=== PATIENT | male | born 1940 | race Caucasian/White ===

== ENCOUNTER 2019-05-16 08:52 | Outpatient (CLI) | payer MEDICARE, SELFPAY ==
[2019-05-16 09:15] VITALS: BP 135/85; PULSE 58; RESP 18; TEMP 36.4; O2SAT 95
[2019-05-16 10:45] VITALS: BP 118/73; PULSE 61; RESP 16; TEMP 36.4; O2SAT 94
== END 2019-05-16 08:53 | disposition home or self-care (01) ==
LOC: RHEOACUTE 08:53
PROVIDERS: Family Provider Family Medicine; PCP Family Medicine; Visit Provider Internal Medicine Rheumatology
DX: M05.9 Rheumatoid arthritis with rheumatoid factor, unspecified (principal); Z79.899 Other long term (current) drug therapy
CPT/HCPCS: 36415; 82565; 84460; 85651; 86140; 96365; J1602

== ENCOUNTER 2019-05-16 16:21 | Outpatient (REF) | payer MEDICARE, SELFPAY ==
[2019-05-16 22:13] LABS: Alanine Aminotransferase 10 U/L (0-41); Albumin Level 4.2 g/dL (3.5-5.2); Alkaline Phosphatase 68 IU/L (40-130); Anion Gap 20.3 (5-19); Aspartate Amino Transferase 16 U/L (0-40); Blood Urea Nitrogen 20 mg/dL (8-23); Calcium 9.3 mg/dL (8.5-10.5); Carbon Dioxide 24 mmol/L (22-29); Chloride 96 mmol/L (98-107); Chol HDL Ratio 5.32 mg/dL (1.0-5.00); Cholesterol 218 mg/dL (0-200); Globulin 2.3 g/dL (1.3-4.6); Glucose 163 mg/dL (65-115); HDL Cholesterol 41 mg/dL (60-100); LDL Cholesterol Calculated 158 mg/dL (50-129); LDL HDL Ratio 3.85 RATIO (0.00-3.22); Potassium 4.3 mmol/L (3.5-5.1); Sodium 136 mmol/L (136-145); Total Bilirubin 0.7 mg/dL (0.15-1.2); Total Protein 6.5 g/dL (6.6-8.7); Triglycerides 95 mg/dL (0-150)
[2019-05-16 22:18] LABS: Estmated Average Glucose 114; Hemoglobin A1C 5.6 % (4.0-6.0)
== END 2019-05-16 16:22 | disposition home or self-care (01) ==
LOC: LAB 16:21
PROVIDERS: Family Provider Family Medicine; PCP Family Medicine; Visit Provider Family Medicine
DX: E78.5 Hyperlipidemia, unspecified (principal); I25.10 Atherosclerotic heart disease of native coronary artery without angina pectoris; E11.9 Type 2 diabetes mellitus without complications
CPT/HCPCS: 80053; 80061; 83036; 85025

== ENCOUNTER 2019-07-11 13:02 | Outpatient (CLI) | payer MEDICARE, SELFPAY ==
[2019-07-11 13:05] VITALS: BP 143/86; PULSE 60; RESP 16; TEMP 36.8; O2SAT 95
[2019-07-11 14:45] VITALS: BMI 26.4
[2019-07-11 14:49] VITALS: BP 123/75; PULSE 60; RESP 18; TEMP 36.6
== END 2019-07-11 13:03 | disposition home or self-care (01) ==
LOC: RHEOACUTE 13:04
PROVIDERS: Family Provider Family Medicine; PCP Family Medicine; Visit Provider Internal Medicine Rheumatology
DX: M05.79 Rheumatoid arthritis with rheumatoid factor of multiple sites without organ or systems involvement (principal)
CPT/HCPCS: 36415; 96365; J1602

== ENCOUNTER → 2019-07-11 13:07 | Outpatient (BNVA) | payer MEDICARE, SELFPAY | PROVIDERS: Family Provider Family Medicine; PCP Family Medicine; Visit Provider Internal Medicine Rheumatology | DX: Z79.899 Other long term (current) drug therapy (principal); M05.79 Rheumatoid arthritis with rheumatoid factor of multiple sites without organ or systems involvement | CPT/HCPCS: 36415; 80076; 82565; 85025; 85651; 86140; 96365; J1602 ==

== ENCOUNTER 2019-08-23 10:29 | Inpatient (IN) | payer MEDICARE, SELFPAY ==
[2019-08-23] VITALS (7 sets, daily range): BP systolic 98–152; BP diastolic 64–92; PULSE 89–114; RESP 20–32; TEMP 36.6–37.1; O2SAT 90–99; BMI 25.0
--- NOTE | 2019-08-23 10:58 | XR_ITS ---
WS: [id number] PORTABLE CHEST HISTORY: SOB COMPARISON: 08/18/2018 Lungs are clear and well expanded. No pleural effusion or pneumothorax. Cardiac size: Normal. Mediastinum/Aorta: Mild atherosclerosis aorta. Osteopenia. Prior LEFT humeral head prosthesis placement. XR/XR chest 1V portable [id number] IMPRESSION: Partially calcified aorta. Otherwise negative.
--- NOTE | 2019-08-23 10:58 | ECG_ITS ---
Measurements Intervals [place] Rate: 106 P: 53 [place]: 191 QRS: -53 QRSD: 117 T: 68 QT: 329 QTc: 438 SINUS TACHYCARDIA WITH OCCASIONAL VENTRICULAR PREMATURE COMPLEXES LEFT ANTERIOR FASCICULAR BLOCK [QRS AXIS <= -45, QR IN I, RS IN II] Compared to ECG 08/18/2018 16:05:34 Ventricular premature complex(es) now present Sinus rhythm no longer present Electronically Signed On 08-23-2019 19:54:28 CDT by Maria G Stoddard M.D. [email or web address]
--- NOTE | 2019-08-23 11:16 | ED_ITS ---
HPI - SOB/Dyspnea General: Chief Complaint: Shortness of Breath/Dyspnea Stated Complaint: sob Time Seen by Provider: 08/23/19 10:54 History of Present Illness: HPI Narrative: Patient presents with complaints of shortness of breath, trouble urinating and being unable to walk due to weakness. He reports that he started having trouble with urinating about 2 weeks ago - he says he can't make it to the bathroom without urine dribbling out, but when he gets to the bathroom he can't go. In the past few days he has gotten to where he can't walk due to weakness in his legs. He has had chronic back pain for several years. His shortness of breath is also worse and he has been coughing a lot - a teacupful of white sputum every day. He used to have oxygen at home but then they took it away and told him he didn't need it anymore. MD elicited complaint: shortness of breath and cough Pertinent past history: COPD and other (RA) Timing: constant Severity: moderate Exacerbating factors: nothing Associated symptoms: Deny abdominal pain, chest pain, fever(s), nausea or vomiting Review of Systems General: Reports: 10 or more systems reviewed and unremarkable except in HPI and below Const: Reports: fatigue; Denies: fever(s), chills or malaise Eyes: Denies: change in vision ENMT: Denies: odynophagia Card: Denies: chest pain or swelling of feet/ankles Resp: Reports: dyspnea and productive cough; Denies: non-productive cough GI: Denies: abdominal pain, nausea or vomiting : Reports: urinary urgency, urinary dribbling and difficulty starting urination; Denies: flank pain Musc: Reports: back pain; Denies: neck pain Skin/Breast: Denies: rash Neuro: Reports: weakness in extremities, difficulty walking and frequent falls; Denies: headache(s) or numbness in extremities [place]/Lymph: Denies: easy bruising or easy bleeding [facility] ED PFSH: Medical History Amputation finger High risk medication use Lipoma of skin and subcutaneous tissue (excluding face) PAD (peripheral artery disease) Rheumatoid arthritis Surgical History H/O cataract extraction H/O shoulder surgery History of appendectomy S/P angioplasty with stent Family History Other Diabetes Hypertension Social History Smoking and tobacco status: current every day smoker Alcohol intake: never Physical Exam Const: COMMON NORMALS: no acute distress, patient oriented x3, no limitations and alert GENERAL APPEARANCE: cooperative and comfortable HENMT: HEAD & SCALP: normal to inspection FACE & SINUS: normal facial exam Eye: GENERAL EYE: appearance normal, both eyes and all related structures Neck/C-Spine: COMMON NORMALS: supple, no meningeal signs and no JVD Chest: COMMONS NORMALS: normal inspection of the chest Resp: COMMON NORMALS: normal respiratory effort and No use of accessory muscles AUSCULTATION: wheezes Cardio: COMMON NORMALS: no JVD, regular rate, regular rhythm and No murmurs present (Cardio) RATE: regular rate RHYTHM: regular rhythm GI: COMMON NORMALS: Normal to inspection, nondistended, normoactive bowel sounds present, Soft to palpation and non-tender INSPECTION: Yes normal to inspection AUSCULTATION: Yes normoactive bowel sounds PALPATION: Yes Soft to palpation Back/Pelvis: COMMON NORMALS: thoracic and lumbar spine normal to inspection Extremity: COMMON NORMALS: normal to inspection Neuro: COMMON NORMALS: patient oriented x3, moves all extremities, no focal motor deficits and no sensory deficits noted SENSORIUM/ORIENTATION: Yes alert MENINGEAL SIGNS: Yes no meningeal signs Psych: COMMON NORMALS: mental status grossly normal, cooperative and normal affect Skin: COMMON NORMALS: no rashes or lesions noted and turgor normal GENERAL SKIN EXAM: no rashes or lesions noted and turgor normal Course ED course: Patient appears to be weak secondary to a urinary tract infection and some dehydration. He does not appear to be in overt sepsis but he does have a low blood pressure and a slightly elevated lactate. This will need to be monitored to make sure it is improving with treatment. In the ED he was given IV fluids, IV Rocephin and pain medicine. He has chronic back pain and requested treatment for that. His sats are good and his chest x-ray was unremarkable. He will be admitted to the hospitalist service for further management. Vital Signs: Vital signs: Vital Signs Temperature 98.5 F 08/23/19 10:46 Pulse Rate 96 08/23/19 13:06 Respiratory Rate 26 H 08/23/19 13:06 Blood Pressure 98/73 08/23/19 13:06 Pulse Oximetry 94 08/23/19 13:06 MDM - SOB/Dyspnea Lab Data: Labs: Lab Results 08/23/19 08/23/19 08/23/19 Range/Units 11:20 11:27 11:27 WBC 16.2 H (4.0-10.0) 10^3/ uL RBC 4.17 (4.1-5.3) 10^6/u L Hgb 12.3 (11.7-16.6) g/dL Hct 37.6 L (42.0-52.0) % MCV 90.2 (80-94) fL MCH 29.5 (28.0-34.0) pg MCHC 32.7 (30.0-36.0) g/dL RDW 16.0 H (12.1-15.1) % Plt Count 155 (130-400) 10^3/c mm MPV 11.9 H (7.4-10.4) fL Neut % (Auto) 85.4 % Lymph % (Auto) 2.0 % [place] % (Auto) 6.3 % Eos % (Auto) 0.1 % Baso % (Auto) 0.4 % Neut # (Auto) 13.9 H (1.8-7.7) 10^3/u L Lymph # (Auto) 0.3 L (0.8-4.8) 10^3/u L [place] # (Auto) 1.0 H (0.2-0.9) 10^3/u L Eos # (Auto) 0.0 (0.0-0.8) 10^3/u L Baso # (Auto) 0.1 (0.0-0.1) 10^3/u L Nucleated RBC % (a uto) 0 % Nucleated RBCs # 0.0 /100WBC Sodium 132 L (136-145) mmol/L Potassium 3.7 (3.5-5.1) mmol/L Chloride 93 L (98-107) mmol/L Carbon Dioxide 22 (22-29) mmol/L Anion Gap 20.7 H (5-19) BUN 33 H (8-23) mg/dL Creatinine 1.4 H (0.7-1.2) mg/dL Glucose 143 H (65-115) mg/dL Calculated Osmolal ity 274 L (285-295) mOsm/k g Lactate (0.5-2.2) mmol/L Calcium 8.3 L (8.5-10.5) mg/dL Total Bilirubin 1.2 (0.15-1.2) mg/dL AST 35 (0-40) U/L ALT 22 (0-41) U/L Alkaline Phosphata se 83 (40-130) IU/L Troponin T Baselin e (0-15) ng/mL NT-Pro-B Natriuret Pep 2264 H (0-450) pg/mL Total Protein 5.9 L (6.6-8.7) g/dL Albumin 3.2 L (3.5-5.2) g/dL Globulin 2.7 (1.3-4.6) g/dL Urine Color Yellow (Yellow) Urine Appearance Hazy A (CLEAR) Urine pH 5 (5-7) Ur Specific Gravit y 1.015 (1.005-1.030) Urine Protein 1+ H (Negative) Urine Glucose (UA) Norm (Normal) Urine Ketones 1+ H (Negative) Urine Blood 2+ H (Negative) Urine Nitrate Negative (Negative) Urine Bilirubin Neg (NEGATIVE) Urine Urobilinogen 1 H (Negative) mg/dL Ur Leukocyte Dee ase 1+ H (Negative) Urine RBC 0-4 H (0-2) /hpf Urine WBC 40-55 H (0-5) /hpf Ur Squamous Epith Cells 0-4 H (0-5) Urine Bacteria 4+ H (NONE) 08/23/19 08/23/19 Range/Units 11:27 11:27 WBC (4.0-10.0) 10^3/ uL RBC (4.1-5.3) 10^6/u L Hgb (11.7-16.6) g/dL Hct (42.0-52.0) % MCV (80-94) fL MCH (28.0-34.0) pg MCHC (30.0-36.0) g/dL RDW (12.1-15.1) % Plt Count (130-400) 10^3/c mm MPV (7.4-10.4) fL Neut % (Auto) % Lymph % (Auto) % [place] % (Auto) % Eos % (Auto) % Baso % (Auto) % Neut # (Auto) (1.8-7.7) 10^3/u L Lymph # (Auto) (0.8-4.8) 10^3/u L [place] # (Auto) (0.2-0.9) 10^3/u L Eos # (Auto) (0.0-0.8) 10^3/u L Baso # (Auto) (0.0-0.1) 10^3/u L Nucleated RBC % (a uto) % Nucleated RBCs # /100WBC Sodium (136-145) mmol/L Potassium (3.5-5.1) mmol/L Chloride (98-107) mmol/L Carbon Dioxide (22-29) mmol/L Anion Gap (5-19) BUN (8-23) mg/dL Creatinine (0.7-1.2) mg/dL Glucose (65-115) mg/dL Calculated Osmolal ity (285-295) mOsm/k g Lactate 2.9 H (0.5-2.2) mmol/L Calcium (8.5-10.5) mg/dL Total Bilirubin (0.15-1.2) mg/dL AST (0-40) U/L ALT (0-41) U/L Alkaline Phosphata se (40-130) IU/L Troponin T Baselin e 27 H (0-15) ng/mL NT-Pro-B Natriuret Pep (0-450) pg/mL Total Protein (6.6-8.7) g/dL Albumin (3.5-5.2) g/dL Globulin (1.3-4.6) g/dL Urine Color (Yellow) Urine Appearance (CLEAR) Urine pH (5-7) Ur Specific Gravit y (1.005-1.030) Urine Protein (Negative) Urine Glucose (UA) (Normal) Urine Ketones (Negative) Urine Blood (Negative) Urine Nitrate (Negative) Urine Bilirubin (NEGATIVE) Urine Urobilinogen (Negative) mg/dL Ur Leukocyte Dee ase (Negative) Urine RBC (0-2) /hpf Urine WBC (0-5) /hpf Ur Squamous Epith Cells (0-5) Urine Bacteria (NONE) Discharge Plan Discharge Prescriptions: No Action hydrocodone-acetaminophen 7.5-325 mg tablet 1 tab PO TID PRN (Reason: Pain) RF: 0 amlodipine 2.5 mg tablet 2.5 mg PO DAILY RF: 0 aspirin 81 mg tablet,delayed release (DR/EC) 81 mg PO DAILY RF: 0 pantoprazole 40 mg tablet,delayed release (DR/EC) 40 mg PO DAILY RF: 0 ergocalciferol (vitamin D2) 50,000 unit capsule 50,000 unit PO Q30D RF: 0 albuterol sulfate 2.5 mg /3 mL (0.083 %) solution for nebulization 2.5 mg INHALATION Q4H PRN (Reason: Shortness Of Breath) RF: 0 alprazolam 0.25 mg tablet 0.25 mg PO DAILY RF: 0 tamsulosin 0.4 mg capsule 0.4 mg PO DAILY RF: 0 sulfasalazine 500 mg tablet 1 gm PO BID Qty: 120 RF: 3 nitroglycerin [Nitrostat] 0.4 mg tablet, sublingual 0.4 mg SUBLINGUAL Q5M PRN (Reason: chest pain) Qty: 25 RF: 0 prednisone 5 mg tablet 10 mg PO DAILY Qty: 60 RF: 0 Kevzara 200 mg/1.14 mL pen injector 200 mg SUBCUT Q14D RF: 0 Referrals: Vasu Ramsay MD [Primary Care Provider] - Coding Level of Care Code ED Educator Senior Clinical for Chg Fwd Exam Comprehensive
[2019-08-23 11:35] LABS: Basophils # 0.1 10^3/uL (0.0-0.1); Basophils % 0.4 %; Eosinophils % 0.1 %; Hematocrit 37.6 % (42.0-52.0); Hemoglobin 12.3 g/dL (11.7-16.6); Lymphocytes # 0.3 10^3/uL (0.8-4.8); Mean Corpuscular HGB Conc 32.7 g/dL (30.0-36.0); Mean Corpuscular Hemoglobin 29.5 pg (28.0-34.0); Mean Corpuscular Volume 90.2 fL (80-94); Mean Platelet Volume 11.9 fL (7.4-10.4); Monocytes % 6.3 %; Neutrophils # 13.9 10^3/uL (1.8-7.7); Neutrophils % 85.4 %; Nucleated Red Blood Cells % 0 %; Platelet Count 155 10^3/cmm (130-400); Red Blood Count 4.17 10^6/uL (4.1-5.3); White Blood Count 16.2 10^3/uL (4.0-10.0)
[2019-08-23 11:45] LABS: Protein Urine 1+ (Negative); Specific Gravity, Urine 1.015 (1.005-1.030); Urine Appearance Hazy (CLEAR); Urine Color Yellow (Yellow); pH Urine 5 (5-7)
[2019-08-23 11:46] LABS: Add Urine Microscopic? YES; Bilirubin Urine Neg (NEGATIVE); Blood Urine 2+ (Negative); Glucose Urine UA Norm (Normal); Ketones Urine 1+ (Negative); Leukocyte Esterase Urine 1+ (Negative); Nitrate Urine Negative (Negative); Urobilinogen Urine 1 mg/dL (Negative)
[2019-08-23 11:49] LABS: Lactate (Lactic Acid level) 2.9 mmol/L (0.5-2.2)
[2019-08-23 11:52] LABS: Troponin(5th) Baseline 27 ng/mL (0-15)
[2019-08-23 11:55] LABS: Slide Review Slide Review Perform
[2019-08-23 11:56] LABS: Add Urine Culture? Yes; Bacteria Urine 4+; RBC Urine 0-4 /hpf (0-2); Squamous Epithelial Cell Urine 0-4 (0-5); WBC Urine 40-55 /hpf (0-5)
[2019-08-23 12:00] LABS: Alanine Aminotransferase 22 U/L (0-41); Albumin Level 3.2 g/dL (3.5-5.2); Alkaline Phosphatase 83 IU/L (40-130); Anion Gap 20.7 (5-19); Aspartate Amino Transferase 35 U/L (0-40); Blood Urea Nitrogen 33 mg/dL (8-23); Calcium 8.3 mg/dL (8.5-10.5); Carbon Dioxide 22 mmol/L (22-29); Chloride 93 mmol/L (98-107); Globulin 2.7 g/dL (1.3-4.6); Glucose 143 mg/dL (65-115); NT Pro B Type Natriuretic Pept 2264 pg/mL (0-450); Osmolality Calculated 274 mOsm/kg (285-295); Potassium 3.7 mmol/L (3.5-5.1); Sodium 132 mmol/L (136-145); Total Bilirubin 1.2 mg/dL (0.15-1.2); Total Protein 5.9 g/dL (6.6-8.7)
[2019-08-23] MEDS: sodium chloride 0.9% 1,000 ML 999 ML IV (13:01)
[2019-08-23] MEDS: cefTRIAXone 1,000 MG in sodium chloride 0.9% (plus) 50 ML 100 MG IV (13:01)
[2019-08-23] MEDS: ondansetron 2 mg/ML SDV 2 mL 4 MG IVP (13:02)
[2019-08-23] MEDS: morphine 4 mg/mL SDV 1 mL IVP (13:02)
--- NOTE | 2019-08-23 13:20 | P.HP_ITS ---
Providers/Chief Complaint Admitting Physician: Diana Dick MD Primary Care Provider: Vasu Ramsay MD Chief Complaint: Generalized weakness History of Present Illness Chinmay Guerrier is a 78 year old male with PMHx of CAD s/p stenting, HTN, Seropositive RA, Chronic smoker, COPD; presents from home for evaluation of progressive generalized weakness, multiple falls, urinary hesitancy, urgency over the past 4 to 5 days. He has had decreasing oral intake due to diminished appetite and generally has been feeling quite unwell. He had scheduled an appointment with his primary care provider Dr. Ramsay today but due to feeling even worse this morning decided to come to the ER for evaluation. He lives at home with his , daughter assists as needed and is typically quite independe nt. Typically ambulates with a cane/walker but has found that over the past few days whenever he tries to ambulate he feels his legs give out on him and ends up falling. He denies preceding chest pain, shortness of breath, dizziness/lightheadedness prior to fall. He has noticed difficulty initiating urine stream, hesitancy, incomplete emptying, urgency as well as nausea. He denies any fever/chills, abdominal pain, vomiting, hematuria, dysuria, change in parents or smell of urine. He reports being chronically short of breath with productive cough, white sputum which has been unchanged. He is not oxygen dependent at baseline. He is a good historian when assessed in the ER, collateral information obtained from review of medical record. He is on chronic prednisone, recently started on sulfasalazine and on Simponi Aria infusions, follows up with Dr. Guzman. He follows up with Dr. Godinez as his primary academic records specialist, recent had a Holter monitor showing baseline sinus rhythm with PV Cs. On evaluation in the ER he was noted to be mildly tachycardic, tachypneic, with noted leukocytosis with a white count of 16.2, mild hyponatremia with a sodium of 132, BUN of 33, creatinine of 1.4, blood glucose of 143, lactate of 2.9, BNP of 2264, troponins with negative delta. Chest x-ray is unremarkable, UA is indicative of infection. He has received a dose of ceftriaxone as well as a 1 L normal saline bolus, 4 mg dose of IV morphine and a dose of Zofran. He is not ill-appearing and does not appear to be in any acute distress. Most recent vital signs show a blood pressure of 98/73, heart rate of 96, temperature of 98.5, he is currently on room air and saturating at 94%. He requires admission for further treatment of UTI with associated sepsis as evidenced by tachycardia, leukocytosis, lactic acidosis, MITA, tachypnea. Discussed CODE STATUS and he is agreeable to CPR and chest compressions but does not desire intubation. Review of Systems Const: Reports: change in appetite (decreased appetite), fatigue and malaise; Denies: fever(s) or chills Eyes: Denies: change in vision ENMT: Reports: dry mouth; Denies: odynophagia Card: Denies: chest pain, swelling of feet/ankles or lightheadedness Resp: Reports: dyspnea (chronic, no change) and productive cough (white sputum) GI: Denies: abdominal pain, nausea, vomiting, hematemesis or hematochezia : Reports: urinary urgency, urinary hesitancy and difficulty starting urination; Denies: dysuria, urinary frequency or hematuria Musc: Denies: back pain Skin/Breast: Denies: rash Neuro: Reports: weakness in extremities (bilateral LEs) and frequent falls; Denies: numbness in extremities Psych: Denies: anxiety Medications/Allergies Home Medications Medication Instructions Recorded Confirmed Last Taken Type albuterol sulfate 2.5 mg INHALATION Q4H PRN 04/19/19 08/23/19 Unknown History alprazolam 0.25 mg tablet 0.25 mg PO DAILY 04/19/19 08/23/19 08/22/19 History amlodipine 2.5 mg tablet 2.5 mg PO DAILY 04/19/19 08/23/19 08/23/19 History aspirin 81 mg tablet,delayed 81 mg PO DAILY 04/19/19 08/23/19 08/22/19 History release ergocalciferol (vitamin D2) 1,250 50,000 unit PO Q30D cap 04/19/19 08/23/19 Unknown History mcg (50,000 unit) capsule hydrocodone 7.5 mg-acetaminophen 1 tab PO TID PRN 04/19/19 08/23/19 Unknown History 325 mg tablet pantoprazole 40 mg tablet,delayed 40 mg PO DAILY 04/19/19 08/23/19 08/23/19 History release tamsulosin 0.4 mg capsule 0.4 mg PO DAILY 04/19/19 08/23/19 08/22/19 History nitroglycerin 0.4 mg sublingual 0.4 mg SUBLINGUAL Q5M PRN #25 tab 04/20/19 08/23/19 Unknown Rx tablet sulfasalazine 500 mg tablet 1 gm PO BID #120 tab 06/20/19 08/23/19 Unknown Rx prednisone 5 mg tablet 10 mg PO DAILY #60 tab 07/10/19 08/23/19 08/23/19 Rx sarilumab [Kevzara] 200 mg SUBCUT Q14D 08/23/19 08/23/19 Unknown History Allergies Allergy/AdvReac Type Severity Reaction Status Date / Time atorvastatin [From Lipitor] Allergy unknown Verified 04/19/19 16:02 ezetimibe [From Vytorin] Allergy unknown Verified 04/19/19 16:01 niacin Allergy unknown Verified 04/19/19 16:01 [From Niaspan Extended-Release] ranitidine Allergy unknown Verified 04/19/19 16:03 rosuvastatin [From Crestor] Allergy unknown Verified 04/19/19 16:02 simvastatin [From Vytorin] Allergy unknown Verified 04/19/19 16:01 PFSH Acute PFSH: Medical History (Updated 08/23/19 @ 13:38 by Diana Dick MD) Abdominal aortic atherosclerosis Amputation finger Atrial myxoma CAD (coronary artery disease) High risk medication use HTN (hypertension) Hyperlipemia Lipoma of skin and subcutaneous tissue (excluding face) PAD (peripheral artery disease) Rheumatoid arthritis seropositive Surgical History (Updated 08/23/19 @ 13:28 by Diana Dick MD) H/O cataract extraction H/O shoulder surgery left H/O: vasectomy History of appendectomy S/P angioplasty with stent x 3 stents Family History (Updated 08/23/19 @ 13:28 by Diana Dick MD) Father Lung disease COPD Other Diabetes Hypertension Social History (Updated 08/23/19 @ 13:29 by Diana Dick MD) Smoking and tobacco status: current every day smoker cigarettes Number of cigarettes per day: 1-5 Alcohol intake: never Substance/Drug Use: never Household members: spouse Marital status: Current occupational status: retired Vitals/I&O/Wt Last Vital Signs Temp 98.5 F 08/23/19 10:46 Pulse 96 08/23/19 13:06 Resp 26 H 08/23/19 13:06 BP 98/73 08/23/19 13:06 Pulse Ox 94 08/23/19 13:06 Weight last 48 hrs Weight 72.575 kg Physical Exam Const: COMMON NORMALS: no acute distress, patient oriented x3 and alert GENERAL APPEARANCE: cooperative and comfortable; not ill appearing NUTRITIONAL APPEARANCE: overweight ORIENTATION/CONSCIOUSNESS: Yes awake OTHER: -looks appropriate for age HENMT: COMMON NORMALS: normocephalic, atraumatic and moist oral mucous membranes HEAD & SCALP: normocephalic and atraumatic GENERAL EAR: hearing grossly impaired Laterality: bilateral Eye: COMMON NORMALS: Equal, round and reactive pupils present, EOMs intact bilaterally and conjunctivae normal CONJUNCTIVA: Yes conjunctivae normal PUPIL: Yes Equal, round and reactive pupils present Neck/C-Spine: COMMON NORMALS: full ROM GENERAL: Yes normal visual inspection and Yes trachea midline Chest: CHEST: Yes Symmetrical chest wall rise Resp: COMMON NORMALS: normal respiratory effort, No retractions, No use of accessory muscles and clear to auscultation bilaterally EFFORT & INSPECTION: Yes able to speak in complete sentences, Yes symmetric chest movement and No tachypneic AUSCULTATION: clear to auscultation bilaterally OTHER: -on RA Cardio: COMMON NORMALS: regular rate, regular rhythm, S1 normal heart sound present and S2 normal heart sound present RATE: regular rate RHYTHM: regular rhythm HEART SOUNDS: S1 normal heart sound present, S2 normal heart sound present and Murmur heart sound present systolic GI: COMMON NORMALS: Normal to inspection, nondistended, normoactive bowel sounds present, Soft to palpation and non-tender INSPECTION: Yes central obesity PALPATION: Yes Soft to palpation : BLADDER/KIDNEY EXAM: No catheter in place Extremity: COMMON NORMALS: normal to inspection, full ROM, no clubbing, cyanosis or edema and no pedal edema Neuro: COMMON NORMALS: patient oriented x3, moves all extremities, no focal motor deficits and no sensory deficits noted Psych: COMMON NORMALS: mental status grossly normal, Normal thought process present, cooperative, normal affect and speech normal SPEECH: Yes normal speech THOUGHT PROCESS: Normal thought process present Skin: COMMON NORMALS: no rashes or lesions noted, no jaundice, no petechiae and no mottling GENERAL SKIN EXAM: no rashes or lesions noted Sepsis: Is patient septic: Yes Focused sepsis exam performed: Yes Date exam was performed: 08/23/19 Time exam was performed: 13: Data : 08/23/19 11:27 08/23/19 11:27 A&P Assessment and plan (1) UTI (urinary tract infection): -UA indicative of infection -associated sepsis given lactic acidosis, leukocytosis, tachycardia, tachypnea, MITA -noted leukocytosis with neutrophilic predominance, trend WBC -monitor vital signs -received dose of Ceftriaxone in ED, continue this -f/u urine cx; order blood cx -IVF hydration Status: Acute Qualifiers: Urinary tract infection type: acute cystitis Hematuria presence: without hematuria Qualified Code(s): N30.00 - Acute cystitis without hematuria (2) Generalized weakness: -likely secondary to acute infection given recent onset -treatment of infection as noted above -typically ambulates with cane/walker -fall precautions -up with assist, PT/OT evaluations Status: Acute (3) HTN (hypertension): -low normal BP currently, continue to monitor -hold Amlodipine for now to avoid hypotension Status: Chronic Qualifiers: Hypertension type: essential hypertension Qualified Code(s): I10 - Essential (primary) hypertension (4) CAD (coronary artery disease): -CAD s/p stenting x 3 -follows up with Dr. Godinez -had recent Holter monitor which showed baseline normal sinus rhythm with PVCs -resume aspirin, has allergy to multiple statins Status: Chronic Qualifiers: Coronary Disease-Associated Artery/Lesion type: [place] artery [place] vs. transplanted heart: [place] heart Associated angina: without angina Qualified Code(s): I25.10 - Atherosclerotic heart disease of [place] coronary artery without angina pectoris (5) COPD (chronic obstructive pulmonary disease): -no acute exacerbation currently -Not oxygen dependant at baseline -supplemental oxygen as needed, monitor respiratory status -no recent travel, contact with known COVID-19 patient; low suspicion for this though considered as patient is on chronic immunosuppression therapy for RA Status: Chronic Qualifiers: COPD type: emphysema Emphysema type: unspecified Qualified Code(s): J43.9 - Emphysema, unspecified (6) Seropositive rheumatoid arthritis of multiple joints: -has known seropositive RA involving multiple joints -Follows up with rheum Dr. Guzman -on chronic prednisone, sulfasalazine, Simponi Aria infusions -pain control as needed Status: Chronic Additional A&P Information -Advanced age -Chronic smoker; 2-3 cig/day -BPH; resume tamsulosin -Anxiety; resume alprazolam -remote hx of PE -hyponatremia; likely due to dehydration; on IVF -hyperglycemia, likely reactive due to acute infection and he is on chronic steroids; check A1c -regular diet as tolerated; encourage oral hydration -GI ppx with PPI, chronically on this due to chronic steroid use -DVT ppx with lovenox, SCDs -Dispo: home, potentially with HH -Code status: DNI; ok with CPR Attestations Medical Necessity Statement*: Chinmay Guerrier's hospital stay will require greater than 2 midnights for management of UTI with associated sepsis and gene ralized weakness requiring IV fluid hydration and IV antibiotic treatment. Time Spent in Patient Care: Greater than 35 minutes (>than 50% of time spent in counselling and/or direct pt care on unit) . Coding Level of Care Code Acute Box Inspector for Chg Fwd Diagnoses UTI (urinary tract infection) N30.00 Urinary tract infection type: acute cystitis Hematuria presence: without hematuria Generalized weakness R53.1 HTN (hypertension) I10 Hypertension type: essential hypertension CAD (coronary artery disease) I25.10 Coronary Disease-Associated Artery/Lesion type: [place] artery [place] vs. transplanted heart: [place] heart Associated angina: without angina COPD (chronic obstructive pulmonary disease) J43.9 COPD type: emphysema Emphysema type: unspecified Seropositive rheumatoid arthritis of multiple joints M05.79 Sepsis Event Note Evaluation Current stage of sepsis: sepsis Possible source: genitourinary Focused Exam Vital Signs Temp Pulse Pulse Resp BP BP Pulse Ox 08/23/19 13:06 96 26 H 98/73 94 08/23/19 10:58 94 08/23/19 10:46 98.5 F 114 H 20 H 131/92 94 Cardiovascular exam: Present S1, S2, murmur (systolic) and tachycardia Peripheral pulse strength: 3+ Normal Peripheral pulse location: Posterior Tibial Skin exam: normal turgor Date exam was performed: 08/23/19 Time exam was performed: 13:51
[2019-08-23 14:08] LABS: Troponin 5 2HR 26.76 ng/mL (0-15)
--- NOTE | 2019-08-23 14:14 | PC.NURSE ---
andrés herrera nurse refused to take report from ER
[2019-08-23 14:36] LABS: Troponin 5 2HR Delta -0.24 ABS# (0-10)
--- NOTE | 2019-08-23 15:30 | USCV_ITS ---
Chinmay Guerrier Age: 78 Gender: M : 1940 Exam Date: 08/23/2019 17:11 Ordering Phys: Diana Dick MD Technologist: Cori Bates [place] [facility] [place]: [place] BP: / HR: 109 Rhythm: Sinus Technical Quality: Technically difficult study MEASUREMENTS (Male / Female) Normal Values 2D ECHO LV Diastolic Diameter PLAX 4.6 cm 4.2 - 5.9 / 3.9 - 5.3 cm LV Systolic Diameter PLAX 3.7 cm LV Chamber Size 4.3 cm IVS Diastolic Thickness 1.1 cm 0.6 - 1.0 / 0.6 - 0.9 cm IVS Systolic Thickness 1.3 cm LVPW Diastolic Thickness 2.5 cm 0.6 - 1.0 / 0.6 - 0.9 cm LVPW Systolic Thickness 2.3 cm RV Chamber Size 3.5 cm LVOT Diameter 2.1 cm LV Ejection Fraction 2D Teich 42.4 % LV Ejection Fraction MOD 2C 45.4 % LV Ejection Fraction 2C AL 45.4 % LA Diameter 5.1 cm LA Width 4.1 cm LA Height 4.7 cm RA Width 2.5 cm RA Height 4.4 cm Aorta at Sinotubular Diameter 2.7 cm M-MODE LV Diastolic Diameter MM 6.7 cm 4.2 - 5.9 / 3.9 - 5.3 cm LV Systolic Diameter MM 5.0 cm LV Ejection Fraction MM Teich 49.2 % IVS Diastolic Thickness MM 0.9 cm 0.6 - 1.0 / 0.6 - 0.9 cm IVS Systolic Thickness MM 1.4 cm LVPW Diastolic Thickness MM 1.2 cm 0.6 - 1.0 / 0.6 - 0.9 cm LVPW Systolic Thickness MM 1.9 cm Aortic Annulus Diameter 4.1 cm LA Ao Ratio MM 1.3 MV E Point Septal Separation 1.1 cm DOPPLER AV Peak Velocity 176.0 cm/s LVOT Peak Velocity 124.0 cm/s AV Area Cont Eq vti 3.0 cm squared AV Area Cont Eq pk 2.3 cm squared MV Area PHT 5.4 cm squared Mitral E to A Ratio 2.0 MV E' Velocity 27.0 cm/s Mitral E to MV E' Ratio 4.6 Mitral E to LV E' Lateral Ratio 3.8 Mitral E to LV E' Septal Ratio 5.9 TR Peak Velocity 162.0 cm/s TR Peak Gradient 10.5 mmHg TV Peak E Velocity 82.0 cm/s Right Atrial Pressure 3.0 mmHg Pulmonary Artery Systolic Pressu 13.5 mmHg PV Peak Velocity 74.0 cm/s RV Acceleration Time 0.1 s RV Ejection Time 0.3 s RV AcT/ET 0.4 FINDINGS Left Ventricle This is a very poor quality study with poor imaging. The ventricle is likely normal in size and function. Ejection fraction is probably within normal range. No obvious wall motion disturbances. There are frequent PVCs making the evaluation of left ventricular function more difficult. Diastolic function cannot be determined. Right Ventricle Normal right ventricular size and systolic function. Normal right ventricular systolic pressure. Right Atrium Mildly increased right atrial size. Left Atrium Mildly increased left atrial size. Mitral Valve Poorly seen Aortic Valve Poorly seen. No obvious aortic stenosis or regurgitation. Tricuspid Valve Tricuspid valve not well visualized. Pulmonic Valve Pulmonic valve not well visualized. Pericardium Normal pericardium without effusion. Aorta Normal ascending aorta dimension. CONCLUSIONS This is a very poor quality study with poor imaging. The ventricle is likely normal in size and function. Ejection fraction is probably within normal range. No obvious wall motion disturbances. There are frequent PVCs making the evaluation of left ventricular function more difficult. Diastolic function cannot be determined. Mildly increased right atrial size. Mildly increased left atrial size. Technically limited study. No significant valve abnormalities. The previous study was done 08/19/2018. The ventricular size and function are essentially the same. A mobile mass suspicious for vegetation or rudimentary subvalvular lesion was noted. I do not see that on this study. Otherwise, there has been no change. Dr. Karson Mcgee MD (Electronically Signed) Final Date: 23 Aug 2019 18:10 S
[2019-08-23] MEDS: enoxaparin 40 mg/0.4 mL Syringe SUBCUT (16:44)
[2019-08-23] MEDS: HYDROcodone-acetaminophen 7.5-325 mg Tablet 1 TAB PO (16:44)
[2019-08-23] MEDS: sodium chloride 0.9% 1,000 ML 75 ML IV (16:45)
[2019-08-23 18:40] LABS: Troponin 5 6HR 25.44 ng/mL (0-15)
[2019-08-23 18:47] LABS: Troponin 5 6HR Delta -1.56 ng/L (0-12)
[2019-08-24] VITALS (7 sets, daily range): BP systolic 98–121; BP diastolic 56–65; PULSE 42–97; RESP 16–24; TEMP 36.3–37.1; O2SAT 93–98
[2019-08-24] MEDS: benzonatate 100 mg Capsule 200 MG PO ×3 (01:23→20:08)
[2019-08-24] MEDS: HYDROcodone-acetaminophen 7.5-325 mg Tablet 1 TAB PO ×4 (01:23→20:09)
[2019-08-24 05:00] LABS: Basophils # 0.1 10^3/uL (0.0-0.1); Basophils % 0.4 %; Eosinophils % 0.3 %; Hematocrit 33.4 % (42.0-52.0); Lymphocytes # 0.7 10^3/uL (0.8-4.8); Lymphocytes % 4.9 %; Mean Corpuscular HGB Conc 32.9 g/dL (30.0-36.0); Mean Corpuscular Hemoglobin 30.3 pg (28.0-34.0); Mean Platelet Volume 12.1 fL (7.4-10.4); Monocytes # 1.3 10^3/uL (0.2-0.9); Monocytes % 9.3 %; Neutrophils # 10.9 10^3/uL (1.8-7.7); Neutrophils % 76.4 %; Nucleated Red Blood Cells % 0 %; Platelet Count 121 10^3/cmm (130-400); Red Blood Count 3.63 10^6/uL (4.1-5.3); White Blood Count 14.2 10^3/uL (4.0-10.0)
[2019-08-24 05:16] LABS: Blood Urea Nitrogen 26 mg/dL (8-23); Calcium 7.9 mg/dL (8.5-10.5); Carbon Dioxide 24 mmol/L (22-29); Chloride 99 mmol/L (98-107); Glucose 67 mg/dL (65-115); Osmolality Calculated 275 mOsm/kg (285-295); Sodium 135 mmol/L (136-145)
[2019-08-24 05:25] LABS: Estmated Average Glucose 143; Hemoglobin A1C 6.6 % (4.0-6.0)
[2019-08-24 05:33] LABS: Slide Review Slide Review Perform
[2019-08-24] MEDS: sodium chloride 0.9% 1,000 ML 75 ML IV ×2 (06:04→16:55)
[2019-08-24] MEDS: acetaminophen 325 mg Tablet 650 MG PO (07:41)
[2019-08-24] MEDS: tamsulosin 0.4 mg Capsule PO (08:35)
[2019-08-24] MEDS: pantoprazole DR 40 mg Tablet PO (08:35)
[2019-08-24] MEDS: predniSONE 5 mg Tablet 10 MG PO (08:35)
[2019-08-24] MEDS: ALPRAZolam 0.25 mg Tablet PO (08:35)
[2019-08-24] MEDS: aspirin 81 mg EC Tablet PO (08:35)
[2019-08-24] MEDS: cefTRIAXone 1,000 MG in sodium chloride 0.9% (plus) 50 ML 100 MG IV (08:36)
--- NOTE | 2019-08-24 13:15 | P.PN_ITS ---
Subjective Subjective: Interval history: Hemodynamically stable, afebrile, had 825 mL urine output overnight. Improved renal function and decreased leukocytosis noted on a.m. labs. Working with OT, just finished PT session and seems fatigued from this but reports overall feeling better today. Prelim urine cx growing GNRs also noted in 3/4 bottles of initial blood cx; repeat set ordered. Medications: Reviewed: Yes Medication Review Details: Active Medications Generic Name Dose Route Start Last Admin Trade Name Freq PRN Reason Stop Dose Admin Acetaminophen 650 mg 08/23/19 15:30 08/24/19 07:41 Tylenol PO 650 mg Q6H PRN Administration Mild/Mod Pain Or Temp >/= 101 Hydrocodone Bitart /Acetaminophen 1 tab 08/23/19 15:30 08/24/19 09:46 [place] 7.5-325 Mg PO 1 tab TID PRN Administration SEVERE PAIN Albuterol Sulfate 2.5 mg 08/23/19 15:45 Albuterol INHALATION Q4H PRN Shortness Of Yessi th Alprazolam 0.25 mg 08/24/19 09:00 08/24/19 08:35 Xanax PO 0.25 mg DAILY CATA Administration Aspirin 81 mg 08/24/19 09:00 08/24/19 08:35 Aspirin Ec PO 81 mg DAILY CATA Administration Benzonatate 200 mg 08/24/19 01:14 08/24/19 09:45 Tessalon Pearls PO 200 mg TID PRN Administration COUGH Enoxaparin Sodium 40 mg 08/23/19 16:00 08/23/19 16:44 Lovenox SUBCUT 40 mg Q24H CATA Administration Sodium Chloride 1,000 mls @ 75 ml s/hr 08/23/19 15:30 08/24/19 06:04 Sodium Chloride 0.9% IV 75 mls/hr .[id number] CATA Administration Ceftriaxone Sodium 1,000 mg/ 50 mls @ 100 mls/ hr 08/24/19 09:00 08/24/19 08:36 Sodium Chloride IV 100 mls/hr DAILY CATA Administration Protocol Nitroglycerin 0.4 mg 08/23/19 15:30 Nitrostat SUBLINGUAL Q5M PRN chest pain Ondansetron HCl 4 mg 08/23/19 15:30 Zofran IVP Q6H PRN vomiting, or N/V if npo Pantoprazole Sodiu m 40 mg 08/24/19 09:00 08/24/19 08:35 Protonix PO 40 mg DAILY CATA Administration Prednisone 10 mg 08/24/19 09:00 08/24/19 08:35 Prednisone PO 10 mg DAILY CATA Administration Tamsulosin HCl 0.4 mg 08/24/19 09:00 08/24/19 08:35 Flomax PO 0.4 mg DAILY CATA Administration atorvastatin [From Lipitor] Allergy (Verified 04/19/19 16:02) unknown ezetimibe [From Vytorin] Allergy (Verified 04/19/19 16:01) unknown niacin [From Niaspan Extended-Release] Allergy (Verified 04/19/19 16:01) unknown ranitidine Allergy (Verified 04/19/19 16:03) unknown rosuvastatin [From Crestor] Allergy (Verified 04/19/19 16:02) unknown simvastatin [From Vytorin] Allergy (Verified 04/19/19 16:01) unknown Vitals/I&O/Wt Last Vital Signs Temp 98.1 F 08/24/19 11:17 Pulse 75 08/24/19 11:17 Resp 20 H 08/24/19 11:17 BP 105/62 08/24/19 11:17 Pulse Ox 96 08/24/19 11:17 08/23/19 08/24/19 08/24/19 22:59 06:59 14:59 Intake Total 520 / 1570 1600 / 3170 360 / 360 Output Total 250 / 250 575 / 825 200 / 200 Balance 270 / 1320 1025 / 2345 160 / 160 Weight last 48 hrs Weight 82.282 kg Weight 72.575 kg Physical Exam Const: COMMON NORMALS: no acute distress, patient oriented x3 and alert GENERAL APPEARANCE: cooperative and comfortable; not ill appearing NUTRITIONAL APPEARANCE: overweight ORIENTATION/CONSCIOUSNESS: Yes awake OTHER: -looks appropriate for age HENMT: COMMON NORMALS: normocephalic, atraumatic and moist oral mucous membranes HEAD & SCALP: normocephalic and atraumatic GENERAL EAR: hearing grossly impaired Laterality: bilateral Eye: COMMON NORMALS: Equal, round and reactive pupils present, EOMs intact bilaterally and conjunctivae normal CONJUNCTIVA: Yes conjunctivae normal PUPIL: Yes Equal, round and reactive pupils present Neck/C-Spine: COMMON NORMALS: full ROM GENERAL: Yes normal visual inspection and Yes trachea midline Chest: CHEST: Yes Symmetrical chest wall rise Resp: COMMON NORMALS: normal respiratory effort, No retractions, No use of accessory muscles and clear to auscultation bilaterally EFFORT & INSPECTION: Yes able to speak in complete sentences, Yes symmetric chest movement and No tachypneic AUSCULTATION: clear to auscultation bilaterally OTHER: -on RA Cardio: COMMON NORMALS: regular rate, regular rhythm, S1 normal heart sound present and S2 normal heart sound present RATE: regular rate RHYTHM: regular rhythm HEART SOUNDS: S1 normal heart sound present, S2 normal heart sound present and Murmur heart sound present systolic GI: COMMON NORMALS: Normal to inspection, nondistended, normoactive bowel sounds present, Soft to palpation and non-tender INSPECTION: Yes central obesity PALPATION: Yes Soft to palpation : BLADDER/KIDNEY EXAM: No catheter in place Extremity: COMMON NORMALS: normal to inspection, full ROM, no clubbing, cyanosis or edema and no pedal edema Neuro: COMMON NORMALS: patient oriented x3, moves all extremities, no focal motor deficits and no sensory deficits noted SENSORIUM/ORIENTATION: Yes alert GAIT: Yes Assistive device used walker Psych: COMMON NORMALS: mental status grossly normal, Normal thought process present, cooperative, normal affect and speech normal SPEECH: Yes normal speech THOUGHT PROCESS: Normal thought process present Skin: COMMON NORMALS: no rashes or lesions noted, no jaundice, no petechiae and no mottling GENERAL SKIN EXAM: no rashes or lesions noted Data : 08/24/19 04:43 08/24/19 04:43 Micro: Microbiology 08/23/19 11:20 Urine Culture - Preliminary Urine,Clean Catch Gram Negative Rods 08/23/19 11:20 Blood Culture - Preliminary Blood Gram Negative Rods 08/23/19 11:27 Blood Culture - Preliminary Blood Gram Negative Rods A&P Assessment and plan (1) UTI (urinary tract infection): -UA indicative of infection -associated sepsis given lactic acidosis, leukocytosis, tachycardia, tachypnea, MITA -noted leukocytosis with neutrophilic predominance, trend WBC -monitor vital signs -received dose of Ceftriaxone in ED, continue this -urine cx; GNRs, pending ID & sensitivity -blood cx: 3/4 bottles positive for GNRs, pending ID & sensitivity; repeat set ordered -IVF hydration Status: Acute Qualifiers: Hematuria presence: without hematuria Urinary tract infection type: acute cystitis Qualified Code(s): N30.00 - Acute cystitis without hematuria (2) Bacteremia due to Gram-negative bacteria: -blood cx: 3/4 bottles positive for GNRs, pending ID & sensitivity; repeat set ordered -on Ceftriaxone -likely source is given complicated UTI Status: Acute (3) Generalized weakness: -likely secondary to acute infection given recent onset -treatment of infection as noted above -typically ambulates with cane/walker -fall precautions -up with assist, PT/OT evaluations Status: Acute (4) HTN (hypertension): -low normal BP currently, continue to monitor -hold Amlodipine for now to avoid hypotension Status: Chronic Qualifiers: Hypertension type: essential hypertension Qualified Code(s): I10 - Essential (primary) hypertension (5) CAD (coronary artery disease): -CAD s/p stenting x 3 -follows up with Dr. Godinez -had recent Holter monitor which showed baseline normal sinus rhythm with PVCs -on aspirin, has allergy to multiple statins Status: Chronic Qualifiers: Associated angina: without angina Coronary Disease-Associated Artery/Lesion type: [place] artery [place] vs. transplanted heart: [place] heart Qualified Code(s): I25.10 - Atherosclerotic heart disease of [place] coronary artery without angina pectoris (6) COPD (chronic obstructive pulmonary disease): -no acute exacerbation currently -Not oxygen dependant at baseline -supplemental oxygen as needed, monitor respiratory status -no recent travel, contact with known COVID-19 patient; low suspicion for this though considered as patient is on chronic immunosuppression therapy for RA Status: Chronic Qualifiers: COPD type: emphysema Emphysema type: unspecified Qualified Code(s): J43.9 - Emphysema, unspecified (7) Seropositive rheumatoid arthritis of multiple joints: -has known seropositive RA involving multiple joints -Follows up with rheum Dr. Guzman -on chronic prednisone, sulfasalazine, Simponi Aria infusions -pain control as needed Status: Chronic Additional A&P Information -Advanced age -Chronic smoker; 2-3 cig/day -BPH; on tamsulosin -Anxiety; on alprazolam -remote hx of PE -hyponatremia; likely due to dehydration; on IVF -hyperglycemia, likely reactive due to acute infection and he is on chronic steroids; A1c-6.6 -regular diet as tolerated; encourage oral hydration -GI ppx with PPI, chronically on this due to chronic steroid use -DVT ppx with lovenox, SCDs -Dispo: home, potentially with HH -Code status: DNI; ok with CPR Attestations Medical Necessity Statement*: Patient requires hospitalization for continued IV fluid hydration, IV antibiotics secondary to complicated UTI with associated bacteremia; pending culture results. Time Spent in Patient Care: 16 - 35 minutes (>than 50% of time spent in counselling and/or direct pt care on unit) . Coding Level of Care Code Acute Spinner Cap Frame for Chg Fwd Exam Comprehensive Diagnoses UTI (urinary tract infection) N30.00 Hematuria presence: without hematuria Urinary tract infection type: acute cystitis Bacteremia due to Gram-negative bacteria R78.81 Generalized weakness R53.1 HTN (hypertension) I10 Hypertension type: essential hypertension CAD (coronary artery disease) I25.10 Associated angina: without angina Coronary Disease-Associated Artery/Lesion type: [place] artery [place] vs. transplanted heart: [place] heart COPD (chronic obstructive pulmonary disease) J43.9 COPD type: emphysema Emphysema type: unspecified Seropositive rheumatoid arthritis of multiple joints M05.79
[2019-08-24] MEDS: enoxaparin 40 mg/0.4 mL Syringe SUBCUT (16:53)
[2019-08-25] VITALS (9 sets, daily range): BP systolic 109–134; BP diastolic 67–82; PULSE 49–105; RESP 16–28; TEMP 36.4–37; O2SAT 91–100
[2019-08-25] MEDS: HYDROcodone-acetaminophen 7.5-325 mg Tablet 1 TAB PO ×3 (01:26→20:22)
[2019-08-25 05:01] LABS: Basophils # 0.1 10^3/uL (0.0-0.1); Basophils % 0.5 %; Eosinophils # 0.1 10^3/uL (0.0-0.8); Eosinophils % 0.3 %; Hematocrit 34.9 % (42.0-52.0); Lymphocytes % 6.7 %; Mean Corpuscular HGB Conc 31.5 g/dL (30.0-36.0); Mean Corpuscular Hemoglobin 29.4 pg (28.0-34.0); Mean Corpuscular Volume 93.3 fL (80-94); Mean Platelet Volume 12.5 fL (7.4-10.4); Monocytes # 1.2 10^3/uL (0.2-0.9); Monocytes % 8.1 %; Neutrophils # 11.6 10^3/uL (1.8-7.7); Neutrophils % 76.5 %; Nucleated Red Blood Cells % 0 %; Platelet Count 137 10^3/cmm (130-400); Red Blood Count 3.74 10^6/uL (4.1-5.3); Red Cell Distribution Width 16.4 % (12.1-15.1); White Blood Count 15.1 10^3/uL (4.0-10.0)
[2019-08-25 05:27] LABS: Anion Gap 12.6 (5-19); Blood Urea Nitrogen 28 mg/dL (8-23); Calcium 8.7 mg/dL (8.5-10.5); Carbon Dioxide 25 mmol/L (22-29); Chloride 100 mmol/L (98-107); Glucose 137 mg/dL (65-115); Osmolality Calculated 277 mOsm/kg (285-295); Potassium 3.6 mmol/L (3.5-5.1); Sodium 134 mmol/L (136-145)
[2019-08-25 05:42] LABS: Slide Review Slide Review Perform
[2019-08-25] MEDS: ALPRAZolam 0.25 mg Tablet PO ×2 (08:55→22:43)
[2019-08-25] MEDS: tamsulosin 0.4 mg Capsule PO (08:55)
[2019-08-25] MEDS: pantoprazole DR 40 mg Tablet PO (08:55)
[2019-08-25] MEDS: sodium chloride 0.9% 1,000 ML 75 ML IV (08:55)
[2019-08-25] MEDS: predniSONE 5 mg Tablet 10 MG PO (08:56)
[2019-08-25] MEDS: aspirin 81 mg EC Tablet PO (08:56)
[2019-08-25] MEDS: cefTRIAXone 1,000 MG in sodium chloride 0.9% (plus) 50 ML 100 MG IV (08:56)
--- NOTE | 2019-08-25 11:51 | PM.PN ---
Subjective Subjective: Interval history: Hemodynamically stable, afebrile, blood cx pending. Had 550 mL urine output overnight. Slight increase in leukocytosis. Patient continues to seem fatigued, reports poor sleep last night due to not being able to get comfortable enough to rest. Urine culture has grown ricks-sensitive E. coli. Medications: Reviewed: Yes Medication Review Details: Active Medications Generic Name Dose Route Start Last Admin Trade Name Freq PRN Reason Stop Dose Admin Acetaminophen 650 mg 08/23/19 15:30 08/24/19 07:41 Tylenol PO 650 mg Q6H PRN Administration Mild/Mod Pain Or Temp >/= 101 Hydrocodone Bitart /Acetaminophen 1 tab 08/24/19 19:42 08/25/19 08:55 [place] 7.5-325 Mg PO 1 tab Q6H PRN Administration SEVERE PAIN Albuterol Sulfate 2.5 mg 08/24/19 22:15 Albuterol INHALATION Q4H.RESPIRATORY P RN Shortness Of Yessi th Alprazolam 0.25 mg 08/24/19 09:00 08/25/19 08:55 Xanax PO 0.25 mg DAILY CATA Administration Aspirin 81 mg 08/24/19 09:00 08/25/19 08:56 Aspirin Ec PO 81 mg DAILY CATA Administration Benzonatate 200 mg 08/24/19 01:14 08/24/19 20:08 Tessalon Pearls PO 200 mg TID PRN Administration COUGH Enoxaparin Sodium 40 mg 08/23/19 16:00 08/24/19 16:53 Lovenox SUBCUT 40 mg Q24H CATA Administration Ceftriaxone Sodium 1,000 mg/ 50 mls @ 100 mls/ hr 08/24/19 09:00 08/25/19 08:56 Sodium Chloride IV 100 mls/hr DAILY CATA Administration Protocol Nitroglycerin 0.4 mg 08/23/19 15:30 Nitrostat SUBLINGUAL Q5M PRN chest pain Ondansetron HCl 4 mg 08/23/19 15:30 Zofran IVP Q6H PRN vomiting, or N/V if npo Pantoprazole Sodiu m 40 mg 08/24/19 09:00 08/25/19 08:55 Protonix PO 40 mg DAILY CATA Administration Prednisone 10 mg 08/24/19 09:00 08/25/19 08:56 Prednisone PO 10 mg DAILY CATA Administration Tamsulosin HCl 0.4 mg 08/24/19 09:00 08/25/19 08:55 Flomax PO 0.4 mg DAILY CATA Administration atorvastatin [From Lipitor] Allergy (Verified 04/19/19 16:02) unknown ezetimibe [From Vytorin] Allergy (Verified 04/19/19 16:01) unknown niacin [From Niaspan Extended-Release] Allergy (Verified 04/19/19 16:01) unknown ranitidine Allergy (Verified 04/19/19 16:03) unknown rosuvastatin [From Crestor] Allergy (Verified 04/19/19 16:02) unknown simvastatin [From Vytorin] Allergy (Verified 04/19/19 16:01) unknown Vitals/I&O/Wt Last Vital Signs Temp 98.6 F 08/25/19 11:37 Pulse 76 08/25/19 11:37 Resp 20 H 08/25/19 11:37 BP 125/67 08/25/19 11:37 Pulse Ox 94 08/25/19 11:37 08/24/19 08/25/19 08/25/19 22:59 06:59 14:59 Intake Total 1293.75 / 1703.75 1000 / 2703.75 Output Total 450 / 950 300 / 1250 200 / 200 Balance 843.75 / 753.75 700 / 1453.75 -200 / -200 Weight last 48 hrs Weight 84.028 kg Weight 82.282 kg Physical Exam Const: COMMON NORMALS: no acute distress, patient oriented x3 and alert GENERAL APPEARANCE: cooperative and comfortable; not ill appearing NUTRITIONAL APPEARANCE: overweight ORIENTATION/CONSCIOUSNESS: Yes awake OTHER: -looks appropriate for age, fatigued HENMT: COMMON NORMALS: normocephalic, atraumatic and moist oral mucous membranes HEAD & SCALP: normocephalic and atraumatic GENERAL EAR: hearing grossly impaired Laterality: bilateral Eye: COMMON NORMALS: Equal, round and reactive pupils present, EOMs intact bilaterally and conjunctivae normal CONJUNCTIVA: Yes conjunctivae normal PUPIL: Yes Equal, round and reactive pupils present Neck/C-Spine: COMMON NORMALS: full ROM GENERAL: Yes normal visual inspection and Yes trachea midline Chest: CHEST: Yes Symmetrical chest wall rise Resp: COMMON NORMALS: normal respiratory effort, No retractions, No use of accessory muscles and clear to auscultation bilaterally EFFORT & INSPECTION: Yes able to speak in complete sentences, Yes symmetric chest movement and No tachypneic AUSCULTATION: clear to auscultation bilaterally OTHER: -on [place] Cardio: COMMON NORMALS: regular rate, regular rhythm, S1 normal heart sound present and S2 normal heart sound present RATE: regular rate RHYTHM: regular rhythm HEART SOUNDS: S1 normal heart sound present, S2 normal heart sound present and Murmur heart sound present systolic GI: COMMON NORMALS: Normal to inspection, nondistended, normoactive bowel sounds present, Soft to palpation and non-tender INSPECTION: Yes central obesity PALPATION: Yes Soft to palpation : BLADDER/KIDNEY EXAM: No catheter in place Extremity: COMMON NORMALS: normal to inspection, full ROM, no clubbing, cyanosis or edema and no pedal edema Neuro: COMMON NORMALS: patient oriented x3, moves all extremities, no focal motor deficits and no sensory deficits noted SENSORIUM/ORIENTATION: Yes alert GAIT: Yes Assistive device used walker Psych: COMMON NORMALS: mental status grossly normal, Normal thought process present, cooperative, normal affect and speech normal SPEECH: Yes normal speech THOUGHT PROCESS: Normal thought process present Skin: COMMON NORMALS: no rashes or lesions noted, no jaundice, no petechiae and no mottling GENERAL SKIN EXAM: no rashes or lesions noted Data : 08/25/19 04:28 08/25/19 04:28 Micro: Microbiology 08/24/19 13:50 Blood Culture - Preliminary Blood SPECIMEN COLLECTED 08/24/19 13:40 Blood Culture - Preliminary Blood SPECIMEN COLLECTED 08/23/19 11:20 Urine Culture - Preliminary Urine,Clean Catch Gram Negative Rods 08/23/19 11:20 Blood Culture - Preliminary Blood Gram Negative Rods 08/23/19 11:27 Blood Culture - Preliminary Blood Gram Negative Rods A&P Assessment and plan (1) UTI (urinary tract infection): -UA indicative of infection -associated sepsis given lactic acidosis, leukocytosis, tachycardia, tachypnea, MITA now resolved -noted leukocytosis with neutrophilic predominance, trend WBC -monitor vital signs -on Ceftriaxone; based on sensitivity, will switch to ciprofloxacin -urine cx; E.coli, sensitivity noted -blood cx: 3/4 bottles positive for GNRs, pending ID & sensitivity; repeat set prelim negative -d/c IVF; encourage oral hydration Status: Acute Qualifiers: Hematuria presence: without hematuria Urinary tract infection type: acute cystitis Qualified Code(s): N30.00 - Acute cystitis without hematuria (2) Bacteremia due to Gram-negative bacteria: -blood cx: 3/4 bottles positive for GNRs, pending ID & sensitivity; repeat set prelim negative -on Ceftriaxone; will switch to ciprofloxacin -likely source is given complicated UTI Status: Acute (3) Generalized weakness: -likely secondary to acute infection given recent onset -treatment of infection as noted above -typically ambulates with cane/walker -fall precautions -up with assist, PT/OT evaluations appreciated Status: Acute (4) HTN (hypertension): -normotensive, continue to monitor -resume Amlodipine Status: Chronic Qualifiers: Hypertension type: essential hypertension Qualified Code(s): I10 - Essential (primary) hypertension (5) CAD (coronary artery disease): -CAD s/p stenting x 3 -follows up with Dr. Godinez -had recent Holter monitor which showed baseline normal sinus rhythm with PVCs -on aspirin, has allergy to multiple statins -Echo poor study, likely EF wnl, no gross wall motion abnormalities Status: Chronic Qualifiers: Associated angina: without angina Coronary Disease-Associated Artery/Lesion type: [place] artery [place] vs. transplanted heart: [place] heart Qualified Code(s): I25.10 - Atherosclerotic heart disease of [place] coronary artery without angina pectoris (6) COPD (chronic obstructive pulmonary disease): -no acute exacerbation currently -Not oxygen dependant at baseline -supplemental oxygen as needed, monitor respiratory status -no recent travel, contact with known COVID-19 patient; low suspicion for this though considered as patient is on chronic immunosuppression therapy for RA Status: Chronic Qualifiers: COPD type: emphysema Emphysema type: unspecified Qualified Code(s): J43.9 - Emphysema, unspecified (7) Seropositive rheumatoid arthritis of multiple joints: -has known seropositive RA involving multiple joints -Follows up with rheum Dr. Guzman -on chronic prednisone, sulfasalazine, Simponi Aria infusions -pain control as needed Status: Chronic Additional A&P Information -Advanced age -Chronic smoker; 2-3 cig/day -BPH; on tamsulosin -Anxiety; on alprazolam -remote hx of PE -hyponatremia; likely due to dehydration; improved with IVF -hyperglycemia, likely reactive due to acute infection and he is on chronic steroids; A1c-6.6 -regular diet as tolerated; encourage oral hydration -GI ppx with PPI, chronically on this due to chronic steroid use -DVT ppx with lovenox, SCDs -Dispo: home, potentially with HH -Code status: DNI; ok with CPR Attestations Medical Necessity Statement*: Patient requires hospitalization for continued antibiotic treatment secondary to complicated UTI and bacteremia, pending blood culture results. Time Spent in Patient Care: 16 - 35 minutes (>than 50% of time spent in counselling and/or direct pt care on unit). Coding Level of Care Code Acute Refuse Collector Supervisor for Chg Fwd Exam Comprehensive Diagnoses UTI (urinary tract infection) N30.00 Hematuria presence: without hematuria Urinary tract infection type: acute cystitis Bacteremia due to Gram-negative bacteria R78.81 Generalized weakness R53.1 HTN (hypertension) I10 Hypertension type: essential hypertension CAD (coronary artery disease) I25.10 Associated angina: without angina Coronary Disease-Associated Artery/Lesion type: [place] artery [place] vs. transplanted heart: [place] heart COPD (chronic obstructive pulmonary disease) J43.9 COPD type: emphysema Emphysema type: unspecified Seropositive rheumatoid arthritis of multiple joints M05.79
[2019-08-25] MEDS: enoxaparin 40 mg/0.4 mL Syringe SUBCUT (15:33)
[2019-08-25] MEDS: ciprofloxacin 500 mg Tablet PO (17:33)
[2019-08-25] MEDS: benzonatate 100 mg Capsule 200 MG PO (17:33)
[2019-08-26] VITALS (7 sets, daily range): BP systolic 123–145; BP diastolic 66–88; PULSE 43–100; RESP 18–25; TEMP 36.3–36.8; O2SAT 93–96
[2019-08-26] MEDS: benzonatate 100 mg Capsule 200 MG PO ×3 (01:53→21:26)
[2019-08-26] MEDS: HYDROcodone-acetaminophen 7.5-325 mg Tablet 1 TAB PO ×3 (01:53→14:17)
[2019-08-26 05:51] LABS: Basophils # 0.1 10^3/uL (0.0-0.1); Basophils % 0.4 %; Eosinophils # 0.1 10^3/uL (0.0-0.8); Eosinophils % 0.7 %; Hematocrit 37.2 % (42.0-52.0); Hemoglobin 11.7 g/dL (11.7-16.6); Lymphocytes # 1.3 10^3/uL (0.8-4.8); Lymphocytes % 9.2 %; Mean Corpuscular HGB Conc 31.5 g/dL (30.0-36.0); Mean Corpuscular Hemoglobin 29.1 pg (28.0-34.0); Mean Corpuscular Volume 92.5 fL (80-94); Mean Platelet Volume 12.5 fL (7.4-10.4); Monocytes # 1.3 10^3/uL (0.2-0.9); Monocytes % 9.4 %; Neutrophils # 9.9 10^3/uL (1.8-7.7); Neutrophils % 72.9 %; Nucleated Red Blood Cells % 0 %; Platelet Count 176 10^3/cmm (130-400); Positive C 1; Positive M 1; Red Blood Count 4.02 10^6/uL (4.1-5.3); Red Cell Distribution Width 16.6 % (12.1-15.1); White Blood Count 13.6 10^3/uL (4.0-10.0)
[2019-08-26 06:21] LABS: Troponin T (5th) Once 27 ng/mL (0-15)
[2019-08-26 06:29] LABS: Thyroid Stimulating Hormone 1.68 uIU/mL (0.27-4.20)
[2019-08-26 06:58] LABS: Slide Review Slide Review Perform
[2019-08-26] MEDS: pantoprazole DR 40 mg Tablet PO (08:04)
[2019-08-26] MEDS: aspirin 81 mg EC Tablet PO (08:04)
[2019-08-26] MEDS: predniSONE 5 mg Tablet 10 MG PO (08:04)
[2019-08-26] MEDS: tamsulosin 0.4 mg Capsule PO (08:04)
[2019-08-26] MEDS: ciprofloxacin 500 mg Tablet PO ×2 (08:04→17:20)
[2019-08-26] MEDS: acetaminophen 325 mg Tablet 650 MG PO (12:49)
--- NOTE | 2019-08-26 13:40 | PM.PN ---
Subjective Subjective: Interval history: Patient resting in bed, reports having increased lower back pain earlier this morning, particularly aggravated when he coughs. Afebrile, hemodynamically stable, intermittently bradycardic to the 40s though asymptomatic, leukocytosis continues to improve. Had 575 mL urine output overnight. Is currently on supplemental oxygen, on 2 L NC. States that he does not feel up to going home today, would like to stay another day and see how he feels tomorrow. Medications: Reviewed: Yes Medication Review Details: Active Medications Generic Name Dose Route Start Last Admin Trade Name Freq PRN Reason Stop Dose Admin Acetaminophen 650 mg 08/23/19 15:30 08/26/19 12:49 Tylenol PO 650 mg Q6H PRN Administration Mild/Mod Pain Or Temp >/= 101 Hydrocodone Bitart /Acetaminophen 1 tab 08/24/19 19:42 08/26/19 08:04 [place] 7.5-325 Mg PO 1 tab Q6H PRN Administration SEVERE PAIN Albuterol Sulfate 2.5 mg 08/25/19 21:31 08/25/19 20:43 Albuterol INHALATION 2.5 mg Q4H.RESPIRATORY P RN Administration SHORTNESS OF FANG TH Alprazolam 0.25 mg 08/25/19 21:00 08/25/19 22:43 Xanax PO 0.25 mg BEDTIME CATA Administration Amlodipine Besylat e 2.5 mg 08/26/19 18:00 Norvasc PO DAILY CATA Aspirin 81 mg 08/24/19 09:00 08/26/19 08:04 Aspirin Ec PO 81 mg DAILY CATA Administration Benzonatate 200 mg 08/24/19 01:14 08/26/19 11:23 Tessalon Pearls PO 200 mg TID PRN Administration COUGH Ciprofloxacin HCl 500 mg 08/25/19 18:00 08/26/19 08:04 Cipro PO 500 mg BID CATA Administration Protocol Diclofenac Sodium 1 applic 08/26/19 17:00 Voltaren TOPICAL QID CATA Enoxaparin Sodium 40 mg 08/23/19 16:00 08/25/19 15:33 Lovenox SUBCUT 40 mg Q24H CATA Administration Guaifenesin 600 mg 08/26/19 13:45 Mucinex PO BID CATA Lidocaine 1 patch 08/26/19 13:45 Lidoderm 5% Patc h TOPICAL O12O12 CATA Nitroglycerin 0.4 mg 08/23/19 15:30 Nitrostat SUBLINGUAL Q5M PRN chest pain Ondansetron HCl 4 mg 08/23/19 15:30 Zofran IVP Q6H PRN vomiting, or N/V if npo Pantoprazole Sodiu m 40 mg 08/24/19 09:00 08/26/19 08:04 Protonix PO 40 mg DAILY CATA Administration Prednisone 10 mg 08/24/19 09:00 08/26/19 08:04 Prednisone PO 10 mg DAILY CATA Administration Tamsulosin HCl 0.4 mg 08/24/19 09:00 08/26/19 08:04 Flomax PO 0.4 mg DAILY CATA Administration atorvastatin [From Lipitor] Allergy (Verified 04/19/19 16:02) unknown ezetimibe [From Vytorin] Allergy (Verified 04/19/19 16:01) unknown niacin [From Niaspan Extended-Release] Allergy (Verified 04/19/19 16:01) unknown ranitidine Allergy (Verified 04/19/19 16:03) unknown rosuvastatin [From Crestor] Allergy (Verified 04/19/19 16:02) unknown simvastatin [From Vytorin] Allergy (Verified 04/19/19 16:01) unknown Vitals/I&O/Wt Last Vital Signs Temp 98 F 08/26/19 11:40 Pulse 52 L 08/26/19 11:40 Resp 18 08/26/19 11:40 BP 128/70 08/26/19 11:40 Pulse Ox 94 08/26/19 11:40 08/25/19 08/26/19 08/26/19 22:59 06:59 14:59 Intake Total 240 / 240 220 / 460 Output Total 425 / 625 375 / 1000 100 / 100 Balance -185 / -385 -155 / -540 -100 / -100 Weight last 48 hrs Weight 84.935 kg Weight 84.028 kg Physical Exam Const: COMMON NORMALS: no acute distress, patient oriented x3 and alert GENERAL APPEARANCE: cooperative and comfortable; not ill appearing NUTRITIONAL APPEARANCE: overweight ORIENTATION/CONSCIOUSNESS: Yes awake OTHER: -looks appropriate for age, fatigued HENMT: COMMON NORMALS: normocephalic, atraumatic and moist oral mucous membranes HEAD & SCALP: normocephalic and atraumatic GENERAL EAR: hearing grossly impaired Laterality: bilateral Eye: COMMON NORMALS: Equal, round and reactive pupils present, EOMs intact bilaterally and conjunctivae normal CONJUNCTIVA: Yes conjunctivae normal PUPIL: Yes Equal, round and reactive pupils present Neck/C-Spine: COMMON NORMALS: full ROM GENERAL: Yes normal visual inspection and Yes trachea midline Chest: CHEST: Yes Symmetrical chest wall rise Resp: COMMON NORMALS: normal respiratory effort, No retractions, No use of accessory muscles and clear to auscultation bilaterally EFFORT & INSPECTION: Yes able to speak in complete sentences, Yes symmetric chest movement and No tachypneic AUSCULTATION: clear to auscultation bilaterally OTHER: -on 2 L NC Cardio: COMMON NORMALS: regular rate, regular rhythm, S1 normal heart sound present and S2 normal heart sound present RATE: regular rate RHYTHM: regular rhythm HEART SOUNDS: S1 normal heart sound present, S2 normal heart sound present and Murmur heart sound present systolic GI: COMMON NORMALS: Normal to inspection, nondistended, normoactive bowel sounds present, Soft to palpation and non-tender INSPECTION: Yes central obesity PALPATION: Yes Soft to palpation : BLADDER/KIDNEY EXAM: No catheter in place Extremity: COMMON NORMALS: normal to inspection, full ROM, no clubbing, cyanosis or edema and no pedal edema Neuro: COMMON NORMALS: patient oriented x3, moves all extremities, no focal motor deficits and no sensory deficits noted SENSORIUM/ORIENTATION: Yes alert GAIT: Yes Assistive device used walker Psych: COMMON NORMALS: mental status grossly normal, Normal thought process present, cooperative, normal affect and speech normal SPEECH: Yes normal speech THOUGHT PROCESS: Normal thought process present Skin: COMMON NORMALS: no rashes or lesions noted, no jaundice, no petechiae and no mottling GENERAL SKIN EXAM: no rashes or lesions noted Data : 08/26/19 05:18 08/25/19 04:28 Micro: Microbiology 08/23/19 11:20 Blood Culture - Final Blood Escherichia coli 08/23/19 11:27 Blood Culture - Preliminary Blood Escherichia coli 08/24/19 13:40 Blood Culture - Preliminary Blood NEGATIVE TO DATE 08/24/19 13:50 Blood Culture - Preliminary Blood NEGATIVE TO DATE 08/23/19 11:20 Urine Culture - Final Urine,Clean Catch Escherichia coli A&P Assessment and plan (1) UTI (urinary tract infection): -UA indicative of infection -associated sepsis given lactic acidosis, leukocytosis, tachycardia, tachypnea, MITA now resolved -noted leukocytosis with neutrophilic predominance, trend WBC -monitor vital signs -off Ceftriaxone; based on sensitivity, switched to ciprofloxacin (day 2/7) -urine cx; E.coli, sensitivity noted -blood cx: 3/4 bottles positive for E.coli, sensitivity noted; repeat set prelim negative -d/c IVF; encourage oral hydration Status: Acute Qualifiers: Urinary tract infection type: acute cystitis Hematuria presence: without hematuria Qualified Code(s): N30.00 - Acute cystitis without hematuria (2) Bacteremia due to Gram-negative bacteria: -blood cx: 3/4 bottles positive for E.coli; repeat set prelim negative -off Ceftriaxone; switched to ciprofloxacin -likely source is given complicated UTI Status: Acute (3) Generalized weakness: -likely secondary to acute infection given recent onset -treatment of infection as noted above -typically ambulates with cane/walker -fall precautions -up with assist, PT/OT evaluations appreciated Status: Acute (4) HTN (hypertension): -normotensive, continue to monitor -on Amlodipine Status: Chronic Qualifiers: Hypertension type: essential hypertension Qualified Code(s): I10 - Essential (primary) hypertension (5) CAD (coronary artery disease): -CAD s/p stenting x 3 -follows up with Dr. Godinez -had recent Holter monitor which showed baseline normal sinus rhythm with PVCs -on aspirin, has allergy to multiple statins -Echo poor study, likely EF wnl, no gross wall motion abnormalities Status: Chronic Qualifiers: Coronary Disease-Associated Artery/Lesion type: [place] artery [place] vs. transplanted heart: [place] heart Associated angina: without angina Qualified Code(s): I25.10 - Atherosclerotic heart disease of [place] coronary artery without angina pectoris (6) COPD (chronic obstructive pulmonary disease): -no acute exacerbation currently -Not oxygen dependant at baseline; may need home oxygen evaluation prior to d/c -supplemental oxygen as needed, monitor respiratory status -no recent travel, contact with known COVID-19 patient; low suspicion for this though considered as patient is on chronic immunosuppression therapy for RA Status: Chronic Qualifiers: COPD type: emphysema Emphysema type: unspecified Qualified Code(s): J43.9 - Emphysema, unspecified (7) Seropositive rheumatoid arthritis of multiple joints: -has known seropositive RA involving multiple joints -Follows up with rheum Dr. Guzman -on chronic prednisone, sulfasalazine, Simponi Aria infusions -pain control as needed; add lidocaine patch, voltaren topical Status: Chronic Additional A&P Information -Advanced age -Chronic smoker; 2-3 cig/day -BPH; on tamsulosin -Anxiety; on alprazolam -remote hx of PE -hyponatremia; likely due to dehydration; improved with IVF -hyperglycemia, likely reactive due to acute infection and he is on chronic steroids; A1c-6.6 -regular diet as tolerated; encourage oral hydration -GI ppx with PPI, chronically on this due to chronic steroid use -DVT ppx with lovenox, SCDs -Dispo: home, potentially with HH -Code status: DNI; ok with CPR Attestations Medical Necessity Statement*: Patient requires hospitalization for continued antibiotic treatment for UTI, management of generalized weakness. Time Spent in Patient Care: 16 - 35 minutes (>than 50% of time spent in counselling and/or direct pt care on unit). Coding Level of Care Code Acute Precision Inspector for Chg Fwd Diagnoses UTI (urinary tract infection) N30.00 Urinary tract infection type: acute cystitis Hematuria presence: without hematuria Bacteremia due to Gram-negative bacteria R78.81 Generalized weakness R53.1 HTN (hypertension) I10 Hypertension type: essential hypertension CAD (coronary artery disease) I25.10 Coronary Disease-Associated Artery/Lesion type: [place] artery [place] vs. transplanted heart: [place] heart Associated angina: without angina COPD (chronic obstructive pulmonary disease) J43.9 COPD type: emphysema Emphysema type: unspecified Seropositive rheumatoid arthritis of multiple joints M05.79
[2019-08-26] MEDS: guaiFENesin 600 mg Tablet PO ×2 (14:17→17:20)
[2019-08-26] MEDS: lidocaine 5% Patch 1 PATCH TOPICAL (14:17)
[2019-08-26] MEDS: enoxaparin 40 mg/0.4 mL Syringe SUBCUT (16:10)
--- NOTE | 2019-08-26 16:31 | PC.SOCIAL ---
*IMM* Patient received the important message from [employer]. Copy placed in the patients chart.
[2019-08-26] MEDS: amlodipine 5 mg Tablet 2.5 MG PO (17:20)
[2019-08-26] MEDS: diclofenac 1% Topical Gel 100 gm 1 APPLIC TOPICAL ×2 (18:12→21:27)
[2019-08-26] MEDS: ALPRAZolam 0.25 mg Tablet PO (21:27)
[2019-08-27] VITALS (12 sets, daily range): BP systolic 124–168; BP diastolic 63–79; PULSE 42–104; RESP 16–28; TEMP 36.3–36.7; O2SAT 93–97
[2019-08-27] MEDS: HYDROcodone-acetaminophen 7.5-325 mg Tablet 1 TAB PO ×4 (02:42→18:24)
--- NOTE | 2019-08-27 03:46 | ECG_ITS ---
Measurements Intervals [place] Rate: 83 P: 36 GA: 174 QRS: -42 QRSD: 122 T: 60 QT: 342 QTc: 404 SINUS RHYTHM WITH FREQUENT ECTOPIC PREMATURE COMPLEXES MARKED LEFT AXIS DEVIATION [QRS AXIS < -30] MODERATE INTRAVENTRICULAR CONDUCTION DELAY [110+ ms QRS DURATION] INTERPRETATION BASED ON A DEFAULT AGE OF 40 YEARS Compared to ECG 08/23/2019 11:49:49 Left-axis deviation now present Intraventricular conduction delay now present Sinus tachycardia no longer present Ventricular premature complex(es) no longer present Left anterior fascicular block no longer present Electronically Signed On 08-27-2019 7:48:38 CDT by Karson Mcgee M.D. [id number]
--- NOTE | 2019-08-27 04:25 | ECG_ITS ---
Measurements Intervals [place] Rate: 104 P: 35 [place]: 197 QRS: -44 QRSD: 126 T: 52 QT: 354 QTc: 466 SINUS TACHYCARDIA WITH FREQUENT VENTRICULAR PREMATURE COMPLEXES MARKED LEFT AXIS DEVIATION [QRS AXIS < -30] MODERATE INTRAVENTRICULAR CONDUCTION DELAY [110+ ms QRS DURATION] INTERPRETATION BASED ON A DEFAULT AGE OF 40 YEARS Compared to ECG 08/23/2019 11:49:49 Left-axis deviation now present Intraventricular conduction delay now present Left anterior fascicular block no longer present Electronically Signed On 08-27-2019 7:48:49 CDT by Karson Mcgee M.D. [id number] [email or web address]
[2019-08-27] MEDS: guaiFENesin-codeine UDC 10 mL PO (04:58)
--- NOTE | 2019-08-27 06:27 | PC.NURSE ---
Shift Summary pt awake coughing throughout the night, pt reported two episodes of chest pain that was relieved within a couple minutes on own. pt described pain as tight and radiated through his back, rating pain between a 7-9 on a 0-10 pain scale. pt stated pain started after a hard coughing fit. pt has productive cough with thick white mucous. pt reading bigeminy most of night, then some trigeminy toward shift change.
[2019-08-27] MEDS: benzonatate 100 mg Capsule 200 MG PO ×3 (09:38→21:59)
[2019-08-27] MEDS: predniSONE 5 mg Tablet 10 MG PO (09:38)
[2019-08-27] MEDS: ciprofloxacin 500 mg Tablet PO ×2 (09:39→18:24)
[2019-08-27] MEDS: tamsulosin 0.4 mg Capsule PO (09:39)
[2019-08-27] MEDS: guaiFENesin 600 mg Tablet PO ×2 (09:39→18:24)
[2019-08-27] MEDS: pantoprazole DR 40 mg Tablet PO (09:39)
[2019-08-27] MEDS: amlodipine 5 mg Tablet 2.5 MG PO (09:39)
[2019-08-27] MEDS: aspirin 81 mg EC Tablet PO (09:39)
[2019-08-27] MEDS: lidocaine 5% Patch 1 PATCH TOPICAL (09:40)
[2019-08-27] MEDS: diclofenac 1% Topical Gel 100 gm 1 APPLIC TOPICAL ×4 (09:42→21:59)
[2019-08-27] MEDS: enoxaparin 40 mg/0.4 mL Syringe SUBCUT (15:05)
--- NOTE | 2019-08-27 16:26 | P.PN_ITS ---
Subjective Subjective: Interval history: Patient sitting up in chair by bedside, reports increased R sided lower back pain, continues to have persistent cough, given codeine overnight, does not feel quite ready to go home. Hemodynamically stable, afebrile, remains on supplemental oxygen. Had 800 mL urine output overnight. Medications: Reviewed: Yes Medication Review Details: Active Medications Generic Name Dose Route Start Last Admin Trade Name Freq PRN Reason Stop Dose Admin Acetaminophen 650 mg 08/23/19 15:30 08/26/19 12:49 Tylenol PO 650 mg Q6H PRN Administration Mild/Mod Pain Or Temp >/= 101 Hydrocodone Bitart /Acetaminophen 1 tab 08/24/19 19:42 08/27/19 13:30 [place] 7.5-325 Mg PO 1 tab Q6H PRN Administration SEVERE PAIN Albuterol Sulfate 2.5 mg 08/25/19 21:31 08/27/19 07:35 Albuterol INHALATION 2.5 mg Q4H.RESPIRATORY P RN Administration SHORTNESS OF FANG TH Alprazolam 0.25 mg 08/25/19 21:00 08/26/19 21:27 Xanax PO 0.25 mg BEDTIME CATA Administration Amlodipine Besylat e 2.5 mg 08/26/19 18:00 08/27/19 09:39 Norvasc PO 2.5 mg DAILY CATA Administration Aspirin 81 mg 08/24/19 09:00 08/27/19 09:39 Aspirin Ec PO 81 mg DAILY CATA Administration Benzonatate 200 mg 08/26/19 21:00 08/27/19 15:05 Tessalon Pearls PO 200 mg TID CATA Administration Ciprofloxacin HCl 500 mg 08/25/19 18:00 08/27/19 09:39 Cipro PO 500 mg BID CATA Administration Protocol Diclofenac Sodium 1 applic 08/26/19 17:00 08/27/19 13:25 Voltaren TOPICAL 1 applic QID CATA Administration Enoxaparin Sodium 40 mg 08/23/19 16:00 08/27/19 15:05 Lovenox SUBCUT 40 mg Q24H CATA Administration Guaifenesin 600 mg 08/26/19 13:45 08/27/19 09:39 Mucinex PO 600 mg BID CATA Administration Lidocaine 1 patch 08/26/19 13:45 08/27/19 09:40 Lidoderm 5% Patc h TOPICAL 1 patch O12O12 CATA Administration Nitroglycerin 0.4 mg 08/23/19 15:30 Nitrostat SUBLINGUAL Q5M PRN chest pain Ondansetron HCl 4 mg 08/23/19 15:30 Zofran IVP Q6H PRN vomiting, or N/V if npo Pantoprazole Sodiu m 40 mg 08/24/19 09:00 08/27/19 09:39 Protonix PO 40 mg DAILY CATA Administration Prednisone 10 mg 08/24/19 09:00 08/27/19 09:38 Prednisone PO 10 mg DAILY CATA Administration Tamsulosin HCl 0.4 mg 08/24/19 09:00 08/27/19 09:39 Flomax PO 0.4 mg DAILY CATA Administration atorvastatin [From Lipitor] Allergy (Verified 04/19/19 16:02) unknown ezetimibe [From Vytorin] Allergy (Verified 04/19/19 16:01) unknown niacin [From Niaspan Extended-Release] Allergy (Verified 04/19/19 16:01) unknown ranitidine Allergy (Verified 04/19/19 16:03) unknown rosuvastatin [From Crestor] Allergy (Verified 04/19/19 16:02) unknown simvastatin [From Vytorin] Allergy (Verified 04/19/19 16:01) unknown Vitals/I&O/Wt Last Vital Signs Temp 97.6 F 08/27/19 15:16 Pulse 81 08/27/19 15:16 Resp 22 H 08/27/19 15:16 BP 132/78 08/27/19 15:16 Pulse Ox 97 08/27/19 15:16 08/27/19 08/27/19 08/27/19 06:59 14:59 22:59 Intake Total 480 / 480 Output Total 600 / 1100 450 / 450 Balance -600 / -860 30 / 30 Weight last 48 hrs Weight 83.552 kg Weight 84.935 kg Physical Exam Const: COMMON NORMALS: no acute distress, patient oriented x3 and alert GENERAL APPEARANCE: cooperative and comfortable; not ill appearing NUTRITIONAL APPEARANCE: overweight ORIENTATION/CONSCIOUSNESS: Yes awake OTHER: -looks appropriate for age, fatigued HENMT: COMMON NORMALS: normocephalic, atraumatic and moist oral mucous membranes HEAD & SCALP: normocephalic and atraumatic GENERAL EAR: hearing grossly impaired Laterality: bilateral Eye: COMMON NORMALS: Equal, round and reactive pupils present, EOMs intact bilaterally and conjunctivae normal CONJUNCTIVA: Yes conjunctivae normal PUPIL: Yes Equal, round and reactive pupils present Neck/C-Spine: COMMON NORMALS: full ROM GENERAL: Yes normal visual inspection and Yes trachea midline Chest: CHEST: Yes Symmetrical chest wall rise Resp: COMMON NORMALS: normal respiratory effort, No retractions, No use of accessory muscles and clear to auscultation bilaterally EFFORT & INSPECTION: Yes able to speak in complete sentences, Yes symmetric chest movement and No tachypneic AUSCULTATION: clear to auscultation bilaterally OTHER: -on 2.5 L NC Cardio: COMMON NORMALS: regular rate, regular rhythm, S1 normal heart sound p resent and S2 normal heart sound present RATE: regular rate RHYTHM: regular rhythm HEART SOUNDS: S1 normal heart sound present, S2 normal heart sound present and Murmur heart sound present systolic GI: COMMON NORMALS: Normal to inspection, nondistended, normoactive bowel sounds present, Soft to palpation and non-tender INSPECTION: Yes central obesity PALPATION: Yes Soft to palpation : BLADDER/KIDNEY EXAM: No catheter in place Back/Pelvis: LUMBAR SPINE/LOWER BACK: Yes paraspinal muscle tenderness Lumbar paraspinal muscle tenderness: right Right lumbar paraspinal muscle tenderness: L3 and L4 Extremity: COMMON NORMALS: normal to inspection, full ROM, no clubbing, cyanosis or edema and no pedal edema Neuro: COMMON NORMALS: patient oriented x3, moves all extremities, no focal motor deficits and no sensory deficits noted SENSORIUM/ORIENTATION: Yes alert GAIT: Yes Assistive device used walker Psych: COMMON NORMALS: mental status grossly normal, Normal thought process present, cooperative, normal affect and speech normal SPEECH: Yes normal speech THOUGHT PROCESS: Normal thought process present Skin: COMMON NORMALS: no rashes or lesions noted, no jaundice, no petechiae and no mottling GENERAL SKIN EXAM: no rashes or lesions noted Data : 08/26/19 05:18 08/25/19 04:28 A&P Assessment and plan (1) UTI (urinary tract infection): -UA indicative of infection -associated sepsis given lactic acidosis, leukocytosis, tachycardia, tachypnea, MITA now resolved -noted leukocytosis with neutrophilic predominance, trend WBC -monitor vital signs -off Ceftriaxone; based on sensitivity, switched to ciprofloxacin (day 3/7) -urine cx; E.coli, sensitivity noted -blood cx: 3/4 bottles positive for E.coli, sensitivity noted; repeat set prelim negative -d/c IVF; encourage oral hydration Status: Acute Qualifiers: Urinary tract infection type: acute cystitis Hematuria presence: without hematuria Qualified Code(s): N30.00 - Acute cystitis without hematuria (2) Bacteremia due to Gram-negative bacteria: -blood cx: 3/4 bottles positive for E.coli; repeat set prelim negative -off Ceftriaxone; switched to ciprofloxacin -likely source is given complicated UTI Status: Acute (3) Generalized weakness: -likely secondary to acute infection given recent onset -treatment of infection as noted above -typically ambulates with cane/walker -fall precautions -up with assist, PT/OT evaluations appreciated Status: Acute (4) HTN (hypertension): -normotensive, continue to monitor -on Amlodipine Status: Chronic Qualifiers: Hypertension type: essential hypertension Qualified Code(s): I10 - Essential (primary) hypertension (5) CAD (coronary artery disease): -CAD s/p stenting x 3 -follows up with Dr. Godinez -had recent Holter monitor which showed baseline normal sinus rhythm with PVCs -on aspirin, has allergy to multiple statins -Echo poor study, likely EF wnl, no gross wall motion abnormalities Status: Chronic Qualifiers: Coronary Disease-Associated Artery/Lesion type: [place] artery [place] vs. transplanted heart: [place] heart Associated angina: without angina Qualified Code(s): I25.10 - Atherosclerotic heart disease of [place] coronary artery without angina pectoris (6) COPD (chronic obstructive pulmonary disease): -no acute exacerbation currently -Not oxygen dependant at baseline; may need home oxygen evaluation prior to d/c -supplemental oxygen as needed, monitor respiratory status -no recent travel, contact with known COVID-19 patient; low suspicion for this though considered as patient is on chronic immunosuppression therapy for RA -clinically has bronchitis which per patient and family report, has lingered for quite some time. With hx of chronic smoking, immunosuppression therapy, COPD, may need further imaging with CT chest as well as pulmonology follow up. Status: Chronic Qualifiers: COPD type: emphysema Emphysema type: unspecified Qualified Code(s): J43.9 - Emphysema, unspecified (7) Seropositive rheumatoid arthritis of multiple joints: -has known seropositive RA involving multiple joints -Follows up with rheum Dr. Guzman -on chronic prednisone, sulfasalazine, Simponi Aria infusions -pain control as needed; add lidocaine patch, voltaren topical Status: Chronic Additional A&P Information -Advanced age -Chronic smoker; 2-3 cig/day -BPH; on tamsulosin -Anxiety; on alprazolam -remote hx of PE -hyponatremia; likely due to dehydration; improved with IVF -hyperglycemia, likely reactive due to acute infection and he is on chronic steroids; A1c-6.6 -regular diet as tolerated; encourage oral hydration -GI ppx with PPI, chronically on this due to chronic steroid use -DVT ppx with lovenox, SCDs -Dispo: home, potentially with HH. Called and updated daughter Alison Guerrier ([phone]). -Code status: DNI; ok with CPR Attestations Medical Necessity Statement*: Patient requires hospitalization for continued treatment of UTI with bacteremia, bronchitis with persistent cough and need for continued monitoring of respiratory status. Time Spent in Patient Care: 16 - 35 minutes (>than 50% of time spent in counselling and/or direct pt care on unit) . Coding Level of Care Code Acute Staff Development Coordinator for Chg Fwd Diagnoses UTI (urinary tract infection) N30.00 Urinary tract infection type: acute cystitis Hematuria presence: without hematuria Bacteremia due to Gram-negative bacteria R78.81 Generalized weakness R53.1 HTN (hypertension) I10 Hypertension type: essential hypertension CAD (coronary artery disease) I25.10 Coronary Disease-Associated Artery/Lesion type: [place] artery [place] vs. transplanted heart: [place] heart Associated angina: without angina COPD (chronic obstructive pulmonary disease) J43.9 COPD type: emphysema Emphysema type: unspecified Seropositive rheumatoid arthritis of multiple joints M05.79
--- NOTE | 2019-08-27 17:29 | CTR_ITS ---
PROCEDURE INFORMATION: Exam: CT Chest Without Contrast Exam date and time: 08/27/2019 5:31 PM Age: 78 years old Clinical indication: Prior surgery; Surgery date: 6+ months; Surgery type: Stent, shoulder; Patient HX: Persistent cough w HX of copd, cad, HTN; Additional info: Persistent cough, HX of ra on chronic steroids TECHNIQUE: Imaging protocol: Computed tomography of the chest without contrast. Radiation optimization: All CT scans at this facility use at least one of these dose optimization techniques: automated exposure control; mA and/or kV adjustment per patient size (includes targeted exams where dose is matched to clinical indication); or iterative reconstruction. COMPARISON: [facility] [id number] 10/27/2018 8:34 AM RADIATION DOSE METRICS: Total DLP: 783.67 mGy-cm FINDINGS: Lungs: COPD/chronic bronchitis/bullous emphysema stable since 10/27/2018. Minimal bibasilar dependent atelectasis. Evidence of antecedent granulomatous disease. No visible active interstitial or alveolar airspace disease Pleural space: Interval development of bilateral small pleural effusions. Heart: Cardiac structures and configuration with coronary artery disease and coronary artery stents. Aorta: The thoracic aorta is nonaneurysmal. Moderate arterial sclerotic disease. Lymph nodes: No visible active mediastinal or hilar lymphadenopathy. Bones/joints: Osteopenia/osteoporosis. No visible acute osseous pathology. Mild scoliosis. Left shoulder prosthesis with extensive metal artifact through the region. Soft tissues: Unremarkable. Other findings: Motion artifact. CT/CT chest [facility] [id number] IMPRESSION: 1. Interval development of bilateral small pleural effusions. 2. COPD/chronic bronchitis/bullous emphysema stable since last examination. 3. Antecedent granulomatous disease. 4. Coronary artery disease. 5. Arterial sclerosis. 6. Osteopenia/osteoporosis. Radiation Dose CTDIVOL = (mGy): DLP = 783.67 (mGy-cm)
[2019-08-27] MEDS: ALPRAZolam 0.25 mg Tablet PO (21:59)
[2019-08-27] MEDS: acetaminophen 325 mg Tablet 650 MG PO (22:01)
[2019-08-28 03:41] VITALS: BP 148/82; PULSE 58; RESP 24; TEMP 36.6; O2SAT 95
--- NOTE | 2019-08-28 06:07 | PC.NURSE ---
Shift Summary pt swallowed meds whole with no problems. pt c/o back pain in the beginning of the shift but was relieved with oral medication. pt had adequate urine output. no complaints of chest pain and less coughing tonight than previous night. pt slept well.
[2019-08-28] MEDS: HYDROcodone-acetaminophen 7.5-325 mg Tablet 1 TAB PO ×3 (06:13→18:19)
[2019-08-28 07:19] VITALS: BP 113/88; PULSE 82; RESP 20; TEMP 37.1; O2SAT 94
[2019-08-28] MEDS: amlodipine 5 mg Tablet 2.5 MG PO (07:58)
[2019-08-28] MEDS: tamsulosin 0.4 mg Capsule PO (07:59)
[2019-08-28] MEDS: pantoprazole DR 40 mg Tablet PO (08:00)
[2019-08-28] MEDS: aspirin 81 mg EC Tablet PO (08:00)
[2019-08-28] MEDS: ciprofloxacin 500 mg Tablet PO ×2 (08:00→16:34)
[2019-08-28] MEDS: benzonatate 100 mg Capsule 200 MG PO ×3 (08:00→20:11)
[2019-08-28] MEDS: guaiFENesin 600 mg Tablet PO ×2 (08:00→16:34)
[2019-08-28] MEDS: predniSONE 5 mg Tablet 10 MG PO (08:01)
[2019-08-28] MEDS: lidocaine 5% Patch 1 PATCH TOPICAL ×2 (08:01→20:11)
[2019-08-28 09:45] VITALS: PULSE 82; RESP 20; O2SAT 94
--- NOTE | 2019-08-28 10:01 | PC.SOCIAL ---
IMM Updated Updated pt on Pg 2 IMM. Pt verbally understands. No questions voiced. Provided pt a copy & left on pt's bedside table. Signed, dated, & timed copy in chart.
[2019-08-28] MEDS: acetaminophen 325 mg Tablet 650 MG PO (10:11)
[2019-08-28] MEDS: diclofenac 1% Topical Gel 100 gm 1 APPLIC TOPICAL ×4 (10:59→20:12)
[2019-08-28 11:10] VITALS: BP 112/66; PULSE 80; RESP 20; TEMP 36.5; O2SAT 95
--- NOTE | 2019-08-28 12:40 | PC.RESP ---
SMOKING CESSATION AND PULMONARY REHAB INFORMATION SENT TO PATIENT.
--- NOTE | 2019-08-28 14:36 | XR_ITS ---
WS: [id number] XR hip RT 1V wo/w pel [id number] REASON FOR EXAM: right hip pain FINDINGS: Degenerate changes are seen in the acetabular femoral articulation. The ilium, ischium, and pubis on the right were normal. There is no fractures of the head, neck, or intertrochanteric area of the right hip. XR/XR hip RT 1V wo/[place] pel [id number] IMPRESSION: Osteoarthritic changes of the right hip.
--- NOTE | 2019-08-28 14:36 | CT_ITS ---
WS: [id number] CT abdomen pelvis wo con [id number] REASON FOR EXAM: complicated UTI, evalute for obstruction, cystitis,prostate IV CONTRAST ADMINISTERED: none TOTAL EXAM DLP: 772.[address] scans at [facility] use at least one of these dose optimization techniques: automat ed exposure control; mA and/or kV adjustment per patient size (includes targeted exams where dose is matched to clinical indication); or iterative reconstruction. FINDINGS: Small amounts of bilateral pleural effusion. There is coronary bypass changes seen. The aorta was normal there is arteriosclerotic changes seen. The liver gallbladder pancreas were all normal. A mass is seen off the inferior pole of the left kidney is 2.73 cm and appear to be thickened surface . The right kidney shows hyperintense lesions. Scattered but no aggressive appearance. A cyst is seen i n the superior pole measured 1.57 cm A large cyst is 3.74 cm long the inferior pole of the left kidney. Umbrella filter is seen in the inferior vena cava. aneurysmal changes of the abdominal aorta measures 5.41 cm. No evidence of dissection at this time. The iliac arteries show mild dilatation also the right measures 2.65 cm the left 2.33 cm. The right colon shows fecal stasis and there is small amount of fluid seen in the abdomen. In the rig ht pelvis is a mass measures 3.5 cm this is seen adjacent to the iliac artery on the right side. Unsu re if this is a lymphocele or enlarged lymph node. The prostate measures 5.37 x 4.65 cm. There is a left renal hernia with fat in the hernia no bowel. Smaller hernia seen on the right side. A compression fractures seen at the L3 vertebra with degenerated changes of the L3, L4, L5 vertebra. There is degenerate changes of the left hip. CT/CT abdomen pelvis wo con [id number] IMPRESSION: Smooth appearing mass adjacent to the right iliac artery suspicious of either a n enlarged lymph node or Lymohatocele. Enlargement of the prostate A thick rim lesion is seen off the inferior pole of the left kidney The right and left kidneys show benign cysts. 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 Bilateral pleural effusion.
[2019-08-28 15:28] VITALS: BP 149/87; PULSE 86; RESP 18; TEMP 36.6; O2SAT 95
--- NOTE | 2019-08-28 16:11 | PM.PN ---
Subjective Subjective: Interval history: continues to complain of right sided flank pain and right hip pain Medications: Reviewed: Yes Medication Review Details: Active Medications Generic Name Dose Route Start Last Admin Trade Name Freq PRN Reason Stop Dose Admin Acetaminophen 650 mg 08/23/19 15:30 08/26/19 12:49 Tylenol PO 650 mg Q6H PRN Administration Mild/Mod Pain Or Temp >/= 101 Hydrocodone Bitart /Acetaminophen 1 tab 08/24/19 19:42 08/27/19 13:30 [place] 7.5-325 Mg PO 1 tab Q6H PRN Administration SEVERE PAIN Albuterol Sulfate 2.5 mg 08/25/19 21:31 08/27/19 07:35 Albuterol INHALATION 2.5 mg Q4H.RESPIRATORY P RN Administration SHORTNESS OF FANG TH Alprazolam 0.25 mg 08/25/19 21:00 08/26/19 21:27 Xanax PO 0.25 mg BEDTIME CATA Administration Amlodipine Besylat e 2.5 mg 08/26/19 18:00 08/27/19 09:39 Norvasc PO 2.5 mg DAILY CATA Administration Aspirin 81 mg 08/24/19 09:00 08/27/19 09:39 Aspirin Ec PO 81 mg DAILY CATA Administration Benzonatate 200 mg 08/26/19 21:00 08/27/19 15:05 Tessalon Pearls PO 200 mg TID CATA Administration Ciprofloxacin HCl 500 mg 08/25/19 18:00 08/27/19 09:39 Cipro PO 500 mg BID CATA Administration Protocol Diclofenac Sodium 1 applic 08/26/19 17:00 08/27/19 13:25 Voltaren TOPICAL 1 applic QID CATA Administration Enoxaparin Sodium 40 mg 08/23/19 16:00 08/27/19 15:05 Lovenox SUBCUT 40 mg Q24H CATA Administration Guaifenesin 600 mg 08/26/19 13:45 08/27/19 09:39 Mucinex PO 600 mg BID CATA Administration Lidocaine 1 patch 08/26/19 13:45 08/27/19 09:40 Lidoderm 5% Patc h TOPICAL 1 patch [id number] CATA Administration Nitroglycerin 0.4 mg 08/23/19 15:30 Nitrostat SUBLINGUAL Q5M PRN chest pain Ondansetron HCl 4 mg 08/23/19 15:30 Zofran IVP Q6H PRN vomiting, or N/V if npo Pantoprazole Sodiu m 40 mg 08/24/19 09:00 08/27/19 09:39 Protonix PO 40 mg DAILY CATA Administration Prednisone 10 mg 08/24/19 09:00 08/27/19 09:38 Prednisone PO 10 mg DAILY CATA Administration Tamsulosin HCl 0.4 mg 08/24/19 09:00 08/27/19 09:39 Flomax PO 0.4 mg DAILY CATA Administration atorvastatin [From Lipitor] Allergy (Verified 04/19/19 16:02) unknown ezetimibe [From Vytorin] Allergy (Verified 04/19/19 16:01) unknown niacin [From Niaspan Extended-Release] Allergy (Verified 04/19/19 16:01) unknown ranitidine Allergy (Verified 04/19/19 16:03) unknown rosuvastatin [From Crestor] Allergy (Verified 04/19/19 16:02) unknown simvastatin [From Vytorin] Allergy (Verified 04/19/19 16:01) unknown Vitals/I&O/Wt Last Vital Signs Temp 97.8 F 08/28/19 15:28 Pulse 86 08/28/19 15:28 Resp 18 08/28/19 15:28 BP 149/87 08/28/19 15:28 Pulse Ox 95 08/28/19 15:28 08/28/19 08/28/19 08/28/19 06:59 14:59 22:59 Intake Total 480 / 480 Output Total 575 / 2125 250 / 250 Balance -575 / -1645 230 / 230 Weight last 48 hrs Weight 83.28 kg Weight 83.552 kg Physical Exam Narrative: EXAM NARRATIVE: GEN: Awake, alert and oriented, no acute distress CVS: S1S2 N RS: CTA B/L Abd: Soft, nt/nd , bs+ LEGAL ADMINISTRATIVE ASSISTANT: no focal neuro deficits Data : 08/26/19 05:18 08/25/19 04:28 Micro: Microbiology 08/23/19 11:27 Blood Culture - Final Blood Escherichia coli 08/23/19 11:20 Blood Culture - Final Blood Escherichia coli A&P Assessment and plan (1) UTI (urinary tract infection): -UA indicative of infection -associated sepsis given lactic acidosis, leukocytosis, tachycardia, tachypnea, MITA now resolved -noted leukocytosis with neutrophilic predominance, trend WBC -monitor vital signs -off Ceftriaxone; based on sensitivity, switched to ciprofloxacin (day 3/7) -urine cx; E.coli, sensitivity noted -blood cx: 3/4 bottles positive for E.coli, sensitivity noted; repeat set prelim negative -d/c IVF; encourage oral hydration - CT Abdomen/pelvis to r/o obstrcutive process causing flank pain Status: Acute Qualifiers: Urinary tract infection type: acute cystitis Hematuria presence: without hematuria Qualified Code(s): N30.00 - Acute cystitis without hematuria (2) Bacteremia due to Gram-negative bacteria: -blood cx: 3/4 bottles positive for E.coli; repeat set prelim negative -off Ceftriaxone; switched to ciprofloxacin -likely source is given complicated UTI Status: Acute (3) Generalized weakness: -likely secondary to acute infection given recent onset -treatment of infection as noted above -typically ambulates with cane/walker -fall precautions -up with assist, PT/OT evaluations appreciated Status: Acute (4) HTN (hypertension): -normotensive, continue to monitor -on Amlodipine Status: Chronic Qualifiers: Hypertension type: essential hypertension Qualified Code(s): I10 - Essential (primary) hypertension (5) CAD (coronary artery disease): -CAD s/p stenting x 3 -follows up with Dr. Godinez -had recent Holter monitor which showed baseline normal sinus rhythm with PVCs -on aspirin, has allergy to multiple statins -Echo poor study, likely EF wnl, no gross wall motion abnormalities Status: Chronic Qualifiers: Coronary Disease-Associated Artery/Lesion type: [place] artery [place] vs. transplanted heart: [place] heart Associated angina: without angina Qualified Code(s): I25.10 - Atherosclerotic heart disease of [place] coronary artery without angina pectoris (6) COPD (chronic obstructive pulmonary disease): -no acute exacerbation currently -Not oxygen dependant at baseline; may need home oxygen evaluation prior to d/c -supplemental oxygen as needed, monitor respiratory status -no recent travel, contact with known COVID-19 patient; low suspicion for this though considered as patient is on chronic immunosuppression therapy for RA -clinically has bronchitis which per patient and family report, has lingered for quite some time. With hx of chronic smoking, immunosuppression therapy, COPD, may need further imaging with CT chest as well as pulmonology follow up. Status: Chronic Qualifiers: COPD type: emphysema Emphysema type: unspecified Qualified Code(s): J43.9 - Emphysema, unspecified (7) Seropositive rheumatoid arthritis of multiple joints: -has known seropositive RA involving multiple joints -Follows up with rheum Dr. Guzman -on chronic prednisone, sulfasalazine, Simponi Aria infusions -pain control as needed; add lidocaine patch, voltaren topical - X ray Right hip to r/o acute changes Status: Chronic Additional A&P Information -Advanced age -Chronic smoker; 2-3 cig/day -BPH; on tamsulosin -Anxiety; on alprazolam -remote hx of PE -hyponatremia; likely due to dehydration; improved with IVF -hyperglycemia, likely reactive due to acute infection and he is on chronic steroids; A1c-6.6 -regular diet as tolerated; encourage oral hydration -GI ppx with PPI, chronically on this due to chronic steroid use -DVT ppx with lovenox, SCDs -Dispo: home, potentially with HH. -Code status: DNI; ok with CPR Attestations Medical Necessity Statement*: pending CT evaluation for flank pain and complicated UTI Coding Level of Care Code Acute Filter Press Supervisor for Chg Fwd Diagnoses UTI (urinary tract infection) N30.00 Urinary tract infection type: acute cystitis Hematuria presence: without hematuria Bacteremia due to Gram-negative bacteria R78.81 Generalized weakness R53.1 HTN (hypertension) I10 Hypertension type: essential hypertension CAD (coronary artery disease) I25.10 Coronary Disease-Associated Artery/Lesion type: [place] artery [place] vs. transplanted heart: [place] heart Associated angina: without angina COPD (chronic obstructive pulmonary disease) J43.9 COPD type: emphysema Emphysema type: unspecified Seropositive rheumatoid arthritis of multiple joints M05.79
[2019-08-28] MEDS: enoxaparin 40 mg/0.4 mL Syringe SUBCUT (16:33)
--- NOTE | 2019-08-28 19:53 | PC.NURSE ---
Patient family. This nurse spoke with patients daughter who has requested to speak with the doctor to discuss results of CT and X-ray.
[2019-08-28 20:00] VITALS: BP 137/87; PULSE 76; RESP 20; TEMP 36.6; O2SAT 97
[2019-08-28] MEDS: ALPRAZolam 0.25 mg Tablet PO (20:11)
[2019-08-29] VITALS (8 sets, daily range): BP systolic 139–157; BP diastolic 57–97; PULSE 42–90; RESP 18–32; TEMP 36.4–36.7; O2SAT 87–98
[2019-08-29] MEDS: HYDROcodone-acetaminophen 7.5-325 mg Tablet 1 TAB PO ×4 (02:56→22:37)
[2019-08-29 04:47] LABS: Basophils % 0.2 %; Eosinophils # 0.1 10^3/uL (0.0-0.8); Eosinophils % 0.4 %; Hematocrit 37.9 % (42.0-52.0); Lymphocytes # 1.7 10^3/uL (0.8-4.8); Lymphocytes % 11.1 %; Mean Corpuscular HGB Conc 31.7 g/dL (30.0-36.0); Mean Corpuscular Hemoglobin 29.8 pg (28.0-34.0); Mean Platelet Volume 11.7 fL (7.4-10.4); Monocytes # 1.3 10^3/uL (0.2-0.9); Monocytes % 8.5 %; Neutrophils # 11.8 10^3/uL (1.8-7.7); Neutrophils % 76.8 %; Nucleated Red Blood Cells % 0 %; Platelet Count 297 10^3/cmm (130-400); Red Blood Count 4.03 10^6/uL (4.1-5.3); White Blood Count 15.3 10^3/uL (4.0-10.0)
[2019-08-29 05:09] LABS: Alanine Aminotransferase 19 U/L (0-41); Alkaline Phosphatase 76 IU/L (40-130); Anion Gap 13.5 (5-19); Aspartate Amino Transferase 19 U/L (0-40); Blood Urea Nitrogen 13 mg/dL (8-23); Calcium 9.2 mg/dL (8.5-10.5); Carbon Dioxide 30 mmol/L (22-29); Chloride 100 mmol/L (98-107); Globulin 2.6 g/dL (1.3-4.6); Glucose 80 mg/dL (65-115); Osmolality Calculated 285 mOsm/kg (285-295); Potassium 3.5 mmol/L (3.5-5.1); Sodium 140 mmol/L (136-145); Total Bilirubin 0.6 mg/dL (0.15-1.2); Total Protein 5.6 g/dL (6.6-8.7)
--- NOTE | 2019-08-29 06:08 | PC.NURSE ---
Shift Note No change in patient status. Patient rested okay throughout the night. Patient complained of back pain a couple of times and pain medication was given.
[2019-08-29] MEDS: benzonatate 100 mg Capsule 200 MG PO ×3 (08:12→20:10)
[2019-08-29] MEDS: amlodipine 5 mg Tablet 2.5 MG PO (08:13)
[2019-08-29] MEDS: pantoprazole DR 40 mg Tablet PO (08:13)
[2019-08-29] MEDS: guaiFENesin 600 mg Tablet PO ×2 (08:13→18:46)
[2019-08-29] MEDS: lidocaine 5% Patch 1 PATCH TOPICAL ×2 (08:13→20:10)
[2019-08-29] MEDS: tamsulosin 0.4 mg Capsule PO (08:13)
[2019-08-29] MEDS: predniSONE 5 mg Tablet 10 MG PO (08:13)
[2019-08-29] MEDS: aspirin 81 mg EC Tablet PO (08:13)
[2019-08-29] MEDS: ciprofloxacin 500 mg Tablet PO ×2 (08:13→18:46)
[2019-08-29] MEDS: acetaminophen 325 mg Tablet 650 MG PO (08:14)
[2019-08-29] MEDS: diclofenac 1% Topical Gel 100 gm 1 APPLIC TOPICAL ×4 (08:19→20:10)
--- NOTE | 2019-08-29 10:21 | PC.RESP ---
SMOKING CESSATION AND PULMONARY REHAB INFORMATION SENT TO PATIENT.
--- NOTE | 2019-08-29 10:59 | MR_ITS ---
WS: [id number] MRI abdomen, noncontrast. HISTORY: Possible lesion LEFT kidney. Possible abscess. Multiplanar, multisequence noncontrast imaging is performed of the abdomen. COMPARISON: 12/07/2014, 12/19/2014, 08/28/2019. Mild perinephric stranding around each kidney. There are numerous masses within each kidney. These ma sses are low signal on the T1 and increased on T2 sequences. The previously described thick-walled ma ss within the LEFT kidney measures 3.1 x 3.0 cm. On this unenhanced study there are no soft tissue no dules associated with this mass. This mass has been present since 2014 with very slight increase in s ize. There is no renal obstruction. There is a small amount of ascites noted in the RIGHT abdomen and along the paracolic gutter. There is mild thickening and increased edema in the RIGHT colon greatest towards the cecum. There is no discrete mass identified on this unenhanced study. Abdominal aorta is ectatic and mildly dilated. Visualized gallbladder is normal. IVC filter. Marked LEFT convex scoliosis and curvature of the lumbar spine with asymmetric disc space narrowing. MR/MR abdomen wo con [id number] IMPRESSION: 1. Numerous bilateral renal cysts. Recently described thick wall cyst in the LE FT kidney appears cystic with very slight increase in size since 2014. No solid masses are identified on this unenhanced study. Without IV contrast cannot com pletely exclude a renal neoplasm. Favor these are all benign cystic masses. 2. Mucosal edema and thickening involving the ascending colon, greatest at the cecum. Consider colitis as a possible etiology as there is also small amount of adjacent free fluid.
--- NOTE | 2019-08-29 10:59 | MR_ITS ---
WS: [id number] MRI RIGHT hip, noncontrast. HISTORY: RIGHT inguinal mass of unclear etiology. COMPARISON: 08/28/2019 and 10/27/2018 There is a small amount of ascites and free fluid within the abdomen. Most specific in the RIGHT lowe r quadrant extending into the pelvis. There is a variable signal intensity mass on the T1 and T2 sequences in the RIGHT pelvis adjacent to the superior sacrum. Mass measures 3.6 x 3.5 cm. This mass is inseparable from the distal common abigail c artery at the bifurcation. This mass has been previously described and partially enhanced on the st udy from 10/27/2018. 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 The mixed signal within its due to thrombosis. Change in the lumen cannot be confirmed without IV contrast. The aneurysm has slightly increased in size since 10/27/2018. Otherwise there is ectasia and dilatation of the common iliac arteries bilaterally. No destructive bone lesions. Mild bilateral hip joint arthritis and SI joint arthritis. MR/MR hip RT wo con* [id number] IMPRESSION: 1. 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 Slight increase in size since 10/27/2018. Aneurysm is probably abutting a sac ral nerve root on the RIGHT. 2. Small amount of ascites of uncertain etiology. 3. Ectatic mildly dilated bilateral common iliac arteries.
--- NOTE | 2019-08-29 13:06 | P.PN_ITS ---
Subjective Subjective: Interval history: continues to complain of right sided flank pain and right hip pain. Ct abdomen and pelvis yesterday showed that patient has a left sided rimmed collection over left kidney and Right inguinal mass. Discussed with radiology- recommended MRI for further characterization, cannot rule out abscess. WBC still holding at ~15. Medications: Reviewed: Yes Medication Review Details: Active Medications Generic Name Dose Route Start Last Admin Trade Name Freq PRN Reason Stop Dose Admin Acetaminophen 650 mg 08/23/19 15:30 08/26/19 12:49 Tylenol PO 650 mg Q6H PRN Administration Mild/Mod Pain Or Temp >/= 101 Hydrocodone Bitart /Acetaminophen 1 tab 08/24/19 19:42 08/27/19 13:30 [place] 7.5-325 Mg PO 1 tab Q6H PRN Administration SEVERE PAIN Albuterol Sulfate 2.5 mg 08/25/19 21:31 08/27/19 07:35 Albuterol INHALATION 2.5 mg Q4H.RESPIRATORY P RN Administration SHORTNESS OF FANG TH Alprazolam 0.25 mg 08/25/19 21:00 08/26/19 21:27 Xanax PO 0.25 mg BEDTIME CATA Administration Amlodipine Besylat e 2.5 mg 08/26/19 18:00 08/27/19 09:39 Norvasc PO 2.5 mg DAILY CATA Administration Aspirin 81 mg 08/24/19 09:00 08/27/19 09:39 Aspirin Ec PO 81 mg DAILY CATA Administration Benzonatate 200 mg 08/26/19 21:00 08/27/19 15:05 Tessalon Pearls PO 200 mg TID CATA Administration Ciprofloxacin HCl 500 mg 08/25/19 18:00 08/27/19 09:39 Cipro PO 500 mg BID CATA Administration Protocol Diclofenac Sodium 1 applic 08/26/19 17:00 08/27/19 13:25 Voltaren TOPICAL 1 applic QID CATA Administration Enoxaparin Sodium 40 mg 08/23/19 16:00 08/27/19 15:05 Lovenox SUBCUT 40 mg Q24H CATA Administration Guaifenesin 600 mg 08/26/19 13:45 08/27/19 09:39 Mucinex PO 600 mg BID CATA Administration Lidocaine 1 patch 08/26/19 13:45 08/27/19 09:40 Lidoderm 5% Patc h TOPICAL 1 patch [id number] CATA Administration Nitroglycerin 0.4 mg 08/23/19 15:30 Nitrostat SUBLINGUAL Q5M PRN chest pain Ondansetron HCl 4 mg 08/23/19 15:30 Zofran IVP Q6H PRN vomiting, or N/V if npo Pantoprazole Sodiu m 40 mg 08/24/19 09:00 08/27/19 09:39 Protonix PO 40 mg DAILY CATA Administration Prednisone 10 mg 08/24/19 09:00 08/27/19 09:38 Prednisone PO 10 mg DAILY CATA Administration Tamsulosin HCl 0.4 mg 08/24/19 09:00 08/27/19 09:39 Flomax PO 0.4 mg DAILY CATA Administration atorvastatin [From Lipitor] Allergy (Verified 04/19/19 16:02) unknown ezetimibe [From Vytorin] Allergy (Verified 04/19/19 16:01) unknown niacin [From Niaspan Extended-Release] Allergy (Verified 04/19/19 16:01) unknown ranitidine Allergy (Verified 04/19/19 16:03) unknown rosuvastatin [From Crestor] Allergy (Verified 04/19/19 16:02) unknown simvastatin [From Vytorin] Allergy (Verified 04/19/19 16:01) unknown Vitals/I&O/Wt Last Vital Signs Temp 98.0 F 08/29/19 11:00 Pulse 52 L 08/29/19 11:00 Resp 18 08/29/19 11:00 BP 143/67 08/29/19 11:00 Pulse Ox 87 L 08/29/19 11:24 08/28/19 08/29/19 08/29/19 22:59 06:59 14:59 Intake Total 240 / 720 100 / 820 120 / 120 Output Total 700 / 950 800 / 1750 Balance -460 / -230 -700 / -930 120 / 120 Weight last 48 hrs Weight 81.737 kg Weight 83.28 kg Physical Exam Narrative: EXAM NARRATIVE: GEN: Awake, alert and oriented, c/o pain in his right flank CVS: S1S2 N RS: CTA B/L Abd: Soft, nt/nd , bs+ MILL ORDER SCHEDULER: no focal neuro deficits Data : 08/29/19 04:14 08/29/19 04:14 Micro: Microbiology 08/23/19 11:27 Blood Culture - Final Blood Escherichia coli 08/23/19 11:20 Blood Culture - Final Blood Escherichia coli A&P Assessment and plan (1) UTI (urinary tract infection): -UA indicative of infection -associated sepsis given lactic acidosis, leukocytosis, tachycardia, tachypnea, MITA now resolved -off Ceftriaxone; based on sensitivity, switched to ciprofloxacin -urine cx; E.coli, sensitivity noted -blood cx: 3/4 bottles positive for E.coli, sensitivity noted; repeat set negative -d/c IVF; encourage oral hydration - CT Abdomen/pelvis with possible collection left kidney and right pelvis- MRI for further characterization today Status: Acute Qualifiers: Urinary tract infection type: acute cystitis Hematuria presence: without hematuria Qualified Code(s): N30.00 - Acute cystitis without hematuria (2) Bacteremia due to Gram-negative bacteria: -blood cx: 3/4 bottles positive for E.coli; repeat set prelim negative -off Ceftriaxone; switched to ciprofloxacin -likely source is given complicated UTI Status: Acute (3) Generalized weakness: -likely secondary to acute infection given recent onset -treatment of infection as noted above -typically ambulates with cane/walker -fall precautions -up with assist, PT/OT evaluations appreciated Status: Acute (4) HTN (hypertension): -normotensive, continue to monitor -on Amlodipine Status: Chronic Qualifiers: Hypertension type: essential hypertension Qualified Code(s): I10 - Essential (primary) hypertension (5) CAD (coronary artery disease): -CAD s/p stenting x 3 -follows up with Dr. Godinez -had recent Holter monitor which showed baseline normal sinus rhythm with PVCs -on aspirin, has allergy to multiple statins -Echo poor study, likely EF wnl, no gross wall motion abnormalities Status: Chronic Qualifiers: Coronary Disease-Associated Artery/Lesion type: [place] artery [place] vs. transplanted heart: [place] heart Associated angina: without angina Q ualified Code(s): I25.10 - Atherosclerotic heart disease of [place] coronary artery without angina pectoris (6) COPD (chronic obstructive pulmonary disease): -no acute exacerbation currently -Not oxygen dependant at baseline; home 02 evaluation prior to discharge -supplemental oxygen as needed, monitor respiratory status -clinically has bronchitis which per patient and family report, has lingered for quite some time. With hx of chronic smoking, immunosuppression therapy, COPD - CT chest with COPD/chronic bronchitis/bullous emphysema stable since last examination Status: Chronic Qualifiers: COPD type: emphysema Emphysema type: unspecified Qualified Code(s): J43.9 - Emphysema, unspecified (7) Seropositive rheumatoid arthritis of multiple joints: -has known seropositive RA involving multiple joints -Follows up with rheum Dr. Guzman -on chronic prednisone, sulfasalazine, Simponi Aria infusions -pain control as needed; add lidocaine patch, voltaren topical - X ray Right hip to r/o acute changes Status: Chronic Additional A&P Information -Advanced age -Chronic smoker; 2-3 cig/day -BPH; on tamsulosin -Anxiety; on alprazolam -remote hx of PE -hyponatremia; likely due to dehydration; improved with IVF -hyperglycemia, likely reactive due to acute infection and he is on chronic steroids; A1c-6.6 - pain control: renew hydrocodone -regular diet as tolerated; encourage oral hydration -GI ppx with PPI, chronically on this due to chronic steroid use -DVT ppx with lovenox, SCDs -Dispo: home, potentially with HH. -Code status: DNI; ok with CPR Attestations Medical Necessity Statement*: ongoing evlaution for intraabdominal colelction Coding Level of Care Code Acute Customer Retention Representative for Chg Fwd Diagnoses UTI (urinary tract infection) N30.00 Urinary tract infection type: acute cystitis Hematuria presence: without hematuria Bacteremia due to Gram-negative bacteria R78.81 Generalized weakness R53.1 HTN (hypertension) I10 Hypertension type: essential hypertension CAD (coronary artery disease) I25.10 Coronary Disease-Associated Artery/Lesion type: [place] artery [place] vs. transplanted heart: [place] heart Associated angina: without angina COPD (chronic obstructive pulmonary disease) J43.9 COPD type: emphysema Emphysema type: unspecified Seropositive rheumatoid arthritis of multiple joints M05.79
[2019-08-29] MEDS: enoxaparin 40 mg/0.4 mL Syringe SUBCUT (15:52)
--- NOTE | 2019-08-29 16:48 | PC.OT ---
OT note: Attempted x2 but pt was busy with another discipline first attempt and was going to procedure/imaging second attempt. Will try again tomorrow as able.
[2019-08-29] MEDS: ALPRAZolam 0.25 mg Tablet PO (20:10)
[2019-08-30] VITALS (8 sets, daily range): BP systolic 107–143; BP diastolic 63–97; PULSE 65–92; RESP 16–24; TEMP 36.6–36.8; O2SAT 92–98
--- NOTE | 2019-08-30 06:01 | PC.NURSE ---
Shift Summary Patient rested well throughout the night. Patient required little pain medication. Good urine output. No change in patient status.
[2019-08-30] MEDS: benzonatate 100 mg Capsule 200 MG PO ×3 (08:20→20:06)
[2019-08-30] MEDS: amlodipine 5 mg Tablet 2.5 MG PO (08:20)
[2019-08-30] MEDS: ciprofloxacin 500 mg Tablet PO ×2 (08:21→17:03)
[2019-08-30] MEDS: aspirin 81 mg EC Tablet PO (08:21)
[2019-08-30] MEDS: pantoprazole DR 40 mg Tablet PO (08:21)
[2019-08-30] MEDS: predniSONE 5 mg Tablet 10 MG PO (08:24)
[2019-08-30] MEDS: HYDROcodone-acetaminophen 7.5-325 mg Tablet 1 TAB PO ×2 (08:24→17:03)
[2019-08-30] MEDS: guaiFENesin 600 mg Tablet PO ×2 (08:24→17:03)
[2019-08-30] MEDS: diclofenac 1% Topical Gel 100 gm 1 APPLIC TOPICAL ×4 (08:28→20:06)
[2019-08-30] MEDS: tamsulosin 0.4 mg Capsule PO (10:38)
[2019-08-30] MEDS: lidocaine 5% Patch 1 PATCH TOPICAL (10:39)
--- NOTE | 2019-08-30 12:41 | DCPLANNER ---
Pg 2 of IM updated and reviewed with pt. No questions, copy provided.
[2019-08-30] MEDS: acetaminophen 325 mg Tablet 650 MG PO ×2 (12:48→20:06)
--- NOTE | 2019-08-30 13:46 | USCV_ITS ---
Chinmay Guerrier Age: 78 Gender: M : 1940 Exam Date: 08/30/2019 15:27 Ordering Phys: Alla Lee MD Technologist: Ivy Catalan Exam Location: [facility] [place] Ind[place]: right leg pain/? DVT HISTORY: Right leg pain, history DVT PROCEDURES: Venous duplex imaging was performed in only the right lower extremity. FINDINGS: No DVT or superficial thrombus seen in RLE The veins were found to be easily compressible with spontaneous blood flow. Non pulsatile flow pattern. CONCLUSIONS No evidence of DVT in the above-mentioned identifiable veins. Dr Jori Godinez MD [facility] (Electronically Signed) Final Date: 30 August 2019 19:19 S
[2019-08-30] MEDS: TRAMadol 50 mg Tablet PO (14:12)
[2019-08-30] MEDS: bisacodyl 10 mg Supp PR (14:13)
--- NOTE | 2019-08-30 14:41 | DCPLANNER ---
Pg 2 of IM updated and reviewed with pt. No questions, copy provided.
[2019-08-30] MEDS: enoxaparin 40 mg/0.4 mL Syringe SUBCUT (17:02)
[2019-08-30] MEDS: cyclobenzaprine 10 mg Tablet PO (17:03)
--- NOTE | 2019-08-30 19:00 | P.PN_ITS ---
Subjective Subjective: Interval history: Continues to be in significant RLQ pain to the point of not partcipating in PT, refusing to get out of bed. MRI abdomen did not show any acute intraabdominal process. Left kidney collection reported as cyst. 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 Medications: Reviewed: Yes Medication Review Details: Active Medications Generic Name Dose Route Start Last Admin Trade Name Freq PRN Reason Stop Dose Admin Acetaminophen 650 mg 08/23/19 15:30 08/26/19 12:49 Tylenol PO 650 mg Q6H PRN Administration Mild/Mod Pain Or Temp >/= 101 Hydrocodone Bitart /Acetaminophen 1 tab 08/24/19 19:42 08/27/19 13:30 Melvin 7.5-325 Mg PO 1 tab Q6H PRN Administration SEVERE PAIN Albuterol Sulfate 2.5 mg 08/25/19 21:31 08/27/19 07:35 Albuterol INHALATION 2.5 mg Q4H.RESPIRATORY P RN Administration SHORTNESS OF FANG TH Alprazolam 0.25 mg 08/25/19 21:00 08/26/19 21:27 Xanax PO 0.25 mg BEDTIME CATA Administration Amlodipine Besylat e 2.5 mg 08/26/19 18:00 08/27/19 09:39 Norvasc PO 2.5 mg DAILY CATA Administration Aspirin 81 mg 08/24/19 09:00 08/27/19 09:39 Aspirin Ec PO 81 mg DAILY CATA Administration Benzonatate 200 mg 08/26/19 21:00 08/27/19 15:05 Tessalon Pearls PO 200 mg TID CATA Administration Ciprofloxacin HCl 500 mg 08/25/19 18:00 08/27/19 09:39 Cipro PO 500 mg BID CATA Administration Protocol Diclofenac Sodium 1 applic 08/26/19 17:00 08/27/19 13:25 Voltaren TOPICAL 1 applic QID CATA Administration Enoxaparin Sodium 40 mg 08/23/19 16:00 08/27/19 15:05 Lovenox SUBCUT 40 mg Q24H CATA Administration Guaifenesin 600 mg 08/26/19 13:45 08/27/19 09:39 Mucinex PO 600 mg BID CATA Administration Lidocaine 1 patch 08/26/19 13:45 08/27/19 09:40 Lidoderm 5% Patc h TOPICAL 1 patch [id number] CATA Administration Nitroglycerin 0.4 mg 08/23/19 15:30 Nitrostat SUBLINGUAL Q5M PRN chest pain Ondansetron HCl 4 mg 08/23/19 15:30 Zofran IVP Q6H PRN vomiting, or N/V if npo Pantoprazole Sodiu m 40 mg 08/24/19 09:00 08/27/19 09:39 Protonix PO 40 mg DAILY CATA Administration Prednisone 10 mg 08/24/19 09:00 08/27/19 09:38 Prednisone PO 10 mg DAILY CATA Administration Tamsulosin HCl 0.4 mg 08/24/19 09:00 08/27/19 09:39 Flomax PO 0.4 mg DAILY CATA Administration atorvastatin [From Lipitor] Allergy (Verified 04/19/19 16:02) unknown ezetimibe [From Vytorin] Allergy (Verified 04/19/19 16:01) unknown niacin [From Niaspan Extended-Release] Allergy (Verified 04/19/19 16:01) unknown ranitidine Allergy (Verified 04/19/19 16:03) unknown rosuvastatin [From Crestor] Allergy (Verified 04/19/19 16:02) unknown simvastatin [From Vytorin] Allergy (Verified 04/19/19 16:01) unknown Vitals/I&O/Wt Last Vital Signs Temp 97.8 F 08/30/19 16:00 Pulse 71 08/30/19 16:00 Resp 18 08/30/19 16:00 BP 116/75 08/30/19 16:00 Pulse Ox 98 08/30/19 16:00 08/30/19 08/30/19 08/30/19 06:59 14:59 22:59 Output Total 400 / 550 700 / 700 Balance -400 / -190 -700 / -700 Weight last 48 hrs Weight 81.465 kg Weight 81.737 kg Physical Exam Narrative: EXAM NARRATIVE: GEN: Awake, alert and oriented, no acute distress CVS: S1S2 N RS: CTA B/L, few scattered rhonchi Abd: Soft, nt/nd , bs+ 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 Status: Acute Qualifiers: Urinary tract infection type: acute cystitis Hematuria presence: wit hout hematuria Qualified Code(s): N30.00 - Acute cystitis without hematuria (2) Bacteremia due to Gram-negative bacteria: -blood cx: 3/4 bottles positive for E.coli; repeat set prelim negative -off Ceftriaxone; switched to ciprofloxacin -likely source is given complicated UTI Status: Acute (3) Generalized weakness: -likely secondary to acute infection given recent onset -treatment of infection as noted above -typically ambulates with cane/walker -fall precautions -up with assist, PT/OT evaluations appreciated Status: Acute (4) HTN (hypertension): -normotensive, continue to monitor -on Amlodipine Status: Chronic Qualifiers: Hypertension type: essential hypertension Qualified Code(s): I10 - Ess ential (primary) hypertension (5) CAD (coronary artery disease): -CAD s/p stenting x 3 -follows up with Dr. Godinez -had recent Holter monitor which showed baseline normal sinus rhythm with PVCs -on aspirin, has allergy to multiple statins -Echo poor study, likely EF wnl, no gross wall motion abnormalities Status: Chronic Qualifiers: Coronary Disease-Associated Artery/Lesion type: [place] artery [place] vs. transplanted heart: [place] heart Associated angina: without angina Qualified Code(s): I25.10 - Atherosclerotic heart disease of [place] coronary artery without angina pectoris (6) COPD (chronic obstructive pulmonary disease): -no acute exacerbation currently -Not oxygen dependant at baseline; home 02 evaluation prior to discharge -supplemental oxygen as needed, monitor respiratory status -clinically has bronchitis which per patient and family report, has lingered for quite some time. With hx of chronic smoking, immunosuppression therapy, COPD - CT chest with COPD/chronic bronchitis/bullous emphysema stable since last examination Status: Chronic Qualifiers: COPD type: emphysema Emphysema type: unspecified Qualified Code(s): J43.9 - Emphysema, unspecified (7) Seropositive rheumatoid arthritis of multiple joints: -has known seropositive RA involving multiple joints -Follows up with rheum Dr. Guzman -on chronic prednisone, sulfasalazine, Simponi Aria infusions -pain control as needed; add lidocaine patch, voltaren topical - X ray Right hip to r/o acute changes Status: Chronic (8) Sacral nerve root compression: from internal iliac artery aneursym with sacral nerve compression Pain not adequately controlled at this time Patient able to urinate, constipation+ will add tramadol and flexeril to regimen for better pain control continue local aapplication of voltaren and lidocaine patch encourage PT/OT Status: Acute Additional A&P Information -Advanced age -Chronic smoker; 2-3 cig/day -BPH; on tamsulosin -Anxiety; on alprazolam -remote hx of PE -hyponatremia; likely due to dehydration; improved with IVF -hyperglycemia, likely reactive due to acute infection and he is on chronic humberto roids; A1c-6.6 - pain control: renew hydrocodone -regular diet as tolerated; encourage oral hydration -GI ppx with PPI, chronically on this due to chronic steroid use -DVT ppx with lovenox, SCDs -Dispo: home, potentially with HH. -Code status: DNI; ok with CPR Attestations Medical Necessity Statement*: significant pain, not appropriately controlled at this time, causing mobility impairment Coding Level of Care Code Acute Stem Shaper for Chg Fwd Diagnoses UTI (urinary tract infection) N30.00 Urinary tract infection type: acute cystitis Hematuria presence: without hematuria Bacteremia due to Gram-negative bacteria R78.81 Generalized weakness R53.1 HTN (hypertension) I10 Hypertension type: essential hypertension CAD (coronary artery disease) I25.10 Coronary Disease-Associated Artery/Lesion type: [place] artery [place] vs. transplanted heart: [place] heart Associated angina: without angina COPD (chronic obstructive pulmonary disease) J43.9 COPD type: emphysema Emphysema type: unspecified Seropositive rheumatoid arthritis of multiple joints M05.79 Sacral nerve root compression G54.8
[2019-08-30] MEDS: ALPRAZolam 0.25 mg Tablet PO (20:06)
[2019-08-31 04:00] VITALS: BP 120/57; PULSE 122; RESP 19; TEMP 36.6; O2SAT 90
[2019-08-31] MEDS: HYDROcodone-acetaminophen 7.5-325 mg Tablet 1 TAB PO ×3 (04:01→19:24)
[2019-08-31] MEDS: cyclobenzaprine 10 mg Tablet PO ×2 (05:00→14:44)
[2019-08-31] MEDS: acetaminophen 325 mg Tablet 650 MG PO (05:00)
[2019-08-31 07:40] VITALS: BP 133/63; PULSE 88; RESP 16; TEMP 36.8; O2SAT 96
[2019-08-31] MEDS: pantoprazole DR 40 mg Tablet PO (08:27)
[2019-08-31] MEDS: lidocaine 5% Patch 1 PATCH TOPICAL (08:27)
[2019-08-31] MEDS: tamsulosin 0.4 mg Capsule PO (08:27)
[2019-08-31] MEDS: ciprofloxacin 500 mg Tablet PO ×2 (08:27→17:31)
[2019-08-31] MEDS: aspirin 81 mg EC Tablet PO (08:27)
[2019-08-31] MEDS: benzonatate 100 mg Capsule 200 MG PO ×3 (08:27→21:10)
[2019-08-31] MEDS: guaiFENesin 600 mg Tablet PO ×2 (08:27→17:31)
[2019-08-31] MEDS: predniSONE 5 mg Tablet 10 MG PO (08:27)
[2019-08-31] MEDS: amlodipine 5 mg Tablet 2.5 MG PO (08:27)
[2019-08-31] MEDS: diclofenac 1% Topical Gel 100 gm 1 APPLIC TOPICAL ×4 (08:28→21:11)
--- NOTE | 2019-08-31 10:12 | PC.CHAP ---
Pastoral Care Encounter/Spiritual Assessment Type of Contact [] Declined inspector elevators visit [] Patient/Family/Request visit [] Outpatient visit [] Follow-up visit [] Physician referral [] Code/Alert [x] Routine visit [] Staff referral [] Actively dying [] Patient sleeping [] Family support [] [] Out of room [] Palliative care [] [] Receiving care in room [] Pre-surgical visit [] Trauma [] Long length of stay [] ICU visit [] Other: Relational/Emotional Strength [x] Patient feels connected with others/family/visitors/staff [] Distress [] Loneliness/isolation [] Abandonment Spirituality of Patient [x] Person of Juju [x] Attends Evangelical of their Juju [x] Believes in Prayer [x] Reads Bible or Presybeterian materials [] There are Spiritual issues to be addressed Cycle Consultant Interventions [x] Prayer [x] Active listening [x] Non-anxious presence [x] Spiritual/emotional support [] Crisis/trauma care [] Spiritual counseling [] Bereavement support [] Provided bereavement packet [] Provided Bible/devotional materials [] Provided toy/stuffed animal, coloring book to patient or family member [] Provided Communion [] Anointing/[place] [] Salvation [x] Completed spiritual assessment [] Other: Impact on Illness or Injury [] Angry [] Fearful [] Anxious [] Often cries [] Exhaustion [] Unable to work [] Unable to attend catholic [] Unable to walk/stand [] Unable to read [] Unable to drive [] Unable to eat/drink [] Unable to sleep [] Unable to be with family [] Patient intubated [x] Other: Summary Patient is a submitted believer in Michael Liu and attends [facility] locally. Patient was also experiencing physical pain. Time spent with patient 10 minutes
[2019-08-31 10:36] VITALS: PULSE 55; RESP 18; O2SAT 93
[2019-08-31 10:57] LABS: Basophils # 0.1 10^3/uL (0.0-0.1); Basophils % 0.4 %; Eosinophils # 0.1 10^3/uL (0.0-0.8); Eosinophils % 0.3 %; Hematocrit 38.8 % (42.0-52.0); Hemoglobin 12.4 g/dL (11.7-16.6); Lymphocytes # 1.4 10^3/uL (0.8-4.8); Lymphocytes % 8.5 %; Mean Corpuscular Hemoglobin 29.9 pg (28.0-34.0); Mean Corpuscular Volume 93.5 fL (80-94); Mean Platelet Volume 10.8 fL (7.4-10.4); Monocytes # 1.5 10^3/uL (0.2-0.9); Monocytes % 9.1 %; Neutrophils # 12.3 10^3/uL (1.8-7.7); Neutrophils % 77.1 %; Nucleated Red Blood Cells % 0 %; Platelet Count 333 10^3/cmm (130-400); Red Blood Count 4.15 10^6/uL (4.1-5.3); Red Cell Distribution Width 15.7 % (12.1-15.1)
[2019-08-31] MEDS: TRAMadol 50 mg Tablet PO ×2 (11:06→17:31)
[2019-08-31 11:13] LABS: Alanine Aminotransferase 14 U/L (0-41); Albumin Level 2.8 g/dL (3.5-5.2); Alkaline Phosphatase 69 IU/L (40-130); Anion Gap 13.2 (5-19); Aspartate Amino Transferase 16 U/L (0-40); Blood Urea Nitrogen 16 mg/dL (8-23); Carbon Dioxide 31 mmol/L (22-29); Chloride 97 mmol/L (98-107); Globulin 2.6 g/dL (1.3-4.6); Glucose 111 mg/dL (65-115); Osmolality Calculated 283 mOsm/kg (285-295); Potassium 3.2 mmol/L (3.5-5.1); Sodium 138 mmol/L (136-145); Total Bilirubin 0.7 mg/dL (0.15-1.2); Total Protein 5.4 g/dL (6.6-8.7)
[2019-08-31 11:20] VITALS: BP 100/56; PULSE 96; RESP 17; TEMP 36.6; O2SAT 92
[2019-08-31 16:00] VITALS: BP 106/72; PULSE 86; RESP 16; TEMP 36.6; O2SAT 99
[2019-08-31] MEDS: enoxaparin 40 mg/0.4 mL Syringe SUBCUT (17:30)
--- NOTE | 2019-08-31 17:36 | CTR_ITS ---
PROCEDURE INFORMATION: Exam: CT Chest Without Contrast Exam date and time: 08/31/2019 6:25 PM Age: 78 years old Clinical indication: Shortness of breath; Left-sided chest pain; Prior surgery; Surgery type: Stents; Additional info: Persisting leukocytosis, check for pneumonia, f/u effusion TECHNIQUE: Imaging protocol: Computed tomography of the chest without contrast. Radiation optimization: All CT scans at this facility use at least one of these dose optimization techniques: automated exposure control; mA and/or kV adjustment per patient size (includes targeted exams where dose is matched to clinical indication); or iterative reconstruction. COMPARISON: CT chest wo con [id number] 08/27/2019 5:43 PM RADIATION DOSE METRICS: Total DLP: 740.2 mGy-cm FINDINGS: Lungs: Mild emphysema. New area of focal atelectasis or consolidation inferior lateral aspect of right middle lobe with air bronchograms. Minor atelectasis posterior dependent portions of both lungs. Pleural space: Small posterior pleural effusions, relatively unchanged. Heart: Coronary artery stents in place. Aorta: Tortuous/ectatic aorta with mild atherosclerotic calcification. Lymph nodes: Unremarkable. No enlarged lymph nodes. Bones/joints: Unremarkable. No acute fracture. Soft tissues: Unremarkable. CT/CT chest con [id number] IMPRESSION: 1.) Small posterior pleural effusions, relatively unchanged. 2.)Mild emphysema. New area of focal atelectasis or consolidation inferior-lateral aspect of right middle lobe with air bronchograms. Minor atelectasis posterior dependent portions of both lungs. Radiation Dose CTDIVOL = (mGy): DLP = 740.2 (mGy-cm)
--- NOTE | 2019-08-31 17:36 | P.PN_ITS ---
Subjective Subjective: Interval history: Continues to be in significant pain, though improved over yesterday with tramadol + flexeril. Was able to move out of bed to chair and stand with assist today, however mostly prefers to stay in bed, laying on to his side Medications: Reviewed: Yes Vitals/I&O/Wt Last Vital Signs Temp 97.9 F 08/31/19 16:00 Pulse 86 08/31/19 16:00 Resp 16 08/31/19 16:00 BP 106/72 08/31/19 16:00 Pulse Ox 99 08/31/19 16:00 08/31/19 08/31/19 08/31/19 06:59 14:59 22:59 Intake Total 480 / 480 Output Total 350 / 1250 100 / 100 Balance -350 / -1250 380 / 380 Weight last 48 hrs Weight 80.031 kg Weight 81.465 kg Physical Exam Narrative: EXAM NARRATIVE: GEN: Awake, alert and oriented, no acute distress CVS: S1S2 N RS: CTA B/L Abd: Soft, 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 , 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 Status: Acute Qualifiers: Urinary tract infection type: acute cystitis Hematuria presence: without hematuria Qualified Code(s): N30.00 - Acute cystitis without hematuria (2) Bacteremia due to Gram-negative bacteria: -blood cx: 3/4 bottles positive for E.coli; repeat set prelim negative -off Ceftriaxone; switched to ciprofloxacin, overall day 7 since clearance of blood culture, will plan for total 14 day course -likely source is given complicated UTI Status: Acute (3) Generalized weakness: -likely secondary to acute infection given recent onset -treatment of infection as noted above -typically ambulates with cane/walker -fall precautions -up with assist, PT/OT evaluations appreciated Status: Acute (4) HTN (hypertension): -normotensive, continue to monitor -on Amlodipine Status: Chronic Qualifiers: Hypertension type: essential hypertension Qualified Code(s): I10 - Essential (primary) hypertension (5) CAD (coronary artery disease): -CAD s/p stenting x 3 -follows up with Dr. Godinez -had recent Holter monitor which showed baseline normal sinus rhythm with PVCs -on aspirin, has allergy to multiple statins -Echo poor study, likely EF wnl, no gross wall motion abnormalities Status: Chronic Qualifiers: Coronary Disease-Associated Artery/Lesion type: [place] artery [place] vs. transplanted heart: [place] heart Associated angina: without angina Qualified Code(s): I25.10 - Atherosclerotic heart disease of [place] coronary artery without angina pectoris (6) COPD (chronic obstructive pulmonary disease): -no acute exacerbation currently -Not oxygen dependant at baseline; home 02 evaluation qualified for 2lpm -supplemental oxygen as needed, monitor respiratory status -clinically has bronchitis which per patient and family report, has lingered for quite some time. With hx of chronic smoking, immunosuppression therapy, COPD - CT chest with COPD/chronic bronchitis/bullous emphysema stable since last examination - will repeat CT chest today given peristent leukocytosis to r/o any new intrathoarcic processes Status: Chronic Qualifiers: COPD type: emphysema Emphysema type: unspecified Qualified Code(s): J43.9 - Emphysema, unspecified (7) Seropositive rheumatoid arthritis of multiple joints: -has known seropositive RA involving multiple joints -Follows up with rheum Dr. Guzman -on chronic prednisone, sulfasalazine, Simponi Aria infusions -pain control as needed; add lidocaine patch, voltaren topical - Significant bony changes in spine per review of CT and MR images Status: Chronic (8) Sacral nerve root compression: from internal iliac artery aneursym with sacral nerve compression Pain not adequately controlled at this time Patient able to urinate, constipation+ will add tramadol and flexeril to regimen for better pain control - patient reports tramadol works better, however continues to be in significant pain No acute intraabdominal process though note made of possible colitis on CT- though clinically patient does not appear to have symptoms of this- will add flagyl to see if pain and leukocytosis start to improve continue local aapplication of voltaren and lidocaine patch encourage PT/OT Briefly dicussed with outpatient pain management- appears to have significant degenerative changes in entire spine, will refer to pain management on discharge to see if he may benefit from epidural injections. Referral to Dr. Ortiz Regarding aneurysm, will discuss with his outpatient secret code expert to see if he may benefit from intervention directed towards the aneursym Status: Acute Additional A&P Information -Advanced age -Chronic smoker; 2-3 cig/day -BPH; on tamsulosin -Anxiety; on alprazolam -remote hx of PE -hyponatremia; likely due to dehydration; improved with IVF -hyperglycemia, likely reactive due to acute infection and he is on chronic steroids; A1c-6.6 - pain control: renew hydrocodone -regular diet as tolerated; encourage oral hydration -GI ppx with PPI, chronically on this due to chronic steroid use -DVT ppx with lovenox, SCDs -Dispo: home, potentially with HH. -Code status: DNI; ok with CPR Attestations Medical Necessity Statement*: inadequately controlled pain, sacral nerve root compression Coding Level of Care Code Acute Social Media Developer for Chg Fwd Diagnoses UTI (urinary tract infection) N30.00 Urinary tract infection type: acute cystitis Hematuria presence: without hematuria Bacteremia due to Gram-negative bacteria R78.81 Generalized weakness R53.1 HTN (hypertension) I10 Hypertension type: essential hypertension CAD (coronary artery disease) I25.10 Coronary Disease-Associated Artery/Lesion type: [place] artery [place] vs. transplanted heart: [place] heart Associated angina: without angina COPD (chronic obstructive pulmonary disease) J43.9 COPD type: emphysema Emphysema type: unspecified Seropositive rheumatoid arthritis of multiple joints M05.79 Sacral nerve root compression G54.8
[2019-08-31 19:18] VITALS: BP 119/60; PULSE 92; RESP 18; TEMP 36.5; O2SAT 97
[2019-08-31] MEDS: metroNIDAZOLE 500 MG Tablet PO (21:10)
[2019-08-31] MEDS: ALPRAZolam 0.25 mg Tablet PO (21:10)
[2019-09-01] VITALS: BP 109/66; PULSE 85; RESP 18; TEMP 37.1; O2SAT 92
[2019-09-01] MEDS: TRAMadol 50 mg Tablet PO ×2 (00:39→09:10)
[2019-09-01 04:00] VITALS: BP 114/68; PULSE 86; RESP 17; TEMP 37.1; O2SAT 94
[2019-09-01 05:40] LABS: Basophils # 0.1 10^3/uL (0.0-0.1); Basophils % 0.3 %; Eosinophils % 0.3 %; Hematocrit 38.3 % (42.0-52.0); Hemoglobin 11.9 g/dL (11.7-16.6); Lymphocytes # 2.1 10^3/uL (0.8-4.8); Lymphocytes % 13.8 %; Mean Corpuscular HGB Conc 31.1 g/dL (30.0-36.0); Mean Corpuscular Hemoglobin 28.8 pg (28.0-34.0); Mean Corpuscular Volume 92.7 fL (80-94); Mean Platelet Volume 10.8 fL (7.4-10.4); Monocytes # 1.4 10^3/uL (0.2-0.9); Monocytes % 8.9 %; Neutrophils # 11.2 10^3/uL (1.8-7.7); Neutrophils % 73.5 %; Nucleated Red Blood Cells % 0 %; Platelet Count 352 10^3/cmm (130-400); Red Blood Count 4.13 10^6/uL (4.1-5.3); Red Cell Distribution Width 15.7 % (12.1-15.1); White Blood Count 15.2 10^3/uL (4.0-10.0)
[2019-09-01 05:56] LABS: Alanine Aminotransferase 13 U/L (0-41); Albumin Level 3.1 g/dL (3.5-5.2); Alkaline Phosphatase 65 IU/L (40-130); Anion Gap 13.7 (5-19); Aspartate Amino Transferase 16 U/L (0-40); Blood Urea Nitrogen 18 mg/dL (8-23); Calcium 8.8 mg/dL (8.5-10.5); Carbon Dioxide 30 mmol/L (22-29); Chloride 100 mmol/L (98-107); Globulin 2.3 g/dL (1.3-4.6); Glucose 84 mg/dL (65-115); Osmolality Calculated 286 mOsm/kg (285-295); Potassium 3.7 mmol/L (3.5-5.1); Sodium 140 mmol/L (136-145); Total Bilirubin 0.6 mg/dL (0.15-1.2); Total Protein 5.4 g/dL (6.6-8.7)
[2019-09-01 06:24] LABS: NT Pro B Type Natriuretic Pept 1291 pg/mL (0-450)
[2019-09-01 07:10] VITALS: BP 118/58; PULSE 93; RESP 17; TEMP 36.5; O2SAT 93
[2019-09-01] MEDS: pantoprazole DR 40 mg Tablet PO (09:08)
[2019-09-01] MEDS: amlodipine 5 mg Tablet 2.5 MG PO (09:08)
[2019-09-01] MEDS: guaiFENesin 600 mg Tablet PO (09:08)
[2019-09-01] MEDS: tamsulosin 0.4 mg Capsule PO (09:08)
[2019-09-01] MEDS: benzonatate 100 mg Capsule 200 MG PO ×2 (09:08→14:58)
[2019-09-01] MEDS: aspirin 81 mg EC Tablet PO (09:08)
[2019-09-01] MEDS: lidocaine 5% Patch 1 PATCH TOPICAL (09:09)
[2019-09-01] MEDS: predniSONE 5 mg Tablet 10 MG PO (09:09)
[2019-09-01] MEDS: diclofenac 1% Topical Gel 100 gm 1 APPLIC TOPICAL (09:09)
[2019-09-01] MEDS: metroNIDAZOLE 500 MG Tablet PO ×2 (09:09→14:58)
[2019-09-01] MEDS: ciprofloxacin 500 mg Tablet PO (09:09)
--- NOTE | 2019-09-01 11:20 | PC.SOCIAL ---
IMM Page 2 of IMM updated and given to patient. Initialed, dated, and timed and placed in chart.
[2019-09-01 11:31] VITALS: BP 108/56; PULSE 72; RESP 17; TEMP 36.4; O2SAT 92
--- NOTE | 2019-09-01 13:14 | P.TS_ITS ---
Transfer Summary Providers Date of Admission: 08/23/19 12:43 Date of Discharge: 09/01/19 Attending Provider at Admission: Diana Dick MD Attending Provider at Transfer: Alla Lee MD Primary Care Provider: Vasu Ramsay MD Anticipated Date of Transfer: Anticipated date of transfer: 09/01/19 Receiving Facility & Provider: Receiving Provider: [] Receiving facility: [] Diagnoses at Discharge Discharge Diagnosis (1) UTI (urinary tract infection): Status: Acute Qualifiers: Urinary tract infection type: acute cystitis Hematuria presence: without hematuria Qualified Code(s): N30.00 - Acute cystitis without hematuria (2) Bacteremia due to Gram-negative bacteria: Status: Acute (3) Generalized weakness: Status: Acute (4) HTN (hypertension): Status: Chronic Qualifiers: Hypertension type: essential hypertension Qualified Code(s): I10 - Essential (primary) hypertension (5) CAD (coronary artery disease): Status: Chronic Qualifiers: Coronary Disease-Associated Artery/Lesion type: [place] artery [place] vs. 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 Patient initially admitted 08/22 for gram negtaive septicemia from urinary source, improved in this regard, however developed persistent right groin pain, initially raising concern for possible peripnephric abscess vs pyelonephritis or obstruction. CT abd and MR abdomen negative for these, but showed increasing size of patially thrombosed right aneurysm. Patient being transferred to [facility] in [place] at this time due to ongoing right lower quadrant pain, likely as result of enlarging RIGHT internal iliac artery now measuring 3.6 x 3.5 cm abutting on the sacral nerve. Discharge Summary: 1. UTI -UA indicative of infection, urine cx with E.coli -associated sepsis given lactic acidosis, leukocytosis, tachycardia, tachypnea, MITA now resolved -Admitted 08/22, initially treated with ceftriaxone, switched to po ciprofloxacin -urine cx; E.coli, sensitivity noted -blood cx: 3/4 bottles positive for E.coli on 08/22, clear since 08/23 -overall day 8 since clearance of blood culture, will plan for total 14 day course -currently afebrile,hemodynamically stable, leukocytosis persisting at ~15, not unusual when compared to previous hospitalization trends for patient, likely contributed by steroids. -d/c IVF; encourage oral hydration - underwent non con CT and then MR abdomen (to avoid contrast given MITA) and hip due to initial suspicion for abscess on CT abdomen given RLQ pain and leukocytosis. This is negative for abscess or perinephric stranding or other acute intraabdominal process but shows right internal iliac artery aneurysm 3.5 x 3.6 cm abutting on the sacral nerve. 2. Right internal iliac artery aneurysm as above : partially thrombosed aneurysm arising from the RIGHT internal iliac artery now measuring 3.6 x 3.5 cm. Slight increase in size since 10/27/2018. Aneurysm is probably abutting a sacral nerve root on the RIGHT. This could potentially be the source of intractable pain at this point. Discussed with outpatient spring former Dr. Godinez, aneursym increasing in size and now symptomatic- He will recah out to colleagues in [facility] to assess feasibility of intervention at this time. 3. Ongoing RLQ and groin pain, worsening , poorly controlled in spite of norco/tramadol,flexeril, topical lidocaine and voltaren. Ct abdomen/pelvis non con 08/27: Smooth appearing mass adjacent to the right iliac artery suspicious of either an enlarged lymph node or Lymohatocele. Enlargement of the prostate A thick rim lesion is seen off the inferior pole of the left kidney The right and left kidneys show benign cysts. 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 f/up MR 08/28: Numerous bilateral renal cysts. Recently described thick wall cyst in the LEFT kidney appears cystic with very slight increase in size since 2014. No solid masses are identified on this unenhanced study. Without IV contrast cannot completely exclude a renal neoplasm. Favor these are all benign cystic masses. Mucosal edema and thickening involving the ascending colon, greatest at the cecum. Consider colitis as a possible etiology as there is also small amount of adjacent free fluid. Clinically patient does not have any diarrhea, nausea,vomiting or GI symptoms, tolerating po intake. Doubtful this is contributing, however flagyl added to cipro given above and ongoing pain. 4. COPD (chronic obstructive pulmonary disease): -no acute exacerbation currently -Not oxygen dependant at baseline; home 02 evaluation qualified for 2lpm -supplemental oxygen as needed, monitor respiratory status -clinically has bronchitis which per patient and family report, has lingered for quite some time. With hx of chronic smoking, immunosuppression therapy, COPD - 08/26 CT chest with COPD/chronic bronchitis/bullous emphysema stable since last examination - repeat CT chest 08/30 given peristent leukocytosis - no pneumonia, small band atelactasis, small posterioe pleural effusions 5. CAD (coronary artery disease): -CAD s/p stenting x 3 -follows up with Dr. Godinez -had recent Holter monitor which showed baseline normal sinus rhythm with PVCs and trigeminy -on aspirin, has allergy to multiple statins -Echo poor study, likely EF wnl, no gross wall motion abnormalities 6. Seropositive rheumatoid arthritis of multiple joints: -has known seropositive RA involving multiple joints -Follows up with rheum Dr. Guzman -on chronic prednisone 10mg, sulfasalazine, Simponi Aria infusions -pain control as needed; add lidocaine patch, voltaren topical - Significant bony changes in spine per review of CT and MR images with old fractures 7. Sacral nerve root compression: from internal iliac artery aneursym with sacral nerve compression Pain not adequately controlled at this time. Pain worsening during course of admission, was initially able to ambulate, now lays in bed, rolled over to right side, refuses to participate in PT due to pain Patient able to urinate, constipation+, relived with dulcolax suppository No acute intraabdominal process though note made of possible colitis on CT- though clinically patient does not appear to have symptoms of this- will add flagyl to see if pain start to improve continue local application of voltaren and lidocaine patch in addition to tramadol/flexeril encourage PT/OT Briefly dicussed with outpatient pain management- appears to have significant degenerative changes in entire spine, will refer to pain management on discharge to see if he may benefit from epidural injections. Referral to Dr. Ortiz. Unfortunatelt inpatient pain management service N/A Physical Exam Narrative: EXAM NARRATIVE: GEN: Awake, alert and oriented, no acute distress CVS: S1S2 N RS: CTA B/L Abd: Soft, nt/nd , bs+ FLORIST: no focal neuro deficits Ext: no edema TS Data Data Completed and Pending: Completed Studies During Hospitalization Category Date Time Status CT abdomen pelvis wo con [id number] Rout ine Cat Scan 08/28/19 14:[address] chest wo con 7 1250 Routine Cat Scan 08/27/19 17:[address] chest wo con 7 1250 Routine Cat Scan 08/31/19 17:36 Completed XR chest 1V marc ble [id number] Stat Exams 08/23/19 10:58 Completed XR hip RT 1V wo/w pel [id number] Routine Exams 08/28/19 14:36 Completed MR abdomen wo con [id number] Routine MRI 08/29/19 10:59 Completed MR hip RT wo con* [id number] Urgent MRI 08/29/19 10:59 Completed CV echo complete* [id number] Routine Ultrasound 08/23/19 15:30 Completed US venous duplex lower extremity RT [CV venous duplex Ultrasound 08/30/19 13:[place] [id number]] Rout ine Pending at discharge Category Date Time Status Blood Culture AM LABS Lab 09/01/19 05:29 Results Labs from last 24 hours 09/01/19 09/01/19 09/01/19 05:25 05:25 05:25 WBC 15.2 H RBC 4.13 Hgb 11.9 Hct 38.3 L MCV 92.7 MCH 28.8 MCHC 31.1 RDW 15.7 H Plt Count 352 MPV 10.8 H Neut % (Auto) 73.5 Lymph % (Auto) 13.8 [place] % (Auto) 8.9 Eos % (Auto) 0.3 Baso % (Auto) 0.3 Neut # (Auto) 11.2 H Lymph # (Auto) 2.1 [place] # (Auto) 1.4 H Eos # (Auto) 0.0 Baso # (Auto) 0.1 Nucleated RBC % (a uto) 0 Nucleated RBCs # 0.0 Sodium 140 Potassium 3.7 Chloride 100 Carbon Dioxide 30 H Anion Gap 13.7 BUN 18 Creatinine 0.9 Glucose 84 Calculated Osmolal ity 286 Calcium 8.8 Total Bilirubin 0.6 AST 16 ALT 13 Alkaline Phosphata se 65 NT-Pro-B Natriuret Pep 1291 H Total Protein 5.4 L Albumin 3.1 L Globulin 2.3 Vitals: Last Vital Signs Temp 97.5 F L 09/01/19 11:31 Pulse 72 09/01/19 11:31 Resp 17 09/01/19 11:31 BP 108/56 09/01/19 11:31 Pulse Ox 92 09/01/19 11:31 TS Medications Medications Home Medications albuterol sulfate 2.5 mg INHALATION Q4H PRN 04/19/19 [History Confirmed 08/23/19] alprazolam 0.25 mg tablet 0.25 mg PO DAILY 04/19/19 [History Confirmed 08/23/19] amlodipine 2.5 mg tablet 2.5 mg PO DAILY 04/19/19 [History Confirmed 08/23/19] aspirin 81 mg tablet,delayed release 81 mg PO DAILY 04/19/19 [History Confirmed 08/23/19] ergocalciferol (vitamin D2) 1,250 mcg (50,000 unit) capsule 50,000 unit PO Q30D cap 04/19/19 [History Confirmed 08/23/19] hydrocodone 7.5 mg-acetaminophen 325 mg tablet 1 tab PO TID PRN 04/19/19 [History Confirmed 08/23/19] pantoprazole 40 mg tablet,delayed release 40 mg PO DAILY 04/19/19 [History Confirmed 08/23/19] tamsulosin 0.4 mg capsule 0.4 mg PO DAILY 04/19/19 [History Confirmed 08/23/19] nitroglycerin 0.4 mg sublingual tablet 0.4 mg SUBLINGUAL Q5M PRN #25 tab 04/20/19 [Rx Confirmed 08/23/19] sulfasalazine 500 mg tablet 1 gm PO BID #120 tab 06/20/19 [Rx Confirmed 08/23/19] prednisone 5 mg tablet 10 mg PO DAILY #60 tab 07/10/19 [Rx Confirmed 08/23/19] sarilumab [Kevzara] 200 mg SUBCUT Q14D 08/23/19 [History Confirmed 08/23/19] Active Medications Acetaminophen (Tylenol) 650 mg PO Q6H PRN PRN Reason: Mild/Mod Pain Or Temp >/= 101 Last Admin: 08/31/19 05:00 Dose: 650 mg Documented by: Hydrocodone Bitart/Acetaminophen (Decker 7.5-325 Mg) 1 tab PO Q6H PRN PRN Reason: SEVERE PAIN Last Admin: 08/31/19 19:24 Dose: 1 tab Documented by: Albuterol Sulfate (Albuterol) 2.5 mg INHALATION Q4H.RESPIRATORY PRN PRN Reason: SHORTNESS OF BREATH Last Admin: 08/31/19 10:34 Dose: 2.5 mg Documented by: Alprazolam (Xanax) 0.25 mg PO BEDTIME [facility] Last Admin: 08/31/19 21:10 Dose: 0.25 mg Documented by: Amlodipine Besylate (Norvasc) 2.5 mg PO DAILY [facility] Last Admin: 09/01/19 09:08 Dose: 2.5 mg Documented by: Aspirin (Aspirin Ec) 81 mg PO DAILY [facility] Last Admin: 09/01/19 09:08 Dose: 81 mg Documented by: Benzonatate (Tessalon Pearls) 200 mg PO TID [facility] Last Admin: 09/01/19 09:08 Dose: 200 mg Documented by: Bisacodyl (Bisac-Evac) 10 mg NC DAILY PRN PRN Reason: CONSTIPATION Ciprofloxacin HCl (Cipro) 500 mg PO BID [facility]; Protocol Last Admin: 09/01/19 09:09 Dose: 500 mg Documented by: Cyclobenzaprine HCl (Flexeril) 10 mg PO TID PRN PRN Reason: MUSCLE SPASMS Last Admin: 08/31/19 14:44 Dose: 10 mg Documented by: Diclofenac Sodium (Voltaren) 1 applic TOPICAL QID [facility] Last Admin: 09/01/19 09:09 Dose: 1 applic Documented by: Enoxaparin Sodium (Lovenox) 40 mg SUBCUT Q24H [facility] Last Admin: 08/31/19 17:30 Dose: 40 mg Documented by: Guaifenesin (Mucinex) 600 mg PO BID [facility] Last Admin: 09/01/19 09:08 Dose: 600 mg Documented by: Lidocaine (Lidoderm 5% Patch) 1 patch TOPICAL [id number] [facility] Last Admin: 09/01/19 09:09 Dose: 1 patch Documented by: Metronidazole (Flagyl Tab) 500 mg PO TID [facility] Last Admin: 09/01/19 09:09 Dose: 500 mg Documented by: Nitroglycerin (Nitrostat) 0.4 mg SUBLINGUAL Q5M PRN PRN Reason: chest pain Ondansetron HCl (Zofran) 4 mg IVP Q6H PRN PRN Reason: vomiting, or N/V if npo Pantoprazole Sodium (Protonix) 40 mg PO DAILY [facility] Last Admin: 09/01/19 09:08 Dose: 40 mg Documented by: Prednisone (Prednisone) 10 mg PO DAILY [facility] Last Admin: 09/01/19 09:09 Dose: 10 mg Documented by: Tamsulosin HCl (Flomax) 0.4 mg PO DAILY [facility] Last Admin: 09/01/19 09:08 Dose: 0.4 mg Documented by: Tramadol HCl (Ultram) 50 mg PO Q6H PRN PRN Reason: MODERATE PAIN Last Admin: 09/01/19 09:10 Dose: 50 mg Documented by: Discharge Plan Discharge Patient Disposition: Xfer Other Condition: Stable Prescriptions: No Action hydrocodone-acetaminophen 7.5-325 mg tablet 1 tab PO TID PRN (Reason: Pain) RF: 0 amlodipine 2.5 mg tablet 2.5 mg PO DAILY RF: 0 aspirin 81 mg tablet,delayed release (DR/EC) 81 mg PO DAILY RF: 0 pantoprazole 40 mg tablet,delayed release (DR/EC) 40 mg PO DAILY RF: 0 ergocalciferol (vitamin D2) 50,000 unit capsule 50,000 unit PO Q30D RF: 0 albuterol sulfate 2.5 mg /3 mL (0.083 %) solution for nebulization 2.5 mg INHALATION Q4H PRN (Reason: Shortness Of Breath) RF: 0 alprazolam 0.25 mg tablet 0.25 mg PO DAILY RF: 0 tamsulosin 0.4 mg capsule 0.4 mg PO DAILY RF: 0 sulfasalazine 500 mg tablet 1 gm PO BID Qty: 120 RF: 3 nitroglycerin [Nitrostat] 0.4 mg tablet, sublingual 0.4 mg SUBLINGUAL Q5M PRN (Reason: chest pain) Qty: 25 RF: 0 prednisone 5 mg tablet 10 mg PO DAILY Qty: 60 RF: 0 Kevzara 200 mg/1.14 mL pen injector 200 mg SUBCUT Q14D RF: 0 Referrals: [facility] [Outside] ([facility] has been informed of your Discharge. They will call on you soon.) Vasu Ramsay MD [Primary Care Provider] - 09/04/19 1:45 pm (You have a follow up appointment with Dr. Ramsay at 1:45pm.) Transfer Attestations Time Spent in Transfer Care*: greater than 30 min Specific Discharge Activities: Specific discharge activities: educating patient, educating and/or supporting family/caregiver and discussing with pcp/ot her providers Quality Metrics Clinical Quality Measures: During this hospital stay, did patient experience: None Coding Level of Care Code Acute Safety Leader for Chg Fwd Diagnoses UTI (urinary tract infection) N30.00 Urinary tract infection type: acute cystitis Hematuria presence: without hematuria Bacteremia due to Gram-negative bacteria R78.81 Generalized weakness R53.1 HTN (hypertension) I10 Hypertension type: essential hypertension CAD (coronary artery disease) I25.10 Coronary Disease-Associated Artery/Lesion type: [place] artery [place] vs. transplanted heart: lower [place] heart Associated angina: without angina COPD (chronic obstructive pulmonary disease) J43.9 COPD type: emphysema Emphysema type: unspecified Seropositive rheumatoid arthritis of multiple joints M05.79 Sacral nerve root compression G54.8 Aneurysm of internal iliac artery I72.3 Intractable pain R52
[2019-09-01] MEDS: cyclobenzaprine 10 mg Tablet PO (14:58)
[2019-09-01] MEDS: HYDROcodone-acetaminophen 7.5-325 mg Tablet 1 TAB PO (14:58)
[2019-09-01 15:36] VITALS: BP 108/56; PULSE 72; RESP 17; TEMP 36.4; O2SAT 92
== END 2019-09-01 15:20 | disposition short-term general hospital (02) | DRG 872 ==
LOC: ER 13:22 → MEDSURG 18:05
PROVIDERS: Internal Medicine; Admitting Provider Family Medicine; Emergency Provider Emergency Medicine; Family Provider Family Medicine; PCP Family Medicine; Visit Provider Student in an Organized Health Care Education/Training Program
DX: A41.9 Sepsis, unspecified organism (principal); E87.1 Hypo-osmolality and hyponatremia; E87.2 Acidosis; N17.9 Acute kidney failure, unspecified; N30.00 Acute cystitis without hematuria; I10 Essential (primary) hypertension; M05.79 Rheumatoid arthritis with rheumatoid factor of multiple sites without organ or systems involvement; G54.8 Other nerve root and plexus disorders; I72.3 Aneurysm of iliac artery; I25.10 Atherosclerotic heart disease of native coronary artery without angina pectoris; Z95.5 Presence of coronary angioplasty implant and graft; Z79.52 Long term (current) use of systemic steroids; Z79.82 Long term (current) use of aspirin; B96.20 Unspecified Escherichia coli [E. coli] as the cause of diseases classified elsewhere; J43.9 Emphysema, unspecified; N40.0 Benign prostatic hyperplasia without lower urinary tract symptoms; F17.210 Nicotine dependence, cigarettes, uncomplicated; Z86.711 Personal history of pulmonary embolism; F41.9 Anxiety disorder, unspecified; R73.9 Hyperglycemia, unspecified; Z91.81 History of falling; E78.5 Hyperlipidemia, unspecified; I73.9 Peripheral vascular disease, unspecified; M25.551 Pain in right hip
CPT/HCPCS: 12345; 36415; 71045; 71250; 73501; 73721; 74176; 74181; 80048; 80053; 81001; 83036; 83605; 83880; 84443; 84484; 85025; 87040; 87077; 87086; 87186; 87205; 93005; 93306; 93971; 94640; 96372; 96375; 97110; 97116; 97161; 97167; 97530; 97535; 99283; J0696; J1650; J2270; J2405; J7030; J7512; J7611

== ENCOUNTER 2019-09-20 05:58 | Outpatient (CLI) | payer MEDICARE, SELFPAY ==
[2019-09-20 07:00] LABS: Vancomycin Trough 26.3 ug/mL (10-15)
== END 2019-09-20 05:59 | disposition home or self-care (01) ==
PROVIDERS: Family Provider Family Medicine; PCP Family Medicine; Visit Provider Family Medicine
DX: I72.3 Aneurysm of iliac artery (principal)
CPT/HCPCS: 80202

== ENCOUNTER 2019-09-22 15:51 | Outpatient (CLI) | payer MEDICARE, SELFPAY ==
[2019-09-22 16:03] LABS: Basophils # 0.1 10^3/uL (0.0-0.1); Basophils % 0.5 %; Eosinophils # 0.1 10^3/uL (0.0-0.8); Eosinophils % 0.6 %; Hematocrit 27.9 % (42.0-52.0); Hemoglobin 8.5 g/dL (11.7-16.6); Lymphocytes # 1.7 10^3/uL (0.8-4.8); Lymphocytes % 15.5 %; Mean Corpuscular HGB Conc 30.5 g/dL (30.0-36.0); Mean Corpuscular Hemoglobin 28.6 pg (28.0-34.0); Mean Corpuscular Volume 93.9 fL (80-94); Mean Platelet Volume 10.1 fL (7.4-10.4); Monocytes # 0.5 10^3/uL (0.2-0.9); Monocytes % 4.9 %; Neutrophils # 8.6 10^3/uL (1.8-7.7); Neutrophils % 77.4 %; Nucleated Red Blood Cells % 0 %; Platelet Count 482 10^3/cmm (130-400); Red Blood Count 2.97 10^6/uL (4.1-5.3); Red Cell Distribution Width 16.6 % (12.1-15.1)
== END 2019-09-22 15:52 | disposition home or self-care (01) ==
LOC: LAB 15:52
PROVIDERS: PCP Family Medicine; Visit Provider Family Medicine
DX: R68.89 Other general symptoms and signs (principal)
CPT/HCPCS: 85025

== ENCOUNTER 2019-09-23 08:52 | Outpatient (CLI) | payer MEDICARE, SELFPAY | END 2019-09-23 08:53 | disposition home or self-care (01) | LOC: LAB 08:53 | PROVIDERS: PCP Family Medicine; Visit Provider Family Medicine | DX: Z51.81 Encounter for therapeutic drug level monitoring (principal) | CPT/HCPCS: 80202 ==

== ENCOUNTER 2019-09-24 20:15 | Outpatient (CLI) | payer MEDICARE, SELFPAY ==
[2019-09-24 21:01] LABS: Vancomycin Trough 16.9 ug/mL (10-15)
== END 2019-09-24 20:16 | disposition home or self-care (01) ==
LOC: LAB 20:18
PROVIDERS: PCP Family Medicine; Visit Provider Family Medicine
DX: Z51.81 Encounter for therapeutic drug level monitoring (principal)
CPT/HCPCS: 80202

== ENCOUNTER 2019-09-26 05:41 | Outpatient (CLI) | payer MEDICARE, SELFPAY ==
[2019-09-26 06:28] LABS: Vancomycin Trough 19.7 ug/mL (10-15)
== END 2019-09-26 05:42 | disposition home or self-care (01) ==
PROVIDERS: PCP Family Medicine; Visit Provider Family Medicine
DX: M86.9 Osteomyelitis, unspecified (principal)
CPT/HCPCS: 80202

== ENCOUNTER 2019-09-27 17:46 | Outpatient (CLI) | payer MEDICARE, SELFPAY ==
[2019-09-27 20:21] LABS: Vancomycin Trough 14.1 ug/mL (10-15)
== END 2019-09-27 17:47 | disposition home or self-care (01) ==
LOC: LAB 17:47
PROVIDERS: PCP Family Medicine; Visit Provider Family Medicine
DX: M86.9 Osteomyelitis, unspecified (principal)
CPT/HCPCS: 80202

== ENCOUNTER 2019-09-29 06:56 | Outpatient (CLI) | payer MEDICARE, SELFPAY ==
[2019-09-29 07:34] LABS: Basophils # 0.1 10^3/uL (0.0-0.1); Basophils % 0.9 %; Eosinophils # 0.2 10^3/uL (0.0-0.8); Eosinophils % 2.3 %; Hematocrit 26.4 % (42.0-52.0); Lymphocytes # 3.1 10^3/uL (0.8-4.8); Lymphocytes % 39.7 %; Mean Corpuscular HGB Conc 30.3 g/dL (30.0-36.0); Mean Corpuscular Hemoglobin 28.3 pg (28.0-34.0); Mean Corpuscular Volume 93.3 fL (80-94); Monocytes # 0.9 10^3/uL (0.2-0.9); Monocytes % 11.8 %; Neutrophils # 3.5 10^3/uL (1.8-7.7); Neutrophils % 44.9 %; Nucleated Red Blood Cells % 0 %; Platelet Count 310 10^3/cmm (130-400); Red Blood Count 2.83 10^6/uL (4.1-5.3); Red Cell Distribution Width 16.7 % (12.1-15.1); White Blood Count 7.7 10^3/uL (4.0-10.0)
[2019-09-29 08:00] LABS: Alanine Aminotransferase 8 U/L (0-41); Albumin Level 3.1 g/dL (3.5-5.2); Alkaline Phosphatase 75 IU/L (40-130); Anion Gap 15.9 (5-19); Aspartate Amino Transferase 13 U/L (0-40); Blood Urea Nitrogen 9 mg/dL (8-23); Calcium 8.4 mg/dL (8.5-10.5); Carbon Dioxide 23 mmol/L (22-29); Chloride 106 mmol/L (98-107); Globulin 1.9 g/dL (1.3-4.6); Glucose 89 mg/dL (65-115); Osmolality Calculated 287 mOsm/kg (285-295); Potassium 3.9 mmol/L (3.5-5.1); Sodium 141 mmol/L (136-145); Total Bilirubin 0.3 mg/dL (0.15-1.2); Vancomycin Trough 17.2 ug/mL (10-15)
== END 2019-09-29 06:57 | disposition home or self-care (01) ==
PROVIDERS: PCP Family Medicine; Visit Provider Family Medicine
DX: M86.9 Osteomyelitis, unspecified (principal)
CPT/HCPCS: 80053; 80202; 85025

== ENCOUNTER 2019-10-01 10:19 | Emergency (ER) | payer MEDICARE, SELFPAY ==
[2019-10-01 10:20] VITALS: BP 117/65; PULSE 97; RESP 18; TEMP 36.7; O2SAT 94; BMI 24.4
[2019-10-01 10:27] VITALS: PULSE 95; RESP 18; O2SAT 94
--- NOTE | 2019-10-01 10:52 | ED_ITS ---
HPI - General Adult General: Chief complaint: General Medical Stated complaint: PICC LINE PROBLEM Time Seen by Provider: 10/01/19 10:47 History of Present Illness: HPI narrative: Patient is an 78-year-old male who comes to the ED with possible PICC line problem. snf sent patient over here because he had some erythema near the PICC line. Patient has a PICC line. Dressing was recently changed on September 27. PICC line is used for vancomycin treatment of osteomyelitis. Patient has no pain or tenderness around PICC line. No drainage around PICC line. He denies any fevers, chills, abdominal pain, nausea/vomiting, chest pain, shortness of breath, bladder or bowel symptoms. Associated symptoms: Deny chest pain, dyspnea, headache(s), nausea, rash, palpitations or vomiting Review of Systems Const: Denies: fever(s), chills or fatigue Eyes: Denies: change in vision or eye discomfort ENMT: Denies: throat pain, odynophagia, nasal discharge or nasal congestion Card: Denies: chest pain, palpitations, edema, swelling of feet/ankles, dyspnea on exertion or orthopnea Resp: Denies: dyspnea, productive cough or non-productive cough GI: Denies: abdominal pain, nausea, vomiting, diarrhea, constipation or hematochezia : Denies: flank pain, difficulty urinating, dysuria or hematuria Musc: Denies: neck pain, back pain or extremity swelling Skin/Breast: Reports: erythema (Redness on skin near PICC line.); Denies: rash or new lesions Neuro: Denies: headache(s), numbness in extremities or weakness in extremities PFS ED PFSH: Medical History Abdominal aortic atherosclerosis Amputation finger Atrial myxoma CAD (coronary artery disease) High risk medication use HTN (hypertension) Hyperlipemia Lipoma of skin and subcutaneous tissue (excluding face) PAD (peripheral artery disease) Rheumatoid arthritis seropositive Surgical History H/O cataract extraction H/O shoulder surgery left H/O: vasectomy History of appendectomy S/P angioplasty with stent x 3 stents Family History Father Lung disease COPD Other Diabetes Hypertension Social History Smoking and tobacco status: current every day smoker cigarettes Alcohol intake: never Household members: spouse Marital status: Current occupational status: retired Physical Exam Const: COMMON NORMALS: no acute distress, patient oriented x3, healthy appearing and alert GENERAL APPEARANCE: cooperative and comfortable HENMT: COMMON NORMALS: normocephalic HEAD & SCALP: normocephalic MOUTH: Normal oral and palatal mucosa present THROAT: posterior oropharynx normal and uvula midline Eye: COMMON NORMALS: Equal, round and reactive pupils present PUPIL: Yes Equal, round and reactive pupils present Neck/C-Spine: COMMON NORMALS: supple GENERAL: Yes normal visual inspection Resp: COMMON NORMALS: normal respiratory effort, No retractions, No use of accessory muscles and clear to auscultation bilaterally AUSCULTATION: clear to auscultation bilaterally Cardio: COMMON NORMALS: regular rate, regular rhythm, S1 normal heart sound present, S2 normal heart sound present, No gallops present (Cardio), No clicks present (Cardio), No murmurs present (Cardio) and Peripheral pulses 2+ throughout RATE: regular rate RHYTHM: regular rhythm HEART SOUNDS: S1 normal heart sound present and S2 normal heart sound present PERIPHERAL PULSES: Peripheral pulses 2+ throughout GI: COMMON NORMALS: Normal to inspection, nondistended, normoactive bowel sounds present, Soft to palpation, non-tender and no masses PALPATION: Yes Soft to palpation : COMMON NORMALS: Yes no CVA tenderness BLADDER/KIDNEY EXAM: Yes no CVA tenderness Back/Pelvis: COMMON NORMALS: no CVA tenderness Extremity: NARRATIVE EXTREMITY EXAM: PICC line is on right upper extremity. No erythema, warmth or drainage around area where PICC line enters skin. Patient has no tenderness upon palpation around PICC line. There is some erythema and warmth on the skin distal from PICC line and it appears to be slightly irritated. Dressing has pulled back a little from this area of the skin which is likely the cause of its erythema and irritation. It is not tender.--likely cellulitis. Neuro: COMMON NORMALS: patient oriented x3 and moves all extremities SENSORIUM/ORIENTATION: Yes alert Skin: NARRATIVE SKIN EXAM: Redness on skin near PICC line discussed on the e xtremity section of physical exam. GENERAL SKIN EXAM: dry skin Course Vital Signs: Vital signs: Vital Signs Temperature 98.0 F 10/01/19 10:20 Pulse Rate 94 10/01/19 12:45 Respiratory Rate 18 10/01/19 12:45 Blood Pressure 128/71 10/01/19 12:45 Pulse Oximetry 96 10/01/19 12:45 MDM - General Adult MDM Narrative: Medical decision making narrative: Patient is a 78-year-old male comes to the ED with some redness around PICC line in right arm. Physical exam showed some small erythema and warmth posterior to PICC line. Area surrounding PICC line had no drainage, erythema or warmth. There is no tenderness in the ER. Patient was diagnosed with cellulitis and given a prescription for cephalexin and mupirocin. Patient told to follow-up with PCP in 7 to 10 days for reevaluation. Patient understood and agreed with plan. Discharge Plan Discharge Patient Disposition: Home, Self-Care Clinical Impression: Cellulitis Qualifiers: Site of cellulitis: extremity Site of cellulitis of extremity: upper extremity Laterality: right Qualified Code(s): L03.113 - Cellulitis of right upper limb Condition: Stable Prescriptions: New Keflex 500 mg capsule 500 mg PO BID 7 Days Qty: 14 RF: 0 mupirocin 2 % ointment 1 applic TOPICAL DAILY Qty: 15 RF: 0 No Action hydrocodone-acetaminophen 7.5-325 mg tablet 1 tab PO TID PRN (Reason: Pain) RF: 0 amlodipine 2.5 mg tablet 2.5 mg PO DAILY RF: 0 aspirin 81 mg tablet,delayed release (DR/EC) 81 mg PO DAILY RF: 0 pantoprazole 40 mg tablet,delayed release (DR/EC) 40 mg PO DAILY RF: 0 ergocalciferol (vitamin D2) 50,000 unit capsule 50,000 unit PO Q30D RF: 0 albuterol sulfate 2.5 mg /3 mL (0.083 %) solution for nebulization 2.5 mg INHALATION Q4H PRN (Reason: Shortness Of Breath) RF: 0 alprazolam 0.25 mg tablet 0.25 mg PO DAILY RF: 0 tamsulosin 0.4 mg capsule 0.4 mg PO DAILY RF: 0 sulfasalazine 500 mg tablet 1 gm PO BID Qty: 120 RF: 3 nitroglycerin [Nitrostat] 0.4 mg tablet, sublingual 0.4 mg SUBLINGUAL Q5M PRN (Reason: chest pain) Qty: 25 RF: 0 prednisone 5 mg tablet 10 mg PO DAILY Qty: 60 RF: 0 Kevzara 200 mg/1.14 mL pen injector 200 mg SUBCUT Q14D RF: 0 Discharge Orders: Discharge Order (Routine); Ordered 10/01/19 Ordered By: Chinmay Bojorquez Referrals: Vasu Ramsay MD [Primary Care Provider] - Discharge Diet: Regular Discharge Activity: Resume usual activity Patient Instructions: Cellulitis (ED) Activity Restrictions/Additional Instructions: Follow-up with medical provider as directed. Take Keflex (antibiotic) as prescribed. You can apply mupirocin ointment on area of erythema on right upper arm daily. Return to the ER or your medical provider if condition worsens. Please read and understand discharge instructions. If any questions, please ask. Discharge Date/Time: 10/01/19 12:47 Coding Level of Care Code ED Exceptional Children Teacher for Maral Fwalexandro Exam Comprehensive
[2019-10-01] MEDS: cephALEXin 500 mg Capsule PO (12:05)
[2019-10-01 12:45] VITALS: BP 128/71; PULSE 94; RESP 18; O2SAT 96
== END 2019-10-01 12:47 | disposition home or self-care (01) ==
PROVIDERS: Emergency Provider Physician Assistant; PCP Family Medicine
DX: L03.113 Cellulitis of right upper limb (principal); Z79.82 Long term (current) use of aspirin; I25.10 Atherosclerotic heart disease of native coronary artery without angina pectoris; I10 Essential (primary) hypertension; E78.5 Hyperlipidemia, unspecified; F17.210 Nicotine dependence, cigarettes, uncomplicated; M86.9 Osteomyelitis, unspecified
CPT/HCPCS: 12345; 80202; 99282

== ENCOUNTER 2019-10-02 14:29 | Outpatient (CLI) | payer MEDICARE, SELFPAY ==
[2019-10-02 16:03] LABS: Vancomycin Trough 14.7 ug/mL (10-15)
== END 2019-10-02 14:30 | disposition home or self-care (01) ==
LOC: LAB 14:32
PROVIDERS: PCP Family Medicine; Visit Provider Family Medicine
DX: Z79.899 Other long term (current) drug therapy (principal)
CPT/HCPCS: 80202

== ENCOUNTER 2019-10-05 17:48 | Outpatient (RCR) | payer MEDICARE, SELFPAY ==
[2019-10-01 05:23] LABS: Vancomycin Trough < 4.0 ug/mL (10-15)
[2019-10-04 05:29] LABS: Vancomycin Trough 14.2 ug/mL (10-15)
[2019-10-05 20:43] LABS: Vancomycin Trough 13.1 ug/mL (10-15)
== END 2019-10-27 23:59 | disposition home or self-care (01) ==
LOC: LAB 17:48
PROVIDERS: PCP Family Medicine; Visit Provider Family Medicine
DX: M86.9 Osteomyelitis, unspecified (principal)
CPT/HCPCS: 80202

== ENCOUNTER 2019-10-09 09:44 | Outpatient (CLI) | payer MEDICARE, SELFPAY ==
[2019-10-09 10:04] LABS: Basophils # 0.1 10^3/uL (0.0-0.1); Eosinophils # 0.4 10^3/uL (0.0-0.8); Eosinophils % 4.8 %; Hematocrit 32.3 % (42.0-52.0); Hemoglobin 9.6 g/dL (11.7-16.6); Lymphocytes # 3.2 10^3/uL (0.8-4.8); Lymphocytes % 42.2 %; Mean Corpuscular HGB Conc 29.7 g/dL (30.0-36.0); Mean Corpuscular Hemoglobin 28.3 pg (28.0-34.0); Mean Corpuscular Volume 95.3 fL (80-94); Mean Platelet Volume 10.4 fL (7.4-10.4); Monocytes # 0.9 10^3/uL (0.2-0.9); Neutrophils # 3.03 10^3/uL (1.8-7.7); Neutrophils % 39.6 %; Nucleated Red Blood Cells % 0 %; Platelet Count 260 10^3/cmm (130-400); Red Blood Count 3.39 10^6/uL (4.1-5.3); Red Cell Distribution Width 17.3 % (12.1-15.1); White Blood Count 7.7 10^3/uL (4.0-10.0)
[2019-10-09 10:16] LABS: Alanine Aminotransferase 11 U/L (0-41); Albumin Level 3.7 g/dL (3.5-5.2); Alkaline Phosphatase 73 IU/L (40-130); Anion Gap 13.2 (5-19); Aspartate Amino Transferase 15 U/L (0-40); Blood Urea Nitrogen 11 mg/dL (8-23); C Reactive Protein 7.6 mg/L (0.0-4.9); Calcium 8.7 mg/dL (8.5-10.5); Carbon Dioxide 27 mmol/L (22-29); Chloride 102 mmol/L (98-107); Globulin 2.1 g/dL (1.3-4.6); Glucose 83 mg/dL (65-115); Osmolality Calculated 283 mOsm/kg (285-295); Potassium 3.2 mmol/L (3.5-5.1); Sodium 139 mmol/L (136-145); Total Bilirubin 0.4 mg/dL (0.15-1.2); Total Protein 5.8 g/dL (6.6-8.7); Vancomycin Trough 17.8 ug/mL (10-15)
[2019-10-09 11:36] LABS: Erythrocyte Sedimentation Rate 12 mm/hr (0-10)
== END 2019-10-09 09:45 | disposition home or self-care (01) ==
LOC: LAB 09:47
PROVIDERS: PCP Family Medicine; Visit Provider Internal Medicine Infectious Disease
DX: M46.46 Discitis, unspecified, lumbar region (principal)
CPT/HCPCS: 80053; 80202; 85025; 85651; 86140

== ENCOUNTER 2019-10-16 10:35 | Outpatient (CLI) | payer MEDICARE, SELFPAY ==
[2019-10-16 10:56] LABS: Basophils # 0.1 10^3/uL (0.0-0.1); Basophils % 1.2 %; Eosinophils # 0.4 10^3/uL (0.0-0.8); Eosinophils % 3.8 %; Hematocrit 34.9 % (42.0-52.0); Hemoglobin 10.3 g/dL (11.7-16.6); Lymphocytes # 3.1 10^3/uL (0.8-4.8); Lymphocytes % 32.5 %; Mean Corpuscular HGB Conc 29.5 g/dL (30.0-36.0); Mean Corpuscular Hemoglobin 28.2 pg (28.0-34.0); Mean Corpuscular Volume 95.6 fL (80-94); Mean Platelet Volume 10.6 fL (7.4-10.4); Monocytes # 1.2 10^3/uL (0.2-0.9); Monocytes % 12.7 %; Neutrophils # 4.73 10^3/uL (1.8-7.7); Neutrophils % 49.5 %; Nucleated Red Blood Cells % 0 %; Platelet Count 265 10^3/cmm (130-400); Red Blood Count 3.65 10^6/uL (4.1-5.3); Red Cell Distribution Width 17.1 % (12.1-15.1); White Blood Count 9.5 10^3/uL (4.0-10.0)
[2019-10-16 11:19] LABS: Alanine Aminotransferase 14 U/L (0-41); Albumin Level 3.7 g/dL (3.5-5.2); Alkaline Phosphatase 86 IU/L (40-130); Anion Gap 14.4 (5-19); Aspartate Amino Transferase 19 U/L (0-40); Blood Urea Nitrogen 12 mg/dL (8-23); C Reactive Protein 8.3 mg/L (0.0-4.9); Calcium 8.6 mg/dL (8.5-10.5); Carbon Dioxide 27 mmol/L (22-29); Chloride 103 mmol/L (98-107); Globulin 2.2 g/dL (1.3-4.6); Glucose 77 mg/dL (65-115); Osmolality Calculated 287 mOsm/kg (285-295); Potassium 3.4 mmol/L (3.5-5.1); Sodium 141 mmol/L (136-145); Total Bilirubin 0.4 mg/dL (0.15-1.2); Total Protein 5.9 g/dL (6.6-8.7); Vancomycin Trough 17.1 ug/mL (10-15)
[2019-10-16 11:44] LABS: Erythrocyte Sedimentation Rate 11 mm/hr (0-10)
== END 2019-10-16 10:36 | disposition home or self-care (01) ==
LOC: LAB 10:38
PROVIDERS: PCP Family Medicine; Visit Provider Internal Medicine Infectious Disease
DX: M46.46 Discitis, unspecified, lumbar region (principal)
CPT/HCPCS: 80053; 80202; 85025; 85651; 86140

== ENCOUNTER 2019-10-23 09:53 | Outpatient (CLI) | payer MEDICARE, SELFPAY ==
[2019-10-23 10:17] LABS: Basophils # 0.1 10^3/uL (0.0-0.1); Basophils % 1.2 %; Eosinophils # 0.4 10^3/uL (0.0-0.8); Hematocrit 36.1 % (42.0-52.0); Lymphocytes # 2.3 10^3/uL (0.8-4.8); Lymphocytes % 24.7 %; Mean Corpuscular HGB Conc 30.5 g/dL (30.0-36.0); Mean Corpuscular Hemoglobin 29.1 pg (28.0-34.0); Mean Corpuscular Volume 95.5 fL (80-94); Mean Platelet Volume 10.7 fL (7.4-10.4); Monocytes # 1.1 10^3/uL (0.2-0.9); Monocytes % 12.2 %; Neutrophils # 5.34 10^3/uL (1.8-7.7); Neutrophils % 57.4 %; Nucleated Red Blood Cells % 0 %; Platelet Count 280 10^3/cmm (130-400); Red Blood Count 3.78 10^6/uL (4.1-5.3); Red Cell Distribution Width 15.9 % (12.1-15.1); White Blood Count 9.3 10^3/uL (4.0-10.0)
[2019-10-23 10:35] LABS: Alanine Aminotransferase 9 U/L (0-41); Albumin Level 3.8 g/dL (3.5-5.2); Alkaline Phosphatase 80 IU/L (40-130); Anion Gap 14.6 (5-19); Aspartate Amino Transferase 14 U/L (0-40); Blood Urea Nitrogen 11 mg/dL (8-23); C Reactive Protein 19.1 mg/L (0.0-4.9); Calcium 8.4 mg/dL (8.5-10.5); Carbon Dioxide 27 mmol/L (22-29); Chloride 103 mmol/L (98-107); Globulin 2.4 g/dL (1.3-4.6); Glucose 85 mg/dL (65-115); Osmolality Calculated 287 mOsm/kg (285-295); Potassium 3.6 mmol/L (3.5-5.1); Sodium 141 mmol/L (136-145); Total Bilirubin 0.4 mg/dL (0.15-1.2); Total Protein 6.2 g/dL (6.6-8.7)
[2019-10-23 10:38] LABS: Vancomycin Trough 15.1 ug/mL (10-15)
[2019-10-23 11:07] LABS: Erythrocyte Sedimentation Rate 13 mm/hr (0-10)
== END 2019-10-23 09:54 | disposition home or self-care (01) ==
LOC: LAB 09:56
PROVIDERS: PCP Family Medicine; Visit Provider Internal Medicine Infectious Disease
DX: M46.46 Discitis, unspecified, lumbar region (principal)
CPT/HCPCS: 80053; 80202; 85025; 85651; 86140

== ENCOUNTER → 2020-01-24 09:57 | Outpatient (BNVA) | payer MEDICARE, SELFPAY | PROVIDERS: PCP Family Medicine; Visit Provider Internal Medicine Rheumatology | DX: M05.79 Rheumatoid arthritis with rheumatoid factor of multiple sites without organ or systems involvement (principal); Z79.52 Long term (current) use of systemic steroids; J43.9 Emphysema, unspecified; Z79.899 Other long term (current) drug therapy; N30.00 Acute cystitis without hematuria; F17.210 Nicotine dependence, cigarettes, uncomplicated; M81.0 Age-related osteoporosis without current pathological fracture | CPT/HCPCS: 99214 ==

== ENCOUNTER 2020-02-18 21:52 | Inpatient (IN) | payer MEDICARE, SELFPAY ==
[2020-02-18 21:55] VITALS: BP 115/85; PULSE 95; RESP 18; TEMP 36.7; O2SAT 95; BMI 28.1
[2020-02-18 22:01] VITALS: BP 121/80; PULSE 88; RESP 19; O2SAT 96
--- NOTE | 2020-02-18 22:02 | XR_ITS ---
WS: [id number] XR chest 1V portable [id number] REASON FOR EXAM: cp FINDINGS: The chest is unchanged compared to 02/12/2020. Chronic interstitial changes in the lung bases. No active pulmonary parenchymal or pleural disease. Left shoulder arthroplasty. Mild changes of degenerative spondylosis in the mid and lower thoracic sp ine. XR/XR chest 1V portable [id number] IMPRESSION: No acute chest abnormality.
--- NOTE | 2020-02-18 22:02 | ECG_ITS ---
[facility] Test Date: 2020-02-18 Pat Name: Chinmay Guerrier Department: Room: Gender: Male Poiser Balance: : 1940 Requested By: Deejay Moy Order Number: [id number] Judie MD: Adán English M.D. Measurements Intervals [place] Rate: 92 P: 61 KS: 203 QRS: -63 QRSD: 122 T: 84 QT: 356 QTc: 442 Interpretive Statements SINUS RHYTHM WITH OCCASIONAL VENTRICULAR PREMATURE COMPLEXES POSSIBLE RIGHT VENTRICULAR CONDUCTION DELAY [RSR (QR) IN V1/V2] LEFT ANTERIOR FASCICULAR BLOCK [QRS AXIS <= -45, QR IN I, RS IN II] SEPTAL MYOCARDIAL INFARCTION , PROBABLY RECENT [40+ ms Q WAVE IN V1/V2] Compared to ECG 08/27/2019 04:18:42 Left anterior fascicular block now present Myocardial infarct finding now present Sinus tachycardia no longer present Left-axis deviation no longer present Intraventricular conduction delay no longer present Electronically Signed On 02-19-2020 16:40:10 [employer] ARCHITECT by Adán English M.D. [id number]
[2020-02-18 22:15] LABS: Basophils # 0.1 10^3/uL (0.0-0.1); Basophils % 0.8 %; Eosinophils # 0.2 10^3/uL (0.0-0.8); Eosinophils % 1.2 %; Hematocrit 43.5 % (42.0-52.0); Hemoglobin 13.7 g/dL (11.7-16.6); Lymphocytes # 3.6 10^3/uL (0.8-4.8); Mean Corpuscular HGB Conc 31.5 g/dL (30.0-36.0); Mean Corpuscular Hemoglobin 29.1 pg (28.0-34.0); Mean Corpuscular Volume 92.6 fL (80-94); Mean Platelet Volume 11.2 fL (7.4-10.4); Monocytes # 1.3 10^3/uL (0.2-0.9); Monocytes % 10.5 %; Neutrophils # 7.16 10^3/uL (1.8-7.7); Neutrophils % 57.6 %; Nucleated Red Blood Cells % 0 %; Platelet Count 259 10^3/cmm (130-400); Red Cell Distribution Width 17.3 % (12.1-15.1); White Blood Count 12.4 10^3/uL (4.0-10.0)
[2020-02-18 22:31] VITALS: BP 119/87; PULSE 77; RESP 15; O2SAT 96
[2020-02-18 22:45] LABS: Troponin(5th) Baseline 184 ng/L (0-15)
[2020-02-18 22:48] LABS: Alanine Aminotransferase 12 U/L (0-41); Albumin Level 4.5 g/dL (3.5-5.2); Alkaline Phosphatase 77 IU/L (40-130); Anion Gap 16.4 (5-19); Aspartate Amino Transferase 27 U/L (0-40); Blood Urea Nitrogen 20 mg/dL (8-23); Calcium 9.2 mg/dL (8.5-10.5); Carbon Dioxide 25 mmol/L (22-29); Chloride 102 mmol/L (98-107); Creatine Phosphokinase 231 U/L (39-308); Globulin 1.7 g/dL (1.3-4.6); Glucose 125 mg/dL (65-115); NT Pro B Type Natriuretic Pept 7341 pg/mL (0-450); Osmolality Calculated 292 mOsm/kg (285-295); Potassium 4.4 mmol/L (3.5-5.1); Sodium 139 mmol/L (136-145); Total Bilirubin 0.6 mg/dL (0.15-1.2); Total Protein 6.2 g/dL (6.6-8.7)
[2020-02-18 23:01] VITALS: BP 120/81; PULSE 80; RESP 21; O2SAT 97
[2020-02-18 23:03] VITALS: RESP 22; O2SAT 97
[2020-02-18] MEDS: morphine 4 mg/mL SDV 1 mL IVP (23:03)
[2020-02-18] MEDS: ondansetron 2 mg/ML SDV 2 mL 4 MG IVP (23:03)
--- NOTE | 2020-02-18 23:26 | PM.HP ---
Providers/Chief Complaint Primary Care Provider: Vasu Ramsay MD Chief Complaint: CP History of Present Illness Chinmay Guerrier is a 79 year old male who has history of coronary disease status post stents x3, follows up with Dr. 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 coli, coming in today with chief complaint of chest pain. Patient is stating that around 6 PM he was watching television when he started experiencing right-sided chest discomfort, he is describing this as heaviness, he waited for about 15 minutes before he took nitroglycerin, nitroglycerin seemed to help his chest pain, is also endorsing this chest pain is reproducible gets worse on movement of arm, recently he was treated for pneumonia currently he is on doxycycline and Augmentin, today he did not experience any nausea, vomiting or shortness of breath. Patient is denying dysuria, fever, diarrhea. Patient is stating that at [facility] he was treated for epidural abscess and he was sent home with PICC line and IV antibiotics. He is not sure about the details. At the time my evaluation patient is endorsing right-sided chest discomfort which is reproducible, 07/06, I will start him on Nitropaste 1 inch, load him with Plavix, as per the patient he got loading dose of aspirin by EMS, he already received therapeutic dose of Lovenox, second EKG is showing 0.5 mm J-point elevation but it is not seen in consecutive leads he also has incomplete bundle branch block, significant delta troponin, requested dimer Review of Systems Const: Denies: fever(s), body aches or fatigue Eyes: Denies: change in vision ENMT: Denies: throat pain Card: Reports: chest pain and dyspnea on exertion Resp: Denies: dyspnea GI: Denies: abdominal pain : Denies: flank pain Musc: Denies: neck pain Skin/Breast: Reports: lesions Neuro: Denies: headache(s) Psych: Denies: anxiety Endo: Denies: polyuria [place]/Lymph: Denies: easy bruising All/Imm: Denies: urticaria Medications/Allergies Home Medications Medication Instructions Recorded Confirmed Last Taken Type albuterol sulfate 2.5 mg INHALATION Q4H PRN 04/19/19 01/24/20 Unknown History amlodipine 2.5 mg tablet 2.5 mg PO DAILY 04/19/19 01/24/20 08/23/19 History aspirin 81 mg tablet,delayed 81 mg PO DAILY 04/19/19 01/24/20 08/22/19 History release hydrocodone 7.5 mg-acetaminophen 1 tab PO TID PRN 04/19/19 01/24/20 Unknown History 325 mg tablet tamsulosin 0.4 mg capsule 0.4 mg PO DAILY 04/19/19 01/24/20 08/22/19 History prednisone 5 mg tablet 10 mg PO DAILY #60 tab 07/10/19 01/24/20 08/23/19 Rx nitroglycerin 0.4 mg sublingual 0.4 mg SUBLINGUAL Q5M PRN #25 each 10/28/19 01/24/20 Unknown Rx tablet Allergies Allergy/AdvReac Type Severity Reaction Status Date / Time atorvastatin [From Lipitor] Allergy unknown Verified 02/18/20 22:02 ezetimibe [From Vytorin] Allergy unknown Verified 02/18/20 22:02 niacin Allergy unknown Verified 02/18/20 22:02 [From Niaspan Extended-Release] ranitidine Allergy unknown Verified 02/18/20 22:02 rosuvastatin [From Crestor] Allergy unknown Verified 02/18/20 22:02 simvastatin [From Vytorin] Allergy unknown Verified 02/18/20 22:02 PFSH Acute PFSH: Medical History (Updated 02/19/20 @ 01:26 by Norbert Dean MD) Abdominal aortic atherosclerosis Amputation finger Atrial myxoma CAD (coronary artery disease) COPD (chronic obstructive pulmonary disease) Coronary artery disease High risk medication use HTN (hypertension) Hyperlipemia Lipoma of skin and subcutaneous tissue (excluding face) PAD (peripheral artery disease) Rheumatoid arthritis seropositive Surgical History H/O cataract extraction H/O shoulder surgery left H/O: vasectomy History of appendectomy S/P angioplasty with stent x 3 stents Family History Father Lung disease COPD Other Diabetes Hypertension Social History Smoking and tobacco status: current every day smoker cigarettes Alcohol intake: never Household members: spouse Marital status: Current occupational status: retired History of recent travel: No Vitals/I&O/Wt Last Vital Signs Temp 98.0 F 02/18/20 21:55 Pulse 80 02/18/20 23:01 Resp 22 H 02/18/20 23:03 BP 120/81 02/18/20 23:01 Pulse Ox 97 02/18/20 23:03 Weight last 48 hrs Weight 81.647 kg Physical Exam Narrative: EXAM NARRATIVE: elderly male Was laying comfortably in his bed without active distress Was saturating well on room air, normal hemodynamics His chest pain is reproducible right-sided, grade 4/10 which gets worse on movement of arms No acute respiratory distress bilateral breath sounds No active wheezing or crackles EOMI, PERRLA No neurological deficit S1, S2, sinus rhythm with PVCs Abdomen soft nontender bowel sounds present Lower extremity no edema gangrene or ulcer Back surgical scar noticed no active drainage, well-healed Appropriate mood and affect Data : 02/18/20 21:34 02/18/20 21:34 A&P Assessment and plan (1) NSTEMI (non-ST elevated myocardial infarction): Status: Acute (2) COPD (chronic obstructive pulmonary disease): Status: Chronic Qualifiers: COPD type: emphysema Emphysema type: unspecified Qualified Code(s): J43.9 - Emphysema, unspecified (3) CAD (coronary artery disease): Status: Chronic Qualifiers: Coronary Disease-Associated Artery/Lesion type: [place] artery [place] vs. transplanted heart: [place] heart Associated angina: without angina Qualified Code(s): I25.10 - Atherosclerotic heart disease of [place] coronary artery without angina pectoris (4) Current chronic use of systemic steroids: Status: Acute (5) Immunodeficiency secondary to chemotherapy: Status: Acute Additional A&P Information NSTEMI Right-sided reproducible chest pain grade 4/10 at the moment I have started patient on Nitro-Bid for now, if his chest pain persist will activate cardiology overnight, his EKG is showing 0.5 mm J-point elevation however he also has incomplete right bundle branch block and left fascicular block, I do not see J-point elevation in 2 consecutive leads to call MD(discussed EKG changes with ER physician as well) however he has established coronary disease status post stents x3, significant delta troponin, start him on ACS protocol, loaded with aspirin and Plavix, therapeutic dose of Lovenox, high-dose statins and metoprolol succinate along lisinopril Serial troponins and EKG, closely monitor on telemetry floor for now, obtain D-dimer to rule out PE Most likely he will need an angiogram COPD: He is currently smoking 1 to 2 cigarettes a day, no acute exacerbation, DuoNeb as needed History of rheumatoid arthritis, he is not on immunomodulators for now however he is taking prednisone 10 mg a day which I would continue History of spinal/epidural abscess status post drainage and PICC line IV antibiotics, no signs of sepsis, will obtain records from [facility], patient is not aware of all the detail Full code N.p.o. DVT prophylaxis not needed currently on Lovenox Attestations Medical Necessity Statement*: Anticipating stay in the hospital course more than 2 midnights currently has significant delta troponin, NSTEMI Time Spent in Patient Care: (>than 50% of time spent in counselling and/or direct pt care on unit). 50mins Coding Level of Care Code Acute Mud Temperer for [facility] Fwd Diagnoses NSTEMI (non-ST elevated myocardial infarction) I21.4 COPD (chronic obstructive pulmonary disease) J43.9 COPD type: emphysema Emphysema type: unspecified CAD (coronary artery disease) I25.10 Coronary Disease-Associated Artery/Lesion type: [place] artery [place] vs. transplanted heart: [place] heart Associated angina: without angina Current chronic use of systemic steroids Z79.52 Immunodeficiency secondary to chemotherapy Z79.899
[2020-02-18 23:30] VITALS: BP 125/79; PULSE 78; RESP 18; O2SAT 95
[2020-02-18] MEDS: enoxaparin 80 mg/0.8 mL Syringe SUBCUT (23:39)
[2020-02-19] VITALS (42 sets, daily range): BP systolic 62–133; BP diastolic 45–91; PULSE 78–102; RESP 13–25; TEMP 36.6–36.7; O2SAT 91–99
--- NOTE | 2020-02-19 00:02 | ECG_ITS ---
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 Measurements Intervals [place] Rate: 79 P: 135 NC: 219 QRS: -29 QRSD: 126 T: 151 QT: 412 QTc: 474 Interpretive Statements ECTOPIC ATRIAL RHYTHM WITH FIRST DEGREE AV BLOCK POSSIBLE LEFT ATRIAL ENLARGEMENT [-0.1mV P WAVE IN V1/V2] POSSIBLE RIGHT VENTRICULAR CONDUCTION DELAY [RSR (QR) IN V1/V2] SEPTAL MYOCARDIAL INFARCTION , PROBABLY RECENT [40+ ms Q WAVE IN V1/V2] PROBABLE LATERAL MYOCARDIAL INFARCTION , OF INDETERMINATE AGE [35 ms Q WAVE IN I/aVL/V5/V6] ACUTE MO Compared to ECG 02/18/2020 21:58:18 Ectopic atrial rhythm now present First degree AV block now present Sinus rhythm no longer present Myocardial infarct finding still present Electronically Signed On 02-19-2020 16:44:58 SOIL AND PLANT SCIENTIST by Adán English M.D. [id number]
[2020-02-19] MEDS: morphine 4 mg/mL SDV 1 mL IVP (00:35)
--- NOTE | 2020-02-19 00:45 | USCV_ITS ---
Chinmay Guerrier Age: 79 Gender: M : 1940 Exam Date: 02/19/2020 06:01 Ordering Phys: Norbert Dean MD Technologist: Cori Bates Exam Location: [facility] [place] Indication: ANGINA BP: 100 / 73 HR: 79 Rhythm: Sinus Technical Quality: Adequate MEASUREMENTS (Male / Female) Normal Values 2D ECHO LV Diastolic Diameter PLAX 4.8 cm 4.2 - 5.9 / 3.9 - 5.3 cm LV Systolic Diameter PLAX 4.3 cm LV Chamber Size 4.6 cm IVS Diastolic Thickness 1.0 cm 0.6 - 1.0 / 0.6 - 0.9 cm IVS Systolic Thickness 1.0 cm LVPW Diastolic Thickness 2.1 cm 0.6 - 1.0 / 0.6 - 0.9 cm LVPW Systolic Thickness 2.1 cm RV Chamber Size 2.7 cm LVOT Diameter 2.0 cm LV Ejection Fraction 2D Teich 22.0 % LV Ejection Fraction MOD 2C 27.6 % LV Ejection Fraction 2C AL 28.3 % LA Diameter 3.6 cm LA Width 4.2 cm LA Height 4.6 cm RA Width 3.9 cm RA Height 4.8 cm Aorta at Sinotubular Diameter 3.1 cm M-MODE LV Diastolic Diameter MM 7.4 cm 4.2 - 5.9 / 3.9 - 5.3 cm LV Systolic Diameter MM 6.5 cm LV Ejection Fraction MM Teich 23.9 % IVS Diastolic Thickness MM 1.0 cm 0.6 - 1.0 / 0.6 - 0.9 cm IVS Systolic Thickness MM 1.1 cm LVPW Diastolic Thickness MM 0.7 cm 0.6 - 1.0 / 0.6 - 0.9 cm LVPW Systolic Thickness MM 1.2 cm Aortic Annulus Diameter 3.8 cm LA Ao Ratio MM 1.1 MV E Point Septal Separation 1.1 cm DOPPLER AV Peak Velocity 127.0 cm/s LVOT Peak Velocity 83.0 cm/s AV Area Cont Eq vti 2.0 cm squared AV Area Cont Eq pk 2.1 cm squared MV Area PHT 6.9 cm squared Mitral E to A Ratio 0.7 MV E' Velocity 42.5 cm/s Mitral E to MV E' Ratio 8.4 Mitral E to LV E' Lateral Ratio 6.0 Mitral E to LV E' Septal Ratio 14.3 TR Peak Velocity 214.0 cm/s TR Peak Gradient 18.3 mmHg TV Peak E Velocity 78.0 cm/s Right Atrial Pressure 3.0 mmHg Pulmonary Artery Systolic Pressu 21.3 mmHg PV Peak Velocity 74.0 cm/s RV Acceleration Time 0.1 s RV Ejection Time 0.4 s RV AcT/ET 0.3 FINDINGS Left Ventricle Moderately increased left ventricular cavity size. Severely decreased left ventricular systolic function. Global left ventricular hypokinesis with regional septal and anterior wall akinesis. Left ventricular ejection fraction is estimated at 23 %. Grade I/IV diastolic dysfunction (abnormal relaxation filling pattern), normal to mildly elevated filling pressures. Right Ventricle The right ventricle is normal in size and function. Right Atrium The right atrium is normal in size. Left Atrium The left atrium is normal in size. Mitral Valve Structurally normal mitral valve without significant stenosis or prolapse. There is no mitral regurgitation. Aortic Valve Moderate aortic valve calcification. No aortic valve stenosis. Trace aortic valve regurgitation. Tricuspid Valve Thickened tricuspid valve. No tricuspid valve stenosis. 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 Pulmonic Valve Structurally normal pulmonic valve without significant stenosis. There is no pulmonic regurgitation. Pericardium Normal pericardium without effusion. Aorta Normal ascending aorta dimension. CONCLUSIONS 1-Moderately increased left ventricular cavity size. Severely decreased left ventricular systolic function. Global left ventricular hypokinesis with regional septal and anterior wall akinesis. Left ventricular ejection fraction is estimated at 23 %. Grade I/IV diastolic dysfunction (abnormal relaxation filling pattern), normal to mildly elevated filling pressures. 2-Thickened tricuspid valve. No tricuspid valve stenosis. 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 3-Moderate aortic valve calcification. No aortic valve stenosis. Trace aortic valve regurgitation. 4-There is no pericardial effusion. 5-When compared to the prior echocardiogram dated August 23, 2019 left ventricular ejection fraction has worsened from mild to moderately reduced 45% to severely reduced 23% now. There is global severe hypokinesis with regional and septal wall akinesis. Norbert Orantes MD (Electronically Signed) Final Date: 19 February 2020 19:51 S
[2020-02-19 00:57] LABS: Troponin 5 2HR 218.9 ng/L (0-15); Troponin 5 2HR Delta 34.9 ABS# (0-10)
--- NOTE | 2020-02-19 01:05 | W.ED.CHESTPA ---
HPI - Chest Pain General: Chief Complaint: Chest Pain Stated Complaint: CP Time Seen by Provider: 02/18/20 22:01 History of Present Illness: HPI narrative: 79-year-old male resenting with chest discomfort. States that he has had discomfort in the left chest and substernally for 3 days or so on and off. He says his pain worsened tonight with pain on the right side of his chest radiating down the right arm. He called an ambulance. He was given nitroglycerin, Nitropaste, aspirin, with some reduction in his pain. He still complaining of some pain he did not get diaphoretic or nauseated. He does have a history of coronary disease with stenting. MD complaint: chest pain Pertinent past history: coronary artery disease Onset (ago): day(s) Timing of current episode: episodic Prior episodes: Yes Onset: during rest Pain location: left chest and right chest Quality: tightness Relieving factors: nitroglycerin Exacerbating factors: nothing Associated symptoms: Reports dyspnea; Deny abdominal pain, fever(s), nausea, palpitations or vomiting Treatment prior to arrival: aspirin, nitroglycerin and oxygen Review of Systems Const: Denies: fever(s) Eyes: Denies: change in vision or blurry vision ENMT: Denies: odynophagia or sinus pain Card: Reports: chest pain; Denies: palpitations, irregular heart rhythm or edema Resp: Reports: dyspnea GI: Denies: abdominal pain, nausea or vomiting : Denies: difficulty urinating or hematuria Musc: Denies: neck pain or joint warmth Skin/Breast: Denies: rash or erythema Neuro: Denies: headache(s), dizziness or vertigo Psych: Denies: anxiety PFSH ED PFSH: Medical History (Updated 02/19/20 @ 01:17 by Deejay Zaidi DO) Abdominal aortic atherosclerosis Amputation finger Atrial myxoma CAD (coronary artery disease) High risk medication use HTN (hypertension) Hyperlipemia Lipoma of skin and subcutaneous tissue (excluding face) PAD (peripheral artery disease) Rheumatoid arthritis seropositive Surgical History H/O cataract extraction H/O shoulder surgery left H/O: vasectomy History of appendectomy S/P angioplasty with stent x 3 stents Family History Father Lung disease COPD Other Diabetes Hypertension Social History Smoking and tobacco status: current every day smoker cigarettes Alcohol intake: never Household members: spouse Marital status: Current occupational status: retired History of recent travel: No Physical Exam Const: GENERAL APPEARANCE: well developed ORIENTATION/CONSCIOUSNESS: Yes oriented to person, Yes oriented to place and Yes oriented to time HENMT: COMMON NORMALS: normocephalic, external ears normal and Normal external nose present HEAD & SCALP: normocephalic; no scalp tenderness FACE & SINUS: normal facial exam NOSE: Normal external nose present and No nasal discharge present EXTERNAL EAR: Yes external ears normal Eye: COMMON NORMALS: Equal, round and reactive pupils present, EOMs intact bilaterally and conjunctivae normal EYELID: eyelids normal CONJUNCTIVA: Yes conjunctivae normal PUPIL: Yes Equal, round and reactive pupils present Neck/C-Spine: GENERAL: No tracheal deviation Chest: COMMONS NORMALS: normal inspection of the chest CHEST: Yes tenderness Resp: COMMON NORMALS: clear to auscultation bilaterally EFFORT & INSPECTION: No tachypneic, No respiratory distress, No retractions, No uses accessory muscles and No tracheal deviation AUSCULTATION: clear to auscultation bilaterally, no rhonchi, no wheezes and lung sounds not diminished Cardio: COMMON NORMALS: regular rate and regular rhythm RATE: regular rate RHYTHM: regular rhythm HEART SOUNDS: no murmurs PERIPHERAL PULSES: radial pulses present GI: INSPECTION: No abdominal distension AUSCULTATION: No Hyperactive bowel sounds present and No Hypoactive bowel sounds present PALPATION: No Guarding due to palpation present (GI) and No Rigid due to palpation PERCUSSION: no dullness to percussion and no tympanic to percussion Neuro: SENSORIUM/ORIENTATION: Yes oriented to person, Yes oriented to place and Yes oriented to time Psych: COMMON NORMALS: mental status grossly normal Course Vital Signs: Vital signs: Vital Signs Temperature 98.0 F 02/19/20 00:43 Pulse Rate 81 02/19/20 00:43 Respiratory Rate 21 H 02/19/20 00:43 Blood Pressure 132/90 02/19/20 00:43 Pulse Oximetry 94 02/19/20 00:43 MDM - Chest Pain MDM Narrative: Medical decision making narrative: Somewhat reproducible tenderness to the chest. This is an 79-year-old male with a history of coronary disease presenting with chest pain. His hemoglobin is 13. His first EKG shows a sinus rhythm with an RSR prime pattern, and minimally widened QRS. There is essentially less than half millimeter elevation in V2 without any reciprocal changes or changes otherwise. His troponin however is significantly elevated. The patient will be observed for chest discomfort. He will go to [facility]. Prior to leaving the ER, his 2-hour EKG was performed, and showed a slight increase in elevation in V2, almost 1 mm, with half millimeter elevation in V1. Again no reciprocal changes. Awaiting a second troponin. His pain is been controlled. Lab Data: Labs: Lab Results 02/18/20 02/18/20 02/18/20 Range/Units 21:34 21:34 21:34 WBC 12.4 H (4.0-10.0) 10^3/ uL RBC 4.70 (4.1-5.3) 10^6/u L Hgb 13.7 (11.7-16.6) g/dL Hct 43.5 (42.0-52.0) % MCV 92.6 (80-94) fL MCH 29.1 (28.0-34.0) pg MCHC 31.5 (30.0-36.0) g/dL RDW 17.3 H (12.1-15.1) % Plt Count 259 (130-400) 10^3/c mm MPV 11.2 H (7.4-10.4) fL Neut % (Auto) 57.6 % Lymph % (Auto) 29.0 % Gilchrist % (Auto) 10.5 % Eos % (Auto) 1.2 % Baso % (Auto) 0.8 % Neut # (Auto) 7.16 (1.8-7.7) 10^3/u L Lymph # (Auto) 3.6 (0.8-4.8) 10^3/u L Gilchrist # (Auto) 1.3 H (0.2-0.9) 10^3/u L Eos # (Auto) 0.2 (0.0-0.8) 10^3/u L Baso # (Auto) 0.1 (0.0-0.1) 10^3/u L Nucleated RBC % (a uto) 0 % Nucleated RBCs # 0.0 /100WBC Sodium 139 (136-145) mmol/L Potassium 4.4 (3.5-5.1) mmol/L Chloride 102 (98-107) mmol/L Carbon Dioxide 25 (22-29) mmol/L Anion Gap 16.4 (5-19) BUN 20 (8-23) mg/dL Creatinine 1.0 (0.7-1.2) mg/dL GFR Calculation Not Reportable Glucose 125 H (65-115) mg/dL Calculated Osmolal ity 292 (285-295) mOsm/k g Calcium 9.2 (8.5-10.5) mg/dL Total Bilirubin 0.6 (0.15-1.2) mg/dL AST 27 (0-40) U/L ALT 12 (0-41) U/L Alkaline Phosphata se 77 (40-130) IU/L Creatine Kinase 231 (39-308) U/L Troponin T Baselin e 184 H* (0-15) ng/L NT-Pro-B Natriuret Pep 7341 H (0-450) pg/mL Total Protein 6.2 L (6.6-8.7) g/dL Albumin 4.5 (3.5-5.2) g/dL Globulin 1.7 (1.3-4.6) g/dL Discharge Plan Discharge Patient Disposition: Placed in Observation Admit Provider: Norbert Dean Clinical Impression: Chest pain Qualifiers: Chest pain type: unspecified Qualified Code(s): R07.9 - Chest pain, unspecified Coding Level of Care Code ED Promos Executive Producer for g Fwd Exam Comprehensive
--- NOTE | 2020-02-19 01:12 | PC.NURSE ---
Patient arrived to his room from the ED after report was received via phone. Patient is alert and oriented and can ambulate with with assistance. Patient complains of chest pain 07/06. Dr. Dean notified. VSS. Patient has been oriented to his room and has call light within reach.
[2020-02-19] MEDS: clopidogrel 75 mg Tablet PO (01:23)
[2020-02-19] MEDS: nitroglycerin 1 gm/inch oint Pkt 1 INCH TOPICAL (01:23)
[2020-02-19] MEDS: morphine 4 mg/mL SDV 1 mL 2 MG IVP ×2 (01:28→05:04)
--- NOTE | 2020-02-19 01:44 | PC.NURSE ---
Patient states that Morphine and nitro help for a short period of time and then his pain comes right back. Dr. Dean notified. Pain radiates down right arm. Patient rates his pain at 4/10. Patient states he is currently taking antibiotics for pneumonia at home. Patient states I have been tested for COVID 5 times recently and they've all been negative. Patient has frequent cough. Verified Plavix order with Dr. Dean. Ordered to give 75 mg, not 300 mg.
--- NOTE | 2020-02-19 01:56 | PC.NURSE ---
Dr. Dean notified of patient asking for something for a cough and also notified of patient still having 4/10 chest pain radiating down right arm.
--- NOTE | 2020-02-19 02:37 | PC.NURSE ---
Dr. Dean notified of patient having Atorvastatin as an allergy. Patient states he cannot remember his reaction to the medication. Ordered to discontinue to medication.
[2020-02-19] MEDS: benzonatate 100 mg Capsule 200 MG PO (03:46)
--- NOTE | 2020-02-19 04:02 | ECG_ITS ---
[facility] Test Date: 2020-02-19 Pat Name: Chinmay Guerrier Department: Room: 101 Gender: Male Cheesemaker: NOY BOBB: 1940 Requested By: Deejay Moy Order Number: [id number] Judie MD: Adán English M.D. Measurements Intervals [place] Rate: 85 P: 85 CT: 208 QRS: -57 QRSD: 139 T: 88 QT: 416 QTc: 495 Interpretive Statements SINUS RHYTHM WITH OCCASIONAL VENTRICULAR PREMATURE COMPLEXES INTRAVENTRICULAR CONDUCTION DELAY [130+ ms QRS DURATION] SEPTAL MYOCARDIAL INFARCTION [40+ ms Q WAVE IN V1/V2], OF INDETERMINATE AGE POSSIBLE LATERAL MYOCARDIAL INFARCTION [30 ms Q WAVE IN I/aVL/V5/V6], OF INDETERMINATE AGE Compared to ECG 02/19/2020 00:36:28 Ventricular premature complex(es) now present Intraventricular conduction delay now present Ectopic atrial rhythm no longer present First degree AV block no longer present Myocardial infarct finding still present Electronically Signed On 02-19-2020 16:44:12 KNITTER HELPER by Adán English M.D. [id number]
--- NOTE | 2020-02-19 04:22 | PC.NURSE ---
Addendum entered by Xochitl Juan RN 02/19/20 05:13: Patient states that his chest pain becomes worse upon ambulation. Original Note: Dr. Dean notified of patient still having chest pain. Will monitor.
[2020-02-19 05:00] LABS: Basophils # 0.1 10^3/uL (0.0-0.1); Basophils % 1.1 %; Eosinophils # 0.2 10^3/uL (0.0-0.8); Eosinophils % 1.9 %; Hematocrit 38.7 % (42.0-52.0); Hemoglobin 11.8 g/dL (11.7-16.6); Lymphocytes # 2.9 10^3/uL (0.8-4.8); Lymphocytes % 30.6 %; Mean Corpuscular HGB Conc 30.5 g/dL (30.0-36.0); Mean Corpuscular Hemoglobin 28.5 pg (28.0-34.0); Mean Corpuscular Volume 93.5 fL (80-94); Mean Platelet Volume 11.2 fL (7.4-10.4); Neutrophils # 5.17 10^3/uL (1.8-7.7); Neutrophils % 54.6 %; Nucleated Red Blood Cells % 0 %; Platelet Count 206 10^3/cmm (130-400); Red Blood Count 4.14 10^6/uL (4.1-5.3); Red Cell Distribution Width 17.2 % (12.1-15.1); White Blood Count 9.5 10^3/uL (4.0-10.0)
--- NOTE | 2020-02-19 05:10 | PC.NURSE ---
Patient placed on 2 L NC. Will monitor.
[2020-02-19 05:21] LABS: D Dimer 1.81 ug/mIFEU (0-0.59)
[2020-02-19 05:25] LABS: Blood Urea Nitrogen 18 mg/dL (8-23); Calcium 8.3 mg/dL (8.5-10.5); Carbon Dioxide 28 mmol/L (22-29); Chloride 105 mmol/L (98-107); Glucose 96 mg/dL (65-115); Osmolality Calculated 292 mOsm/kg (285-295); Sodium 140 mmol/L (136-145)
--- NOTE | 2020-02-19 05:54 | PC.NURSE ---
Addendum entered by Xochitl Juan RN 02/19/20 06:02: Patient is being taken to CT at this time. Original Note: Unable to get ahold of CT staff at this time.
--- NOTE | 2020-02-19 06:10 | PC.NURSE ---
Dr. Dean notified of elevated d-dimer results. CTA chest ordered. Dr. Dean also notified of patient stating that his chest pain is now 7/.
--- NOTE | 2020-02-19 06:33 | ECG_ITS ---
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 Measurements Intervals [place] Rate: 80 P: 44 UT: 196 QRS: -48 QRSD: 124 T: 112 QT: 389 QTc: 450 Interpretive Statements SINUS RHYTHM LEFT ANTERIOR FASCICULAR BLOCK [QRS AXIS <= -45, QR IN I, RS IN II] SEPTAL MYOCARDIAL INFARCTION [40+ ms Q WAVE IN V1/V2], OF INDETERMINATE AGE MODERATE T-WAVE ABNORMALITY, CONSIDER ANTERIOR ISCHEMIA [-0.1+ mV T WAVE IN V3/V4] Compared to ECG 02/19/2020 05:23:35 Left anterior fascicular block now present T-wave abnormality now present Possible ischemia now present Ventricular premature complex(es) no longer present Intraventricular conduction delay no longer present Myocardial infarct finding still present Electronically Signed On 02-19-2020 16:38:57 RUG CLIPPER by Adán English M.D. [id number]
[2020-02-19] MEDS: sodium chloride 0.9% 1,000 ML 50 ML IV (06:55)
[2020-02-19] MEDS: diphenhydrAMINE 25 mg Capsule PO (06:55)
--- NOTE | 2020-02-19 06:57 | XACV_ITS ---
Exam Room: [facility] Ht: 170 cm Wt: 82 kg BSA: 1.98 m2 Gender: Male : 1940 Any Known Allergies: Other Exam Priority: Routine Procedure(s): Procedure Description: Diagnostic procedure Procedure Description: PCI procedure Procedure Description: Left Heart Catheterization Procedure Description: Drug Eluting Coronary Stent Procedure Description: PTCA Procedure Description: Coronary Angiography Diagnostic Cath Status: Urgent Diagnostic Findings * LM has 0% stenosis. * Mid Left Anterior Descending Coronary Artery: Severe 99% stenosis, XENIA: 2 flow. * Distal Left Anterior Descending Coronary Artery: Severe 100% stenosis, XENIA: 0 flow. * 1st Diag: Severe 99% stenosis, XENIA: 3 flow. * Mid Circumflex Coronary Artery: Severe 90% stenosis, XENIA: 3 flow. * Distal Circumflex Coronary Artery: Severe 75% stenosis, XENIA: 3 flow. * dRCA: Mild 40% stenosis, XENIA: 3 flow. * Coronary angiography shows right dominance. PCI Status: Urgent PCI Indication: NSTE - ACS Interventional Findings * Mid Left Anterior Descending Coronary Artery: 99% stenosis treated with AB TREK 2.50X15 RX BALLOON and MDT R ADARSH 3.0X22 MARY. 0% residual stenosis, XENIA: 3 flow. * Distal Left Anterior Descending Coronary Artery: 100% stenosis treated with AB TREK 2.50X15 RX BALLOON and AB MINI TREK 2.00X25 RX BALLOON. 0% residual stenosis, XENIA: 3 flow. * Mid Circumflex Coronary Artery: 90% stenosis treated with MDT R ADARSH 2.5X8 MARY and MDT R ADARSH 3.0X12 MARY. 0% residual stenosis, XENIA: 3 flow. * Distal Circumflex Coronary Artery: 75% stenosis treated with MDT R ADARSH 2.5X8 MARY. 0% residual stenosis, XENIA: 3 flow. * Patient was noted to have thrombotically occluded mid and distal LAD with XENIA I-II flow, there appeared to be severe in-stent restenosis and thrombus in the mid LAD prior stent. After crossing with a wire and multiple balloon angioplasty no reflow phenomenon was observed, intracoronary Cardene was given and balloon angioplasty of the distal LAD was performed. Mid LAD was treated with stent placement. Good angiographic result with XENIA-3 flow was restored in the mid to distal segment however still got off of the distal LAD noted due to thrombus which was further treated with balloon angioplasty finally we were able to restore the flow in LAD. Excellent angiographic result with XENIA-3 flow was achieved. Diagonal is a moderate size and caliber vessel which has diffuse disease not amenable to intervention. It was thought to treat with medicine.. * Mid and distal circumflex was noted to have 90 in 75% stenosis both lesions were treated with drug-eluting stent as defined above. Excellent angiographic result with XENIA-3 flow was achieved.. Conclusions 1. There is severe coronary artery disease with three vessel disease. 2. Mid Left Anterior Descending Coronary Artery was treated with Balloon and Drug Eluting Stent. 3. Distal Left Anterior Descending Coronary Artery was treated with two Balloon. 4. Mid Circumflex Coronary Artery was treated with two Drug Eluting Stent. 5. Distal Circumflex Coronary Artery was treated with Drug Eluting Stent. 6. Indication for left heart cath: Unstable non-ST elevation PR 7. despite of optimization of medicine. Recommendations * 1-Return to inpatient for close monitoring and routine cath care 2-Risk factor modification for secondary prevention 3-Statin and aspirin 81 mg life--long, if tolerated 4-Patient was pre-loaded with 600 mg of Plavix, continue Plavix 75mg p.o. daily for at least one year. We will assess at the end of one year again to continue if further or not 5-Continue optimal medical management 6-Follow up with Dr. Orantes in four weeks and your primary care in 10 days. Diagnostic RX Recommendation: PCI w/o planned CABG Pressures Phase:Rest AO : 73 / 61 ( 65 ) @ 2:06:00 AM 129 / 121 ( 94 ) @ 2:07:00 AM 81 / 70 ( 77 ) @ 2:10:00 AM 72 / 53 ( 66 ) @ 2:19:00 AM 112 / 62 ( 81 ) @ 2:42:00 AM 92 / 68 ( 80 ) @ 2:50:00 AM Clinical Evaluation EBL: 5mL-10mL Procedural Details Procedure Consent Obtained. Current Diagnosis : NSTEMI. Pre-Procedure Time Out. Identified patient by full name and date of as verbalized by the patient/guarantor. Does the consent match the physician's order: Yes. Accurate & Complete Informed Consent: Yes. Inpatient/Outpatient History & Physical on Chart: N/A Emergent; Informed Consent not obtained due to time critical life threat. If H&P is completed, is and addenduem needed: N/A Emergent; Informed Consent not obtained due to time critical life threat; If yes, is the addendum complete: N/A Emergent; Informed Consent not obtained due to time critical life threat. Visualize and Verify Site with Patient/Guarantor: N/A. Relevant Radiology Images available: N/A Emergent; Informed Consent not obtained due to time critical life threat. Pre-op teaching completed and patient verbalized understanding. The risks, benefits, and alternatives of sedation and/or procedure were discussed by physician. The patient agrees to continue. PERRLA. 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 Lungs clear x 5 lobes. IV Fluids: 0.9% NaCl at KVO. 0 mL infused prior to lab aide. Oxygen started at 3liters/min via nasal canula. right groin was prepped with chloroprep then draped in the usual sterile fashion. Procedure started. Correct patient, site and procedure confirmed by cath team. right radial was prepped with chloroprep then draped in the usual sterile fashion. Physician notified. Physician arrived. Current diagnosis: NSTEMI. IV Site on Arrival: 18 gauge in the left forearm. Nitro paste on left chest. Baseline sample Acquired. HR: 88 BPM. Equipment: 6F - Radial. Cardiac Cath Pack. ACIST Manifold Kit Model BT 2000. Heparinized Saline (2 units/mL), 1000 mL bag. Physician scrubbed in. Immediate Pre-Procedure Time Out. Correct Patient: Yes; Correct Procedure: Yes; Correct Site: Yes; Correct Patient Position: Yes; Correct Supplies: Yes; Dried Flammable Prep: Yes; Blood Products Available: No;. Lidocaine 1% infiltrated to the right radial. Arterial access obtained. wire inserted. wire out hand injection performed. glidewire inserted. glidewire out. Catheter out. A TR Band was successful obtaining hemostatsis at the Right Radial artery insertion site. TR band placed. Hemostasis obtained. Lidocaine 1% infiltrated to the right groin. Arterial access obtained with micropuncture set. A 5 fijian JL4 catheter in over wire. Multiple views taken of left coronary artery. Catheter out. A 5 fijian JR4 catheter in over wire. AP pads applied to pt. Catheter out. Patient's family updated. 6 fijian XB 3 guide catheter was inserted over the wire. Prosperity guidewire was advanced through the guide catheter to lesion in the mid LAD. Guidewire advanced across lesion. Balloon inserted to lesion in the mid LAD. Inflation number : 1 A AB TREK 2.50X15 RX BALLOON was prepped and advanced across the Mid LAD , then inflated to 14 AMARI for 0:12 seconds. Inflation number: 2 The AB TREK 2.50X15 RX BALLOON was reinflated across the Mid LAD, to 16 AMARI for 0:07 seconds. Inflation number: 3 The AB TREK 2.50X15 RX BALLOON was reinflated across the Mid LAD, to 18 AMARI for 0:13 seconds. Results checked. Inflation number: 1 The AB TREK 2.50X15 RX BALLOON was reinflated across the Dist LAD, to 4 AMARI for 0:13 seconds. Inflation number: 2 The AB TREK 2.50X15 RX BALLOON was reinflated across the Dist LAD, to 4 AMARI for 0:09 seconds. Inflation number: 3 The AB TREK 2.50X15 RX BALLOON was reinflated across the Dist LAD, to 4 AMARI for 0:05 seconds. Results checked. Balloon out. Inflation Number : 4 A ADALGISA Zimmer ADARSH 3.0X22 MARY -Lot Number# [id number] exp 01-23-2021 was prepped and advanced across the Mid LAD. The stent was deployed at 20 AMARI for 0:32 seconds. Stent balloon out over wire. Stent inserted to lesion in the mid LAD. Prosperity repositioned to mid Circ. Wire out. guide reseated. Prosperity guidewire was advanced through the guide catheter to lesion in the distal Circ. Guidewire advanced across lesion. Inflation Number : 1 A MDT R ADARSH 2.5X8 MARY -Lot Number# [id number] exp 09-28-2021_ was prepped and advanced across the Dist CX. The stent was deployed at 12 AMARI for 0:15 seconds. Inflation number: 1 The stent balloon was then re-inflated across the Mid CX to 14 AMARI for 0:14 seconds. Stent balloon out over wire. Inflation Number : 2 A MDT R ADARSH 3.0X12 MARY -Lot Number# [id number] exp 11-20-2021 was prepped and advanced across the Mid CX. The stent was deployed at 16 AMARI for 0:20 seconds. Results checked. Stent balloon out over wire. Inventory is Nutritionix Prosperity XT .014 190cm Str. Guidewire. Prosperity guidewire was advanced through the guide catheter to lesion in the distal LAD. Inflation number : 4 A AB MINI TREK 2.00X25 RX BALLOON was prepped and advanced across the Dist LAD , then inflated to 5 AMARI for 0:22 seconds. Inflation number: 5 The AB MINI TREK 2.00X25 RX BALLOON was reinflated across the Dist LAD, to 8 AMARI for 0:21 seconds. Inflation number: 6 The AB MINI TREK 2.00X25 RX BALLOON was reinflated across the Dist LAD, to 8 AMARI for 0:24 seconds. Inflation number: 7 The AB MINI TREK 2.00X25 RX BALLOON was reinflated across the Dist LAD, to 8 AMARI for 0:11 seconds. Inflation number: 8 The AB MINI TREK 2.00X25 RX BALLOON was reinflated across the Dist LAD, to 8 AMARI for 0:09 seconds. Results checked. Stent balloon out over wire. Results checked. Inflation number: 9 The AB MINI TREK 2.00X25 RX BALLOON was reinflated across the Dist LAD, to 6 AMARI for 0:16 seconds. Inflation number: 10 The AB MINI TREK 2.00X25 RX BALLOON was reinflated across the Dist LAD, to 6 AMARI for 0:10 seconds. Balloon out. Results checked. Wire out. Wire out. Guide catheter out. A Suture was successful obtaining hemostatsis at the Right Femoral artery insertion site. Sheath(s) sutured into position with 2-0 silk and sterile 4x4's and Op-site applied over the site. No oozing or signs and symptoms of hematoma noted. PERRLA. 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 No VTE prophylaxis required. Medication's Wasted: Nitro = 49.8 mg. Medication's Wasted: Heparin = 4000 units. Medication's Wasted: Other = cardene 24.5 mg. Medication's Wasted: Other = fentanyl 50 mcg. Medication's Wasted: Other = versed 1 mg. Total IV fluids: 100 mL. Fluoro: 20:06. Contrast type used: Visipaque 320 mgI/mL, 500 mL bottle. [id number]. Complications: none. Estimated blood loss: 5mL-10mL. Post-op diagnosis: multi vessel CAD post PCI to mid/distal CX mid distal LAD. PCI Indication: NSTE. Procedure completed. [facility] Clinical Fraility Score: 4: Vulnerable. Minister Assistant Indications: ACS <= 24 hours. Chest Pain Symptom Assessment: Atypical Angina. Cardiovascular Instability: Yes, if yes, Persistant Ischemic Symptoms. Patient transferred by bed to ICU. Vital chart was stopped. Access Site Site: Right Radial artery Sheath Size: 6 Fr Hemostasis Method: TR Band Hemostasis Success: Successful Site: Right Femoral artery Sheath Size: 6 Fr Hemostasis Method: Suture Hemostasis Success: Successful Procedure Medications Start: 7:44 AM Stop: 7:44 AM Medication: Versed Amount: 1 mg Start: 7:44 AM Stop: 7:44 AM Medication: Fentanyl Amount: 50 mcg Route: I.V. Start: 7:49 AM Stop: 7:49 AM Medication: Nitrogylcerin Amount: 200 mcg Route: I.A. Start: 8:08 AM Stop: 8:08 AM Medication: Lovenox (Enoxaparin) Amount: 30 mg Route: I.V. bolus Start: 8:31 AM Stop: 8:31 AM Medication: Levophed (norepinephrine) Amount: 2 mcg/min Route: I.V. drip Start: 8:42 AM Stop: 8:42 AM Medication: Cardene Amount: 500 mcg Route: I.C. Start: 8:46 AM Stop: 8:46 AM Medication: Aggrastat 12.5 mg/250 mL Amount: 41 ml Route: I.V. bolus Start: 8:46 AM Stop: 8:46 AM Medication: Aggrastat 12.5 mg/250 mL Amount: 14.8 ml/hr Route: I.V. diogo Busby, the attending physician, have reviewed and verified all procedure medications. Yes, all medications given per verbal order Report Signatures Finalized by Norbert Orantes MD on 03/03/2020 03:11 PM
--- NOTE | 2020-02-19 07:10 | PC.NURSE ---
Dr. Dean called Dr. Orantes and ordered another EKG due to increasing chest pain. 0648 Dr. Dean called STEMI alert when looking at EKG results.
--- NOTE | 2020-02-19 07:24 | P.CONIM_ITS ---
Providers/Reason For Consult Consulting Physican/Specialty*: Cardiology Reason for Consult*: Unstable non-ST relation NC Attending Physician: Norbert Dean MD Primary Care Provider: Vasu Ramsay MD History of Present Illness History of Present Illness I was alerted by ST elevation NC pager to attend Chinmay Guerrier is a 79 year old male with chest pain and abnormal EKG admitted last night to [facility] for non-ST elevation NC. Twelve-lead EKG passed on to me after STEMI pager alert showed subtle anteroseptal ST elevation may not qualify for ST elevation NC, since patient has return of chest pain I immediately saw the patient in his room. He was in mild distress not short of breath laying in the bed flat. Patient's past medical history is significant for hypertension hyperlipidemia prior multiple LAD stents, history of tobacco abuse, COPD, history of IVC filter prior DVTs. Patient is not a good historian according to him he had right side and occasionally midsternal chest pain and pressure that is why he was brought in by EMS to the hospital. Troponin T was more than 200. Since his chest pain returned back in the morning and he has persistent abnormality in the EKG which is changed from the prior exam we will proceed with urgent left heart cath/PCI if indicated. I have explained all the risk benefit and alternative for the procedure to the patient including bleeding arrhythmia infection emergent bypass. Patient agrees to it and would like to proceed with it. Review of Systems Const: Denies: fever(s), body aches or fatigue Eyes: Denies: change in vision or blurry vision ENMT: Denies: throat pain, odynophagia or sinus pain Card: Reports: chest pain and dyspnea on exertion; Denies: palpitations, irregular heart rhythm or edema Resp: Denies: dyspnea GI: Denies: abdominal pain, nausea or vomiting : Denies: flank pain, difficulty urinating or hematuria Musc: Denies: neck pain or joint warmth Skin/Breast: Reports: lesions; Denies: rash or erythema Neuro: Denies: headache(s), dizziness or vertigo Psych: Denies: anxiety Endo: Denies: polyuria Mayco/Lymph: Denies: easy bruising All/Imm: Denies: urticaria Meds/Allergies Home Medications and Allergies Home Medications Medication Instructions Recorded Confirmed Last Taken Type albuterol sulfate 2.5 mg INHALATION Q4H PRN 04/19/19 02/19/20 1 Day Ago History ~02/18/20 aspirin 81 mg tablet,delayed 81 mg PO DAILY 04/19/19 02/19/20 1 Day Ago History release ~02/18/20 hydrocodone 7.5 mg-acetaminophen 1 tab PO TID PRN 04/19/19 02/19/20 1 Day Ago History 325 mg tablet ~02/18/20 tamsulosin 0.4 mg capsule 0.4 mg PO BEDTIME 04/19/19 02/19/20 08/22/19 History prednisone 5 mg tablet 10 mg PO DAILY #60 tab 07/10/19 02/19/20 1 Day Ago Rx ~02/18/20 nitroglycerin 0.4 mg sublingual 0.4 mg SUBLINGUAL Q5M PRN #25 each 10/28/19 02/19/20 1 Day Ago Rx tablet ~02/18/20 amoxicillin-pot clavulanate 2 tab PO BID 02/19/20 02/19/20 1 Day Ago History [Augmentin XR] ~02/18/20 doxycycline hyclate 100 mg PO BID 02/19/20 02/19/20 1 Day Ago History ~02/18/20 fish,bora,flax oils-om3,6,9no1 1 cap PO DAILY 02/19/20 02/19/20 1 Day Ago History [Wilmot 3-6-9 Complex] ~02/18/20 gabapentin 600 mg PO TID 02/19/20 02/19/20 1 Day Ago History ~02/18/20 oxymetazoline [Afrin 2 spray INTRANASAL Q12H PRN 02/19/20 02/19/20 1 Day Ago History (oxymetazoline)] ~02/18/20 pantoprazole [Protonix] 40 mg PO DAILY 02/19/20 02/19/20 1 Day Ago History ~02/18/20 Allergies Allergy/AdvReac Type Severity Reaction Status Date / Time atorvastatin [From Lipitor] Allergy unknown Verified 02/19/20 01:31 ezetimibe [From Vytorin] Allergy unknown Verified 02/19/20 01:31 niacin Allergy unknown Verified 02/19/20 01:31 [From Niaspan Extended-Release] ranitidine Allergy unknown Verified 02/19/20 01:31 rosuvastatin [From Crestor] Allergy unknown Verified 02/19/20 01:31 simvastatin [From Vytorin] Allergy unknown Verified 02/19/20 01:31 Current Medications Current Medications Generic Name Dose Route Start Last Admin Trade Name Freq PRN Reason Stop Dose Admin Benzonatate 200 mg 02/19/20 02:08 02/19/20 03:46 Benzonatate 100 Mg Capsule PO 200 mg TID PRN Administration COUGH Sodium Chloride 1,000 mls @ 50 mls/hr 02/19/20 07:00 02/19/20 06:55 Sodium Chloride 0.9% IV 50 mls/hr .Q20H CATA Administration Morphine Sulfate 2 mg 02/19/20 00:45 02/19/20 05:04 Morphine 4 Mg/Ml Sdv 1 Ml IVP 2 mg Q4H PRN Administration chest poain Nitroglycerin 1 inch 02/19/20 01:15 02/19/20 01:23 Nitroglycerin 1 Gm/Inch Oint Pkt TOPICAL 1 inch Q6H CATA Administration PFSH Acute PFSH: Medical History (Updated 02/19/20 @ 21:38 by Norbert Orantes MD) Abdominal aortic atherosclerosis Amputation finger Atrial myxoma CAD (coronary artery disease) COPD (chronic obstructive pulmonary disease) Coronary artery disease High risk medication use HTN (hypertension) Hyperlipemia Lipoma of skin and subcutaneous tissue (excluding face) PAD (peripheral artery disease) Presence of IVC filter Rheumatoid arthritis seropositive Surgical History H/O cataract extraction H/O shoulder surgery left H/O: vasectomy History of appendectomy S/P angioplasty with stent x 3 stents Family History Father Lung disease COPD Other Diabetes Hypertension Social History Smoking and tobacco status: current every day smoker cigarettes Alcohol intake: never Household members: spouse Marital status: Current occupational status: retired History of recent travel: No Vitals/I&O/Wt Last Vital Signs Temp 98 F 02/19/20 04:11 Pulse 82 02/19/20 04:11 Resp 15 02/19/20 05:04 BP 100/73 02/19/20 04:11 Pulse Ox 95 02/19/20 04:11 02/18/20 02/19/20 02/19/20 22:59 06:59 14:59 Intake Total 300 / 300 Balance 300 / 300 Weight last 48 hrs Weight 180 lb Physical Exam Narrative: EXAM NARRATIVE: GENERAL: Patient is alert, awake and oriented x3. NECK: No jugular vein distension. HEENT: No cyanosis. No icterus. No pallor. HEART: Regular S1 and S2. No murmur, rub or gallop. LUNGS: Clear to auscultate bilaterally. ABDOMEN: Soft, nontender and nondistended. Positive bowel sounds. No guarding, rebound or tenderness. CENTRAL NERVOUS SYSTEM: Grossly nonfocal. EXTREMITIES: Lower extremities without edema bilaterally. A&P Assessment and plan (1) NSTEMI (non-ST elevated myocardial infarction): Patient has been treated as per ACS protocol due to recurrence of chest pain and persistent EKG changes and that was anteroseptal region we will proceed with early invasive and urgent left heart cath for unstable non-ST elevation NC. We will load patient with Plavix, extra low molecular weight heparin if indicated will be given. Further plan will be advised as per progress of patient. Echocardiogram will be obtained to assess LV function. Status: Acute (2) HTN (hypertension): Well-controlled continue to monitor Status: Chronic Qualifiers: Hypertension type: essential hypertension Qualified Code(s): I10 - Essential (primary) hypertension Coding Level of Care Code New Pt Acute Dining Service Inspector for g Fwd Patient Type New History Detailed Exam Detailed Medical Decision Making Moderate Complexity Diagnoses NSTEMI (non-ST elevated myocardial infarction) I21.4 HTN (hypertension) I10 Hypertension type: essential hypertension
--- NOTE | 2020-02-19 07:30 | PC.NURSE ---
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
--- NOTE | 2020-02-19 07:38 | W.PM.OPSUD ---
Surgery/Procedure H&P Update DATE OF PROCEDURE: February 19, 2020 DATE H&P PERFORMED: 02/19/20 H&P UPDATE INFORMATION: I have examined patient prior to procedure PREOP DIAGNOSIS: Acute coronary syndrome unstable, continuous chest pain, abnormal EKG echo PATIENT REASSESSED PRIOR TO SEDATION, WITH NO CHANGE NOTED: Yes PHYSICAL EXAM: alert, oriented x 3, clear to auscultation bilaterally and regular rate & rhythm AIRWAY EVAL/ANESTHESIA PLAN: ASA II, Risks, benefits & alternatives of sedation and/or procedure discussed and Patient agrees to continue as planned
--- NOTE | 2020-02-19 09:40 | PC.NURSE ---
0930 recd post [facility]. tr band to right wrist. sheath in right groin to pressure bag aggrastat and levophed running.
--- NOTE | 2020-02-19 09:54 | PC.NURSE ---
levophed weaned to 2 mcg. site remains w/o oozing, hematoma. or bruising. good dorsalis pulse.
--- NOTE | 2020-02-19 10:00 | PC.NURSE ---
LEVOPHED OFF. HAS URINAL, DENIES ANY PAIN. NO HEMATOMA FORMATION AT RIGHT WRIST/FEMORAL ACCESS SITES. O2 2L/NC
--- NOTE | 2020-02-19 10:42 | P.PN_ITS ---
Subjective Subjective: Interval history: STEMI alert called earlier this AM due to noted ST elevation in inferior leads on last ECG. Patient taken to [facility], transferred to ICU. Patient seen upon transfer to ICU, resting quietly in bed, somewhat groggy following procedure and requiring Levophed currently running at 5 mcg/min. Seen later this afternoon, noted to have wet sounding cough, susp icion for CHF exacerbation given BNP elevation. Stat chest x-ray ordered, 20 mg dose of IV Lasix with close monitoring of blood pressure, neb treatment, IV steroids and resumption of oral antibiotics. Received paper copy of records from [facility] admission in August, reviewed below. Will likely need Lassiter catheter placement for accurate ins and outs. Medications: Reviewed: Yes Medication Review Details: Active Medications Generic Name Dose Route Start Last Admin Trade Name Freq PRN Reason Stop Dose Admin Acetaminophen 650 mg 02/19/20 09:09 Acetaminophen 32 5 Mg Tablet PO Q6H PRN MILD PAIN Al Hydrox/Mg [place] x/Simethicone 30 ml 02/19/20 09:09 Cydg-Thz-Byogywb de-Greta 30 Ml Udc PO Q15M PRN INDIGESTION Albuterol/Ipratrop ium 3 ml 02/19/20 00:45 Ipratropium-Albu terol 3 Ml Neb INHALATION Q6H PRN SHORTNESS OF FANG TH Alprazolam 0.25 mg 02/19/20 09:09 Alprazolam 0.25 Mg Tablet PO TID PRN ANXIETY Aspirin 81 mg 02/19/20 09:00 Aspirin 81 Mg Ec Tablet PO DAILY CATA Benzonatate 200 mg 02/19/20 02:08 02/19/20 03:46 Benzonatate 100 Mg Capsule PO 200 mg TID PRN Administration COUGH Sodium Chloride 1,000 mls @ 50 ml s/hr 02/19/20 07:00 02/19/20 06:55 Sodium Chloride 0.9% IV 50 mls/hr .Q20H CATA Administration Sodium Chloride 1,000 mls @ 50 ml s/hr 02/19/20 06:51 Sodium Chloride 0.9% IV 02/20/20 02:50 .Q20H ONE Norepinephrine Bit artrate 4 mg 254 mls @ 0 mls/h r 02/19/20 08:30 / Dextrose IV .Q0M CATA Protocol Per Protocol Tirofiban/Sodium C hloride 12.5 mg in 250 ml s @ 14 mls/hr 02/19/20 09:15 Aggrastat IV .[id number] [facility] Protocol Magnesium Hydroxid e 30 ml 02/19/20 09:09 Magnesium Hydrox home 30 Ml Udc PO DAILY PRN CONSTIPATION Morphine Sulfate 2 mg 02/19/20 00:45 02/19/20 05:04 Morphine 4 Mg/Ml Sdv 1 Ml IVP 2 mg Q4H PRN Administration chest poain Naloxone HCl 0.1 mg 02/19/20 09:09 Naloxone 0.4 Mg/ Ml Sdv IVP Q2M PRN RESPIRATORY RATE < 8/MIN Nitroglycerin 1 inch 02/19/20 01:15 02/19/20 01:23 Nitroglycerin 1 Gm/Inch Oint Pkt TOPICAL 1 inch Q6H CATA Administration Nitroglycerin 0.4 mg 02/19/20 09:09 Nitroglycerin 0. 4 Mg Sublingual Ta blet SUBLINGUAL Q5M PRN CHEST PAIN Prednisone 10 mg 02/19/20 09:00 Prednisone 10 Mg Tablet PO DAILY [facility] Senna/Docusate Sod ium 1 tab 02/19/20 09:00 Sennosides-Docus ate Tablet PO DAILY CATA Tamsulosin HCl 0.4 mg 02/19/20 09:00 Tamsulosin 0.4 M g Capsule PO DAILY CATA Temazepam 15 mg 02/19/20 09:09 Temazepam 15 Mg Capsule PO BEDTIME PRN INSOMNIA atorvastatin [From Lipitor] Allergy (Verified 02/19/20 01:31) unknown ezetimibe [From Vytorin] Allergy (Verified 02/19/20 01:31) unknown niacin [From Niaspan Extended-Release] Allergy (Verified 02/19/20 01:31) unknown ranitidine Allergy (Verified 02/19/20 01:31) unknown rosuvastatin [From Crestor] Allergy (Verified 02/19/20 01:31) unknown simvastatin [From Vytorin] Allergy (Verified 02/19/20 01:31) unknown Vitals/I&O/Wt Last Vital Signs Temp 98 F 02/19/20 04:11 Pulse 88 02/19/20 09:27 Resp 16 02/19/20 09:27 BP 100/73 02/19/20 04:11 Pulse Ox 92 02/19/20 09:27 02/18/20 02/19/20 02/19/20 22:59 06:59 14:59 Intake Total 300 / 300 Balance 300 / 300 Weight last 48 hrs Weight 81.647 kg Physical Exam Const: COMMON NORMALS: no acute distress, patient oriented x3 and alert GENERAL APPEARANCE: cooperative, comfortable and frail appearing ORIENTATION/CONSCIOUSNESS: Yes awake HENMT: COMMON NORMALS: normocephalic, atraumatic, hearing grossly normal bilaterally and moist oral mucous membranes HEAD & SCALP: normocephalic and atraumatic Eye: COMMON NORMALS: Equal, round and reactive pupils present, EOMs intact bilaterally and conjunctivae normal CONJUNCTIVA: Yes conjunctivae normal PUPIL: Yes Equal, round and reactive pupils present Neck/C-Spine: COMMON NORMALS: full ROM GENERAL: Yes normal visual inspection and Yes trachea midline Resp: COMMON NORMALS: normal respiratory effort, No retractions and No use of accessory muscles EFFORT & INSPECTION: Yes able to speak in complete sentences, Yes symmetric chest movement, No tachypneic and Yes Actively coughing moist AUSCULTATION: rales OTHER: -on 3 L NC Cardio: COMMON NORMALS: regular rate, regular rhythm, S1 normal heart sound present, S2 normal heart sound present and No murmurs present (Cardio) RATE: regular rate RHYTHM: regular rhythm HEART SOUNDS: S1 normal heart sound present and S2 normal heart sound present OTHER: -hypotensive; on levophed at 5 mcg/min GI: COMMON NORMALS: Normal to inspection, nondistended, normoactive bowel sounds present, Soft to palpation and non-tender PALPATION: Yes Soft to palpation : OTHER: -R groin cath site; clean dressing in place, no apparent hematoma Extremity: COMMON NORMALS: normal to inspection, full ROM and no clubbing, cyanosis or edema; negative for no pedal edema Neuro: COMMON NORMALS: patient oriented x3, moves all extremities, no focal motor deficits and no sensory deficits noted SENSORIUM/ORIENTATION: Yes alert Psych: COMMON NORMALS: mental status grossly normal, Normal thought process present, cooperative, normal affect and speech normal SPEECH: Yes normal speech THOUGHT PROCESS: Normal thought process present Skin: COMMON NORMALS: no rashes or lesions noted, no jaundice, no petechiae and no mottling GENERAL SKIN EXAM: no rashes or lesions noted Data : 02/19/20 03:40 02/19/20 03:40 A&P Assessment and plan (1) NSTEMI (non-ST elevated myocardial infarction): -presented with chest pain, found to have elevated troponins with significant delta of 35 after 6 hrs, then noted to have some ST elevation on most recent ECG earlier this AM so STEMI alert called -patient taken to [facility], s/p angiogram by Dr. Orantes -received load of ASA, Plavix, therapeutic lovenox, NTG -no statin due to noted allergies, also noted to be allergic to Zetia -cardiology evaluation appreciated -telemetry monitoring -Echo pending -VSS; continue to monitor -noted D-dimer elevation (1.81); CTA pending Status: Acute (2) CHF exacerbation: -post procedure noted to have wet sounding cough suspicious for pulmonary edema, CXR ordered; will give lasix, order some IV steroids, Neb treatments, resumed oral antibiotics -may need BiPAP support and additional diuresis if BP tolerates -Echo pending -BNP ovofkbuap=[id number] Status: Acute Qualifiers: Heart failure type: diastolic Qualified Code(s): I50.33 - Acute on chronic diastolic (congestive) heart failure (3) HTN (hypertension): -VSS; continue to monitor Status: Chronic Qualifiers: Hypertension type: essential hypertension Qualified Code(s): I10 - Essential (primary) hypertension (4) CAD (coronary artery disease): -known hx of CAD s/p stenting x 3 -follows up with Dr. Godinez -had recent Holter monitor which showed baseline normal sinus rhythm with PVCs -on aspirin, has allergy to multiple statins -Echo poor study, likely EF wnl, no gross wall motion abnormalities Status: Chronic Qualifiers: Associated angina: without angina Coronary Disease-Associated Artery/Lesion type: [place] artery [place] vs. transplanted heart: [place] heart Qualified Code(s): I25.10 - Atherosclerotic heart disease of [place] coronary artery without angina pectoris (5) COPD (chronic obstructive pulmonary disease): -no acute exacerbation -not oxygen dependent at baseline Status: Chronic Qualifiers: COPD type: emphysema Emphysema type: unspecified Qualified Code(s): J43.9 - Emphysema, unspecified (6) Seropositive rheumatoid arthritis of multiple joints: -follows up with Dr. 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 Per review of brief discharge information scanned into record, patient had right gluteal/pelvic/internal iliac artery aneurysm embolectomy done by Dr. Fernández; no complications -also had decompressive lumbar laminectomies involving L2-L5, bilateral medial facetectomies and neuroforaminotomies (L2-L5). Preop imaging was suspicious for osteomyelitis and discitis involving L2-L5 superimposed on degenerative lumbar spondylosis with lumbar stenosis and significant compression of the cauda equina -s/p colonoscopy with polyp (6) removal (also noted to have internal hemorrhoids, diverticulosis). Colonoscopy done due to suspicion for cecal mass on imaging -Treated with course of vancomycin, ceftriaxone (09/17-10/22). From medication list appears to still be on antibiotics with Augmentin and doxycycline. Records in chart -History of osteoporosis, chronic low back pain -remote hx of PE -Anxiety -Advanced age -Chronic smoker -BPH; on Flomax -cardiac diet as tolerated -DVT ppx not needed as already received therapeutic lovenox -Dispo: home -Code status: FULL code Attestations Medical Necessity Statement*: Patient requires hospitalization for continued management of STEMI status post angiogram early this morning, acute CHF exacerbation. Time Spent in Patient Care: Greater than 35 minutes (>than 50% of time spent in counselling and/or direct pt care on unit) . Coding Level of Care Code Acute Regeneration Operator for Chg Fwd Exam Comprehensive Diagnoses NSTEMI (non-ST elevated myocardial infarction) I21.4 CHF exacerbation I50.33 Heart failure type: diastolic HTN (hypertension) I10 Hypertension type: essential hypertension CAD (coronary artery disease) I25.10 Associated angina: without angina Coronary Disease-Associated Artery/Lesion type: [place] artery [place] vs. transplanted heart: [place] heart COPD (chronic obstructive pulmonary disease) J43.9 COPD type: emphysema Emphysema type: unspecified Seropositive rheumatoid arthritis of multiple joints M05.79
[2020-02-19 11:22] LABS: Partial Thromboplastin Time 36.1 SECONDS (23.9-36.7)
[2020-02-19 14:41] LABS: Partial Thromboplastin Time 30.1 SECONDS (23.9-36.7)
[2020-02-19 14:47] LABS: Troponin 5 6HR 252.6 ng/L (0-15)
--- NOTE | 2020-02-19 17:10 | XR_ITS ---
WS: [id number] XR chest 1V portable [id number] REASON FOR EXAM: evaluate for edema s/p angiogram FINDINGS: Compared to the preprocedure chest x-ray of 02/18/2020, there is density overlying the left pulmonary artery extending to the periphery of the left lung. This density is a sharply marginated along its i nferior border. The right lung remains clear. No other interval change or new finding. XR/XR chest 1V portable [id number] IMPRESSION: Findings in the left chest which presumably represent atelectasis in the left u pper lobe with volume loss in the left hemithorax.
[2020-02-19] MEDS: doxycycline 100 mg Tablet PO (17:28)
[2020-02-19] MEDS: amoxicillin-clav 875-125 mg Tablet 2 TAB PO (17:28)
[2020-02-19] MEDS: FUROsemide 10 mg/mL SDV 2mL 20 MG IVP (17:29)
[2020-02-19] MEDS: ipratropium-albuterol 3 mL Neb INHALATION (17:38)
[2020-02-19] MEDS: FUROsemide 10 mg/mL SDV 4mL 40 MG IVP (19:50)
[2020-02-19] MEDS: HYDROcodone-acetaminophen 7.5-325 mg Tablet 1 TAB PO (20:21)
--- NOTE | 2020-02-19 21:42 | P.PN_ITS ---
Subjective Subjective: Interval history: This morning for unstable non-ST elevation NE patient was taken to the [facility] found to have subtotally occluded mid LAD with in-stent stenosis and thrombosis treated with balloon angioplasty and drug- eluting stent. PCI was complicated with no reflow phenomena treated with intracoronary Cardene and balloon angioplasty which restored XENIA-3 flow in the LAD. Circumflex was also noted to have 90 in 80% mid and distal lesion treated with 2 drug-eluting stents. Diagonal branch has multiple diffuse disease not amenable to intervention thought to be treated medically. Post PCI patient due to hypotension was started on Levophed, CHF will be treated with diuretics after optimization of blood pressure. Medications: Reviewed: Yes Medication Review Details: Active Medications Generic Name Dose Route Start Last Admin Trade Name Freq PRN Reason Stop Dose Admin Acetaminophen 650 mg 02/19/20 09:09 Acetaminophen 32 5 Mg Tablet PO Q6H PRN MILD PAIN Al Hydrox/Mg [place] x/Simethicone 30 ml 02/19/20 09:09 Kxkm-Crg-Mpozead de-Greta 30 Ml Udc PO Q15M PRN INDIGESTION Albuterol/Ipratrop ium 3 ml 02/19/20 00:45 Ipratropium-Albu terol 3 Ml Neb INHALATION Q6H PRN SHORTNESS OF FANG TH Alprazolam 0.25 mg 02/19/20 09:09 Alprazolam 0.25 Mg Tablet PO TID PRN ANXIETY Aspirin 81 mg 02/19/20 09:00 Aspirin 81 Mg Ec Tablet PO DAILY CATA Benzonatate 200 mg 02/19/20 02:08 02/19/20 03:46 Benzonatate 100 Mg Capsule PO 200 mg TID PRN Administration COUGH Sodium Chloride 1,000 mls @ 50 ml s/hr 02/19/20 07:00 02/19/20 06:55 Sodium Chloride 0.9% IV 50 mls/hr .Q20H CATA Administration Sodium Chloride 1,000 mls @ 50 ml s/hr 02/19/20 06:51 Sodium Chloride 0.9% IV 02/20/20 02:50 .Q20H ONE Norepinephrine Bit artrate 4 mg 254 mls @ 0 mls/h r 02/19/20 08:30 / Dextrose IV .Q0M CATA Protocol Per Protocol Tirofiban/Sodium C hloride 12.5 mg in 250 ml s @ 14 mls/hr 02/19/20 09:15 Aggrastat IV .[id number] [facility] Protocol Magnesium Hydroxid e 30 ml 02/19/20 09:09 Magnesium Hydrox home 30 Ml Udc PO DAILY PRN CONSTIPATION Morphine Sulfate 2 mg 02/19/20 00:45 02/19/20 05:04 Morphine 4 Mg/Ml Sdv 1 Ml IVP 2 mg Q4H PRN Administration chest poain Naloxone HCl 0.1 mg 02/19/20 09:09 Naloxone 0.4 Mg/ Ml Sdv IVP Q2M PRN RESPIRATORY RATE < 8/MIN Nitroglycerin 1 inch 02/19/20 01:15 02/19/20 01:23 Nitroglycerin 1 Gm/Inch Oint Pkt TOPICAL 1 inch Q6H CATA Administration Nitroglycerin 0.4 mg 02/19/20 09:09 Nitroglycerin 0. 4 Mg Sublingual Ta blet SUBLINGUAL Q5M PRN CHEST PAIN Prednisone 10 mg 02/19/20 09:00 Prednisone 10 Mg Tablet PO DAILY [facility] Senna/Docusate Sod ium 1 tab 02/19/20 09:00 Sennosides-Docus ate Tablet PO DAILY CATA Tamsulosin HCl 0.4 mg 02/19/20 09:00 Tamsulosin 0.4 M g Capsule PO DAILY CATA Temazepam 15 mg 02/19/20 09:09 Temazepam 15 Mg Capsule PO BEDTIME PRN INSOMNIA atorvastatin [From Lipitor] Allergy (Verified 02/19/20 01:31) unknown ezetimibe [From Vytorin] Allergy (Verified 02/19/20 01:31) unknown niacin [From Niaspan Extended-Release] Allergy (Verified 02/19/20 01:31) unknown ranitidine Allergy (Verified 02/19/20 01:31) unknown rosuvastatin [From Crestor] Allergy (Verified 02/19/20 01:31) unknown simvastatin [From Vytorin] Allergy (Verified 02/19/20 01:31) unknown Vitals/I&O/Wt Last Vital Signs Temp 98 F 02/19/20 04:11 Pulse 101 H 02/19/20 19:00 Resp 25 H 02/19/20 19:00 BP 105/77 02/19/20 19:00 Pulse Ox 96 02/19/20 19:00 02/19/20 02/19/20 02/19/20 06:59 14:59 22:59 Intake Total 300 / 300 267.205 / 267.205 240 / 507.205 Output Total 100 / 100 400 / 500 Balance 300 / 300 167.205 / 167.205 -160 / 7.205 Weight last 48 hrs Weight 180 lb Physical Exam Narrative: EXAM NARRATIVE: GENERAL: Patient is alert, awake and oriented x3. NECK: No jugular vein distension. HEENT: No cyanosis. No icterus. No pallor. HEART: Regular S1 and S2. No murmur, rub or gallop. LUNGS: Clear to auscultate bilaterally. ABDOMEN: Soft, nontender and nondistended. Positive bowel sounds. No guarding, rebound or tenderness. CENTRAL NERVOUS SYSTEM: Grossly nonfocal. EXTREMITIES: Lower extremities without edema bilaterally. Const: COMMON NORMALS: alert Resp: COMMON NORMALS: clear to auscultation bilaterally AUSCULTATION: clear to auscultation bilaterally Neuro: SENSORIUM/ORIENTATION: Yes alert Urinary Catheter Management^: 2-way Urethral: Cath Placed During This Visit: yes Urinary Catheter Date of Insertion: 02/19/20 Urinary Catheter Time of Insertion: 18:15 Data : 02/19/20 03:40 02/19/20 03:40 A&P Assessment and plan (1) NSTEMI (non-ST elevated myocardial infarction): As above status post PCI to mid LAD and PCI to mid to distal circumflex artery with 3 drug-eluting stents. Continue aspirin statin Plavix. Status: Acute (2) Cardiogenic shock: Secondary to severely depressed LV function/acute coronary syndrome and ischemia, patient has been started on Levophed with goal to keep map around 65. 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 Once improved from cardiogenic insult we may will ask for CT angio to assess lung embolization/filling defect Status: Acute Attestations Medical Necessity Statement*: Patient require continuation hospitalization for above defined care. 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
[2020-02-19] MEDS: ALPRAZolam 0.25 mg Tablet PO (21:54)
--- NOTE | 2020-02-19 22:29 | PC.NURSE ---
ASSUMING CARE Indwelling catheter placed prior to this shift. Patient had 550 mL of urine output upon insertion. TR band in place on right wrist. Previous nurse removed all air, and band left in place. Tegaderm and guaze dressing placed over right femoral site. No drainage or hematoma present on either site. Current nurse placed tegaderm and guaze over right wrist, no drainage present. Patient on 2L nasal cannula. 1 mcg/min of levophed running. Levophed paused and patient has maintained MAP greater than 65. Additional IV started due to positioning of other IV. Dr. Orantes called to check on patient and urine output. Physician also notified of levophed drip paused.
--- NOTE | 2020-02-19 22:41 | PC.NURSE ---
BED ALARM Patient has been trying to get out of bed on his own. Patient educated on fall risk status and given call light to remind him to call nurse for assistance. Bed alarm set and patient easily verbally redirected.
--- NOTE | 2020-02-19 22:42 | PC.NURSE ---
PAIN Patient complaining of back pain. Dr. Dick put in order for norco. Given to patient and patient states pain is better.
[2020-02-19] MEDS: temazepam 15 mg Capsule PO (23:40)
[2020-02-20] VITALS (84 sets, daily range): BP systolic 58–126; BP diastolic 42–83; PULSE 67–102; RESP 8–31; TEMP 36.4; O2SAT 83–99
--- NOTE | 2020-02-20 00:40 | PC.NURSE ---
LEVOPHED Levophed paused around 1999. Patients MAP has been above 65 this shift. Current MAP of 69.
[2020-02-20 03:12] LABS: Basophils % 0.3 %; Hematocrit 40.5 % (42.0-52.0); Hemoglobin 12.7 g/dL (11.7-16.6); Lymphocytes # 0.9 10^3/uL (0.8-4.8); Lymphocytes % 8.9 %; Mean Corpuscular HGB Conc 31.4 g/dL (30.0-36.0); Mean Corpuscular Hemoglobin 28.7 pg (28.0-34.0); Mean Corpuscular Volume 91.6 fL (80-94); Mean Platelet Volume 11.2 fL (7.4-10.4); Monocytes # 0.3 10^3/uL (0.2-0.9); Monocytes % 2.6 %; Neutrophils # 9.12 10^3/uL (1.8-7.7); Neutrophils % 87.6 %; Nucleated Red Blood Cells % 0 %; Platelet Count 223 10^3/cmm (130-400); Red Blood Count 4.42 10^6/uL (4.1-5.3); White Blood Count 10.4 10^3/uL (4.0-10.0)
[2020-02-20 03:33] LABS: Anion Gap 15.5 (5-19); Blood Urea Nitrogen 21 mg/dL (8-23); Calcium 8.7 mg/dL (8.5-10.5); Carbon Dioxide 26 mmol/L (22-29); Chloride 102 mmol/L (98-107); Glucose 129 mg/dL (65-115); Osmolality Calculated 293 mOsm/kg (285-295); Potassium 4.5 mmol/L (3.5-5.1); Sodium 139 mmol/L (136-145)
--- NOTE | 2020-02-20 05:14 | PC.NURSE ---
RESTLESSNESS Patient extremely restless at the beginning of shift and attempting to get out of bed. Patient given norco for back pain which he takes at home. Patient continued to be restless so restoril was given about 2 hours post norco administration. Patient then calmed down and was able to go to sleep.
--- NOTE | 2020-02-20 05:32 | PC.NURSE ---
COUGHING Patient has been coughing all night. No sputum production until this morning. Suction set up last night for patient and yonker given to him this AM. Patient is coughing up thick white sputum and using yonker independently. Dr. Lee notified of cough last night, no orders.
[2020-02-20] MEDS: HYDROcodone-acetaminophen 7.5-325 mg Tablet 1 TAB PO ×2 (07:52→18:15)
[2020-02-20] MEDS: FUROsemide 10 mg/mL SDV 2mL 20 MG IVP ×2 (07:52→11:39)
[2020-02-20] MEDS: doxycycline 100 mg Tablet PO ×2 (07:52→18:04)
[2020-02-20] MEDS: amoxicillin-clav 875-125 mg Tablet 2 TAB PO ×2 (07:52→18:04)
--- NOTE | 2020-02-20 07:53 | PM.PN ---
Subjective Subjective: Interval history: Overnight, diuresed well, had 2200 mL urine output, weaned off levophed. Quite restless initially, then was able to settle down and rest after receiving pain meds and restoril. BP low normal, afebrile, remains on 3 L NC. AM labs noted. Sitting in chair by bedside, continues to have wet sounding cough. CT chest pending. Case discussed with Dr. Orantes this morning. Medications: Reviewed: Yes Medication Review Details: Active Medications Generic Name Dose Route Start Last Admin Trade Name Freq PRN Reason Stop Dose Admin Acetaminophen 650 mg 02/19/20 09:09 Acetaminophen 32 5 Mg Tablet PO Q6H PRN MILD PAIN Hydrocodone Bitart /Acetaminophen 1 tab 02/19/20 19:48 02/20/20 07:52 Hydrocodone-Acet aminophen 7.5-325 Mg Tablet PO 1 tab Q8H PRN Administration MODERATE PAIN Al Hydrox/Mg [place] x/Simethicone 30 ml 02/19/20 09:09 Lmap-Xsq-Wsqslrt de-Greta 30 Ml Udc PO Q15M PRN INDIGESTION Albuterol/Ipratrop ium 3 ml 02/19/20 00:45 02/19/20 17:38 Ipratropium-Albu terol 3 Ml Neb INHALATION 3 ml Q6H PRN Administration SHORTNESS OF FANG TH Alprazolam 0.25 mg 02/19/20 09:09 02/19/20 21:54 Alprazolam 0.25 Mg Tablet PO 0.25 mg TID PRN Administration ANXIETY Amoxicillin/Clavul anate Potassium 2 tab 02/19/20 18:00 02/20/20 07:52 Amoxicillin-Clav 875-125 Mg Tablet PO 2 tab BID CATA Administration Protocol Aspirin 81 mg 02/19/20 09:00 Aspirin 81 Mg Ec Tablet PO DAILY CATA Benzonatate 200 mg 02/19/20 02:08 02/19/20 03:46 Benzonatate 100 Mg Capsule PO 200 mg TID PRN Administration COUGH Doxycycline Monohy drate 100 mg 02/19/20 18:00 02/20/20 07:52 Doxycycline 100 Mg Tablet PO 100 mg BID CATA Administration Protocol Furosemide 20 mg 02/20/20 08:00 02/20/20 07:52 Furosemide 10 Mg /Ml Sdv 2ml IVP 20 mg Q12H CATA Administration Sodium Chloride 1,000 mls @ 50 ml s/hr 02/19/20 07:00 02/19/20 06:55 Sodium Chloride 0.9% IV 50 mls/hr .Q20H CATA Administration Norepinephrine Bit artrate 4 mg 254 mls @ 0 mls/h r 02/19/20 08:30 02/19/20 20:03 / Dextrose IV 0 mcg/min .Q0M CATA 0 mls/hr Titration Protocol Per Protocol Magnesium Hydroxid e 30 ml 02/19/20 09:09 Magnesium Hydrox home 30 Ml Udc PO DAILY PRN CONSTIPATION Morphine Sulfate 2 mg 02/19/20 00:45 02/19/20 05:04 Morphine 4 Mg/Ml Sdv 1 Ml IVP 2 mg Q4H PRN Administration chest poain Naloxone HCl 0.1 mg 02/19/20 09:09 Naloxone 0.4 Mg/ Ml Sdv IVP Q2M PRN RESPIRATORY RATE < 8/MIN Nitroglycerin 1 inch 02/19/20 01:15 02/19/20 01:23 Nitroglycerin 1 Gm/Inch Oint Pkt TOPICAL 1 inch Q6H CATA Administration Nitroglycerin 0.4 mg 02/19/20 09:09 Nitroglycerin 0. 4 Mg Sublingual Ta blet SUBLINGUAL Q5M PRN CHEST PAIN Prednisone 10 mg 02/19/20 09:00 Prednisone 10 Mg Tablet PO DAILY [facility] Senna/Docusate Sod ium 1 tab 02/19/20 09:00 Sennosides-Docus ate Tablet PO DAILY [facility] Tamsulosin HCl 0.4 mg 02/19/20 09:00 Tamsulosin 0.4 M g Capsule PO DAILY [facility] Temazepam 15 mg 02/19/20 09:09 02/19/20 23:40 Temazepam 15 Mg Capsule PO 15 mg BEDTIME PRN Administration INSOMNIA atorvastatin [From Lipitor] Allergy (Verified 02/19/20 01:31) unknown ezetimibe [From Vytorin] Allergy (Verified 02/19/20 01:31) unknown niacin [From Niaspan Extended-Release] Allergy (Verified 02/19/20 01:31) unknown ranitidine Allergy (Verified 02/19/20 01:31) unknown rosuvastatin [From Crestor] Allergy (Verified 02/19/20 01:31) unknown simvastatin [From Vytorin] Allergy (Verified 02/19/20 01:31) unknown Vitals/I&O/Wt Last Vital Signs Temp 97.6 F 02/20/20 00:15 Pulse 83 02/20/20 07:45 Resp 21 H 02/20/20 07:45 BP 94/72 02/20/20 07:45 Pulse Ox 92 02/20/20 07:45 02/19/20 02/20/20 02/20/20 22:59 06:59 14:59 Intake Total 243.99 / 511.195 120 / 631.195 Output Total 950 / 1050 1650 / 2700 90 / 90 Balance -706.01 / -538.805 -1530 / -2068.805 -90 / -90 Weight last 48 hrs Weight 81.647 kg Physical Exam Const: COMMON NORMALS: no acute distress, patient oriented x3 and alert GENERAL APPEARANCE: cooperative, comfortable and frail appearing ORIENTATION/CONSCIOUSNESS: Yes awake OTHER: -sitting in chair by bedside HENMT: COMMON NORMALS: normocephalic, atraumatic, hearing grossly normal bilaterally and moist oral mucous membranes HEAD & SCALP: normocephalic and atraumatic Eye: COMMON NORMALS: Equal, round and reactive pupils present, EOMs intact bilaterally and conjunctivae normal CONJUNCTIVA: Yes conjunctivae normal PUPIL: Yes Equal, round and reactive pupils present Neck/C-Spine: COMMON NORMALS: full ROM GENERAL: Yes normal visual inspection and Yes trachea midline Resp: COMMON NORMALS: normal respiratory effort, No retractions and No use of accessory muscles EFFORT & INSPECTION: Yes able to speak in complete sentences, Yes symmetric chest movement, No tachypneic and Yes Actively coughing moist AUSCULTATION: rales Cardio: COMMON NORMALS: regular rate, regular rhythm, S1 normal heart sound present, S2 normal heart sound present and No murmurs present (Cardio) RATE: regular rate RHYTHM: regular rhythm HEART SOUNDS: S1 normal heart sound present and S2 normal heart sound present GI: COMMON NORMALS: Normal to inspection, nondistended, normoactive bowel sounds present, Soft to palpation and non-tender PALPATION: Yes Soft to palpation : OTHER: -R groin cath site; clean dressing in place, no apparent hematoma Extremity: COMMON NORMALS: normal to inspection, full ROM and no clubbing, cyanosis or edema; negative for no pedal edema Neuro: COMMON NORMALS: patient oriented x3, moves all extremities, no focal motor deficits and no sensory deficits noted SENSORIUM/ORIENTATION: Yes alert Psych: COMMON NORMALS: mental status grossly normal, Normal thought process present, cooperative, normal affect and speech normal SPEECH: Yes normal speech THOUGHT PROCESS: Normal thought process present Skin: COMMON NORMALS: no rashes or lesions noted, no jaundice, no petechiae and no mottling GENERAL SKIN EXAM: no rashes or lesions noted Urinary Catheter Management^: 2-way Urethral: Cath Placed During This Visit: yes Reason for Continuing Indwelling Catheter: Accurate Measurement of Urinary Output in Critically Ill Patients Urinary Catheter Date of Insertion: 02/19/20 Urinary Catheter Time of Insertion: 18:15 Data : 02/20/20 03:00 02/20/20 03:00 A&P Assessment and plan (1) NSTEMI (non-ST elevated myocardial infarction): -presented with chest pain, found to have elevated troponins with significant delta of 35 after 6 hrs, then noted to have some ST elevation on most recent ECG earlier this AM so STEMI alert called -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) -VSS; continue to monitor -noted D-dimer elevation (1.81); CTA pending -post PCI, noted to be hypotensive and required pressor support; levophed weaned off overnight Status: Acute (2) CHF exacerbation: -post procedure noted to have wet sounding cough suspicious for pulmonary edema, CXR ordered; on IV lasix -on oral steroids, Neb treatments, oral antibiotics -monitor BP closely -Echo as noted above -BNP [id number] Status: Acute Qualifiers: Heart failure type: combined systolic and diastolic Qualified Code(s): I50.43 - Acute on chronic combined systolic (congestive) and diastolic (congestive) heart failure (3) HTN (hypertension): -VSS; continue to monitor Status: Chronic Qualifiers: Hypertension type: essential hypertension Qualified Code(s): I10 - Essential (primary) hypertension (4) CAD (coronary artery disease): -known hx of CAD s/p stenting x 3 -follows up with Dr. Godinez -had recent Holter monitor which showed baseline normal sinus rhythm with PVCs -on aspirin, has allergy to multiple statins -Echo noted above Status: Chronic Qualifiers: Associated angina: without angina Coronary Disease-Associated Artery/Lesion type: [place] artery [place] vs. transplanted heart: [place] heart Qualified Code(s): I25.10 - Atherosclerotic heart disease of [place] coronary artery without angina pectoris (5) COPD (chronic obstructive pulmonary disease): -no acute exacerbation -not oxygen dependent at baseline Status: Chronic Qualifiers: COPD type: emphysema Emphysema type: unspecified Qualified Code(s): J43.9 - Emphysema, unspecified (6) Seropositive rheumatoid arthritis of multiple joints: -follows up with Dr. 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 Per review of brief discharge information scanned into record, patient had right gluteal/pelvic/internal iliac artery aneurysm embolectomy done by Dr. Fernández; no complications -also had decompressive lumbar laminectomies involving L2-L5, bilateral medial facetectomies and neuroforaminotomies (L2-L5). Preop imaging was suspicious for osteomyelitis and discitis involving L2-L5 superimposed on degenerative lumbar spondylosis with lumbar stenosis and significant compression of the cauda equina -s/p colonoscopy with polyp (6) removal (also noted to have internal hemorrhoids, diverticulosis). Colonoscopy done due to suspicion for cecal mass on imaging -Treated with course of vancomycin, ceftriaxone (09/17-10/22). From medication list appears to still be on antibiotics with Augmentin and doxycycline. Records in chart -History of osteoporosis, chronic low back pain -remote hx of PE -Anxiety -Advanced age -Chronic smoker -BPH; on Flomax -cardiac diet as tolerated -GI ppx with PPI -DVT ppx with lovenox -Dispo: home -Code status: FULL code Attestations Medical Necessity Statement*: Patient requires hospitalization for continued management of acute CHF exacerbation, post angiogram with multiple stents. Time Spent in Patient Care: 16 - 35 minutes (>than 50% of time spent in counselling and/or direct pt care on unit). Coding Level of Care Code Acute Radiologist Diagnostic for Chg Fwd Exam Comprehensive Diagnoses NSTEMI (non-ST elevated myocardial infarction) I21.4 CHF exacerbation I50.43 Heart failure type: combined systolic and diastolic HTN (hypertension) I10 Hypertension type: essential hypertension CAD (coronary artery disease) I25.10 Associated angina: without angina Coronary Disease-Associated Artery/Lesion type: [place] artery [place] vs. transplanted heart: [place] heart COPD (chronic obstructive pulmonary disease) J43.9 COPD type: emphysema Emphysema type: unspecified Seropositive rheumatoid arthritis of multiple joints M05.79
--- NOTE | 2020-02-20 08:00 | PC.CHAP ---
Pastoral Care Encounter/Spiritual Assessment Type of Contact [] Declined keg raiser visit [] Patient/Family/Request visit [] Outpatient visit [] Follow-up visit [] Physician referral [] Code/Alert [] Routine visit [] Staff referral [] Actively dying [] Patient sleeping [] Family support [] [] Out of room [] Palliative care [] [] Receiving care in room [] Pre-surgical visit [] Trauma [] Long length of stay [] ICU visit [] Other: Relational/Emotional Strength [] Patient feels connected with others/family/visitors/staff [] Distress [] Loneliness/isolation [] Abandonment Spirituality of Patient [] Person of Juju [] Attends [employer] of their Juju [] Believes in Prayer [] Reads Bible or Baptist materials [] There are Spiritual issues to be addressed [employer] Counterperson Interventions [x] Prayer [] Active listening [] Non-anxious presence [] Spiritual/emotional support [] Crisis/trauma care [] Spiritual counseling [] Bereavement support [] Provided bereavement packet [] Provided Bible/devotional materials [] Provided toy/stuffed animal, coloring book to patient or family member [] Provided Communion [] Anointing/[place] [] Salvation [x] Completed spiritual assessment [] Other: Impact on Illness or Injury [] Angry [] Fearful [] Anxious [] Often cries [] Exhaustion [] Unable to work [] Unable to attend adventism [] Unable to walk/stand [] Unable to read [] Unable to drive [] Unable to eat/drink [] Unable to sleep [] Unable to be with family [] Patient intubated [] Other: Summary Time spent with patient
[2020-02-20] MEDS: ipratropium-albuterol 3 mL Neb INHALATION ×2 (08:21→16:16)
[2020-02-20] MEDS: aspirin 81 mg EC Tablet PO (08:44)
[2020-02-20] MEDS: sennosides-docusate Tablet 1 TAB PO (08:45)
[2020-02-20] MEDS: predniSONE 10 mg Tablet PO (08:46)
[2020-02-20] MEDS: enoxaparin 40 mg/0.4 mL Syringe SUBCUT (08:47)
[2020-02-20] MEDS: pantoprazole DR 40 mg Tablet PO (08:47)
[2020-02-20] MEDS: clopidogrel 75 mg Tablet PO (11:38)
[2020-02-20] MEDS: potassium chloride ER 20 mEq Tablet PO ×2 (11:39→18:04)
--- NOTE | 2020-02-20 12:13 | PC.RESP ---
SMOKING CESSATION AND PULMONARY REHAB INFORMATION SENT TO PATIENT.
[2020-02-20] MEDS: morphine 4 mg/mL SDV 1 mL 2 MG IVP (14:35)
[2020-02-20] MEDS: benzonatate 100 mg Capsule 200 MG PO ×2 (15:29→20:41)
--- NOTE | 2020-02-20 19:47 | PM.PN ---
Subjective Subjective: Interval history: Sitting in the chair. Diuresed well last night off Levophed. Denies any more chest pain Medications: Reviewed: Yes Medication Review Details: Active Medications Generic Name Dose Route Start Last Admin Trade Name Freq PRN Reason Stop Dose Admin Acetaminophen 650 mg 02/19/20 09:09 Acetaminophen 32 5 Mg Tablet PO Q6H PRN MILD PAIN Hydrocodone Bitart /Acetaminophen 1 tab 02/19/20 19:48 02/20/20 07:52 Hydrocodone-Acet aminophen 7.5-325 Mg Tablet PO 1 tab Q8H PRN Administration MODERATE PAIN Al Hydrox/Mg [place] x/Simethicone 30 ml 02/19/20 09:09 E[place]w-Gaw-[place]nucid[place] de-Greta 30 Ml Udc PO Q15M PRN INDIGESTION Albuterol/Ipratrop ium 3 ml 02/19/20 00:45 02/19/20 17:38 Ipratropium-Albu terol 3 Ml Neb INHALATION 3 ml Q6H PRN Administration SHORTNESS OF FANG TH Alprazolam 0.25 mg 02/19/20 09:09 02/19/20 21:54 Alprazolam 0.25 Mg Tablet PO 0.25 mg TID PRN Administration ANXIETY Amoxicillin/Clavul anate Potassium 2 tab 02/19/20 18:00 02/20/20 07:52 Amoxicillin-Clav 875-125 Mg Tablet PO 2 tab BID CATA Administration Protocol Aspirin 81 mg 02/19/20 09:00 Aspirin 81 Mg Ec Tablet PO DAILY [facility] Benzonatate 200 mg 02/19/20 02:08 02/19/20 03:46 Benzonatate 100 Mg Capsule PO 200 mg TID PRN Administration COUGH Doxycycline Monohy drate 100 mg 02/19/20 18:00 02/20/20 07:52 Doxycycline 100 Mg Tablet PO 100 mg BID CATA Administration Protocol Furosemide 20 mg 02/20/20 08:00 02/20/20 07:52 Furosemide 10 Mg /Ml Sdv 2ml IVP 20 mg Q12H CATA Administration Sodium Chloride 1,000 mls @ 50 ml s/hr 02/19/20 07:00 02/19/20 06:55 Sodium Chloride 0.9% IV 50 mls/hr .Q20H CATA Administration Norepinephrine Bit artrate 4 mg 254 mls @ 0 mls/h r 02/19/20 08:30 11/23/20 20:03 / Dextrose IV 0 mcg/min .Q0M CATA 0 mls/hr Titration Protocol Per Protocol Magnesium Hydroxid e 30 ml 02/19/20 09:09 Magnesium Hydrox home 30 Ml Udc PO DAILY PRN CONSTIPATION Morphine Sulfate 2 mg 02/19/20 00:45 02/19/20 05:04 Morphine 4 Mg/Ml Sdv 1 Ml IVP 2 mg Q4H PRN Administration chest poain Naloxone HCl 0.1 mg 02/19/20 09:09 Naloxone 0.4 Mg/ Ml Sdv IVP Q2M PRN RESPIRATORY RATE < 8/MIN Nitroglycerin 1 inch 02/19/20 01:15 02/19/20 01:23 Nitroglycerin 1 Gm/Inch Oint Pkt TOPICAL 1 inch Q6H CATA Administration Nitroglycerin 0.4 mg 02/19/20 09:09 Nitroglycerin 0. 4 Mg Sublingual Ta blet SUBLINGUAL Q5M PRN CHEST PAIN Prednisone 10 mg 02/19/20 09:00 Prednisone 10 Mg Tablet PO DAILY [facility] Senna/Docusate Sod ium 1 tab 02/19/20 09:00 Sennosides-Docus ate Tablet PO DAILY [facility] Tamsulosin HCl 0.4 mg 02/19/20 09:00 Tamsulosin 0.4 M g Capsule PO DAILY [facility] Temazepam 15 mg 02/19/20 09:09 02/19/20 23:40 Temazepam 15 Mg Capsule PO 15 mg BEDTIME PRN Administration INSOMNIA atorvastatin [From Lipitor] Allergy (Verified 02/19/20 01:31) unknown ezetimibe [From Vytorin] Allergy (Verified 02/19/20 01:31) unknown niacin [From Niaspan Extended-Release] Allergy (Verified 02/19/20 01:31) unknown ranitidine Allergy (Verified 02/19/20 01:31) unknown rosuvastatin [From Crestor] Allergy (Verified 02/19/20:31) unknown simvastatin [From Vytorin] Allergy (Verified 02/19/20 01:31) unknown Vitals/I&O/Wt Last Vital Signs Temp 97.6 F 02/20/20 00:15 Pulse 88 02/20/20 19:00 Resp 22 H 02/20/20 19:00 BP 116/68 02/20/20 19:00 Pulse Ox 90 02/20/20 19:00 02/20/20 02/20/20 02/20/20 06:59 14:59 22:59 Intake Total 120 / 631.195 220 / 220 Output Total 1650 / 2700 175 / 175 700 / 875 Balance -1530 / -2068.805 -175 / -175 -480 / -655 Weight last 48 hrs Weight 180 lb Physical Exam Narrative: EXAM NARRATIVE: GENERAL: Patient is alert, awake and oriented x3. NECK: No jugular vein distension. HEENT: No cyanosis. No icterus. No pallor. HEART: Regular S1 and S2. No murmur, rub or gallop. LUNGS: Left inspiratory mild crackles.. ABDOMEN: Soft, nontender and nondistended. Positive bowel sounds. No guarding, rebound or tenderness. CENTRAL NERVOUS SYSTEM: Grossly nonfocal. EXTREMITIES: Lower extremities without edema bilaterally. Const: COMMON NORMALS: alert Resp: COMMON NORMALS: clear to auscultation bilaterally AUSCULTATION: clear to auscultation bilaterally Neuro: SENSORIUM/ORIENTATION: Yes alert Urinary Catheter Management^: 2-way Urethral: Cath Placed During This Visit: yes Reason for Continuing Indwelling Catheter: Accurate Measurement of Urinary Output in Critically Ill Patients Urinary Catheter Date of Insertion: 02/19/20 Urinary Catheter Time of Insertion: 18:15 Data : 02/20/20 03:00 02/20/20 03:00 A&P Assessment and plan (1) NSTEMI (non-ST elevated myocardial infarction): Status post PCI to LAD and circumflex. Severely depressed LV function. Continue to diurese continue to optimize medicine continue aspirin statin Plavix will add beta-michelle once euvolemic Status: Acute (2) Cardiogenic shock: Improved and resolved patient is off pressor Status: Acute (3) Systolic heart failure: Continue Lasix IV 40 mg twice daily. Continue to replace potassium. 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 He remains afebrile. Patient has multiple area of opacities on the left lung. He has cough which is persistent and less likely due to blood lungs. I would recommend proceeding with CT scanning of the lung to rule out infectious/fungal etiology. Continue antibiotics. Status: Acute Attestations Medical Necessity Statement*: Patient require continuation hospitalization for above defined care. Coding Level of Care Code Established Pt Acute Monogram And Letter Paster for Chg Fwd Patient Type Established History Comprehensive Exam Comprehensive Medical Decision Making High Complexity Diagnoses NSTEMI (non-ST elevated myocardial infarction) I21.4 Cardiogenic shock R57.0 Systolic heart failure I50.20 Tricuspid valve mass I07.8
[2020-02-20] MEDS: FUROsemide 10 mg/mL SDV 4mL 40 MG IVP (20:41)
[2020-02-20] MEDS: temazepam 15 mg Capsule PO (21:39)
[2020-02-21] VITALS (26 sets, daily range): BP systolic 77–125; BP diastolic 47–89; PULSE 64–92; RESP 11–26; TEMP 36.3–36.8; O2SAT 85–97
[2020-02-21 03:37] LABS: Basophils % 0.3 %; Eosinophils # 0.1 10^3/uL (0.0-0.8); Eosinophils % 0.5 %; Hematocrit 38.9 % (42.0-52.0); Hemoglobin 12.3 g/dL (11.7-16.6); Lymphocytes # 2.2 10^3/uL (0.8-4.8); Lymphocytes % 18.5 %; Mean Corpuscular HGB Conc 31.6 g/dL (30.0-36.0); Mean Corpuscular Hemoglobin 29.1 pg (28.0-34.0); Mean Platelet Volume 11.4 fL (7.4-10.4); Monocytes # 1.4 10^3/uL (0.2-0.9); Monocytes % 11.5 %; Neutrophils % 68.6 %; Nucleated Red Blood Cells % 0 %; Platelet Count 205 10^3/cmm (130-400); Red Blood Count 4.23 10^6/uL (4.1-5.3); White Blood Count 11.9 10^3/uL (4.0-10.0)
[2020-02-21 03:38] LABS: Anion Gap 13.7 (5-19); Blood Urea Nitrogen 35 mg/dL (8-23); Carbon Dioxide 30 mmol/L (22-29); Chloride 99 mmol/L (98-107); Glucose 136 mg/dL (65-115); Osmolality Calculated 296 mOsm/kg (285-295); Potassium 4.7 mmol/L (3.5-5.1); Sodium 138 mmol/L (136-145)
[2020-02-21] MEDS: ipratropium-albuterol 3 mL Neb INHALATION ×2 (03:38→21:15)
[2020-02-21 03:56] LABS: Calcium 9.3 mg/dL (8.5-10.5); Magnesium 2.2 mg/dL (1.7-2.3)
--- NOTE | 2020-02-21 04:26 | PC.NURSE ---
ASSUMING CARE Patient up in chair on RA watching tv. Patient denies any pain and no needs at this time.
--- NOTE | 2020-02-21 06:39 | PC.NURSE ---
SHIFT SUMMARY Patient had 2350 mL of urine output this shift. Patient gotten up to chair this AM and watching tv. Patient slept all night with no needs and asking when physician would be by so he could go home. Patient is alert and oriented and has been on RA this shift.
--- NOTE | 2020-02-21 08:00 | CT_ITS ---
WS: [id number] CT CHEST WITH INTRAVENOUS CONTRAST HISTORY: left heart mass TECHNIQUE: Contiguous 5 mm axial imaging performed on the thorax. Coronal and sagittal reformats are submitted. All CT scans at [facility] use at least one of these dose optimization techniq ues: automated exposure control; mA and/or kV adjustment per patient size (includes targeted exams wh ere dose is matched to clinical indication); or iterative reconstruction. CONTRAST: Visipaque 320; 95 mL IV. DLP: 719.16 mGy.cm COMPARISON: 08/31/2019 Lungs and central airway: Hyperexpanded lungs with emphysema. Dependent changes at the costophrenic a ngles bilaterally. RIGHT lower lobe cyst measuring 3.5 cm. 7 mm nodule in the superior segment LEFT l ower lobe Pleura: Mild pleural thickening with no effusion. Heart and pericardium: Heart is enlarged. Moderate LEFT heart enlargement. 12 mm nodule in the expect ed location of the tricuspid valve plane. No LEFT heart mass identified. No pericardial effusion. Mediastinum and law: There are small mediastinal and hilar lymph nodes. The largest lymph node is montez bcarinal and 11 mm. Additional 11 mm lymph node along the LEFT lower lobe pulmonary artery. Vessels: Moderate atherosclerosis aorta. Calcified plaque with intimal thickening. No aneurysm. No fi lling defects or emboli in the proximal pulmonary arteries. Chest wall and lower neck: No soft tissue masses. Upper abdomen: Vicarious excretion the gallbladder and prior contrast injection. No liver abnormality . Atherosclerosis continues into the celiac axis. Osseous structures: Thoracolumbar scoliosis. Mild anterior wedging of T3. CT/CT chest w con* [id number] IMPRESSION: 1. Soft tissue nodule along the tricuspid valve plane measures 12 mm. Favor tr icuspid valve vegetation. No LEFT heart mass identified. 2. Moderate enlargement of the LEFT heart chambers. 3. LEFT lower lobe 7 mm nodule. Recommend follow-up chest CT in 6 months. 4. Chronic emphysema. 5. Indeterminate subcarinal and LEFT hilar lymph nodes. These can also be foll owed up in 6 months on the chest CT for the LEFT lower lobe nodule.
[2020-02-21] MEDS: iodixanol 320 mg/mL 100mL Btl IV (08:09)
--- NOTE | 2020-02-21 08:20 | PM.PN ---
Subjective Subjective: Interval history: Hemodynamically stable, had 2350 mL urine output overnight for total negative fluid balance of 4.[address] scan of the chest done earlier this morning, noted slight increase in leukocytosis with white count of 11.9, slight worsening creatinine to 1.3. Sitting in chair by bedside, quite eager to go home, cough persists. Urine in [place] bag appears darker and with more sediment today. Medications: Reviewed: Yes Medication Review Details: Active Medications Generic Name Dose Route Start Last Admin Trade Name Freq PRN Reason Stop Dose Admin Acetaminophen 650 mg 02/19/20 09:09 Acetaminophen 32 5 Mg Tablet PO Q6H PRN MILD PAIN Hydrocodone Bitart /Acetaminophen 1 tab 02/19/20 19:48 02/20/20 18:15 Hydrocodone-Acet aminophen 7.5-325 Mg Tablet PO 1 tab Q8H PRN Administration MODERATE PAIN Al Hydrox/Mg [place] x/Simethicone 30 ml 02/19/20 09:09 Oxoe-Den-Smvvkra de-Greta 30 Ml Udc PO Q15M PRN INDIGESTION Albuterol/Ipratrop ium 3 ml 02/19/20 00:45 02/21/20 03:38 Ipratropium-Albu terol 3 Ml Neb INHALATION 3 ml Q6H PRN Administration SHORTNESS OF FANG TH Alprazolam 0.25 mg 02/19/20 09:09 02/19/20 21:54 Alprazolam 0.25 Mg Tablet PO 0.25 mg TID PRN Administration ANXIETY Amoxicillin/Clavul anate Potassium 2 tab 02/19/20 18:00 02/20/20 18:04 Amoxicillin-Clav 875-125 Mg Tablet PO 2 tab BID CATA Administration Protocol Aspirin 81 mg 02/19/20 09:00 02/20/20 08:44 Aspirin 81 Mg Ec Tablet PO 81 mg DAILY CATA Administration Benzonatate 200 mg 02/19/20 02:08 02/20/20 20:41 Benzonatate 100 Mg Capsule PO 200 mg TID PRN Administration COUGH Clopidogrel Bisulf ate 75 mg 02/20/20 12:00 02/20/20 11:38 Clopidogrel 75 M g Tablet PO 75 mg DAILY CATA Administration Doxycycline Monohy drate 100 mg 02/19/20 18:00 02/20/20 18:04 Doxycycline 100 Mg Tablet PO 100 mg BID CATA Administration Protocol Enoxaparin Sodium 40 mg 02/20/20 08:30 02/20/20 08:47 Enoxaparin 40 Mg /0.4 Ml Syringe SUBCUT 40 mg Q24H CATA Administration Furosemide 40 mg 02/20/20 20:00 02/20/20 20:41 Furosemide 10 Mg /Ml Sdv 4ml IVP 40 mg Q12H CATA Administration Norepinephrine Bit artrate 4 mg 254 mls @ 0 mls/h r 02/19/20 08:30 02/19/20 20:03 / Dextrose IV 0 mcg/min .Q0M CATA 0 mls/hr Titration Protocol Per Protocol Magnesium Hydroxid e 30 ml 02/19/20 09:09 Magnesium Hydrox home 30 Ml Udc PO DAILY PRN CONSTIPATION Morphine Sulfate 2 mg 02/19/20 00:45 02/20/20 14:35 Morphine 4 Mg/Ml Sdv 1 Ml IVP 2 mg Q4H PRN Administration chest poain Naloxone HCl 0.1 mg 02/19/20 09:09 Naloxone 0.4 Mg/ Ml Sdv IVP Q2M PRN RESPIRATORY RATE < 8/MIN Nitroglycerin 0.4 mg 02/19/20 09:09 Nitroglycerin 0. 4 Mg Sublingual Ta blet SUBLINGUAL Q5M PRN CHEST PAIN Pantoprazole Sodiu m 40 mg 02/20/20 09:00 02/20/20 08:[address] 40 Mg Tablet PO 40 mg DAILY CATA Administration Potassium Chloride 20 meq 02/20/20 11:00 02/20/20 18:04 Potassium Chlori de Er 20 Meq Table t PO 20 meq BID CATA Administration Prednisone 10 mg 02/19/20 09:00 02/20/20 08:46 Prednisone 10 Mg Tablet PO 10 mg DAILY CATA Administration Senna/Docusate Sod ium 1 tab 02/19/20 09:00 02/20/20 08:45 Sennosides-Docus ate Tablet PO 1 tab DAILY CATA Administration Tamsulosin HCl 0.4 mg 02/19/20 09:00 Tamsulosin 0.4 M g Capsule PO DAILY CATA Temazepam 15 mg 02/19/20 09:09 02/20/20 21:39 Temazepam 15 Mg Capsule PO 15 mg BEDTIME PRN Administration INSOMNIA atorvastatin [From Lipitor] Allergy (Verified 02/19/20 01:31) unknown ezetimibe [From Vytorin] Allergy (Verified 02/19/20 01:31) unknown niacin [From Niaspan Extended-Release] Allergy (Verified 02/19/20 01:31) unknown ranitidine Allergy (Verified 02/19/20 01:31) unknown rosuvastatin [From Crestor] Allergy (Verified 02/19/20 01:31) unknown simvastatin [From Vytorin] Allergy (Verified 02/19/20 01:) unknown Vitals/I&O/Wt Last Vital Signs Temp 97.6 F 02/20/20 00:15 Pulse 79 02/21/20 06:00 Resp 16 02/21/20 06:00 BP 111/73 02/21/20 06:00 Pulse Ox 85 L 02/21/20 06:00 02/20/20 02/21/20 02/21/20 22:59 06:59 14:59 Intake Total 340 / 340 Output Total 700 / 875 2350 / 3225 Balance -360 / -535 -2350 / -2885 Weight last 48 hrs Weight 75.432 kg Physical Exam Const: COMMON NORMALS: no acute distress, patient oriented x3 and alert GENERAL APPEARANCE: cooperative, comfortable and frail appearing ORIENTATION/CONSCIOUSNESS: Yes awake OTHER: -sitting in chair by bedside HENMT: COMMON NORMALS: normocephalic, atraumatic, hearing grossly normal bilaterally and moist oral mucous membranes HEAD & SCALP: normocephalic and atraumatic Eye: COMMON NORMALS: Equal, round and reactive pupils present, EOMs intact bilaterally and conjunctivae normal CONJUNCTIVA: Yes conjunctivae normal PUPIL: Yes Equal, round and reactive pupils present Neck/C-Spine: COMMON NORMALS: full ROM GENERAL: Yes normal visual inspection and Yes trachea midline Resp: COMMON NORMALS: normal respiratory effort, No retractions and No use of accessory muscles EFFORT & INSPECTION: Yes able to speak in complete sentences, Yes symmetric chest movement, No tachypneic and Yes Actively coughing moist AUSCULTATION: rales OTHER: -on RA Cardio: COMMON NORMALS: regular rate, regular rhythm, S1 normal heart sound present, S2 normal heart sound present and No murmurs present (Cardio) RATE: regular rate RHYTHM: regular rhythm HEART SOUNDS: S1 normal heart sound present and S2 normal heart sound present GI: COMMON NORMALS: Normal to inspection, nondistended, normoactive bowel sounds present, Soft to palpation and non-tender PALPATION: Yes Soft to palpation : BLADDER/KIDNEY EXAM: Yes catheter in place Catheter type (Male): urethral OTHER: -R groin cath site; clean dressing in place, no apparent hematoma Extremity: COMMON NORMALS: normal to inspection, full ROM and no clubbing, cyanosis or edema; negative for no pedal edema Neuro: COMMON NORMALS: patient oriented x3, moves all extremities, no focal motor deficits and no sensory deficits noted SENSORIUM/ORIENTATION: Yes alert Psych: COMMON NORMALS: mental status grossly normal, Normal thought process present, cooperative, normal affect and speech normal SPEECH: Yes normal speech THOUGHT PROCESS: Normal thought process present Skin: COMMON NORMALS: no rashes or lesions noted, no jaundice, no petechiae and no mottling GENERAL SKIN EXAM: no rashes or lesions noted Urinary Catheter Management^: 2-way Urethral: Cath Placed During This Visit: yes Reason for Continuing Indwelling Catheter: Acute Urinary Retention or Obstruction Urinary Catheter Date of Insertion: 02/19/20 Urinary Catheter Time of Insertion: 18:15 Data : 02/21/20 03:09 02/21/20 03:09 A&P Assessment and plan (1) NSTEMI (non-ST elevated myocardial infarction): -presented with chest pain, found to have elevated troponins with significant delta of 35 after 6 hrs, then noted to have some ST elevation on last ECG so STEMI alert called -patient taken to labor service representative, s/p angiogram by Dr. 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) -VSS; continue to monitor -noted D-dimer elevation (1.81) -post PCI, noted to be hypotensive and required pressor support; levophed weaned off Status: Acute (2) CHF exacerbation: -post procedure noted to have wet sounding cough suspicious for pulmonary edema, CXR with noted atelectasis in IONA and volume loss; on IV lasix -on oral steroids, Neb treatments, oral antibiotics -continue to monitor BP closely -Echo as noted above -BNP [id number]=2362 -so far has diuresed 4.6 L -CT chest with noted chronic emphysema, LLL nodule, moderate L heart enlargement Status: Acute Qualifiers: Heart failure type: combined systolic and diastolic Qualified Code(s): I50.43 - Acute on chronic combined systolic (congestive) and diastolic (congestive) heart failure (3) HTN (hypertension): -VSS; continue to monitor Status: Chronic Qualifiers: Hypertension type: essential hypertension Qualified Code(s): I10 - Essential (primary) hypertension (4) CAD (coronary artery disease): -known hx of CAD s/p stenting x 3 -follows up with Dr. Godinez -had recent Holter monitor which showed baseline normal sinus rhythm with PVCs -on aspirin, has allergy to multiple statins -Echo noted above Status: Chronic Qualifiers: Associated angina: without angina Coronary Disease-Associated Artery/Lesion type: habematolel artery [place] vs. transplanted heart: habematolel heart Qualified Code(s): I25.10 - Atherosclerotic heart disease of habematolel coronary artery without angina pectoris (5) COPD (chronic obstructive pulmonary disease): -no acute exacerbation -not oxygen dependent at baseline Status: Chronic Qualifiers: COPD type: emphysema Emphysema type: unspecified Qualified Code(s): J43.9 - Emphysema, unspecified (6) Seropositive rheumatoid arthritis of multiple joints: -follows up with Dr. 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 Per review of brief discharge information scanned into record, patient had right gluteal/pelvic/internal iliac artery aneurysm embolectomy done by Dr. Fernández; no complications -also had decompressive lumbar laminectomies involving L2-L5, bilateral medial facetectomies and neuroforaminotomies (L2-L5). Preop imaging was suspicious for osteomyelitis and discitis involving L2-L5 superimposed on degenerative lumbar spondylosis with lumbar stenosis and significant compression of the cauda equina -s/p colonoscopy with polyp (6) removal (also noted to have internal hemorrhoids, diverticulosis). Colonoscopy done due to suspicion for cecal mass on imaging -Treated with course of vancomycin, ceftriaxone (09/17-10/22). From medication list appears to still be on antibiotics with Augmentin and doxycycline. Records in chart -History of osteoporosis, chronic low back pain -remote hx of PE -Anxiety -Advanced age -Chronic smoker -BPH; on Flomax -MITA on CKD stage 2; baseline Cr < 1; likely due to diuresis, continue to monitor renal function, avoid nephrotoxins, renally dose meds -cardiac diet as tolerated -PT evaluation today -GI ppx with PPI -DVT ppx with lovenox -Dispo: home -Code status: FULL code Attestations Medical Necessity Statement*: Patient requires hospitalization for continued diuresis, medical management of CAD, monitoring of renal function. Time Spent in Patient Care: 16 - 35 minutes (>than 50% of time spent in counselling and/or direct pt care on unit). Coding Level of Care Code Acute Branch Store Manager for g Fwd Exam Comprehensive Diagnoses NSTEMI (non-ST elevated myocardial infarction) I21.4 CHF exacerbation I50.43 Heart failure type: combined systolic and diastolic HTN (hypertension) I10 Hypertension type: essential hypertension CAD (coronary artery disease) I25.10 Associated angina: without angina Coronary Disease-Associated Artery/Lesion type: habematolel artery [place] vs. transplanted heart: habematolel heart COPD (chronic obstructive pulmonary disease) J43.9 COPD type: emphysema Emphysema type: unspecified Seropositive rheumatoid arthritis of multiple joints M05.79
--- NOTE | 2020-02-21 09:12 | PC.NURSE ---
Taken to CT for Chest CT with contrast. Pt uses his cane and furniture to ambulate. PT in room assisting him with the use of a walker.
--- NOTE | 2020-02-21 09:37 | PC.NURSE ---
Message sent to Dr. Ortiz regarding the possibility of removing fatima from pt.
--- NOTE | 2020-02-21 09:46 | PC.NURSE ---
Asked If we could remove fatima from Pt in preparation in going home. Orders to not remove at this time.
[2020-02-21] MEDS: tamsulosin 0.4 mg Capsule PO (09:58)
[2020-02-21] MEDS: ALPRAZolam 0.25 mg Tablet PO ×2 (09:58→18:25)
[2020-02-21] MEDS: HYDROcodone-acetaminophen 7.5-325 mg Tablet 1 TAB PO ×2 (09:58→18:25)
[2020-02-21] MEDS: doxycycline 100 mg Tablet PO ×2 (09:58→18:25)
[2020-02-21] MEDS: amoxicillin-clav 875-125 mg Tablet 2 TAB PO ×2 (09:58→18:25)
[2020-02-21] MEDS: sennosides-docusate Tablet 1 TAB PO (09:59)
[2020-02-21] MEDS: pantoprazole DR 40 mg Tablet PO (09:59)
[2020-02-21] MEDS: predniSONE 10 mg Tablet PO (09:59)
[2020-02-21] MEDS: aspirin 81 mg EC Tablet PO (09:59)
[2020-02-21] MEDS: potassium chloride ER 20 mEq Tablet PO ×2 (09:59→18:25)
[2020-02-21] MEDS: clopidogrel 75 mg Tablet PO (09:59)
[2020-02-21] MEDS: enoxaparin 40 mg/0.4 mL Syringe SUBCUT (10:03)
[2020-02-21] MEDS: FUROsemide 10 mg/mL SDV 4mL 40 MG IVP ×2 (10:04→19:41)
--- NOTE | 2020-02-21 11:38 | PC.SOCIAL ---
IMM Update Pg. 2 of IMM updated and reviewed with patient, who verbalized understanding. Initialed, dated, and timed and placed in chart. Copy provided to patient.
[2020-02-21] MEDS: guaiFENesin 100 mg/5 mL UDC 10 mL 200 MG PO (18:25)
--- NOTE | 2020-02-21 20:26 | P.PN_ITS ---
Subjective Subjective: Interval history: Appear to be euvolemic today. Patient has CTA of the chest. Medications: Reviewed: Yes Medication Review Details: Active Medications Generic Name Dose Route Start Last Admin Trade Name Freq PRN Reason Stop Dose Admin Acetaminophen 650 mg 02/19/20 09:09 Acetaminophen 32 5 Mg Tablet PO Q6H PRN MILD PAIN Hydrocodone Bitart /Acetaminophen 1 tab 02/19/20 19:48 02/20/20 18:15 Hydrocodone-Acet aminophen 7.5-325 Mg Tablet PO 1 tab Q8H PRN Administration MODERATE PAIN Al Hydrox/Mg [place] x/Simethicone 30 ml 02/19/20 09:09 Ymfg-Kbs-Uiyjmsr de-Greta 30 Ml Udc PO Q15M PRN INDIGESTION Albuterol/Ipratrop ium 3 ml 02/19/20 00:45 02/21/20 03:38 Ipratropium-Albu terol 3 Ml Neb INHALATION 3 ml Q6H PRN Administration SHORTNESS OF FANG TH Alprazolam 0.25 mg 02/19/20 09:09 02/19/20 21:54 Alprazolam 0.25 Mg Tablet PO 0.25 mg TID PRN Administration ANXIETY Amoxicillin/Clavul anate Potassium 2 tab 02/19/20 18:00 02/20/20 18:04 Amoxicillin-Clav 875-125 Mg Tablet PO 2 tab BID CATA Administration Protocol Aspirin 81 mg 02/19/20 09:00 02/20/20 08:44 Aspirin 81 Mg Ec Tablet PO 81 mg DAILY CATA Administration Benzonatate 200 mg 02/19/20 02:08 02/20/20 20:41 Benzonatate 100 Mg Capsule PO 200 mg TID PRN Administration COUGH Clopidogrel Bisulf ate 75 mg 02/20/20 12:00 02/20/20 11:38 Clopidogrel 75 M g Tablet PO 75 mg DAILY CATA Administration Doxycycline Monohy drate 100 mg 02/19/20 18:00 02/20/20 18:04 Doxycycline 100 Mg Tablet PO 100 mg BID CATA Administration Protocol Enoxaparin Sodium 40 mg 02/20/20 08:30 02/20/20 08:47 Enoxaparin 40 Mg /0.4 Ml Syringe SUBCUT 40 mg Q24H CATA Administration Furosemide 40 mg 02/20/20 20:00 02/20/20 20:41 Furosemide 10 Mg /Ml Sdv 4ml IVP 40 mg Q12H CATA Administration Norepinephrine Bit artrate 4 mg 254 mls @ 0 mls/h r 02/19/20 08:30 02/19/20 20:03 / Dextrose IV 0 mcg/min .Q0M CATA 0 mls/hr Titration Protocol Per Protocol Magnesium Hydroxid e 30 ml 02/19/20 09:09 Magnesium Hydrox home 30 Ml Udc PO DAILY PRN CONSTIPATION Morphine Sulfate 2 mg 02/19/20 00:45 02/20/20 14:35 Morphine 4 Mg/Ml Sdv 1 Ml IVP 2 mg Q4H PRN Administration chest poain Naloxone HCl 0.1 mg 02/19/20 09:09 Naloxone 0.4 Mg/ Ml Sdv IVP Q2M PRN RESPIRATORY RATE < 8/MIN Nitroglycerin 0.4 mg 02/19/20 09:09 Nitroglycerin 0. 4 Mg Sublingual Ta blet SUBLINGUAL Q5M PRN CHEST PAIN Pantoprazole Sodiu m 40 mg 02/20/20 09:00 02/20/20 08:[address] 40 Mg Tablet PO 40 mg DAILY CATA Administration Potassium Chloride 20 meq 02/20/20 11:00 02/20/20 18:04 Potassium Chlori de Er 20 Meq Table t PO 20 meq BID CATA Administration Prednisone 10 mg 02/19/20 09:00 02/20/20 08:46 Prednisone 10 Mg Tablet PO 10 mg DAILY CATA Administration Senna/Docusate Sod ium 1 tab 02/19/20 09:00 02/20/20 08:45 Sennosides-Docus ate Tablet PO 1 tab DAILY CATA Administration Tamsulosin HCl 0.4 mg 02/19/20 09:00 Tamsulosin 0.4 M g Capsule PO DAILY CATA Temazepam 15 mg 02/19/20 09:09 02/20/20 21:39 Temazepam 15 Mg Capsule PO 15 mg BEDTIME PRN Administration INSOMNIA atorvastatin [From Lipitor] Allergy (Verified 02/19/20 01:31) unknown ezetimibe [From Vytorin] Allergy (Verified 02/19/20 01:31) unknown niacin [From Niaspan Extended-Release] Allergy (Verified 02/19/20 01:31) unknown ranitidine Allergy (Verified 02/19/20 01:31) unknown rosuvastatin [From Crestor] Allergy (Verified 02/19/20 01:31) unknown simvastatin [From Vytorin] Allergy (Verified 02/19/20 01:31) unknown Vitals/I&O/Wt Last Vital Signs Temp 97.6 F 02/21/20 20:00 Pulse 87 02/21/20 20:00 Resp 25 H 02/21/20 20:00 BP 112/73 02/21/20 20:00 Pulse Ox 96 02/21/20 20:00 02/21/20 02/21/20 02/21/20 06:59 14:59 22:59 Intake Total 460 / 460 450 / 910 Output Total 2350 / 3225 Balance -2350 / -2885 460 / 460 450 / 910 Weight last 48 hrs Weight 166 lb 4.8 oz Physical Exam Narrative: EXAM NARRATIVE: GENERAL: Patient is alert, awake and oriented x3. NECK: No jugular vein distension. HEENT: No cyanosis. No icterus. No pallor. HEART: Regular S1 and S2. No murmur, rub or gallop. LUNGS: No crackles with reasonable good air entry on the right side and slightly improved air entry in the left side without any wheezing or rhonchi.. ABDOMEN: Soft, nontender and nondistended. Positive bowel sounds. No guarding, rebound or tenderness. CENTRAL NERVOUS SYSTEM: Grossly nonfocal. EXTREMITIES: Lower extremities without edema bilaterally. Const: COMMON NORMALS: alert Resp: COMMON NORMALS: clear to auscultation bilaterally AUSCULTATION: clear to auscultation bilaterally Neuro: SENSORIUM/ORIENTATION: Yes alert Urinary Catheter Management^: 2-way Urethral: Cath Placed During This Visit: yes Reason for Continuing Indwelling Catheter: Accurate Measurement of Urinary Output in Critically Ill Patients Urinary Catheter Date of Insertion: 02/19/20 Urinary Catheter Time of Insertion: 18:15 Data : 02/21/20 03:09 02/21/20 03:09 A&P Assessment and plan (1) NSTEMI (non-ST elevated myocardial infarction): Status post PCI to LAD and circumflex. Severely depressed LV function continue aspirin statin Plavix add beta-michelle Status: Acute (2) Cardiogenic shock: Resolved Status: Acute (3) Systolic heart failure: Appear to be euvolemic we will hold Lasix for now. Status: Acute (4) Tricuspid valve mass: Patient is afebrile may ask for blood cultures. It appeared to me that he has sterile vegetation which may need to be monitored. Patient vegetation was also previously noted on prior echo exam. CT scan suggestive of left lung nodule. Follow-up was recommended. Status: Acute Attestations Medical Necessity Statement*: Patient require continuation hospitalization for above defined care. Coding Level of Care Code Established Pt Acute Column Precaster for Edug Fwd Patient Type Established History Detailed Exam Detailed Medical Decision Making Moderate Complexity Diagnoses NSTEMI (non-ST elevated myocardial infarction) I21.4 Cardiogenic shock R57.0 Systolic heart failure I50.20 Tricuspid valve mass I07.8
--- NOTE | 2020-02-21 21:02 | PC.NURSE ---
Assessment AO x4, answered questions appropriately, follows commands, regular unlabored RR RA, denied SOB, turns self independently, supine 30 degrees, call light within reach
[2020-02-22] VITALS (17 sets, daily range): BP systolic 91–119; BP diastolic 54–82; PULSE 77–103; RESP 13–29; TEMP 36.8; O2SAT 84–97
[2020-02-22 04:41] LABS: Basophils # 0.1 10^3/uL (0.0-0.1); Basophils % 0.5 %; Eosinophils # 0.1 10^3/uL (0.0-0.8); Eosinophils % 1.2 %; Hematocrit 40.1 % (42.0-52.0); Hemoglobin 12.7 g/dL (11.7-16.6); Lymphocytes # 2.4 10^3/uL (0.8-4.8); Lymphocytes % 20.9 %; Mean Corpuscular HGB Conc 31.7 g/dL (30.0-36.0); Mean Corpuscular Volume 91.6 fL (80-94); Mean Platelet Volume 11.7 fL (7.4-10.4); Monocytes # 1.3 10^3/uL (0.2-0.9); Monocytes % 11.3 %; Neutrophils # 7.54 10^3/uL (1.8-7.7); Neutrophils % 65.5 %; Nucleated Red Blood Cells % 0 %; Platelet Count 219 10^3/cmm (130-400); Red Blood Count 4.38 10^6/uL (4.1-5.3); Red Cell Distribution Width 17.1 % (12.1-15.1); White Blood Count 11.5 10^3/uL (4.0-10.0)
[2020-02-22 05:20] LABS: Anion Gap 16.2 (5-19); Blood Urea Nitrogen 35 mg/dL (8-23); Calcium 8.9 mg/dL (8.5-10.5); Carbon Dioxide 29 mmol/L (22-29); Chloride 98 mmol/L (98-107); Glucose 131 mg/dL (65-115); Osmolality Calculated 298 mOsm/kg (285-295); Potassium 4.2 mmol/L (3.5-5.1); Sodium 139 mmol/L (136-145)
--- NOTE | 2020-02-22 06:34 | NUR.SHIFT ---
uneventful night, turned self throughout night, AO x4 answers questions appropriately, ambulated to commode with standby to 1 assist, remained on RA throughout night, no C/O pain
[2020-02-22] MEDS: enoxaparin 40 mg/0.4 mL Syringe SUBCUT (08:18)
[2020-02-22] MEDS: clopidogrel 75 mg Tablet PO (08:19)
[2020-02-22] MEDS: sennosides-docusate Tablet 1 TAB PO (08:19)
[2020-02-22] MEDS: tamsulosin 0.4 mg Capsule PO (08:19)
[2020-02-22] MEDS: doxycycline 100 mg Tablet PO (08:19)
[2020-02-22] MEDS: aspirin 81 mg EC Tablet PO (08:19)
[2020-02-22] MEDS: predniSONE 10 mg Tablet PO (08:19)
[2020-02-22] MEDS: pantoprazole DR 40 mg Tablet PO (08:19)
--- NOTE | 2020-02-22 08:32 | P.DS_ITS ---
Discharge Providers Date of Admission: 02/18/20 23:47 Date of Discharge: February 22, 2020 Attending Provider at Admission: Norbert Dean MD Attending Provider at Discharge: Diana Dick MD Consults: Cardiology, Dr. Orantes Primary Care Provider: Vasu Ramsay MD Diagnoses at Discharge Discharge Diagnosis (1) NSTEMI (non-ST elevated myocardial infarction): Status: Acute Permanent problem details: -presented with chest pain, found to have elevated troponins with significant delta of 35 after 6 hrs, then noted to have some ST elevation on last ECG so STEMI alert called -patient taken to computer lab para professional, s/p angiogram by Dr. 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) -VSS; continue to monitor -noted D-dimer elevation (1.81) -post PCI, noted to be hypotensive and required pressor support; levophed weaned off (2) Cardiogenic shock: Status: Resolved (3) Systolic heart failure: Status: Acute Permanent problem details: -post procedure noted to have wet sounding cough suspicious for pulmonary edema, CXR with noted atelectasis in IONA and volume loss; on IV lasix -on oral steroids, Neb treatments, oral antibiotics -continue to monitor BP closely -Echo as noted above -BNP [id number] -so far has diuresed 5.2 L -CT chest with noted chronic emphysema, LLL nodule, moderate L heart enlargement Qualifiers: Heart failure chronicity: acute on chronic Qualified Code(s): I50.23 - Acute on chronic systolic (congestive) heart failure (4) Tricuspid valve mass: Status: Chronic Permanent problem details: -appears to be a sterile vegetation -needs continued close follow up Other Information Additional DC diagnoses/information: -during last hospitalization in 08/2019 was noted to have 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 Per review of brief discharge information scanned into record, patient had right gluteal/pelvic/internal iliac artery aneurysm embolectomy done by Dr. Fernández; no complications -also had decompressive lumbar laminectomies involving L2-L5, bilateral medial facetectomies and neuroforaminotomies (L2-L5). Preop imaging was suspicious for osteomyelitis and discitis involving L2-L5 superimposed on degenerative lumbar spondylosis with lumbar stenosis and significant compression of the cauda equina -s/p colonoscopy with polyp (6) removal (also noted to have internal hemorrhoids, diverticulosis). Colonoscopy done due to suspicion for cecal mass on imaging -Treated with course of vancomycin, ceftriaxone (09/17-10/22). From medication list appears to still be on antibiotics with Augmentin and doxycycline. Records in chart -History of osteoporosis, chronic low back pain -remote hx of PE -Anxiety -Advanced age -Chronic smoker -BPH; on Flomax -MITA on CKD stage 2; baseline Cr < 1; likely due to diuresis and contrast used for angiogram. In light of recent creatinine of 1.5, recent angiogram, risk for contrast-induced nephropathy so will need close monitoring of renal function. BMP ordered for tomorrow and explained need for this to be done to patient and Flori Guerrier ([phone]). -hx of RA; on chronic steroids and immunosuppressive therapy; follows up with Dr. Guzman -COPD; not oxygen dependent at baseline -hx of CAD with prior stenting x 3 Reason for Visit Reason for Visit: CP Hospital Course Hospital Course Patient presented with chest pain concerning for unstable angina and was admitted to the cardiac stepdown unit. He was noted to have elevated troponins and overnight developed ST changes concerning for worsening unstable angina so STEMI alert called and he was quickly taken to the computer lab para professional. He had a coronary angiogram done by Dr. Orantes revealing subtotally occluded mid LAD with in-stent stenosis and thrombosis which was treated with balloon angioplasty and stented. PCI procedure was complicated with no reflow phenomena treated with intracoronary Cardene and balloon angioplasty with quaker of appropriate flow. Circumflex was noted to have 80 to 90% mid and distal lesion stenosis both of which were treated with stenting. Diagonal branch was found to have multiple diffuse disease not amenable to intervention so medical management recommended. Unfortunately patient developed hypotension requiring pressor support thereafter as well as acute CHF exacerbation requiring aggressive IV diuresis. He had ready been transferred to ICU for closer monitoring. Fortunately, pressor support was quickly weaned off and he has responded well to diuresis, currently euvolemic. Renal function was closely monitored in light of recent angiogram and need for aggressive diuresis. Echo done as noted above. He was noted to have an elevated D-dimer but due to his renal function was unable to have a CTA for further assessment. His renal function has been very closely monitored noted evidence of acute impairment, he is at risk of developing contrast-induced nephropathy so will need continued close monitoring of his renal function, BMP ordered for tomorrow and emphasis on need to have this done discussed with him and prior to discharge. He was continued on aspirin and Plavix added. He has a noted allergy to multiple statins as well as Zetia. He has been on chronic oral antibiotics as well as oral steroids both of which were resumed in part due to concern for possible COPD exacerbation. He is not oxygen dependent at baseline but has intermittently required supplemental oxygen so home oxygen evaluation done prior to discharge; does not qualify. Importantly he has what appears to be a sterile tricuspid valve vegetation which though not new will require continued follow-up. Blood cultures have been drawn and are pending though he has consistently been afebrile. He has had some mild leukocytosis which could be attributed to steroid use. He will require appropriate follow-up with his primary care provider as well as cardiology. He is to be seen at heart care services within 1 week for post cath follow-up. Physical Exam Const: COMMON NORMALS: no acute distress, patient oriented x3 and alert GENERAL APPEARANCE: cooperative, comfortable and frail appearing ORIENTATION/CONSCIOUSNESS: Yes awake OTHER: -Resting quietly in bed HENMT: COMMON NORMALS: normocephalic, atraumatic, hearing grossly normal bilaterally and moist oral mucous membranes HEAD & SCALP: normocephalic and atraumatic Eye: COMMON NORMALS: Equal, round and reactive pupils present, EOMs intact bilaterally and conjunctivae normal CONJUNCTIVA: Yes conjunctivae normal PUPIL: Yes Equal, round and reactive pupils present Neck/C-Spine: COMMON NORMALS: full ROM GENERAL: Yes normal visual inspection and Yes trachea midline Resp: COMMON NORMALS: normal respiratory effort, No retractions and No use of accessory muscles EFFORT & INSPECTION: Yes able to speak in complete sentences, Yes symmetric chest movement, No tachypneic and Yes Actively coughing moist AUSCULTATION: rales OTHER: -on RA Cardio: COMMON NORMALS: regular rate, regular rhythm, S1 normal heart sound present, S2 normal heart sound present and No murmurs present (Cardio) RATE: regular rate RHYTHM: regular rhythm HEART SOUNDS: S1 normal heart sound present and S2 normal heart sound present GI: COMMON NORMALS: Normal to inspection, nondistended, normoactive bowel sounds present, Soft to palpation and non-tender PALPATION: Yes Soft to palpation : OTHER: -R groin cath site; palpable pulses, no apparent hematoma Extremity: COMMON NORMALS: normal to inspection, full ROM and no clubbing, cyanosis or edema; negative for no pedal edema Neuro: COMMON NORMALS: patient oriented x3, moves all extremities, no focal motor deficits and no sensory deficits noted SENSORIUM/ORIENTATION: Yes alert Psych: COMMON NORMALS: mental status grossly normal, Normal thought process present, cooperative, normal affect and speech normal SPEECH: Yes normal speech THOUGHT PROCESS: Normal thought process present Skin: COMMON NORMALS: no rashes or lesions noted, no jaundice, no petechiae and no mottling GENERAL SKIN EXAM: no rashes or lesions noted Urinary Catheter Management^: 2-way Urethral: Cath Placed During This Visit: yes Reason for Continuing Indwelling Catheter: Accurate Measurement of Urinary Output in Critically Ill Patients Urinary Catheter Date of Insertion: 02/19/20 Urinary Catheter Time of Insertion: 18:15 Discharge Data Data Completed and Pending: Completed Studies During Hospitalization Category Date Time Status CT chest w con* [id number] Routine Cat Scan 02/21/20 08:00 Completed XR chest 1V marc ble [id number] Stat Exams 02/18/20 22:02 Completed XR chest 1V marc ble [id number] Stat Exams 02/19/20 17:10 Completed CV echo complete* [id number] Routine Ultrasound 02/19/20 00:45 Completed Pending at discharge Category Date Time Status EVENTS ASSISTANT request for service Stat Exams 02/19/20 06:57 Taken Blood Culture Sta t Lab 02/22/20 08:26 Ordered Labs from last 24 hours 02/22/20 02/22/20 03:20 03:20 WBC 11.5 H RBC 4.38 Hgb 12.7 Hct 40.1 L MCV 91.6 MCH 29.0 MCHC 31.7 RDW 17.1 H Plt Count 219 MPV 11.7 H Neut % (Auto) 65.5 Lymph % (Auto) 20.9 [place] % (Auto) 11.3 Eos % (Auto) 1.2 Baso % (Auto) 0.5 Neut # (Auto) 7.54 Lymph # (Auto) 2.4 [place] # (Auto) 1.3 H Eos # (Auto) 0.1 Baso # (Auto) 0.1 Nucleated RBC % (a uto) 0 Nucleated RBCs # 0.0 Sodium 139 Potassium 4.2 Chloride 98 Carbon Dioxide 29 Anion Gap 16.2 BUN 35 H Creatinine 1.5 H GFR Calculation Not Reportable Glucose 131 H Calculated Osmolal ity 298 H Calcium 8.9 Vitals: Last Vital Signs Temp 97.6 F 02/21/20 20:00 Pulse 97 02/22/20 07:00 Resp 16 02/22/20 07:00 BP 113/73 02/22/20 07:00 Pulse Ox 94 02/22/20 06:00 Discharge Plan Discharge Patient Disposition: Home Condition: Stable Prescriptions: New clopidogrel 75 mg Tablet 75 mg PO DAILY Qty: 30 RF: 0 Continued hydrocodone-acetaminophen 7.5-325 mg tablet 1 tab PO TID PRN (Reason: Pain) RF: 0 aspirin 81 mg tablet,delayed release (DR/EC) 81 mg PO DAILY RF: 0 albuterol sulfate 2.5 mg /3 mL (0.083 %) solution for nebulization 2.5 mg INHALATION Q4H PRN (Reason: Shortness Of Breath) RF: 0 tamsulosin 0.4 mg capsule 0.4 mg PO BEDTIME RF: 0 prednisone 5 mg tablet 10 mg PO DAILY Qty: 60 RF: 0 nitroglycerin 0.4 mg tablet, sublingual 0.4 mg sublingual Q5M PRN (Reason: chest pain) Qty: 25 RF: 0 gabapentin 600 mg Tablet 600 mg PO TID RF: 0 Protonix 40 mg Tablet,Delayed Release (Dr/Ec) 40 mg PO DAILY RF: 0 doxycycline hyclate 100 mg Tablet 100 mg PO BID RF: 0 Augmentin XR 1,000-62.5 mg Tablet Extended Release 12 Hr 2 tab PO BID RF: 0 Afrin (oxymetazoline) 0.05 % Mist 2 spray INTRANASAL Q12H PRN (Reason: nasal congestion) RF: 0 [place] 3-6-9 Complex 400-400-400 mg Capsule 1 cap PO DAILY RF: 0 Discharge Orders: Discharge Order (Routine); Ordered 02/22/20 Ordered By: Diana Dick Other Ambulatory Orders: Basic Metabolic Panel (Routine) Timeframe: [id number] Facility: [facility] - Location: Lab - Main Lab Ordered By: Diana Dick Referrals: Jori Godinez MD [Physician] - 1 month Melinda Wolf FNP [Nurse Practitioner] - 1 week (Post cath check) Vasu Ramsay MD [Primary Care Provider] - 4-7 days Discharge Diet: Cardiac Discharge Activity: Increase activity as tolerated and As per PT/OT instructions Discharge Attestations Time Spent in Discharge Care*: greater than 30 min Specific Discharge Activities: educating patient, discussing with disease case manager/social workers/dc planners, documenting/other paperwork and evaluating patient/reviewing data Status at Discharge: Cognitive status at discharge: cognitively intact , Behavioral status at discharge: cooperative , Functional status at discharge: independent ambulation Overall status at discharge: patient is progressing back to baseline Quality Metrics Clinical Quality Measures During this hospital stay, did patient experience: AMI Clinical Trial Participant: No Contraindication to aspirin (AMI): Aspirin given Contraindication to statin: Statin prescribed Contraindication to PCI: PCI performed (stenting x 3) Coding Level of Care Code Acute Maintenance Director for g Fwd Exam Comprehensive Diagnoses NSTEMI (non-ST elevated myocardial infarction) I21.4 Cardiogenic shock R57.0 Systolic heart failure I50.23 Heart failure chronicity: acute on chronic Tricuspid valve mass I07.8
[2020-02-22] MEDS: amoxicillin-clav 875-125 mg Tablet 2 TAB PO (08:35)
--- NOTE | 2020-02-22 12:23 | P.PN_ITS ---
Subjective Subjective: Interval history: Patient would like to go home and not like to stay. Overall he is doing fine except creatinine has increased to 1.5. Medications: Reviewed: Yes Medication Review Details: Active Medications Generic Name Dose Route Start Last Admin Trade Name Freq PRN Reason Stop Dose Admin Acetaminophen 650 mg 02/19/20 09:09 Acetaminophen 32 5 Mg Tablet PO Q6H PRN MILD PAIN Hydrocodone Bitart /Acetaminophen 1 tab 02/19/20 19:48 02/20/20 18:15 Hydrocodone-Acet aminophen 7.5-325 Mg Tablet PO 1 tab Q8H PRN Administration MODERATE PAIN Al Hydrox/Mg [place] x/Simethicone 30 ml 02/19/20 09:09 Gkzo-Jyq-Ztudejg de-Greta 30 Ml Udc PO Q15M PRN INDIGESTION Albuterol/Ipratrop ium 3 ml 02/19/20 00:45 02/21/20 03:38 Ipratropium-Albu terol 3 Ml Neb INHALATION 3 ml Q6H PRN Administration SHORTNESS OF FANG TH Alprazolam 0.25 mg 02/19/20 09:09 02/19/20 21:54 Alprazolam 0.25 Mg Tablet PO 0.25 mg TID PRN Administration ANXIETY Amoxicillin/Clavul anate Potassium 2 tab 02/19/20 18:00 02/20/20 18:04 Amoxicillin-Clav 875-125 Mg Tablet PO 2 tab BID CATA Administration Protocol Aspirin 81 mg 02/19/20 09:00 02/20/20 08:44 Aspirin 81 Mg Ec Tablet PO 81 mg DAILY CATA Administration Benzonatate 200 mg 02/19/20 02:08 02/20/20 20:41 Benzonatate 100 Mg Capsule PO 200 mg TID PRN Administration COUGH Clopidogrel Bisulf ate 75 mg 02/20/20 12:00 02/20/20 11:38 Clopidogrel 75 M g Tablet PO 75 mg DAILY CATA Administration Doxycycline Monohy drate 100 mg 02/19/20 18:00 02/20/20 18:04 Doxycycline 100 Mg Tablet PO 100 mg BID CATA Administration Protocol Enoxaparin Sodium 40 mg 02/20/20 08:30 02/20/20 08:47 Enoxaparin 40 Mg /0.4 Ml Syringe SUBCUT 40 mg Q24H CATA Administration Furosemide 40 mg 02/20/20 20:00 02/20/20 20:41 Furosemide 10 Mg /Ml Sdv 4ml IVP 40 mg Q12H CATA Administration Norepinephrine Bit artrate 4 mg 254 mls @ 0 mls/h r 02/19/20 08:30 02/19/20 20:03 / Dextrose IV 0 mcg/min .Q0M CATA 0 mls/hr Titration Protocol Per Protocol Magnesium Hydroxid e 30 ml 02/19/20 09:09 Magnesium Hydrox home 30 Ml Udc PO DAILY PRN CONSTIPATION Morphine Sulfate 2 mg 02/19/20 00:45 02/20/20 14:35 Morphine 4 Mg/Ml Sdv 1 Ml IVP 2 mg Q4H PRN Administration chest poain Naloxone HCl 0.1 mg 02/19/20 09:09 Naloxone 0.4 Mg/ Ml Sdv IVP Q2M PRN RESPIRATORY RATE < 8/MIN Nitroglycerin 0.4 mg 02/19/20 09:09 Nitroglycerin 0. 4 Mg Sublingual Ta blet SUBLINGUAL Q5M PRN CHEST PAIN Pantoprazole Sodiu m 40 mg 02/20/20 09:00 02/20/20 08:[address] 40 Mg Tablet PO 40 mg DAILY CATA Administration Potassium Chloride 20 meq 02/20/20 11:00 02/20/20 18:04 Potassium Chlori de Er 20 Meq Table t PO 20 meq BID CATA Administration Prednisone 10 mg 02/19/20 09:00 02/20/20 08:46 Prednisone 10 Mg Tablet PO 10 mg DAILY CATA Administration Senna/Docusate Sod ium 1 tab 02/19/20 09:00 02/20/20 08:45 Sennosides-Docus ate Tablet PO 1 tab DAILY CATA Administration Tamsulosin HCl 0.4 mg 02/19/20 09:00 Tamsulosin 0.4 M g Capsule PO DAILY CATA Temazepam 15 mg 02/19/20 09:09 02/20/20 21:39 Temazepam 15 Mg Capsule PO 15 mg BEDTIME PRN Administration INSOMNIA atorvastatin [From Lipitor] Allergy (Verified 02/19/20 01:31) unknown ezetimibe [From Vytorin] Allergy (Verified 02/19/20 01:31) unknown niacin [From Niaspan Extended-Release] Allergy (Verified 02/19/20 01:31) unknown ranitidine Allergy (Verified 02/19/20 01:31) unknown rosuvastatin [From Crestor] Allergy (Verified 02/19/20 01:31) unknown simvastatin [From Vytorin] Allergy (Verified 02/19/20 01:31) unknown Vitals/I&O/Wt Last Vital Signs Temp 98.3 F 02/22/20 12:20 Pulse 83 02/22/20 12:20 Resp 18 02/22/20 12:20 BP 105/72 02/22/20 12:20 Pulse Ox 96 02/22/20 12:20 02/21/20 02/22/20 02/22/20 22:59 06:59 14:59 Intake Total 450 / 910 Output Total 1500 / 1500 175 / 175 Balance 450 / 910 -1500 / -590 -175 / -175 Weight last 48 hrs Weight 166 lb Weight 166 lb 4.8 oz Physical Exam Narrative: EXAM NARRATIVE: GENERAL: Patient is alert, awake and oriented x3. NECK: No jugular vein distension. HEENT: No cyanosis. No icterus. No pallor. HEART: Regular S1 and S2. No murmur, rub or gallop. LUNGS: No crackles with good air entry bilaterally today . ABDOMEN: Soft, nontender and nondistended. Positive bowel sounds. No guarding, rebound or tenderness. CENTRAL NERVOUS SYSTEM: Grossly nonfocal. EXTREMITIES: Lower extremities without edema bilaterally. Const: COMMON NORMALS: alert Resp: COMMON NORMALS: clear to auscultation bilaterally AUSCULTATION: clear to auscultation bilaterally Neuro: SENSORIUM/ORIENTATION: Yes alert Urinary Catheter Management^: 2-way Urethral: Cath Placed During This Visit: yes Reason for Continuing Indwelling Catheter: Accurate Measurement of Urinary Output in Critically Ill Patients Urinary Catheter Date of Insertion: 02/19/20 Urinary Catheter Time of Insertion: 18:15 Data : 02/22/20 03:20 02/22/20 03:20 Micro: Microbiology 02/22/20 08:53 Blood Culture - Preliminary Blood SPECIMEN COLLECTED 02/22/20 08:49 Blood Culture - Preliminary Blood SPECIMEN COLLECTED A&P Assessment and plan (1) NSTEMI (non-ST elevated myocardial infarction): Status post PCI for non-ST elevation WI. Patient had episode of heart failure treated with IV diuretics. He is feeling much better improved rather on the dry side. He had a CTA due to persistent cough and suspicion for lung mass it turned out that he may have a possible nodule which will be followed up as per recommendation in 6-month. He would like to go home and not like to stay here. He understand all the risks involved including worsening of heart failure arrhythmia and . He has been instructed to come back tomorrow for BMP in order to assess kidney function. Advised to continue Plavix aspirin statin and beta-michelle which has been added. He is not on ANNA inhibitor due to worsening of renal function and relative low blood pressure. ANNA inhibitor can be added as an outpatient. He has severely depressed LV function post ischemia which has been relieved hopefully it will improve. Repeat echocardiogram in 45 days to assess LV function. He is going to follow-up with Melinda Wolf cardiology nurse practitioner and Dr. Godinez who is his primary community recreation programmer. Status: Acute (2) Cardiogenic shock: Resolved Status: Resolved (3) Systolic heart failure: As above currently compensated continue treatment as above under non- STEMI. Patient has been given heart failure instruction advised in case of worsening of shortness of breath PND orthopnea lower extremity edema or swelling he should immediately call our office. He can also call me in the hospital over the weekend. Status: Acute Qualifiers: Heart failure chronicity: acute on chronic Qualified Code(s): I50.23 - Acute on chronic systolic (congestive) heart failure (4) Tricuspid valve mass: Patient is afebrile may ask for blood cultures. It appeared to me that he has sterile vegetation which may need to be monitored. Patient vegetation was also previously noted on prior echo exam. CT scan suggestive of left lung nodule. Follow-up was recommended. Status: Chronic (5) Contrast dye induced nephropathy: Most likely patient has contrast-induced nephropathy developed after angiogram and CT for unstable acute coronary syndrome and worsening of lung c ondition with suspicion of embolus versus lung mass. Advised to stay in the hospital which she declined and would like to go home for Thanksgiving. He understand the risks involved including worsening of renal function leading to transient permanent dialysis hyperkalemia arrhythmia and worse case scenario . He is advised to check Chem-7 in the morning with a hospital lab for the plan will be advised then. He will be follow-up with Melinda Wolf in 7 days our cardiology nurse practitioner who will also check on his BMP. For now he is not on lisinopril and we will hold the Lasix. He has been given heart failure instruction. Status: Acute Attestations Medical Necessity Statement*: Patient can be discharged with above defined instruction Coding Level of Care Code Established Pt Acute Leaded Glass Installer for Maral Arguelles Patient Type Established History Detailed Exam Detailed Medical Decision Making Moderate Complexity Diagnoses NSTEMI (non-ST elevated myocardial infarction) I21.4 Cardiogenic shock R57.0 Systolic heart failure I50.23 Heart failure chronicity: acute on chronic Tricuspid valve mass I07.8 Contrast dye induced nephropathy N14.1; T50.8X5A
--- NOTE | 2020-02-22 13:08 | PC.NURSE ---
Discharge Patient was discharged via wheelchair to personal vehicle at 1300. All of patients belongings and discharge papers were in hand. No signs of distress were noted.
== END 2020-02-22 13:00 | disposition home or self-care (01) | DRG 246 ==
LOC: ER 22:01 → CSU 02-19 00:24 → ICU 02-19 09:05
PROVIDERS: Internal Medicine Cardiovascular Disease; Admitting Provider Internal Medicine; Emergency Provider Emergency Medicine; PCP Family Medicine; Visit Provider Family Medicine
PROC: 027136Z Dilation of Coronary Artery, Two Arteries with Three Drug-eluting Intraluminal Devices, Percutaneous Approach (ICD-10-PCS; principal; 2020-02-19 07:00)
PROC: 027136Z Dilation of Coronary Artery, Two Arteries with Three Drug-eluting Intraluminal Devices, Percutaneous Approach (ICD-10-PCS; 2020-02-19 07:00)
DX: I21.09 ST elevation (STEMI) myocardial infarction involving other coronary artery of anterior wall (principal); I50.23 Acute on chronic systolic (congestive) heart failure; R57.0 Cardiogenic shock; N17.9 Acute kidney failure, unspecified; I25.10 Atherosclerotic heart disease of native coronary artery without angina pectoris; Z95.5 Presence of coronary angioplasty implant and graft; F17.210 Nicotine dependence, cigarettes, uncomplicated; I72.3 Aneurysm of iliac artery; Z87.440 Personal history of urinary (tract) infections; Z87.01 Personal history of pneumonia (recurrent); Z89.029 Acquired absence of unspecified finger(s); I70.0 Atherosclerosis of aorta; J43.9 Emphysema, unspecified; I11.0 Hypertensive heart disease with heart failure; E78.5 Hyperlipidemia, unspecified; I73.9 Peripheral vascular disease, unspecified; M05.9 Rheumatoid arthritis with rheumatoid factor, unspecified; Z79.52 Long term (current) use of systemic steroids; Z86.718 Personal history of other venous thrombosis and embolism; Z95.828 Presence of other vascular implants and grafts; Z98.1 Arthrodesis status; N14.1 Nephropathy induced by other drugs, medicaments and biological substances; T50.8X5A Adverse effect of diagnostic agents, initial encounter; R91.8 Other nonspecific abnormal finding of lung field; I07.8 Other rheumatic tricuspid valve diseases; N40.0 Benign prostatic hyperplasia without lower urinary tract symptoms; F41.9 Anxiety disorder, unspecified; Z86.711 Personal history of pulmonary embolism; M81.0 Age-related osteoporosis without current pathological fracture; G89.29 Other chronic pain; M54.5 Low back pain; K57.90 Diverticulosis of intestine, part unspecified, without perforation or abscess without bleeding; K64.8 Other hemorrhoids
CPT/HCPCS: 12345; 36415; 51702; 71045; 71260; 80048; 80053; 82550; 83735; 83880; 84484; 85025; 85378; 85730; 87040; 93005; 93306; 93454; 94640; 96372; 96375; 97161; 97530; 99282; C1725; C1769; C1874; C1887; C1894; C9600; C9601; J1644; J1650; J1940; J2250; J2270; J2405; J2920; J3010; J3246; J3490; J7030; J7512; Q9967

== ENCOUNTER 2020-02-23 10:18 | Outpatient (CLI) | payer MEDICARE, SELFPAY ==
[2020-02-23 11:11] LABS: Anion Gap 17.3 (5-19); Blood Urea Nitrogen 35 mg/dL (8-23); Calcium 9.1 mg/dL (8.5-10.5); Carbon Dioxide 26 mmol/L (22-29); Chloride 98 mmol/L (98-107); Glucose 145 mg/dL (65-115); Osmolality Calculated 295 mOsm/kg (285-295); Potassium 4.3 mmol/L (3.5-5.1); Sodium 137 mmol/L (136-145)
== END 2020-02-23 10:19 | disposition home or self-care (01) ==
PROVIDERS: PCP Family Medicine; Visit Provider Family Medicine
DX: N17.9 Acute kidney failure, unspecified (principal)
CPT/HCPCS: 36415; 80048

== ENCOUNTER 2020-02-26 04:33 | Observation (INO) | payer MEDICARE, SELFPAY ==
[2020-02-26] VITALS (37 sets, daily range): BP systolic 91–124; BP diastolic 55–88; PULSE 64–104; RESP 14–24; TEMP 35.8–36.7; O2SAT 90–99; BMI 24.4
--- NOTE | 2020-02-26 04:35 | XRR_ITS ---
PROCEDURE INFORMATION: Exam: XR Chest, 1 View Exam date and time: 02/26/2020 4:52 AM Age: 79 years old Clinical indication: Left-sided chest pain; Prior surgery; Surgery date: 3-7 days post-operative; Surgery type: 3 stints put in last week; Patient HX: Chest pain, left arm pain; Additional info: Cp TECHNIQUE: Imaging protocol: XR of the chest Views: 1 view. COMPARISON: CT CHEST 02/21/2020 7:59 AM FINDINGS: Lungs: No pneumonia or pulmonary edema. Pleural space: No pleural effusion or pneumothorax. Heart/Mediastinum: The cardiac silhouette is not enlarged. The mediastinal contours are normal. Bones/joints: Prior left shoulder arthroplasty. Soft tissues: There is a left epicardial fat pad. XR/XR chest 1V portable [id number] IMPRESSION: No acute abnormality.
--- NOTE | 2020-02-26 04:36 | ECG_ITS ---
[facility] Test Date: 2020-02-26 Pat Name: Chinmay Guerrier Department: Room: 112 Gender: Male Nut Grinder: : 1940 Requested By: David Mcmullen Order Number: [id number] Judie MD: ADRIANA LAGSO Measurements Intervals [place] Rate: 89 P: 56 VA: 225 QRS: -56 QRSD: 130 T: 73 QT: 355 QTc: 433 Interpretive Statements SINUS RHYTHM WITH FIRST DEGREE AV BLOCK WITH FREQUENT VENTRICULAR PREMATURE COMPLEXES LEFT ANTERIOR FASCICULAR BLOCK [QRS AXIS <= -45, QR IN I, RS IN II] SEPTAL MYOCARDIAL INFARCTION , OF INDETERMINATE AGE [40+ ms Q WAVE IN V1/V2] Compared to ECG 02/19/2020 06:43:35 First degree AV block now present T-wave abnormality no longer present Possible ischemia no longer present Myocardial infarct finding still present Electronically Signed On 02-26-2020 17:30:53 [employer] by ADRIANA LAGOS [email or web address]
--- NOTE | 2020-02-26 04:49 | W.ED.CHESTPA ---
HPI - Chest Pain General: Chief Complaint: Chest Pain Stated Complaint: chest pain/left arm/3 stints put in last wk Time Seen by Provider: 02/26/20 04:41 Source: patient Mode of arrival: ambulatory Limitations: no limitations History of Present Illness: HPI narrative: 79-year-old male who had a cardiac cath last week and had 3 stents placed. States that overnight he started having chest pain that radiated to his left arm. He states his pain does get improved with nitro but then has been returning. He states his pain is currently a 6 out of 10. Denies any worsening or improving factors. Denies any vomiting or diarrhea. MD complaint: chest pain Associated symptoms: Deny abdominal pain, dyspnea, fever(s), nausea or vomiting Review of Systems Const: Denies: fever(s), chills, body aches or change in appetite Eyes: Denies: blurry vision or eye discomfort ENMT: Denies: throat pain or dental pain Card: Reports: chest pain Resp: Denies: dyspnea GI: Denies: abdominal pain, nausea, vomiting or diarrhea : Denies: dysuria Musc: Denies: neck pain or back pain Skin/Breast: Denies: rash Neuro: Denies: headache(s) Psych: Denies: depression [place]/Lymph: Denies: easy bruising All/Imm: Denies: urticaria PFSH ED PFSH: Medical History Abdominal aortic atherosclerosis Amputation finger Atrial myxoma CAD (coronary artery disease) COPD (chronic obstructive pulmonary disease) COPD (chronic obstructive pulmonary disease) Coronary artery disease Current chronic use of systemic steroids High risk medication use HTN (hypertension) Hyperlipemia Immunodeficiency secondary to chemotherapy Lipoma of skin and subcutaneous tissue (excluding face) NSTEMI (non-ST elevated myocardial infarction) -presented with chest pain, found to have elevated troponins with significant delta of 35 after 6 hrs, then noted to have some ST elevation on last ECG so STEMI alert called -patient taken to laboratory analyst, s/p angiogram by Dr. 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) -VSS; continue to monitor -noted D-dimer elevation (1.81) -post PCI, noted to be hypotensive and required pressor support; levophed weaned off PAD (peripheral artery disease) Presence of IVC filter Rheumatoid arthritis seropositive Seropositive rheumatoid arthritis of multiple joints Systolic heart failure -post procedure noted to have wet sounding cough suspicious for pulmonary edema, CXR with noted atelectasis in IONA and volume loss; on IV lasix -on oral steroids, Neb treatments, oral antibiotics -continue to monitor BP closely -Echo as noted above -BNP mcpriyxrh=[id number] -so far has diuresed 5.2 L -CT chest with noted chronic emphysema, LLL nodule, moderate L heart enlargement 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 -needs continued close follow up Surgical History H/O cataract extraction H/O shoulder surgery left H/O: vasectomy History of appendectomy S/P angioplasty with stent x 3 stents Family History Father Lung disease COPD Other Diabetes Hypertension Social History Smoking and tobacco status: current every day smoker cigarettes Alcohol intake: never Household members: spouse Marital status: Current occupational status: retired History of recent travel: No Physical Exam Const: COMMON NORMALS: no acute distress, patient oriented x3 and healthy appearing HENMT: COMMON NORMALS: normocephalic and atraumatic HEAD & SCALP: normocephalic and atraumatic Eye: COMMON NORMALS: Equal, round and reactive pupils present and EOMs intact bilaterally PUPIL: Yes Equal, round and reactive pupils present Neck/C-Spine: COMMON NORMALS: full ROM and supple Chest: COMMONS NORMALS: normal inspection of the chest and normal palpation of entire chest wall Resp: COMMON NORMALS: normal respiratory effort, No retractions, No use of accessory muscles and clear to auscultation bilaterally AUSCULTATION: clear to auscultation bilaterally Cardio: COMMON NORMALS: regular rate, regular rhythm and No murmurs present (Cardio) RATE: regular rate RHYTHM: regular rhythm GI: COMMON NORMALS: Normal to inspection, nondistended, normoactive bowel sounds present, Soft to palpation, non-tender and no masses PALPATION: Yes Soft to palpation Extremity: COMMON NORMALS: normal to inspection and full ROM Neuro: COMMON NORMALS: patient oriented x3, moves all extremities and no focal motor deficits Psych: COMMON NORMALS: mental status grossly normal, Normal thought process present and cooperative THOUGHT PROCESS: Normal thought process present Skin: COMMON NORMALS: no rashes or lesions noted and no wounds GENERAL SKIN EXAM: no rashes or lesions noted Course Vital Signs: Vital signs: Vital Signs Temperature 97.3 F L 02/26/20 04:37 Pulse Rate 84 02/26/20 05:25 Respiratory Rate 20 H 02/26/20 05:25 Blood Pressure 114/70 02/26/20 05:25 Pulse Oximetry 97 02/26/20 05:25 MDM - Chest Pain MDM Narrative: Medical decision making narrative: Patient presents here with chest pain and recent cardiac catheterization. He does have an elevated troponin here which is difficult to tell from the initial as it still could be elevated from his previous cath. He is having pain and will admit for his pain and give him a dose of Lovenox. Spoke to hospitalist along with security compliance specialist on-call. Patient is currently pain-free here after morphine. Lab Data: Labs: Lab Results 02/26/20 02/26/20 02/26/20 Range/Units 04:43 04:43 04:43 WBC 12.9 H (4.0-10.0) 10^3/ uL RBC 4.73 (4.1-5.3) 10^6/u L Hgb 13.8 (11.7-16.6) g/dL Hct 45.4 (42.0-52.0) % MCV 96.0 H (80-94) fL MCH 29.2 (28.0-34.0) pg MCHC 30.4 (30.0-36.0) g/dL RDW 16.7 H (12.1-15.1) % Plt Count 227 (130-400) 10^3/c mm MPV 11.7 H (7.4-10.4) fL Neut % (Auto) 53.1 % Lymph % (Auto) 31.8 % Christian % (Auto) 10.6 % Eos % (Auto) 1.9 % Baso % (Auto) 1.1 % Neut # (Auto) 6.85 (1.8-7.7) 10^3/u L Lymph # (Auto) 4.1 (0.8-4.8) 10^3/u L Christian # (Auto) 1.4 H (0.2-0.9) 10^3/u L Eos # (Auto) 0.2 (0.0-0.8) 10^3/u L Baso # (Auto) 0.1 (0.0-0.1) 10^3/u L Nucleated RBC % (a uto) 0 % Nucleated RBCs # 0.0 /100WBC Sodium 141 (136-145) mmol/L Potassium 4.3 (3.5-5.1) mmol/L Chloride 105 (98-107) mmol/L Carbon Dioxide 25 (22-29) mmol/L Anion Gap 15.3 (5-19) BUN 33 H (8-23) mg/dL Creatinine 1.3 H (0.7-1.2) mg/dL GFR Calculation Not Reportable Glucose 104 (65-115) mg/dL Calculated Osmolal ity 300 H (285-295) mOsm/k g Calcium 9.1 (8.5-10.5) mg/dL Total Bilirubin 0.4 (0.15-1.2) mg/dL AST 15 (0-40) U/L ALT 16 (0-41) U/L Alkaline Phosphata se 77 (40-130) IU/L Troponin T Baselin e 1151 H* (0-15) ng/L Total Protein 6.4 L (6.6-8.7) g/dL Albumin 4.3 (3.5-5.2) g/dL Globulin 2.1 (1.3-4.6) g/dL Imaging Data^: CXR: Attestation: I personally reviewed and interpreted this imaging study as follows: My impression: no acute abnormality EKG Data^: EKG 1: Attestation: I personally reviewed and interpreted this EKG as follows: EKG interpretation date: 02/26/20 EKG interpretation time: 04:39 Interpretation: nsr hr [address] or t wave abnormalities qrs 130 qtc 402 Discharge Plan Discharge Prescriptions: No Action hydrocodone-acetaminophen 7.5-325 mg tablet 1 tab PO TID PRN (Reason: Pain) RF: 0 aspirin 81 mg tablet,delayed release (DR/EC) 81 mg PO DAILY RF: 0 albuterol sulfate 2.5 mg /3 mL (0.083 %) solution for nebulization 2.5 mg INHALATION Q4H PRN (Reason: Shortness Of Breath) RF: 0 tamsulosin 0.4 mg capsule 0.4 mg PO BEDTIME RF: 0 prednisone 5 mg tablet 10 mg PO DAILY Qty: 60 RF: 0 nitroglycerin 0.4 mg tablet, sublingual 0.4 mg sublingual Q5M PRN (Reason: chest pain) Qty: 25 RF: 0 gabapentin 600 mg Tablet 600 mg PO TID RF: 0 Protonix 40 mg Tablet,Delayed Release (Dr/Ec) 40 mg PO DAILY RF: 0 doxycycline hyclate 100 mg Tablet 100 mg PO BID RF: 0 Augmentin XR 1,000-62.5 mg Tablet Extended Release 12 Hr 2 tab PO BID RF: 0 Afrin (oxymetazoline) 0.05 % Mist 2 spray INTRANASAL Q12H PRN (Reason: nasal congestion) RF: 0 [place] 3-6-9 Complex 400-400-400 mg Capsule 1 cap PO DAILY RF: 0 clopidogrel 75 mg Tablet 75 mg PO DAILY Qty: 30 RF: 0 metoprolol succinate 25 mg capsule,sprinkle,ER 24hr 12.5 mg PO DAILY Qty: 30 RF: 4 Coding Level of Care Code ED Manager General for Chg Fwd Exam Comprehensive
[2020-02-26] MEDS: morphine 4 mg/mL SDV 1 mL IVP (04:52)
[2020-02-26 04:53] LABS: Basophils # 0.1 10^3/uL (0.0-0.1); Basophils % 1.1 %; Eosinophils # 0.2 10^3/uL (0.0-0.8); Eosinophils % 1.9 %; Hematocrit 45.4 % (42.0-52.0); Hemoglobin 13.8 g/dL (11.7-16.6); Lymphocytes # 4.1 10^3/uL (0.8-4.8); Lymphocytes % 31.8 %; Mean Corpuscular HGB Conc 30.4 g/dL (30.0-36.0); Mean Corpuscular Hemoglobin 29.2 pg (28.0-34.0); Mean Platelet Volume 11.7 fL (7.4-10.4); Monocytes # 1.4 10^3/uL (0.2-0.9); Monocytes % 10.6 %; Neutrophils # 6.85 10^3/uL (1.8-7.7); Neutrophils % 53.1 %; Nucleated Red Blood Cells % 0 %; Platelet Count 227 10^3/cmm (130-400); Red Blood Count 4.73 10^6/uL (4.1-5.3); Red Cell Distribution Width 16.7 % (12.1-15.1); White Blood Count 12.9 10^3/uL (4.0-10.0)
[2020-02-26] MEDS: ondansetron 2 mg/ML SDV 2 mL 4 MG IVP (05:00)
[2020-02-26] MEDS: aspirin 81 mg Chew Tablet 324 MG PO (05:00)
[2020-02-26 05:11] LABS: Alanine Aminotransferase 16 U/L (0-41); Albumin Level 4.3 g/dL (3.5-5.2); Alkaline Phosphatase 77 IU/L (40-130); Anion Gap 15.3 (5-19); Aspartate Amino Transferase 15 U/L (0-40); Blood Urea Nitrogen 33 mg/dL (8-23); Calcium 9.1 mg/dL (8.5-10.5); Carbon Dioxide 25 mmol/L (22-29); Chloride 105 mmol/L (98-107); Globulin 2.1 g/dL (1.3-4.6); Glucose 104 mg/dL (65-115); Osmolality Calculated 300 mOsm/kg (285-295); Potassium 4.3 mmol/L (3.5-5.1); Sodium 141 mmol/L (136-145); Total Bilirubin 0.4 mg/dL (0.15-1.2); Total Protein 6.4 g/dL (6.6-8.7)
[2020-02-26 05:15] LABS: Troponin(5th) Baseline 1151 ng/L (0-15)
[2020-02-26] MEDS: enoxaparin 80 mg/0.8 mL Syringe 70 MG SUBCUT ×2 (05:28→18:15)
--- NOTE | 2020-02-26 06:09 | PC.NURSE ---
Called report to Sonal in CSU.
--- NOTE | 2020-02-26 06:20 | P.HP_ITS ---
Providers/Chief Complaint Admitting Physician: Alla Lee MD Primary Care Provider: Vasu Ramsay MD Chief Complaint: chest pain/left arm/3 stints put in last wk History of Present Illness Chinmay Guerrier is a 79 year old male recently admitted here between 02/17-02/21 when he had presented with unstbale angina, then developed STEMI patient taken to calibration laboratory technician, s/p angiogram by Dr. Orantes on 02/18 revealing subtotally occluded mid LAD with in-stent stenosis and thrombosis which was treated with balloon angioplasty and stented. PCI procedure was complicated with no reflow phenomena treated with intracoronary Cardene and balloon angioplasty with orthodox of appropriate flow. Circumflex was noted to have 80 to 90% mid and distal lesion stenosis both of which were treated with stenting. Diagonal branch was found to have multiple diffuse disease not amenable to intervention so medical management recommended. Unfortunately patient developed hypotension requiring pressor support thereafter as well as acute CHF exacerbation requiring aggressive IV diuresis. 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 He was discharged on ASA and Plavia which he has bene taking. he has not taken his metoprolol since Wednesday due to HR dropping to 40s. Presents today c//o chest pain radiating to left arm which started on Wednesday and has been going on intermittently since then without any apparent triggers. relieved partially with nitro pills. Diagnostics notable for troponin of 1151 baseline, 2 hr delta pending. On last admission last was 184. CXr shows mild left pleural effusion. Review of Systems General: Reports: 10 or more systems reviewed and unremarkable except in HPI and below Const: Denies: fever(s), chills or body aches Eyes: Denies: change in vision, blurry vision or photophobia ENMT: Reports: hoarseness; Denies: throat pain, enlarged tonsils, odynophagia or nasal congestion Card: Denies: chest pain, palpitations, irregular heart rhythm, edema, swelling of feet/ankles, lightheadedness, pre-syncope, dyspnea on exertion or orthopnea Resp: Denies: dyspnea, productive cough, non-productive cough, wheezing, stridor, pain on inspiration, change in phlegm color, hemoptysis or chest soila estion GI: Denies: abdominal pain, nausea, vomiting, hematemesis, coffee ground emesis, dysphagia, heartburn, diarrhea, constipation, GI cramping, change in stool character, hematochezia or melena : Denies: flank pain, dysuria, urinary frequency, urinary urgency, urinary hesitancy or hematuria Musc: Denies: neck pain, back pain, extremity pain, joint swelling, joint warmth or deformity Neuro: Denies: headache(s), numbness in extremities, weakness in extremities, sensory changes, difficulty walking, frequent falls, dizziness, vertigo, behavioral changes, Slurred speech present or seizure-like activity Psych: Denies: anxiety, depression, suicidal ideation or homicidal ideation Endo: Denies: polyuria, polydipsia, tired all the time, cold intolerance or hot flashes Mayco/Lymph: Denies: easy bruising or easy bleeding Medications/Allergies Home Medications Medication Instructions Recorded Confirmed Last Taken Type albuterol sulfate 2.5 mg INHALATION Q4H PRN 04/19/19 02/19/20 1 Day Ago History ~02/18/20 aspirin 81 mg tablet,delayed 81 mg PO DAILY 04/19/19 02/19/20 1 Day Ago History release ~02/18/20 hydrocodone 7.5 mg-acetaminophen 1 tab PO TID PRN 04/19/19 02/19/20 1 Day Ago History 325 mg tablet ~02/18/20 tamsulosin 0.4 mg capsule 0.4 mg PO BEDTIME 04/19/19 02/19/20 08/22/19 History prednisone 5 mg tablet 10 mg PO DAILY #60 tab 07/10/19 02/19/20 1 Day Ago Rx ~02/18/20 nitroglycerin 0.4 mg sublingual 0.4 mg SUBLINGUAL Q5M PRN #25 each 10/28/19 02/19/20 1 Day Ago Rx tablet ~02/18/20 Afrin (oxymetazoline) 2 spray INTRANASAL Q12H PRN 02/19/20 02/19/20 1 Day Ago History ~02/18/20 Augmentin XR 2 tab PO BID 02/19/20 02/19/20 1 Day Ago History ~02/18/20 [place] 3-6-9 Complex 1 cap PO DAILY 02/19/20 02/19/20 1 Day Ago History ~02/18/20 Protonix 40 mg PO DAILY 02/19/20 02/19/20 1 Day Ago History ~02/18/20 doxycycline hyclate 100 mg PO BID 02/19/20 02/19/20 1 Day Ago History ~02/18/20 gabapentin 600 mg PO TID 02/19/20 02/19/20 1 Day Ago History ~02/18/20 clopidogrel 75 mg PO DAILY #30 tab 02/22/20 Unknown Rx metoprolol succinate 12.5 mg PO DAILY #30 ea 02/22/20 Unknown Rx Allergies Allergy/AdvReac Type Severity Reaction Status Date / Time atorvastatin [From Lipitor] Allergy unknown Verified 02/19/20 01:31 ezetimibe [From Vytorin] Allergy unknown Verified 02/19/20 01:31 niacin Allergy unknown Verified 02/19/20 01:31 [From Niaspan Extended-Release] ranitidine Allergy unknown Verified 02/19/20 01:31 rosuvastatin [From Crestor] Allergy unknown Verified 02/19/20 01:31 simvastatin [From Vytorin] Allergy unknown Verified 02/19/20 01:31 PFSH Acute PFSH: Medical History Abdominal aortic atherosclerosis Amputation finger Atrial myxoma CAD (coronary artery disease) COPD (chronic obstructive pulmonary disease) COPD (chronic obstructive pulmonary disease) Coronary artery disease Current chronic use of systemic steroids High risk medication use HTN (hypertension) Hyperlipemia Immunodeficiency secondary to chemotherapy Lipoma of skin and subcutaneous tissue (excluding face) NSTEMI (non-ST elevated myocardial infarction) -presented with chest pain, found to have elevated troponins with significant delta of 35 after 6 hrs, then noted to have some ST elevation on last ECG so STEMI alert called -patient taken to calibration laboratory technician, s/p angiogram by Dr. 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) -VSS; continue to monitor -noted D-dimer elevation (1.81) -post PCI, noted to be hypotensive and required pressor support; levophed weaned off PAD (peripheral artery disease) Presence of IVC filter Rheumatoid arthritis seropositive Seropositive rheumatoid arthritis of multiple joints Systolic heart failure -post procedure noted to have wet sounding cough suspicious for pulmonary edema, CXR with noted atelectasis in IONA and volume loss; on IV lasix -on oral steroids, Neb treatments, oral antibiotics -continue to monitor BP closely -Echo as noted above -BNP dppfusgng=3047 -so far has diuresed 5.2 L -CT chest with noted chronic emphysema, LLL nodule, moderate L heart enlargement 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 -needs continued close follow up Surgical History H/O cataract extraction H/O shoulder surgery left H/O: vasectomy History of appendectomy S/P angioplasty with stent x 3 stents Family History Father Lung disease COPD Other Diabetes Hypertension Social History Smoking and tobacco status: current every day smoker cigarettes Alcohol intake: never Household members: spouse Marital status: Current occupational status: retired History of recent travel: No Vitals/I&O/Wt Last Vital Signs Temp 97.3 F L 02/26/20 04:37 Pulse 72 02/26/20 06:14 Resp 18 02/26/20 06:14 BP 91/55 02/26/20 06:14 Pulse Ox 94 02/26/20 06:14 Weight last 48 hrs Weight 70.76 kg Physical Exam Narrative: EXAM NARRATIVE: GEN: Awake, alert and oriented, no acute distress, chronically ill appearing pale man CVS: S1S2 N RS: CTA B/L Abd: Soft, nt/nd , bs+ PAPER RULER: no focal neuro deficits Data : 02/26/20 04:43 02/26/20 04:43 A&P Assessment and plan (1) NSTEMI (non-ST elevated myocardial infarction): Status: Acute (2) Chest pain: Status: Acute Additional A&P Information Patent presnts today one week after recent PCI and stent placement with chets pain radiating to left arm troponin elevated however tough to determine whether this is related to recent PCI and MA vs new elavation today. Will await 2 hr and 6 hr troponins to trend. continue ASA and plavix started on full dose lovenox in Er, will continue prn morphine and nitrates for pain patient stopped b wilfredokchermilo ove rthe weekend as HR dropped to 40 on metoprolol 12.5mg po qd cardiology consult Attestations Medical Necessity Statement*: admit in observation for chest pain after recent PCI, trend serial EKGs and tropinin to [facility] further course Coding Level of Care Code Acute Yarn Packer for [facility] Fwd Diagnoses NSTEMI (non-ST elevated myocardial infarction) I21.4 Chest pain R07.9
--- NOTE | 2020-02-26 06:49 | PC.NURSE ---
NURSING NOTE: ADMISSION: PT ARRIVED TO CSU AT 0613 THIS MORNING. ADMISSION ASSESSMENT AND MEDICATION RECONCILIATION COMPLETED. ALERT AND ORIENTED X4. ALL VS AND ASSESSMENTS CHARTED. NO DISTRESS AT THIS TIME. REPORT FROM RAJAN TORRES IN ED.
[2020-02-26 07:13] LABS: Troponin 5 2HR 1018 ng/L (0-15)
[2020-02-26] MEDS: ipratropium-albuterol 3 mL Neb INHALATION ×4 (07:59→19:59)
[2020-02-26] MEDS: HYDROcodone-acetaminophen 7.5-325 mg Tablet 1 TAB PO ×2 (08:14→19:15)
[2020-02-26] MEDS: predniSONE 10 mg Tablet PO (08:14)
[2020-02-26] MEDS: gabapentin 300 mg Capsule 600 MG PO ×3 (08:14→20:38)
[2020-02-26] MEDS: clopidogrel 75 mg Tablet PO (08:14)
[2020-02-26] MEDS: pantoprazole DR 40 mg Tablet PO (08:15)
--- NOTE | 2020-02-26 09:35 | PC.CHAP ---
Pastoral Care Encounter/Spiritual Assessment Type of Contact [] Declined children's lunchroom supervisor visit [] Patient/Family/Request visit [] Outpatient visit [] Follow-up visit [] Physician referral [] Code/Alert [x] Routine visit [] Staff referral [] Actively dying [] Patient sleeping [] Family support [] [] Out of room [] Palliative care [] [] Receiving care in room [] Pre-surgical visit [] Trauma [] Long length of stay [] ICU visit [] Other: Relational/Emotional Strength [] Patient feels connected with others/family/visitors/staff [] Distress [] Loneliness/isolation [] Abandonment Spirituality of Patient [] Person of Juju [] Attends Voodoo of their Juju [] Believes in Prayer [] Reads Bible or Worship materials [] There are Spiritual issues to be addressed Strapper And Buffer Interventions [x] Prayer [x] Active listening [x] Non-anxious presence [x] Spiritual/emotional support [] Crisis/trauma care [] Spiritual counseling [] Bereavement support [] Provided bereavement packet [] Provided Bible/devotional materials [] Provided toy/stuffed animal, coloring book to patient or family member [] Provided Communion [] Anointing/[place] [] Salvation [x] Completed spiritual assessment [] Other: Impact on Illness or Injury [] Angry [] Fearful [] Anxious [] Often cries [] Exhaustion [] Unable to work [] Unable to attend congregation [] Unable to walk/stand [] Unable to read [] Unable to drive [] Unable to eat/drink [] Unable to sleep [] Unable to be with family [] Patient intubated [] Other: Summary chest pain not as severe .. feelng better Time spent with patient 5 min
--- NOTE | 2020-02-26 10:36 | ECG_ITS ---
[facility] Test Date: 2020-02-26 Pat Name: Chinmay Guerrier Department: Room: 112 Gender: Male Wirer Passenger Car: : [id number] Requested By: David Mcmullen Order Number: [id number] Reading MD: ADRIANA LAGOS Measurements Intervals [place] Rate: 70 P: 59 VA: 236 QRS: -55 QRSD: 125 T: 120 QT: 413 QTc: 447 Interpretive Statements SINUS RHYTHM WITH FIRST DEGREE AV BLOCK LEFT ANTERIOR FASCICULAR BLOCK [QRS AXIS <= -45, QR IN I, RS IN II] SEPTAL MYOCARDIAL INFARCTION [40+ ms Q WAVE IN V1/V2], PROBABLY OLD POSSIBLE LATERAL MYOCARDIAL INFARCTION [30 ms Q WAVE IN I/aVL/V5/V6], OF INDETERMINATE AGE MODERATE T-WAVE ABNORMALITY, CONSIDER ANTERIOR ISCHEMIA [-0.1+ mV T WAVE IN V3/V4] Compared to ECG 02/26/2020 04:39:24 T-wave abnormality now present Possible ischemia now present Myocardial infarct finding still present Electronically Signed On 02-26-2020 17:33:11 TOP HAT BODY MAKER by ADRIANA LAGOS [id number]
--- NOTE | 2020-02-26 10:56 | PC.NURSE ---
troponin drawn for lab. specimen taken to lab.
--- NOTE | 2020-02-26 11:09 | P.PN_ITS ---
Subjective Subjective: Interval history: Chinmay reports he is doing okay. He is still has some chest discomfort, and left arm discomfort. He denies any pleuritic quality to it. He describes it as a tightness. It has been present since Wednesday night. He is taken multiple nitroglycerin with some slight effect to the discomfort. He denies any history of injury. He was recently in the hospital, and received an LAD as well as circumflex stent. Medications: Reviewed: Yes Vitals/I&O/Wt Last Vital Signs Temp 96.4 F L 02/26/20 07:21 Pulse 66 02/26/20 08:02 Resp 18 02/26/20 07:59 BP 93/62 02/26/20 07:21 Pulse Ox 97 02/26/20 07:59 Weight last 48 hrs Weight 70.76 kg Physical Exam Narrative: EXAM NARRATIVE: General exam is no apparent distress Cardiovascular regular in rhythm without murmur Lungs clear Abdomen is soft with positive bowel sounds Extremities no cyanosis clubbing or edema Data : 02/26/20 04:43 02/26/20 04:43 A&P Assessment and plan (1) NSTEMI (non-ST elevated myocardial infarction): Patient with recurrent chest discomfort. Some of this is atypical. Recently underwent stenting of LAD, circumflex. Has some diagonal and circumflex disease that was not amenable to intervention Cardiology consultation Continue Plavix, aspirin Beta-michelle held secondary to bradycardia with heart rate of 40. Patient stopped this several days ago allergic to statins so not prescribed Could consider low-dose ANNA inhibitor but will defer to cardiology Continue anticoagulation with Lovenox Status: Acute (2) Chest pain: See above Status: Acute Additional A&P Information Rheumatoid arthritis. He is on chronic prednisone. History of COPD. Some mild wheezing on exam. Add DuoNeb scheduled History of hypertension History of tricuspid mass versus atrial myxoma. No evidence of infectious etiology Full code Lovenox will suffice for DVT prophylaxis Attestations Medical Necessity Statement*: Will need less than 2 midnight hospital stay for evaluation of chest discomfort Coding Level of Care Code Acute Reducing System Operator for [facility] Fw Diagnoses NSTEMI (non-ST elevated myocardial infarction) I21.4 Chest pain R07.9
[2020-02-26 11:23] LABS: Troponin 5 6HR 887.9 ng/L (0-15)
--- NOTE | 2020-02-26 16:50 | P.CONIM_ITS ---
Providers/Reason For Consult Consulting Physican/Specialty*: Cardiology Reason for Consult*: Chest pain Attending Physician: Aelx Carreon MD Primary Care Provider: Vasu Ramsay MD History of Present Illness History of Present Illness Chinmay Guerrier is a 79 year old male past medical history significant for multivessel coronary artery disease status post recent acute coronary syndrome for which he was taken to the Antenna Specialist urgently he was noted to have thrombotically occluded prior LAD stents along with in-stent restenosis they were treated with multiple balloon angioplasty and stent placement within the stent. No reflow phenomena due to distal embolization of thrombus was noted which was treated with multiple balloon angioplasty and intracoronary vasodilators. Excellent angiographic result was achieved. During the same angiogram patient was noted to have diffuse long moderate size and caliber diagonal branch which was 90% in proximal to mid segment it was thought to be managed medically. Circumflex was also treated for calcified significant lesion. Postop course was complicated with hypotension requiring pressor and congestive heart failure along with acute on chronic renal failure. Patient was then treated with diuretics which improved heart failure and after optimization of medicine he was sent home. Left ventricular ejection fraction at that time was noted to be 23% which is severely depressed as compared to the prior echocardiogram which showed normal ejection fraction in the past. 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 He was not noted to be in heart failure chest pain was kind of atypical however there was troponin T of 1100 which could be from recent discharge or from diagonal branch which was left alone for medical management due to not amenable to intervention. It is the reason I have been asked to see the patient. When I saw the patient he was laying in the bed not in any distress he denies any more chest pain he denies shortness of breath he admits to left arm pain at different occasions some time he hurts in his back as well. Patient was also noted to have tricuspid mass which was mentioned on the previous echocardiograms he is nonfebrile and does not admits to any embolic phenomenon therefore appear to be possible sterile vegetation/mass. Review of Systems General: Reports: 10 or more systems reviewed and unremarkable except in HPI and below Const: Denies: fever(s), chills, body aches or change in appetite Eyes: Denies: change in vision, blurry vision, photophobia or eye discomfort ENMT: Reports: hoarseness; Denies: throat pain, enlarged tonsils, odynophagia, dental pain or nasal congestion Card: Denies: chest pain, palpitations, irregular heart rhythm, edema, swelling of feet/ankles, lightheadedness, pre-syncope, dyspnea on exertion or orthopnea Resp: Denies: dyspnea, productive cough, non-productive cough, wheezing, stridor, pain on inspiration, change in phlegm color, hemoptysis or chest congestion GI: Denies: abdominal pain, nausea, vomiting, hematemesis, coffee ground emesis, dysphagia, heartburn, diarrhea, constipation, GI cramping, change in stool character, hematochezia or melena : Denies: flank pain, dysuria, urinary frequency, urinary urgency, urinary hesitancy or hematuria Musc: Denies: neck pain, back pain, extremity pain, joint swelling, joint warmth or deformity Skin/Breast: Denies: rash Neuro: Denies: headache(s), numbness in extremities, weakness in extremities, sensory changes, difficulty walking, frequent falls, dizziness, vertigo, behavi oral changes, Slurred speech present or seizure-like activity Psych: Denies: anxiety, depression, suicidal ideation or homicidal ideation Endo: Denies: polyuria, polydipsia, tired all the time, cold intolerance or hot flashes [place]/Lymph: Denies: easy bruising or easy bleeding All/Imm: Denies: urticaria Meds/Allergies Home Medications and Allergies Home Medications Medication Instructions Recorded Confirmed Last Taken Type albuterol sulfate 2.5 mg INHALATION Q4H PRN 04/19/19 02/26/20 1 Day Ago History ~02/18/20 aspirin 81 mg tablet,delayed 81 mg PO DAILY 04/19/19 02/26/20 02/25/20 History release hydrocodone 7.5 mg-acetaminophen 1 tab PO TID PRN 04/19/19 02/26/20 02/25/20 History 325 mg tablet tamsulosin 0.4 mg capsule 0.4 mg PO BEDTIME 04/19/19 02/26/20 02/25/20 History prednisone 5 mg tablet 10 mg PO DAILY #60 tab 07/10/19 02/26/20 02/25/20 Rx nitroglycerin 0.4 mg sublingual 0.4 mg SUBLINGUAL Q5M PRN #25 each 10/28/19 02/26/20 02/25/20 Rx tablet Afrin (oxymetazoline) 2 spray INTRANASAL Q12H PRN 02/19/20 02/26/20 02/25/20 History amoxicillin-pot clavulanate 2 tab PO BID 02/19/20 02/26/20 02/25/20 History [Augmentin XR] doxycycline hyclate 100 mg PO BID 02/19/20 02/26/20 02/25/20 History fish,bora,flax oils-om3,6,9no1 1 cap PO DAILY 02/19/20 02/26/20 02/25/20 History [[place] 3-6-9 Complex] gabapentin 600 mg PO TID 02/19/20 02/26/20 02/25/20 History pantoprazole [Protonix] 40 mg PO DAILY 02/19/20 02/26/20 02/25/20 History clopidogrel 75 mg PO DAILY #30 tab 02/22/20 02/26/20 02/25/20 Rx metoprolol succinate 12.5 mg PO DAILY #30 ea 02/22/20 02/26/20 02/25/20 Rx Allergies Allergy/AdvReac Type Severity Reaction Status Date / Time atorvastatin [From Lipitor] Allergy unknown Verified 02/26/20 06:34 ezetimibe [From Vytorin] Allergy unknown Verified 02/26/20 06:34 niacin Allergy unknown Verified 02/26/20 06:34 [From Niaspan Extended-Release] ranitidine Allergy unknown Verified 02/26/20 06:34 rosuvastatin [From Crestor] Allergy unknown Verified 02/26/20 06:34 simvastatin [From Vytorin] Allergy unknown Verified 02/26/20 06:34 Current Medications Current Medications Generic Name Dose Route Start Last Admin Trade Name Freq PRN Reason Stop Dose Admin Hydrocodone Bitart/Acetaminophen 1 tab 02/26/20 06:36 02/26/20 08:14 Hydrocodone-Acetaminophen 7.5-325 Mg Tablet PO 1 tab TID PRN Administration Pain Albuterol/Ipratropium 3 ml 02/26/20 08:00 02/26/20 15:06 Ipratropium-Albuterol 3 Ml Neb INHALATION 3 ml Q4H.RESPIRATORY CATA Administration Clopidogrel Bisulfate 75 mg 02/26/20 09:00 02/26/20 08:14 Clopidogrel 75 Mg Tablet PO 75 mg DAILY CATA Administration Gabapentin 600 mg 02/26/20 09:00 02/26/20 14:21 Gabapentin 300 Mg Capsule PO 600 mg TID CATA Administration Pantoprazole Sodium 40 mg 02/26/20 09:00 02/26/20 08:[address] 40 Mg Tablet PO 40 mg DAILY CATA Administration Prednisone 10 mg 02/26/20 09:00 02/26/20 08:14 Prednisone 10 Mg Tablet PO 10 mg DAILY CATA Administration PFSH Acute PFSH: Medical History Abdominal aortic atherosclerosis Amputation finger Atrial myxoma CAD (coronary artery disease) COPD (chronic obstructive pulmonary disease) COPD (chronic obstructive pulmonary disease) Coronary artery disease Current chronic use of systemic steroids High risk medication use HTN (hypertension) Hyperlipemia Immunodeficiency secondary to chemotherapy Lipoma of skin and subcutaneous tissue (excluding face) NSTEMI (non-ST elevated myocardial infarction) -presented with chest pain, found to have elevated troponins with significant delta of 35 after 6 hrs, then noted to have some ST elevation on last ECG so STEMI alert called -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) -VSS; continue to monitor -noted D-dimer elevation (1.81) -post PCI, noted to be hypotensive and required pressor support; levophed weaned off PAD (peripheral artery disease) Presence of IVC filter Rheumatoid arthritis seropositive Seropositive rheumatoid arthritis of multiple joints Systolic heart failure -post procedure noted to have wet sounding cough suspicious for pulmonary edema, CXR with noted atelectasis in IONA and volume loss; on IV lasix -on oral steroids, Neb treatments, oral antibiotics -continue to monitor BP closely -Echo as noted above -BNP [id number] -so far has diuresed 5.2 L -CT chest with noted chronic emphysema, LLL nodule, moderate L heart enlargement 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 -needs continued close follow up Surgical History H/O cataract extraction H/O shoulder surgery left H/O: vasectomy History of appendectomy S/P angioplasty with stent x 3 stents Family History Father Lung disease COPD Other Diabetes Hypertension Social History Smoking and tobacco status: current every day smoker cigarettes Alcohol intake: never Household members: spouse Marital status: Current occupational status: retired History of recent travel: No Vitals/I&O/Wt Last Vital Signs Temp 96.8 F L 02/26/20 14:32 Pulse 78 02/26/20 15:10 Resp 18 02/26/20 15:06 BP 102/73 02/26/20 14:32 Pulse Ox 97 02/26/20 15:06 02/26/20 02/26/20 02/26/20 06:59 14:59 22:59 Intake Total 240 / 240 Balance 240 / 240 Weight last 48 hrs Weight 156 lb Physical Exam Narrative: EXAM NARRATIVE: GENERAL: Patient is alert, awake and oriented x3. NECK: No jugular vein distension. HEENT: No cyanosis. No icterus. No pallor. HEART: Regular S1 and S2. No murmur, rub or gallop. LUNGS: Clear to auscultate bilaterally. ABDOMEN: Soft, nontender and nondistended. Positive bowel sounds. No guarding, rebound or tenderness. CENTRAL NERVOUS SYSTEM: Grossly nonfocal. EXTREMITIES: Lower extremities without edema bilaterally. A&P Assessment and plan (1) Chest pain: Patient gives very vague history of chest pain and sometimes arm pain or back pain he has disease diagonal branch which is not amenable to intervention. Twelve-lead EKG is not consistent with stent thrombosis, troponin T could be from prior event therefore we recommend continuation of medical management and optimization of medicine with increase isosorbide mononitrate if tolerated blood pressure [place]. Continue aspirin statin beta-michelle and clopidegrol. 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 transplanted heart: [place] heart Associated angina: without angina Qualified Code(s): I25.10 - Atherosclerotic heart disease of [place] coronary artery without angina pectoris (4) CKD (chronic kidney disease), stage III: Improving. Status: Acute Qualifiers: Chronic kidney disease stage 3 subtype: stage 3b (GFR 30-44) Qualified Code(s): N18.32 - Chronic kidney disease, stage 3b Coding Level of Care Code New Pt Acute Regional Education Manager for Maral Arguelles Patient Type New History Detailed Exam Detailed Medical Decision Making Moderate Complexity Diagnoses Chest pain R07.89 Chest pain type: other chest pain Tricuspid valve mass I07.8 CAD (coronary artery disease) I25.10 Coronary Disease-Associated Artery/Lesion type: [place] artery [place] vs. transplanted heart: [place] heart Associated angina: without angina CKD (chronic kidney disease), stage III N18.32 Chronic kidney disease stage 3 subtype: stage 3b (GFR 30-44)
--- NOTE | 2020-02-26 17:17 | PC.RESP ---
Smoking Cessation and Pulmonary Rehab information sent to patient.
--- NOTE | 2020-02-26 18:36 | PC.NURSE ---
patient had an unevenful shift. resting in bed at this time. needs within reach.
[2020-02-26] MEDS: morphine 4 mg/mL SDV 1 mL 2 MG IVP (20:38)
[2020-02-26] MEDS: tamsulosin 0.4 mg Capsule PO (20:38)
--- NOTE | 2020-02-26 21:12 | PC.NURSE ---
NURSE NOTE: PT ALERT AND ORIENTED X4, MOVES ALL EXTREMITIES AND FOLLOWS ALL COMMANDS. PT C/O CP = 10. PAIN MEDICATIONS GIVEN ORDERED AND WERE EFFECTIVE PER PATIENT. CURRENTLY RESTING IN BED/WATCHING TV. ALL VS AND ASSESSMENTS CHARTED. NO DISTRESS NOTED AT THIS TIME.
[2020-02-27] VITALS (14 sets, daily range): BP systolic 91–123; BP diastolic 62–77; PULSE 74–96; RESP 14–21; TEMP 36.3–37.1; O2SAT 93–96
[2020-02-27] MEDS: ipratropium-albuterol 3 mL Neb INHALATION ×3 (03:21→12:55)
--- NOTE | 2020-02-27 04:57 | PC.NURSE ---
NURSING NOTE: SHIFT SUMMARY: PT ALERT AND ORIENTED X4, MOVES ALL EXTREMITIES AND FOLLOWS ALL COMMANDS. C/O PAIN X2 TIMES THIS SHIFT. PAIN MEDICATION GIVEN ORDERED AND WAS EFFECTIVE PER PATIENT. CURRENTLY RESTING WITH EYES CLOSED, RESP EVEN AND NON LABORED. ALL VS AND ASSESSMENTS CHARTED.
[2020-02-27] MEDS: enoxaparin 80 mg/0.8 mL Syringe 70 MG SUBCUT (05:37)
[2020-02-27 06:06] LABS: Basophils # 0.1 10^3/uL (0.0-0.1); Basophils % 1.1 %; Eosinophils # 0.2 10^3/uL (0.0-0.8); Eosinophils % 2.1 %; Hemoglobin 12.9 g/dL (11.7-16.6); Lymphocytes # 2.7 10^3/uL (0.8-4.8); Lymphocytes % 26.2 %; Mean Corpuscular HGB Conc 30.7 g/dL (30.0-36.0); Mean Corpuscular Hemoglobin 29.1 pg (28.0-34.0); Mean Corpuscular Volume 94.8 fL (80-94); Mean Platelet Volume 11.5 fL (7.4-10.4); Monocytes % 9.9 %; Neutrophils # 6.22 10^3/uL (1.8-7.7); Neutrophils % 59.5 %; Nucleated Red Blood Cells % 0 %; Platelet Count 223 10^3/cmm (130-400); Red Blood Count 4.43 10^6/uL (4.1-5.3); Red Cell Distribution Width 16.8 % (12.1-15.1); White Blood Count 10.4 10^3/uL (4.0-10.0)
[2020-02-27 06:32] LABS: Alanine Aminotransferase 13 U/L (0-41); Alkaline Phosphatase 73 IU/L (40-130); Anion Gap 15.3 (5-19); Aspartate Amino Transferase 14 U/L (0-40); Blood Urea Nitrogen 26 mg/dL (8-23); Calcium 8.7 mg/dL (8.5-10.5); Carbon Dioxide 26 mmol/L (22-29); Chloride 103 mmol/L (98-107); Glucose 103 mg/dL (65-115); Osmolality Calculated 295 mOsm/kg (285-295); Potassium 4.3 mmol/L (3.5-5.1); Sodium 140 mmol/L (136-145); Total Bilirubin 0.4 mg/dL (0.15-1.2)
--- NOTE | 2020-02-27 07:57 | P.PN_ITS ---
Subjective Subjective: Interval history: Chinmay reports he had some chest discomfort yesterday but is feeling better today. He is wondering when he might go home. Cardiology was able to evaluate him yesterday and recommended medical management. Medications: Reviewed: Yes Vitals/I&O/Wt Last Vital Signs Temp 97.9 F 02/27/20 07:26 Pulse 82 02/27/20 07:26 Resp 18 02/27/20 07:26 BP 106/68 02/27/20 07:26 Pulse Ox 96 02/27/20 07:26 02/26/20 02/27/20 02/27/20 22:59 06:59 14:59 Intake Total 480 / 720 360 / 1080 Output Total 900 / 900 400 / 1300 Balance -420 / -180 -40 / -220 Weight last 48 hrs Weight 70.76 kg Physical Exam Narrative: EXAM NARRATIVE: General exam is no apparent distress Cardiovascular regular in rhythm without murmur Lungs clear Abdomen is soft with positive bowel sounds Extremities no cyanosis clubbing or edema Data : 02/27/20 04:20 02/27/20 04:20 A&P Assessment and plan (1) NSTEMI (non-ST elevated myocardial infarction): Patient with recurrent chest discomfort. Some of this is atypical. Recently underwent stenting of LAD, circumflex. Has some diagonal and circumflex disease that was not amenable to intervention Appreciate cardiology evaluation Continue Plavix, aspirin Restart beta-michelle, low-dose. Allergic to statins so not prescribed. Add isosorbide dinitrate 10 mg twice daily if tolerated by blood pressure Could consider low-dose ANNA inhibitor but will defer to cardiology Discontinue full dose anticoagulation with Lovenox and change to 40 mg subcu every 24 hours Patient requesting to go home today. Will await today's evaluation by cardiology before deciding disposition. Status: Acute (2) Chest pain: See above Status: Acute Qualifiers: Chest pain type: other chest pain Qualified Code(s): R07.89 - Other chest pain Additional A&P Information Rheumatoid arthritis. He is on chronic prednisone. History of COPD. Some mild wheezing on exam. Add DuoNeb scheduled History of hypertension History of tricuspid mass versus atrial myxoma. No evidence of infectious e tiology Full code Lovenox will suffice for DVT prophylaxis Attestations Medical Necessity Statement*: At this point needs continued hospitalization for adjustment of medications secondary to chest discomfort Coding Level of Care Code Acute Special Programs Director for [facility] Fwd Diagnoses NSTEMI (non-ST elevated myocardial infarction) I21.4 Chest pain R07.89 Chest pain type: other chest pain
[2020-02-27] MEDS: pantoprazole DR 40 mg Tablet PO (08:42)
[2020-02-27] MEDS: aspirin 81 mg EC Tablet PO (08:42)
[2020-02-27] MEDS: isosorbide dinitrate 20 mg Tablet 10 MG PO (08:43)
[2020-02-27] MEDS: clopidogrel 75 mg Tablet PO (08:43)
[2020-02-27] MEDS: predniSONE 10 mg Tablet PO (08:43)
[2020-02-27] MEDS: metoprolol succinate ER (24 HR) 25 mg Tablet 12.5 MG PO (08:43)
[2020-02-27] MEDS: gabapentin 300 mg Capsule 600 MG PO ×2 (08:43→14:38)
[2020-02-27] MEDS: HYDROcodone-acetaminophen 7.5-325 mg Tablet 1 TAB PO (08:43)
--- NOTE | 2020-02-27 09:42 | PC.CHAP ---
Pastoral Care Encounter/Spiritual Assessment Type of Contact [] Declined foreign clerk visit [] Patient/Family/Request visit [] Outpatient visit [] Follow-up visit [] Physician referral [] Code/Alert [x] Routine visit [] Staff referral [] Actively dying [] Patient sleeping [] Family support [] [] Out of room [] Palliative care [] [] Receiving care in room [] Pre-surgical visit [] Trauma [] Long length of stay [] ICU visit [] Other: Relational/Emotional Strength [] Patient feels connected with others/family/visitors/staff [] Distress [] Loneliness/isolation [] Abandonment Spirituality of Patient [] Person of Juju [] Attends Islam of their Juju [] Believes in Prayer [] Reads Bible or Yarsani materials [] There are Spiritual issues to be addressed Summer Intern Interventions [x] Prayer [x] Active listening [x] Non-anxious presence [x] Spiritual/emotional support [] Crisis/trauma care [] Spiritual counseling [] Bereavement support [] Provided bereavement packet [] Provided Bible/devotional materials [] Provided toy/stuffed animal, coloring book to patient or family member [] Provided Communion [] Anointing/[place] [] Salvation [x] Completed spiritual assessment [] Other: Impact on Illness or Injury [] Angry [] Fearful [] Anxious [] Often cries [] Exhaustion [] Unable to work [] Unable to attend scientologist [] Unable to walk/stand [] Unable to read [] Unable to drive [] Unable to eat/drink [] Unable to sleep [] Unable to be with family [] Patient intubated [] Other: Summary patient feeling better today... Time spent with patient 5 min
--- NOTE | 2020-02-27 13:08 | P.DS_ITS ---
Discharge Providers Date of Admission: 02/26/20 05:28 Date of Discharge: February 27, 2020 Attending Provider at Admission: Alla Lee MD Attending Provider at Discharge: Alex Carreon MD Primary Care Provider: Vasu Ramsay MD Diagnoses at Discharge Discharge Diagnosis (1) NSTEMI (non-ST elevated myocardial infarction): Status: Acute (2) Chest pain: Status: Acute Qualifiers: Chest pain type: other chest pain Qualified Code(s): R07.89 - Other chest pain Reason for Visit Reason for Visit: chest pain/left arm/3 stints put in last wk Hospital Course Hospital Course Chinmay is an 79-year-old white male who recently had an LAD as well as circumflex stent who came into the hospital with recurrent chest pain. Pain was somewhat atypical. Troponin was elevated, and trended down. EKG did not show any obvious ischemic changes. Cardiology evaluated the patient and recommended continued medical treatment. Isosorbide dinitrate was added to his regimen, which she tolerated well. Metoprolol had been stopped by the patient secondary to 1 heart rate being noted to be 40. This was restarted in the hospital at low-dose 12.5 mg a day and will be continued as an outpatient. He will follow- up in cardiology clinic in 7 to 10 days in 3 months as well as with his primary care provider. By the time of discharge, patient was chest discomfort free and reported he would like to transition home. Home health will be arranged for vital sign monitoring, medical management monitoring to try to decrease recurrent hospitalizations. Physical Exam Narrative: EXAM NARRATIVE: Exam earlier today Discharge Data Data Completed and Pending: Completed Studies During Hospitalization Category Date Time Status XR chest 1V marc ble [id number] Stat Exams 02/26/20 04:35 Completed Labs from last 24 hours 02/27/20 02/27/20 04:20 04:20 WBC 10.4 H RBC 4.43 Hgb 12.9 Hct 42.0 MCV 94.8 H MCH 29.1 MCHC 30.7 RDW 16.8 H Plt Count 223 MPV 11.5 H Neut % (Auto) 59.5 Lymph % (Auto) 26.2 [place] % (Auto) 9.9 Eos % (Auto) 2.1 Baso % (Auto) 1.1 Neut # (Auto) 6.22 Lymph # (Auto) 2.7 [place] # (Auto) 1.0 H Eos # (Auto) 0.2 Baso # (Auto) 0.1 Nucleated RBC % (a uto) 0 Nucleated RBCs # 0.0 Sodium 140 Potassium 4.3 Chloride 103 Carbon Dioxide 26 Anion Gap 15.3 BUN 26 H Creatinine 1.2 GFR Calculation Not Reportable Glucose 103 Calculated Osmolal ity 295 Calcium 8.7 Total Bilirubin 0.4 AST 14 ALT 13 Alkaline Phosphata se 73 Total Protein 6.0 L Albumin 4.0 Globulin 2.0 Vitals: Last Vital Signs Temp 97.3 F L 02/27/20 12:00 Pulse 82 02/27/20 12:00 Resp 14 02/27/20 12:00 BP 92/62 02/27/20 12:00 Pulse Ox 93 02/27/20 12:00 Discharge Plan Discharge Patient Disposition: Home Health Service Condition: Stable Prescriptions: New isosorbide dinitrate 20 mg Tablet 10 mg PO BID Qty: 60 RF: 0 Continued hydrocodone-acetaminophen 7.5-325 mg tablet 1 tab PO TID PRN (Reason: Pain) RF: 0 aspirin 81 mg tablet,delayed release (DR/EC) 81 mg PO DAILY RF: 0 albuterol sulfate 2.5 mg /3 mL (0.083 %) solution for nebulization 2.5 mg INHALATION Q4H PRN (Reason: Shortness Of Breath) RF: 0 tamsulosin 0.4 mg capsule 0.4 mg PO BEDTIME RF: 0 prednisone 5 mg tablet 10 mg PO DAILY Qty: 60 RF: 0 nitroglycerin 0.4 mg tablet, sublingual 0.4 mg sublingual Q5M PRN (Reason: chest pain) Qty: 25 RF: 0 gabapentin 600 mg Tablet 600 mg PO TID RF: 0 pantoprazole [Protonix] 40 mg Tablet,Delayed Release (Dr/Ec) 40 mg PO DAILY RF: 0 fish,bora,flax oils-om3,6,9no1 [[place] 3-6-9 Complex] 400-400-400 mg Capsule 1 cap PO DAILY RF: 0 clopidogrel 75 mg Tablet 75 mg PO DAILY Qty: 30 RF: 0 metoprolol succinate 25 mg capsule,sprinkle,ER 24hr 12.5 mg PO DAILY Qty: 30 RF: 4 Discontinued doxycycline hyclate 100 mg Tablet 100 mg PO BID RF: 0 amoxicillin-pot clavulanate [Augmentin XR] 1,000-62.5 mg Tablet Extended Rel ease 12 Hr 2 tab PO BID RF: 0 Afrin (oxymetazoline) 0.05 % Mist 2 spray INTRANASAL Q12H PRN (Reason: nasal congestion) RF: 0 Discharge Orders: Discharge Order (Routine); Ordered 02/27/20 Ordered By: Alex Carreon Referrals: Norbert Orantes MD [Physician] - 7-10 days (To see Melinda Wolf 7 to 10 days, Dr. Orantes 3 months) Vasu Ramsay MD [Primary Care Provider] - 4-7 days Discharge Diet: Cardiac Discharge Activity: Increase activity as tolerated Activity Restrictions/Additional Instructions: Take all medicine as prescribed Discharge Attestations 2 Time Spent in Discharge Care*: greater than 30 min Status at Discharge: Cognitive status at discharge: cognitively intact , Behavioral status at discharge: cooperative , Quality Metrics Clinical Quality Measures During this hospital stay, did patient experience: None Coding Level of Care Code Acute Cashier Ticket Selling for Maral Arguelles Diagnoses NSTEMI (non-ST elevated myocardial infarction) I21.4 Chest pain R07.89 Chest pain type: other chest pain
--- NOTE | 2020-02-27 14:30 | PC.NURSE ---
discharge instructions given. patient verbalized an understanding. family notified and on their way to get him.
--- NOTE | 2020-02-27 14:51 | PC.NURSE ---
family arrived. patient transported via wheelchair to private vehicle.
== END 2020-02-27 14:52 | disposition home health service (06) ==
LOC: ER 04:48 → CSU 05:41
PROVIDERS: Admitting Provider Student in an Organized Health Care Education/Training Program; Emergency Provider Emergency Medicine; PCP Family Medicine; Visit Provider Internal Medicine
DX: I21.4 Non-ST elevation (NSTEMI) myocardial infarction (principal); R07.9 Chest pain, unspecified; Z79.82 Long term (current) use of aspirin; Z79.52 Long term (current) use of systemic steroids; I25.10 Atherosclerotic heart disease of native coronary artery without angina pectoris; J44.9 Chronic obstructive pulmonary disease, unspecified; E78.5 Hyperlipidemia, unspecified; I25.2 Old myocardial infarction; F17.210 Nicotine dependence, cigarettes, uncomplicated; E11.22 Type 2 diabetes mellitus with diabetic chronic kidney disease; I13.0 Hypertensive heart and chronic kidney disease with heart failure and stage 1 through stage 4 chronic kidney disease, or unspecified chronic kidney disease; N18.32 Chronic kidney disease, stage 3b; I50.20 Unspecified systolic (congestive) heart failure
CPT/HCPCS: 12345; 36415; 71045; 80053; 84484; 85025; 93005; 94640; 96372; 99282; G0378; J1650; J2270; J2405; J7512

== ENCOUNTER 2020-04-06 15:02 | Inpatient (IN) | payer MEDICARE, SELFPAY ==
[2020-04-06] VITALS (9 sets, daily range): BP systolic 117–133; BP diastolic 69–78; PULSE 64–106; RESP 18–35; TEMP 37.2–37.4; O2SAT 89–96; BMI 26.6
--- NOTE | 2020-04-06 15:25 | XRR_ITS ---
PROCEDURE INFORMATION: Exam: XR Chest, 1 View Exam date and time: 04/06/2020 3:40 PM Age: 79 years old Clinical indication: Shortness of breath; Additional info: Dyspnea TECHNIQUE: Imaging protocol: XR of the chest Views: 1 view. Total images: 1 COMPARISON: CR XR chest 1V portable [id number] 02/26/2020 4:41 AM FINDINGS: Lungs: Unremarkable. No consolidation. Pleural space: Unremarkable. No pleural effusion. No pneumothorax. Heart/Mediastinum: Cardiac structures and configuration with arteriosclerosis. Bones/joints: Left shoulder prosthesis. XR/XR chest 1V portable [id number] IMPRESSION: Stable nonacute.
--- NOTE | 2020-04-06 15:27 | ECG_ITS ---
[facility] Test Date: 2020-04-06 Pat Name: Chinmay Guerrier Department: Room: Gender: Male Customer Relations Advisor: : 1940 Requested By: Brock Billingsley Order Number: [id number] Judie MD: Maria G Stoddard M.D. Measurements Intervals [place] Rate: 92 P: 66 SC: 185 QRS: -54 QRSD: 115 T: 95 QT: 325 QTc: 404 Interpretive Statements SINUS RHYTHM WITH FREQUENT VENTRICULAR PREMATURE COMPLEXES IN A BIGEMINAL PATTERN POSSIBLE LEFT ATRIAL ENLARGEMENT [-0.1mV P WAVE IN V1/V2] INCOMPLETE RIGHT BUNDLE BRANCH BLOCK LEFT ANTERIOR FASCICULAR BLOCK [QRS AXIS <= -45, QR IN I, RS IN II] SEPTAL MYOCARDIAL INFARCTION , PROBABLY RECENT Compared to ECG 02/26/2020 11:38:41 Ventricular premature complex(es) now present Incomplete right bundle-branch block now present First degree AV block no longer present T-wave abnormality no longer present Possible ischemia no longer present Myocardial infarct finding still present Electronically Signed On 04-08-2020 20:23:52 APPLIANCE ADJUSTER by Maria G Stoddard M.D. [id number]
[2020-04-06 15:34] LABS: Basophils # 0.1 10^3/uL (0.0-0.1); Basophils % 0.6 %; Eosinophils # 0.1 10^3/uL (0.0-0.8); Eosinophils % 0.4 %; Hematocrit 40.8 % (42.0-52.0); Hemoglobin 12.9 g/dL (11.7-16.6); Lymphocytes # 1.5 10^3/uL (0.8-4.8); Lymphocytes % 10.9 %; Mean Corpuscular HGB Conc 31.6 g/dL (30.0-36.0); Mean Corpuscular Hemoglobin 29.7 pg (28.0-34.0); Mean Platelet Volume 11.4 fL (7.4-10.4); Monocytes # 2.2 10^3/uL (0.2-0.9); Monocytes % 16.4 %; Neutrophils % 71.4 %; Nucleated Red Blood Cells % 0 %; Platelet Count 225 10^3/cmm (130-400); Red Blood Count 4.34 10^6/uL (4.1-5.3); Red Cell Distribution Width 15.7 % (12.1-15.1); White Blood Count 13.4 10^3/uL (4.0-10.0)
--- NOTE | 2020-04-06 15:38 | ED_ITS ---
HPI - SOB/Dyspnea General: Chief Complaint: Shortness of Breath/Dyspnea Stated Complaint: SOB, PERSISTENT COUGHING, Time Seen by Provider: 04/06/20 15:08 History of Present Illness: HPI Narrative: 79-year-old male presents emergency room complaining of shortness of breath began about 2 days ago he has persistent cough does not really have much orthopnea. Has had a low-grade fever cough so mildly productive. He has a history of A. fib and he is on apixaban also has a history of congestive heart failure and COPD coronary artery disease. He denies any chest pain abdominal. MD elicited complaint: shortness of breath and cough Pertinent past history: congestive heart failure Timing: constant Severity: moderate Exacerbating factors: exertion Relieving factors: oxygen and rest Known history of: congestive heart failure Associated symptoms: Reports chest congestion, cough and diaphoresis; Deny abdominal pain, chest pain, dizziness, extremity pain, fever(s), hemoptysis, lightheadedness, myalgias, nausea, orthopnea, palpitations, paresthesias, polydipsia, polyuria, rash, sense of impending doom, syncope or vomiting Treatment prior to arrival: oxygen Review of Systems Const: Reports: diaphoresis; Denies: fever(s) ENMT: Denies: throat pain, ear or mastoid pain, nasal discharge or nasal congestion Card: Denies: chest pain, palpitations, lightheadedness, syncope or orthopnea Resp: Reports: chest congestion; Denies: hemoptysis GI: Denies: abdominal pain, nausea or vomiting : Denies: flank pain, dysuria, urinary frequency or urinary urgency Musc: Denies: extremity pain Skin/Breast: Denies: rash or pruritus Neuro: Denies: dizziness Endo: Denies: polyuria or polydipsia PFS ED PFSH: Medical History (Updated 04/06/20 @ 18:23 by Brock Duran DO) Abdominal aortic atherosclerosis Amputation finger Atrial myxoma CAD (coronary artery disease) COPD (chronic obstructive pulmonary disease) Coronary artery disease Current chronic use of systemic steroids High risk medication use HTN (hypertension) Hyperlipemia Immunodeficiency secondary to chemotherapy Lipoma of skin and subcutaneous tissue (excluding face) NSTEMI (non-ST elevated myocardial infarction) stenting of mid LAD, mid and distal circumflex; diagonal branch with noted diffuse disease not amenable to intervention -Echo: EF=23%, G1DD, global LV hypokinesis, traace AR, mild TR with 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) PAD (peripheral artery disease) Presence of IVC filter Rheumatoid arthritis seropositive Seropositive rheumatoid arthritis of multiple joints Systolic heart failure 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 -needs continued close follow up Surgical History H/O cataract extraction H/O shoulder surgery left H/O: vasectomy History of appendectomy S/P angioplasty with stent x 3 stents Family History Father Lung disease COPD Other Diabetes Hypertension Social History Smoking and tobacco status: current every day smoker cigarettes Alcohol intake: never Household members: spouse Marital status: Current occupational status: retired History of recent travel: No Physical Exam Const: COMMON NORMALS: no acute distress GENERAL APPEARANCE: cooperative and comfortable ORIENTATION/CONSCIOUSNESS: Yes awake, Yes oriented to person, Yes oriented to place and Yes oriented to time HENMT: COMMON NORMALS: normocephalic, atraumatic and hearing grossly normal bilaterally HEAD & SCALP: normocephalic and atraumatic Neck/C-Spine: COMMON NORMALS: no JVD Resp: COMMON NORMALS: normal respiratory effort, No retractions, No use of accessory muscles and clear to auscultation bilaterally AUSCULTATION: clear to auscultation bilaterally Cardio: COMMON NORMALS: no JVD, regular rate, regular rhythm and No murmurs present (Cardio) RATE: regular rate RHYTHM: regular rhythm GI: COMMON NORMALS: Soft to palpation and No hepatosplenomegaly present AUSCULTATION: Yes normoactive bowel sounds PALPATION: Yes Soft to palpation, No Tenderness to palpation present (GI), No Guarding due to palpation present (GI) and Yes No hepatosplenomegaly present Extremity: COMMON NORMALS: normal to inspection, capillary refill normal, no clubbing, cyanosis or edema, no calf tenderness and no pedal edema Neuro: SENSORIUM/ORIENTATION: Yes oriented to person, Yes oriented to place and Yes oriented to time Skin: COMMON NORMALS: no rashes or lesions noted GENERAL SKIN EXAM: no rashes or lesions noted Course Vital Signs: Vital signs: Vital Signs Temperature 99.3 F 04/06/20 15:13 Pulse Rate 95 04/06/20 16:44 Respiratory Rate 24 H 04/06/20 16:44 Blood Pressure 117/78 04/06/20 16:44 Pulse Oximetry 96 04/06/20 16:44 MDM - SOB/Dyspnea Lab Data: Labs: Lab Results 04/06/20 04/06/20 04/06/20 Range/Units 15:18 15:18 15:18 WBC 13.4 H (4.0-10.0) 10^3/ uL RBC 4.34 (4.1-5.3) 10^6/u L Hgb 12.9 (11.7-16.6) g/dL Hct 40.8 L (42.0-52.0) % MCV 94.0 (80-94) fL MCH 29.7 (28.0-34.0) pg MCHC 31.6 (30.0-36.0) g/dL RDW 15.7 H (12.1-15.1) % Plt Count 225 (130-400) 10^3/c mm MPV 11.4 H (7.4-10.4) fL Neut % (Auto) 71.4 % Lymph % (Auto) 10.9 % [place] % (Auto) 16.4 % Eos % (Auto) 0.4 % Baso % (Auto) 0.6 % Neut # (Auto) 9.60 H (1.8-7.7) 10^3/u L Lymph # (Auto) 1.5 (0.8-4.8) 10^3/u L [place] # (Auto) 2.2 H (0.2-0.9) 10^3/u L Eos # (Auto) 0.1 (0.0-0.8) 10^3/u L Baso # (Auto) 0.1 (0.0-0.1) 10^3/u L Nucleated RBC % (a uto) 0 % Nucleated RBCs # 0.0 /100WBC D-Dimer 1.84 H (0-0.59) ug/mIFE U Specimen Type Sample Site ABG pH (7.35-7.45) ABG pCO2 (35-45) mmHg ABG pO2 (80.0-100.0) mmH g ABG HCO3 (22-26) mmol/L ABG Base Excess (-2.0-2.0) mmol/ L Lance Test Hematocrit (42-52) % O2 Delivery Device O2 Liters/Min % FiO2 % Scheduling Representative ID Sodium 140 (136-145) mmol/L Potassium 4.2 (3.5-5.1) mmol/L Chloride 102 (98-107) mmol/L Carbon Dioxide 23 (22-29) mmol/L Anion Gap 19.2 H (5-19) BUN 32 H (8-23) mg/dL Creatinine 1.3 H (0.7-1.2) mg/dL GFR Calculation Not Reportable Glucose 106 (65-115) mg/dL Calculated Osmolal ity 297 H (285-295) mOsm/k g Lactic Acid (0.5-2.2) mmol/L Calcium 9.0 (8.5-10.5) mg/dL Total Bilirubin 1.6 H (0.15-1.2) mg/dL AST 24 (0-40) U/L ALT 11 (0-41) U/L Alkaline Phosphata se 88 (40-130) IU/L Troponin T Baselin e (0-15) ng/L Troponin T 120 Min wilfred (0-15) ng/L Delta Troponin T (0-10) ABS# C-Reactive Protein 262.6 H (0.0-4.9) mg/L Total Protein 6.4 L (6.6-8.7) g/dL Albumin 4.2 (3.5-5.2) g/dL Globulin 2.2 (1.3-4.6) g/dL SARS-CoV-2 Ag (Rap id) (Negative) 04/06/20 04/06/20 04/06/20 Range/Units 15:18 15:18 15:33 WBC (4.0-10.0) 10^3/ uL RBC (4.1-5.3) 10^6/u L Hgb (11.7-16.6) g/dL Hct (42.0-52.0) % MCV (80-94) fL MCH (28.0-34.0) pg MCHC (30.0-36.0) g/dL RDW (12.1-15.1) % Plt Count (130-400) 10^3/c mm MPV (7.4-10.4) fL Neut % (Auto) % Lymph % (Auto) % [place] % (Auto) % Eos % (Auto) % Baso % (Auto) % Neut # (Auto) (1.8-7.7) 10^3/u L Lymph # (Auto) (0.8-4.8) 10^3/u L [place] # (Auto) (0.2-0.9) 10^3/u L Eos # (Auto) (0.0-0.8) 10^3/u L Baso # (Auto) (0.0-0.1) 10^3/u L Nucleated RBC % (a uto) % Nucleated RBCs # /100WBC D-Dimer (0-0.59) ug/mIFE U Specimen Type Arterial Sample Site Radial, right ABG pH 7.42 (7.35-7.45) ABG pCO2 35.9 (35-45) mmHg ABG pO2 64.0 L (80.0-100.0) mmH g ABG HCO3 23.0 (22-26) mmol/L ABG Base Excess -1.1 (-2.0-2.0) mmol/ L Lance Test Pos Hematocrit 39.6 L (42-52) % O2 Delivery Device Nc O2 Liters/Min 2.0 % FiO2 28.0 % Scheduling Representative ID [place] Sodium (136-145) mmol/L Potassium (3.5-5.1) mmol/L Chloride (98-107) mmol/L Carbon Dioxide (22-29) mmol/L Anion Gap (5-19) BUN (8-23) mg/dL Creatinine (0.7-1.2) mg/dL GFR Calculation Glucose (65-115) mg/dL Calculated Osmolal ity (285-295) mOsm/k g Lactic Acid 1.6 (0.5-2.2) mmol/L Calcium (8.5-10.5) mg/dL Total Bilirubin (0.15-1.2) mg/dL AST (0-40) U/L ALT (0-41) U/L Alkaline Phosphata se (40-130) IU/L Troponin T Baselin e 42 H (0-15) ng/L Troponin T 120 Min wilfred (0-15) ng/L Delta Troponin T (0-10) ABS# C-Reactive Protein (0.0-4.9) mg/L Total Protein (6.6-8.7) g/dL Albumin (3.5-5.2) g/dL Globulin (1.3-4.6) g/dL SARS-CoV-2 Ag (Rap id) (Negative) 04/06/20 04/06/20 Range/Units 15:35 17:15 WBC (4.0-10.0) 10^3/ uL RBC (4.1-5.3) 10^6/u L Hgb (11.7-16.6) g/dL Hct (42.0-52.0) % MCV (80-94) fL MCH (28.0-34.0) pg MCHC (30.0-36.0) g/dL RDW (12.1-15.1) % Plt Count (130-400) 10^3/c mm MPV (7.4-10.4) fL Neut % (Auto) % Lymph % (Auto) % [place] % (Auto) % Eos % (Auto) % Baso % (Auto) % Neut # (Auto) (1.8-7.7) 10^3/u L Lymph # (Auto) (0.8-4.8) 10^3/u L [place] # (Auto) (0.2-0.9) 10^3/u L Eos # (Auto) (0.0-0.8) 10^3/u L Baso # (Auto) (0.0-0.1) 10^3/u L Nucleated RBC % (a uto) % Nucleated RBCs # /100WBC D-Dimer (0-0.59) ug/mIFE U Specimen Type Sample Site ABG pH (7.35-7.45) ABG pCO2 (35-45) mmHg ABG pO2 (80.0-100.0) mmH g ABG HCO3 (22-26) mmol/L ABG Base Excess (-2.0-2.0) mmol/ L Lance Test Hematocrit (42-52) % O2 Delivery Device O2 Liters/Min % FiO2 % Scheduling Representative ID Sodium (136-145) mmol/L Potassium (3.5-5.1) mmol/L Chloride (98-107) mmol/L Carbon Dioxide (22-29) mmol/L Anion Gap (5-19) BUN (8-23) mg/dL Creatinine (0.7-1.2) mg/dL GFR Calculation Glucose (65-115) mg/dL Calculated Osmolal ity (285-295) mOsm/k g Lactic Acid (0.5-2.2) mmol/L Calcium (8.5-10.5) mg/dL Total Bilirubin (0.15-1.2) mg/dL AST (0-40) U/L ALT (0-41) U/L Alkaline Phosphata se (40-130) IU/L Troponin T Baselin e (0-15) ng/L Troponin T 120 Min wilfred 41.70 H (0-15) ng/L Delta Troponin T -0.30 L (0-10) ABS# C-Reactive Protein (0.0-4.9) mg/L Total Protein (6.6-8.7) g/dL Albumin (3.5-5.2) g/dL Globulin (1.3-4.6) g/dL SARS-CoV-2 Ag (Rap id) Negative (Negative) Discharge Plan Discharge Patient Disposition: Admitted As Inpatient Clinical Impression: Viral pneumonitis, CKD (chronic kidney disease), stage III, Congestive heart failure, Acute respiratory failure with hypoxia Condition: Stable Coding Level of Care Code ED Puzzle Assembler for Edug Fwd Exam Comprehensive
--- NOTE | 2020-04-06 15:45 | ECG_ITS ---
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 Measurements Intervals [place] Rate: 93 P: 57 NH: 202 QRS: -46 QRSD: 117 T: 55 QT: 330 QTc: 412 Interpretive Statements SINUS RHYTHM WITH FREQUENT VENTRICULAR PREMATURE COMPLEXES WITH OCCASIONAL SUPRAVENTRICULAR PREMATURE COMPLEXES LEFT ANTERIOR FASCICULAR BLOCK [QRS AXIS <= -45, QR IN I, RS IN II] SEPTAL MYOCARDIAL INFARCTION , PROBABLY OLD [40+ ms Q WAVE IN V1/V2] Compared to ECG 04/06/2020 15:14:25 Incomplete right bundle-branch block no longer present Myocardial infarct finding still present Electronically Signed On 04-06-2020 17:23:34 PRINTING AGENT by Maria G Stoddard M.D. [id number] f
[2020-04-06 15:47] LABS: D Dimer 1.84 ug/mIFEU (0-0.59)
[2020-04-06 15:49] LABS: ABG PCO2 35.9 mmHg (35-45); ABG PH Result 7.42 (7.35-7.45); Arterial Blood Gas Hematocrit 39.6 % (42-52); Base Excess ABG -1.1 mmol/L (-2.0-2.0); Blood Gas Allen Test Pos; Blood Gas Operator Identificat MONRO; Blood Gas Sample Site Radial, right; Blood Gas Sample Type Arterial; Oxygen Device NC
[2020-04-06] MEDS: FUROsemide 10 mg/mL SDV 4mL 40 MG IVP ×2 (15:54→21:00)
--- NOTE | 2020-04-06 15:59 | CTR_ITS ---
PROCEDURE INFORMATION: Exam: CT Angiography Chest With Contrast Exam date and time: 04/06/2020 4:09 PM Age: 79 years old Clinical indication: Cough and shortness of breath; Prior surgery; Surgery date: 6+ months; Surgery type: Stents - L [place]; Patient HX: HX of afib/copd/chf C/O worsening cough and SOB x 2 days; Additional info: Elevated d dimer TECHNIQUE: Imaging protocol: Computed tomographic angiography of the chest with intravenous contrast. 3D rendering (Not supervised by radiologist): MIP and/or 3D reconstructed images were created by the technologist. Total images: 894 Radiation optimization: All CT scans at this facility use at least one of these dose optimization techniques: automated exposure control; mA and/or kV adjustment per patient size (includes targeted exams where dose is matched to clinical indication); or iterative reconstruction. Contrast material: VISI 320; Contrast volume: 79 ml; Contrast route: INTRAVENOUS (IV); COMPARISON: CTA Thorac/Abd Aor [id number] 10/27/2018 8:34 AM RADIATION DOSE METRICS: Total DLP (mGy-cm): 590.46 FINDINGS: Pulmonary arteries: No visible evidence of pulmonary embolism/pulmonary arterial thrombus. Aorta: The thoracic aorta is nonaneurysmal. No visible intimal flap or dissection. Moderate arterial sclerotic disease. Lungs: COPD/chronic bronchitis/bullous emphysema. Patchy ground-glass interstitial lung disease posterior basal segment left lower lobe which could reflect active interstitial pneumonitis. No visible consolidated alveolar airspace disease. Mild tubular bronchiectasis posterior basal segment left lower lobe. Pleural space: No pneumothorax. No pleural effusion. Heart: Coronary artery disease with coronary artery stents. Left ventricular prominence. Mild cardiomegaly. No visible pericardial effusion. Lymph nodes: No visible evidence of active mediastinal or hilar lymphadenopathy. Calcified complexes of antecedent granulomatous disease. Spleen: Calcified splenic granulomas of antecedent disease. Adrenals: Adrenal glands unremarkable. Bones/joints: Old right rib fractures. No visible acute osseous abnormality. Scoliosis of the spine. Left shoulder prosthesis. Soft tissues: Unremarkable for age. Other findings: Motion artifact. Increased quantum mottle artifact. CT/CT angio chest PE protcl [id number] IMPRESSION: 1. No visible evidence of pulmonary embolism/pulmonary arterial thrombus. 2. Patchy ground-glass interstitial lung disease posterior basal segment left lower lobe which could reflect active interstitial pneumonitis. 3. COPD/chronic bronchitis/bullous emphysema. 4. Mild tubular bronchiectasis posterior basal segment left lower lobe. 5. Coronary artery disease. 6. Mild cardiomegaly with left ventricular prominence. 7. Antecedent granulomatous disease. Radiation Dose CTDIVOL = (mGy): DLP = 590.46 (mGy-cm)
[2020-04-06 16:11] LABS: Lactic Sepsis W/Reflex 1.6 mmol/L (0.5-2.2)
[2020-04-06 16:12] LABS: Alanine Aminotransferase 11 U/L (0-41); Albumin Level 4.2 g/dL (3.5-5.2); Alkaline Phosphatase 88 IU/L (40-130); Anion Gap 19.2 (5-19); Aspartate Amino Transferase 24 U/L (0-40); Blood Urea Nitrogen 32 mg/dL (8-23); C Reactive Protein 262.6 mg/L (0.0-4.9); Carbon Dioxide 23 mmol/L (22-29); Chloride 102 mmol/L (98-107); Globulin 2.2 g/dL (1.3-4.6); Glucose 106 mg/dL (65-115); Osmolality Calculated 297 mOsm/kg (285-295); Potassium 4.2 mmol/L (3.5-5.1); Sodium 140 mmol/L (136-145); Total Bilirubin 1.6 mg/dL (0.15-1.2); Total Protein 6.4 g/dL (6.6-8.7)
[2020-04-06 16:13] LABS: Troponin(5th) Baseline 42 ng/L (0-15)
[2020-04-06 16:32] LABS: SARS Covid-2 Antigen Negative (Negative)
[2020-04-06] MEDS: iodixanol 320 mg/mL 100mL Btl IV (16:42)
--- NOTE | 2020-04-06 17:27 | ECG_ITS ---
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 Measurements Intervals [place] Rate: 131 P: -65 OR: 214 QRS: -47 QRSD: 121 T: 80 QT: 335 QTc: 495 Interpretive Statements POSSIBLE ATRIAL FIBRILLATION WITH RVR RIGHT BUNDLE BRANCH BLOCK LEFT ANTERIOR FASCICULAR BLOCK [QRS AXIS <= -45, QR IN I, RS IN II] SEPTAL MYOCARDIAL INFARCTION , OF INDETERMINATE AGE [40+ ms Q WAVE IN V1/V2] Compared to ECG 04/06/2020 15:33:10 First degree AV block now present Right bundle-branch block now present Sinus rhythm no longer present Ventricular premature complex(es) no longer present Myocardial infarct finding still present Electronically Signed On 04-08-2020 20:34:33 WIND FARM DESIGNER by Maria G Stoddard M.D. [id number]
--- NOTE | 2020-04-06 17:50 | PC.NURSE ---
EKG done at 1730 and shown to ER doctor. During EKG patient accidentally urinated on himself due to his intense coughing. I changed the patient's bedding, and gown and placed a brief on him as well. He is currently resting comfortably in bed.
[2020-04-06 18:36] LABS: Add Urine Microscopic? NO
[2020-04-06 18:40] LABS: Bilirubin Urine Neg (Negative); Blood Urine Neg (Negative); Glucose Urine UA Norm (Normal); Ketones Urine Negative (Negative); Leukocyte Esterase Urine Negative (Negative); Nitrate Urine Negative (Negative); Protein Urine Neg (Negative); Specific Gravity, Urine 1.015 (1.005-1.030); Urine Appearance Clear (CLEAR); Urine Color Yellow (Yellow); Urobilinogen Urine Norm (Negative); pH Urine 5 (5-7)
--- NOTE | 2020-04-06 18:53 | P.HP_ITS ---
Providers/Chief Complaint Primary Care Provider: Vasu Ramsay MD Chief Complaint: SOB, PERSISTENT COUGHING, History of Present Illness Chinmay Guerrier is a 79 year old male Who presented to the ER today with 2 days history of progressive dyspnea. He reports having a cough. Also reports having a low-grade fever. The patient does have a medical history of CHF, CAD and COPD. He denies any chest pain. He was noted to have an elevated D-dimer. CTA negative for PE. He did have groundglass opacities. Concern for COVID-19 infection. He is currently on BiPAP. History is limited. Review of Systems General: Reports: 10 or more systems reviewed and unremarkable except in HPI and below Const: Reports: fever(s) and body aches Card: Denies: chest pain or palpitations Resp: Reports: dyspnea and productive cough GI: Denies: abdominal pain or nausea Skin/Breast: Denies: rash or pruritus Neuro: Denies: headache(s) or numbness in extremities Psych: Denies: anxiety or depression Medications/Allergies Home Medications Medication Instructions Recorded Confirmed Last Taken Type albuterol sulfate 2.5 mg INHALATION Q4H PRN 04/19/19 04/06/20 1 Day Ago History ~02/18/20 hydrocodone 7.5 mg-acetaminophen 1 tab PO TID PRN 04/19/19 04/06/20 02/25/20 History 325 mg tablet tamsulosin 0.4 mg capsule 0.4 mg PO BEDTIME@04/19/19 04/06/20 04/05/20 History nitroglycerin 0.4 mg sublingual 0.4 mg SUBLINGUAL Q5M PRN #25 each 10/28/19 04/06/20 02/25/20 Rx tablet fish,bora,flax oils-om3,6,9no1 1 cap PO DAILY@02/19/20 04/06/20 04/06/20 History [[place] 3-6-9 Complex] gabapentin 600 mg PO TID@,,02/19/20 04/06/20 04/06/20 History pantoprazole [Protonix] 40 mg PO DAILY@06 02/19/20 04/06/20 04/06/20 History isosorbide dinitrate 20 mg tablet 20 mg PO BID@,18 tab 12/11/1504/06/20 04/06/20 History aspirin 81 mg PO DAILY@04/06/20 04/06/20 04/06/20 History carvedilol 3.125 mg PO BID@04/06/20 04/06/20 04/06/20 History clopidogrel 75 mg PO DAILY@04/06/20 04/06/20 04/06/20 History evolocumab [Repatha Pushtronex] 420 mg SUBCUT Q30D 04/06/20 04/06/20 03/29/20 History prednisone 10 mg PO DAILY@04/06/20 04/06/20 04/06/20 History Allergies Allergy/AdvReac Type Severity Reaction Status Date / Time atorvastatin [From Lipitor] Allergy unknown Verified 03/05/20 09:58 ezetimibe [From Vytorin] Allergy unknown Verified 03/05/20 09:58 niacin Allergy unknown Verified 03/05/20 09:58 [From Niaspan Extended-Release] ranitidine Allergy unknown Verified 03/05/20 09:58 rosuvastatin [From Crestor] Allergy unknown Verified 03/05/20 09:58 simvastatin [From Vytorin] Allergy unknown Verified 03/05/20 09:58 PFSH Acute PFSH: Medical History (Updated 04/06/20 @ 18:56 by David Polanco MD) Abdominal aortic atherosclerosis Amputation finger Atrial myxoma CAD (coronary artery disease) COPD (chronic obstructive pulmonary disease) Coronary artery disease Current chronic use of systemic steroids High risk medication use HTN (hypertension) Hyperlipemia Immunodeficiency secondary to chemotherapy Lipoma of skin and subcutaneous tissue (excluding face) NSTEMI (non-ST elevated myocardial infarction) stenting of mid LAD, mid and distal circumflex; diagonal branch with noted diffuse disease not amenable to intervention -Echo: EF=23%, G1DD, global LV hypokinesis, traace AR, mild TR with 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) PAD (peripheral artery disease) Presence of IVC filter Rheumatoid arthritis seropositive Seropositive rheumatoid arthritis of multiple joints Systolic heart failure 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 -needs continued close follow up Surgical History H/O cataract extraction H/O shoulder surgery left H/O: vasectomy History of appendectomy S/P angioplasty with stent x 3 stents Family History Father Lung disease COPD Other Diabetes Hypertension Social History Smoking and tobacco status: current every day smoker cigarettes Alcohol intake: never Household members: spouse Marital status: Current occupational status: retired History of recent travel: No Vitals/I&O/Wt Last Vital Signs Temp 99.3 F 04/06/20 15:13 Pulse 106 H 04/06/20 18:35 Resp 24 H 04/06/20 16:44 BP 117/78 04/06/20 16:44 Pulse Ox 95 04/06/20 18:35 Weight last 48 hrs Weight 170 lb Physical Exam Const: OTHER: On BiPAP HENMT: COMMON NORMALS: normocephalic Resp: OTHER: On BiPAP, few coarse sounds Cardio: COMMON NORMALS: regular rate and regular rhythm GI: COMMON NORMALS: Soft to palpation INSPECTION: Yes normal to inspection Extremity: OTHER: Deformities and swelling noted Neuro: COMMON NORMALS: patient oriented x3 and moves all extremities Skin: COMMON NORMALS: no rashes or lesions noted Data : 04/06/20 15:18 04/06/20 15:18 Micro: Microbiology 04/06/20 16:02 Gram Stain - Final Sputum - Expectorated Sputum A&P Assessment and plan (1) Viral pneumonitis: Status: Acute (2) Congestive heart failure: Status: Acute (3) Acute respiratory failure with hypoxia: Status: Acute (4) CKD (chronic kidney disease), stage III: Status: Acute (5) CAD (coronary artery disease): Status: Acute Qualifiers: Associated angina: without angina Coronary Disease-Associated Artery/L esion type: galena artery [place] vs. transplanted heart: galena heart Qualified Code(s): I25.10 - Atherosclerotic heart disease of galena coronary artery without angina pectoris (6) Rheumatoid arthritis: Status: Acute Additional A&P Information This is an 79-year-old male with multiple medical history including RA, CHF, CAD, CKD, PAD who presents to the ER with 2-day history of shortness of breath. 1. Viral pneumonia -Admit to Covid floor, continue BiPAP Taper oxygen, IV steroids, remdesivir, breathing treatments, cover for community-acquired pneumonia 2. Acute hypoxemic respiratory failure -Likely secondary to Covid pneumonia 3. Congestive heart failure -Monitor I's and O's Home medications restarted including beta-michelle, hold isosorbide dinitrate for now 4. CAD/PAD -continue asa, statin, plavix bb 5. RA -Hold immunosuppressants from home medication list, receiving IV decadron code: Full D: Lovenox GI: PPI Attestations Medical Necessity Statement*: Chinmay Billingsley Fareed's hospital stay will require greater than 2 midnights for Covid pneumonia Coding Level of Care Code Acute Green Meat Grader for [facility] Fwd Exam Detailed Diagnoses Viral pneumonitis J12.9 Congestive heart failure I50.9 Acute respiratory failure with hypoxia J96.01 CKD (chronic kidney disease), stage III N18.30 CAD (coronary artery disease) I25.10 Associated angina: without angina Coronary Disease-Associated Artery/Lesion type: galena artery [place] vs. transplanted heart: galena heart Rheumatoid arthritis M06.9
[2020-04-06] MEDS: dexamethasone 4 mg/mL INJ 6 MG IVP (19:07)
[2020-04-06] MEDS: enoxaparin 40 mg/0.4 mL Syringe SUBCUT (19:07)
[2020-04-06] MEDS: cefTRIAXone 2,000 MG in sodium chloride 0.9% (plus) 50 ML 100 MG IV (19:07)
[2020-04-06 19:12] LABS: Influenza A by IFA Negative (Negative); Influenza B by IFA Negative (Negative)
[2020-04-06] MEDS: azithromycin 500 MG in sodium chloride 0.9% 250 ML 250 MG IV (19:46)
[2020-04-06 20:26] LABS: ABG PCO2 34.9 mmHg (35-45); ABG PH Result 7.41 (7.35-7.45); Alveolar-Arterial Oxygen Gradi 19.9 mmHg (5-10); Arterial Blood Gas Hematocrit 37.6 % (42-52); Blood Gas Allen Test Pos; Blood Gas Sample Site Radial, right; Blood Gas Sample Type Arterial; Carboxyhemoglobin 0.9 %THgb (0.4-20.1); HCO3 ABG 22.2 mmol/L (22-26); HGB O2 Sat 98.1 % (95-100); Ionized Calcium Level - ABG 1.1 mmol/L (1.1-1.4); Methemoglobin 0.9 % (0.4-1.5); Oxygen Device BIPAP; Oxygen Saturation ABG 99.9; Potassium Level - ABG 3.8 mmol/L (3.5-5.0); Total Hemoglobin 12.3 g/dL (14-18)
[2020-04-06] MEDS: albuterol 8 gm MDI 2 PUFF INHALATION (20:50)
[2020-04-06] MEDS: remdesivir 200 MG in sodium chloride 0.9% (100 ml) 100 ML 100 MG IV (21:00)
[2020-04-06] MEDS: ondansetron 2 mg/ML SDV 2 mL 4 MG IVP (21:00)
[2020-04-06] MEDS: HYDROcodone-acetaminophen 7.5-325 mg Tablet 1 TAB PO (21:19)
[2020-04-06] MEDS: tamsulosin 0.4 mg Capsule PO (21:20)
[2020-04-06 21:42] LABS: Troponin 5 6HR 45.65 ng/L (0-15); Troponin 5 6HR Delta 3.65 ng/L (0-12)
--- NOTE | 2020-04-06 22:03 | PC.NURSE ---
Called patient's , updated her on the patient's condition.
[2020-04-07] VITALS (12 sets, daily range): BP systolic 97–113; BP diastolic 51–74; PULSE 53–88; RESP 16–24; TEMP 36.2–36.7; O2SAT 90–97
[2020-04-07 05:03] LABS: Basophils % 0.1 %; Hematocrit 37.2 % (42.0-52.0); Hemoglobin 11.8 g/dL (11.7-16.6); Lymphocytes # 0.7 10^3/uL (0.8-4.8); Lymphocytes % 8.3 %; Mean Corpuscular HGB Conc 31.7 g/dL (30.0-36.0); Mean Corpuscular Hemoglobin 30.2 pg (28.0-34.0); Mean Corpuscular Volume 95.1 fL (80-94); Mean Platelet Volume 11.1 fL (7.4-10.4); Monocytes # 0.3 10^3/uL (0.2-0.9); Monocytes % 3.9 %; Neutrophils # 7.11 10^3/uL (1.8-7.7); Neutrophils % 87.3 %; Nucleated Red Blood Cells % 0 %; Platelet Count 203 10^3/cmm (130-400); Red Blood Count 3.91 10^6/uL (4.1-5.3); Red Cell Distribution Width 15.8 % (12.1-15.1); White Blood Count 8.2 10^3/uL (4.0-10.0)
[2020-04-07] MEDS: carvedilol 3.125 mg Tablet PO ×2 (05:14→16:32)
[2020-04-07] MEDS: pantoprazole DR 40 mg Tablet PO (05:14)
[2020-04-07] MEDS: clopidogrel 75 mg Tablet PO (05:14)
--- NOTE | 2020-04-07 05:17 | XRR_ITS ---
PROCEDURE INFORMATION: Exam: XR Chest, 1 View Exam date and time: 04/07/2020 6:09 AM Age: 79 years old Clinical indication: Cough and dyspnea and shortness of breath; Prior surgery; Surgery type: Stents, shoulder; Additional info: Dyspnea/cough TECHNIQUE: Imaging protocol: XR of the chest Views: 1 view. COMPARISON: CR (CHEST, ) 04/06/2020 3:38 PM FINDINGS: Lungs: No CHF/pulmonary edema. Mild left lower lung opacities appear slightly more prominent than on the prior exam. This could represent atelectasis/parenchymal scarring, or pneumonitis. Please correlate clinically. Visible lungs otherwise appear essentially clear. Pleural space: No visible pneumothorax. No definite pleural fluid. Heart/Mediastinum: Heart size is within normal limits. Bones/joints: As befores, there is a left shoulder prosthesis. XR/XR chest 1V portable [id number] IMPRESSION: 1. Mild left lower lung opacities appear slightly more prominent than on the prior exam. This could represent atelectasis/parenchymal scarring, or pneumonitis 2. Other findings discussed above.
[2020-04-07] MEDS: HYDROcodone-acetaminophen 7.5-325 mg Tablet 1 TAB PO ×3 (05:18→20:40)
[2020-04-07 05:36] LABS: Alanine Aminotransferase 11 U/L (0-41); Albumin Level 3.4 g/dL (3.5-5.2); Alkaline Phosphatase 74 IU/L (40-130); Anion Gap 22.2 (5-19); Aspartate Amino Transferase 25 U/L (0-40); Blood Urea Nitrogen 34 mg/dL (8-23); Calcium 8.5 mg/dL (8.5-10.5); Carbon Dioxide 19 mmol/L (22-29); Chloride 102 mmol/L (98-107); Globulin 2.7 g/dL (1.3-4.6); Glucose 123 mg/dL (65-115); Lactate Dehydrogenase 216 U/L (135-225); Osmolality Calculated 297 mOsm/kg (285-295); Potassium 4.2 mmol/L (3.5-5.1); Sodium 139 mmol/L (136-145); Total Bilirubin 0.5 mg/dL (0.15-1.2); Total Protein 6.1 g/dL (6.6-8.7)
--- NOTE | 2020-04-07 06:28 | NUR.SHIFT ---
Patient slept partially through the night. The patient's pain is well controlled by hydrocodone. Patient is on 4L NC. Patient has stated that he feels better now than when he first arrived.
[2020-04-07] MEDS: aspirin 81 mg Chew Tablet PO (08:05)
[2020-04-07] MEDS: albuterol 8 gm MDI 2 PUFF INHALATION ×3 (08:42→19:42)
--- NOTE | 2020-04-07 09:55 | PC.NURSE ---
patient's tray dumped in floor. appeals writer cleaned up breakfast tray and provided washcloth to patient as requested.
[2020-04-07 10:06] LABS: Procalcitonin 0.67 ng/mL (0-0.5)
--- NOTE | 2020-04-07 11:52 | PM.PN ---
Subjective Subjective: Interval history: This is a 79-year-old male with past medical history of rheumatoid arthritis, congestive heart failure, coronary artery disease, COPD who presented to the ER with complaints of fevers and 2-day history of worsening dyspnea. On arrival patient was noted hypoxemic. He was briefly placed on BiPAP. This morning he is currently on 3 L. He was noted to have an elevated D-dimer. He had a negative CTA for PE. His Covid PCR is pending. Rapid was negative Currently on 3 to 4 L feels better. Medications: Reviewed: Yes Vitals/I&O/Wt Last Vital Signs Temp 97.4 F L 04/07/20 11:25 Pulse 63 04/07/20 11:25 Resp 17 04/07/20 11:25 BP 103/51 04/07/20 11:25 Pulse Ox 93 04/07/20 11:25 04/06/20 04/07/20 04/07/20 22:59 06:59 14:59 Intake Total 290 / 290 60 / 350 480 / 480 Output Total 200 / 200 451 / 651 100 / 100 Balance 90 / 90 -391 / -301 380 / 380 Weight last 48 hrs Weight 170 lb Physical Exam Const: COMMON NORMALS: patient oriented x3 HENMT: COMMON NORMALS: normocephalic HEAD & SCALP: normocephalic Resp: OTHER: wheeze, crackles Cardio: COMMON NORMALS: regular rate and regular rhythm RATE: regular rate RHYTHM: regular rhythm GI: COMMON NORMALS: Soft to palpation INSPECTION: Yes normal to inspection PALPATION: Yes Soft to palpation Extremity: OTHER: Deformities and swelling noted Neuro: COMMON NORMALS: patient oriented x3 and moves all extremities Skin: COMMON NORMALS: no rashes or lesions noted GENERAL SKIN EXAM: no rashes or lesions noted Data : 04/07/20 04:45 04/07/20 04:45 Micro: Microbiology 04/06/20 16:02 Gram Stain - Final Sputum - Expectorated Sputum A&P Assessment and plan (1) Viral pneumonitis: Status: Acute (2) Congestive heart failure: Status: Acute (3) Acute respiratory failure with hypoxia: Status: Acute (4) CKD (chronic kidney disease), stage III: Status: Acute (5) CAD (coronary artery disease): Status: Acute Qualifiers: Coronary Disease-Associated Artery/Lesion type: [place] artery [place] vs. transplanted heart: [place] heart Associated angina: without angina Qualified Code(s): I25.10 - Atherosclerotic heart disease of [place] coronary artery without angina pectoris (6) Rheumatoid arthritis: Status: Acute Additional A&P Information This is an 79-year-old male with multiple medical history including RA, CHF, CAD, CKD, PAD who presented to the ER with 2-day history of shortness of breath. 1. acute hypoxemic respiratory failure -taper O2, IV steroids, remdesivir, breathing treatments, cover for community-acquired pneumonia -hold remdesivir, await PCR -scheduled albuterol 2. Acute hypoxemic respiratory failure -COPD, CHF, pneumonia -follwoup BNP, and Procalc 3. Congestive heart failure -Monitor I's and O's Home medications restarted including beta-michelle, hold isosorbide dinitrate for now 4. CAD/PAD -continue asa, statin, plavix bb 5. RA -Hold immunosuppressants from home medication list, receiving IV decadron code: Full D: Lovenox GI: PPI Attestations Medical Necessity Statement*: Chinmay Billingsley Fareed's hospital stay will require greater than 2 midnights for pneumonia Coding Level of Care Code Acute Huc Ob for [facility] Fwd Diagnoses Viral pneumonitis J12.9 Congestive heart failure I50.9 Acute respiratory failure with hypoxia J96.01 CKD (chronic kidney disease), stage III N18.30 CAD (coronary artery disease) I25.10 Coronary Disease-Associated Artery/Lesion type: [place] artery [place] vs. transplanted heart: [place] heart Associated angina: without angina Rheumatoid arthritis M06.9
--- NOTE | 2020-04-07 15:14 | PM.CONSULT ---
Providers/Reason For Consult Consulting Physican/Specialty*: Valerio Jensen MD/Pulmonary Critical Care Reason for Consult*: Hypoxia in pt with with h/o RA admitted for respiratory pneumonia secondary to CAP/Covid - 19 Attending Physician: David Polanco MD Primary Care Provider: Vasu Ramsay MD History of Present Illness History of Present Illness Chinmay Guerrier is a 79-year-old male with PMH of RA, CHF, CAD, COPD who presented to the ER with complaints of fevers and 2-day history of worsening dyspnea. On arrival patient was noted hypoxemic. Yesterday night he desaturated and was briefly placed on BiPAP. COVID 19 rapid antigen negative but PCR pending. Pulmonary consulted for evaluation of respiratory status. Today paitent seen at bedside. - c/o of some difficulty breathing but says its better today and is concerned if he has covid. Review of Systems General: Reports: 10 or more systems reviewed and unremarkable except in HPI and below Meds/Allergies Home Medications and Allergies Home Medications Medication Instructions Recorded Confirmed Last Taken Type albuterol sulfate 2.5 mg INHALATION Q4H PRN 04/19/19 04/06/20 1 Day Ago History ~02/18/20 hydrocodone 7.5 mg-acetaminophen 1 tab PO TID PRN 04/19/19 04/06/20 02/25/20 History 325 mg tablet tamsulosin 0.4 mg capsule 0.4 mg PO BEDTIME@04/19/19 04/06/20 04/05/20 History nitroglycerin 0.4 mg sublingual 0.4 mg SUBLINGUAL Q5M PRN #25 each 10/28/19 04/06/20 02/25/20 Rx tablet fish,bora,flax oils-om3,6,9no1 1 cap PO DAILY@02/19/20 04/06/20 04/06/20 History [[place] 3-6-9 Complex] gabapentin 600 mg PO TID@,,02/19/20 04/06/20 04/06/20 History pantoprazole [Protonix] 40 mg PO DAILY@06 02/19/20 04/06/20 04/06/20 History isosorbide dinitrate 20 mg tablet 20 mg PO BID@,18 tab 03/05/20 04/06/20 04/06/20 History aspirin 81 mg PO DAILY@08 04/06/20 04/06/20 04/06/20 History carvedilol 3.125 mg PO BID@06,18 04/06/20 04/06/20 04/06/20 History clopidogrel 75 mg PO DAILY@04/06/20 04/06/20 04/06/20 History evolocumab [Repatha Pushtronex] 420 mg SUBCUT Q30D 04/06/20 04/06/20 03/29/20 History prednisone 10 mg PO DAILY@04/06/20 04/06/20 04/06/20 History Allergies Allergy/AdvReac Type Severity Reaction Status Date / Time atorvastatin [From Lipitor] Allergy unknown Verified 03/05/20 09:58 ezetimibe [From Vytorin] Allergy unknown Verified 03/05/20 09:58 niacin Allergy unknown Verified 03/05/20 09:58 [From Niaspan Extended-Release] ranitidine Allergy unknown Verified 03/05/20 09:58 rosuvastatin [From Crestor] Allergy unknown Verified 03/05/20 09:58 simvastatin [From Vytorin] Allergy unknown Verified 03/05/20 09:58 Current Medications Current Medications Generic Name Dose Route Start Last Admin Trade Name Freq PRN Reason Stop Dose Admin Hydrocodone Bitart/Acetaminophen 1 tab 04/06/20 20:43 04/07/20 15:12 Hydrocodone-Acetaminophen 7.5-325 Mg Tablet PO 1 tab TID PRN Administration Pain Aspirin 81 mg 04/07/20 08:00 04/07/20 08:05 Aspirin 81 Mg Chew Tablet PO 81 mg DAILY@08 CATA Administration Carvedilol 3.125 mg 04/07/20 06:00 04/07/20 05:14 Carvedilol 3.125 Mg Tablet PO 3.125 mg BID@, CATA Administration Clopidogrel Bisulfate 75 mg 04/07/20 06:00 04/07/20 05:14 Clopidogrel 75 Mg Tablet PO 75 mg DAILY@06 CATA Administration Enoxaparin Sodium 40 mg 04/06/20 18:15 04/06/20 19:07 Enoxaparin 40 Mg/0.4 Ml Syringe SUBCUT 40 mg ONCE CATA Administration Ceftriaxone Sodium 2,000 mg/ 50 mls @ 100 mls/hr 04/06/20 18:15 04/06/20 19:45 Sodium Chloride IV Infused Q24H CATA Infusion Protocol Azithromycin 500 mg/ Sodium 250 mls @ 250 mls/hr 04/06/20 19:00 04/06/20 19:46 Chloride IV 250 mls/hr Q24H CATA Administration Protocol Methylprednisolone Sodium Succinate 40 mg 04/07/20 11:00 04/07/20 13:38 Methylprednisolone Sod Succ 40 Mg/Ml Inj IVP 40 mg Q8H CATA Administration Pantoprazole Sodium 40 mg 04/07/20 06:00 04/07/20 05:[address] 40 Mg Tablet PO 40 mg DAILY@06 CATA Administration Tamsulosin HCl 0.4 mg 04/06/20 21:00 04/06/20 21:20 Tamsulosin 0.4 Mg Capsule PO 0.4 mg BEDTIME@ CATA Administration PFSH Acute PFSH: Medical History Abdominal aortic atherosclerosis Amputation finger Atrial myxoma CAD (coronary artery disease) COPD (chronic obstructive pulmonary disease) Coronary artery disease Current chronic use of systemic steroids High risk medication use HTN (hypertension) Hyperlipemia Immunodeficiency secondary to chemotherapy Lipoma of skin and subcutaneous tissue (excluding face) NSTEMI (non-ST elevated myocardial infarction) stenting of mid LAD, mid and distal circumflex; diagonal branch with noted diffuse disease not amenable to intervention -Echo: EF=23%, G1DD, global LV hypokinesis, traace AR, mild TR with 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) PAD (peripheral artery disease) Presence of IVC filter Rheumatoid arthritis seropositive Seropositive rheumatoid arthritis of multiple joints Systolic heart failure 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 -needs continued close follow up Surgical History H/O cataract extraction H/O shoulder surgery left H/O: vasectomy History of appendectomy S/P angioplasty with stent x 3 stents Family History Father Lung disease COPD Other Diabetes Hypertension Social History Smoking and tobacco status: current every day smoker cigarettes Alcohol intake: never Household members: spouse Marital status: Current occupational status: retired History of recent travel: No Vitals/I&O/Wt Last Vital Signs Temp 97.4 F L 04/07/20 11:25 Pulse 63 04/07/20 11:25 Resp 17 04/07/20 11:25 BP 103/51 04/07/20 11:25 Pulse Ox 93 04/07/20 11:25 04/07/20 04/07/20 04/07/20 06:59 14:59 22:59 Intake Total 60 / 350 840 / 840 Output Total 451 / 651 100 / 100 Balance -391 / -301 740 / 740 Weight last 48 hrs Weight 170 lb Physical Exam Narrative: EXAM NARRATIVE: General: alert, NAD HEENT: conj clear, EOMI, PERRL, mmm, Neck: supple, no meningismus Heme: no cervical LAP Pulmonary: diffuse rhonchi and coarse crackles in bilateral bases L > R Cardiovascular: rrr, nl s1s2, no mrg Abdomen: soft, nt, nd, no r/g, bs+ Extremities: pulses +, no edema, no c/c : no CVA tenderness Skin: intact, no rash MSK: no back or neck pain Neurologic: grossly intact Data Micro: Micro: Microbiology 04/06/20 16:02 Gram Stain - Final Sputum - Expector ated Sputum A&P Assessment and plan (1) Acute respiratory failure with hypoxia: Status: Acute (2) CAP (community acquired pneumonia): Status: Acute Qualifiers: Laterality: left Lung location: lower lobe of lung Qualified Code(s): J18.9 - Pneumonia, unspecified organism (3) COPD exacerbation: Status: Acute (4) Rheumatoid arthritis: Status: Acute Qualifiers: Rheumatoid arthritis location: unspecified site Rheumatoid factor presence: with rheumatoid factor Qualified Code(s): M05.9 - Rheumatoid arthritis with rheumatoid factor, unspecified (5) Viral pneumonitis: Status: Acute (6) CKD (chronic kidney disease), stage III: Status: Acute Qualifiers: Chronic kidney disease stage 3 subtype: unspecified whether 3a or 3b Qualified Code(s): N18.30 - Chronic kidney disease, stage 3 unspecified (7) CAD (coronary artery disease): Status: Acute Qualifiers: Coronary Disease-Associated Artery/Lesion type: [place] artery [place] vs. transplanted heart: [place] heart Associated angina: without angina Qualified Code(s): I25.10 - Atherosclerotic heart disease of [place] coronary artery without angina pectoris (8) Congestive heart failure: Status: Acute Qualifiers: Heart failure type: systolic Heart failure chronicity: acute on chronic Qualified Code(s): I50.23 - Acute on chronic systolic (congestive) heart failure (9) New onset atrial fibrillation: Status: Acute (10) Smoker: Status: Acute #Acute hypoxic respiratory failure secondary to CAP and COPD exacerbation #Ruling out [id number] test negative; PCR pending #Also has underlying rheumatoid arthritis and #Acute on chronic systolic failure component # Atrial fibrillation in patient with history of CAD #Also has underlying CKD #Chronic smoker-started at age 7 and still smoking - assured that COVID-19 rapid is negative and PCR is pending. Continue isolation precautions until PCR results. - ABG today am on BiPAP 50% fiO2: 7.41/34/161/22/99% - Saturating well on 3 L. not in acute respiratory distress. - elevated D-Dimer but CT ruled out PE but revealed increased b/l infiltrates L > R. - afebrile, improving Leucocytosis, procalcitonin 0.67 and cultures negative so far - Covered with Rocephin, Zithromycin for Possibel CAP - Albuterol 2 puffs q 6 hr scheduled, IV methylprednisone 40 mg q 8 for COPD exacerbation -Patient was receiving prednisone for RA: But now on IV methylprednisolone taper to home dose prednisone based on clinical response -On [place] as needed for arthritic pain -Echo 02/19/2020: LVEF 23%. Global severe hypokinesis with regional and septal wall akinesis. -On Aspirin, Plavix, Carvedilol and Lovenox 40 mg daily for CAD, CHF & A. fib -Counseled to quit smoking Recommendations conveyed to hospitalist and RN taking care of the patient Consult Attestations Medical Necessity Statement: Acute hypoxic respiratory failure secondary to CAP/CHF/COPD requiring 3 L nasal cannula Time Spent in Patient Care: Greater than 35 minutes (>than 50% of time spent in counselling and/or direct pt care on unit). Critical Care Time: Critical Care Time (min): 45 Coding Level of Care Code Acute [employer] Coach for [facility] Ar[facility]elles Diagnoses Acute respiratory failure with hypoxia J96.01 CAP (community acquired pneumonia) J18.9 Laterality: left Lung location: lower lobe of lung COPD exacerbation J44.1 Rheumatoid arthritis M05.9 Rheumatoid arthritis location: unspecified site Rheumatoid factor presence: with rheumatoid factor Viral pneumonitis J12.9 CKD (chronic kidney disease), stage III N18.30 Chronic kidney disease stage 3 subtype: unspecified whether 3a or 3b CAD (coronary artery disease) I25.10 Coronary Disease-Associated Artery/Lesion type: [place] artery [place] vs. transplanted heart: [place] heart Associated angina: without angina Congestive heart failure I50.23 Heart failure type: systolic Heart failure chronicity: acute on chronic New onset atrial fibrillation I48.91 Smoker F17.200
--- NOTE | 2020-04-07 16:06 | PC.NURSE ---
Telemetry not available at this time. Notified charge nurse. She is checking in patient's rooms that have been discharged.
--- NOTE | 2020-04-07 16:20 | PC.NURSE ---
Telemetry box placed on patient
[2020-04-07] MEDS: cefTRIAXone 2,000 MG in sodium chloride 0.9% (plus) 50 ML 100 MG IV (16:32)
[2020-04-07] MEDS: ondansetron 2 mg/ML SDV 2 mL 4 MG IVP (16:57)
[2020-04-07] MEDS: azithromycin 500 MG in sodium chloride 0.9% 250 ML 250 MG IV (17:00)
--- NOTE | 2020-04-07 17:39 | PC.NURSE ---
Called patient's [phone] and gave her update.
--- NOTE | 2020-04-07 17:56 | PC.NURSE ---
patient's daughter called. greeting card writer updated patient's daughter
[2020-04-07] MEDS: tamsulosin 0.4 mg Capsule PO (20:40)
[2020-04-08] VITALS (15 sets, daily range): BP systolic 108–125; BP diastolic 61–73; PULSE 59–80; RESP 16–20; TEMP 35.8–36.8; O2SAT 94–98
[2020-04-08] MEDS: albuterol 8 gm MDI 2 PUFF INHALATION ×4 (02:50→20:22)
[2020-04-08 05:08] LABS: Basophils % 0.2 %; Hematocrit 36.5 % (42.0-52.0); Hemoglobin 11.7 g/dL (11.7-16.6); Lymphocytes # 0.7 10^3/uL (0.8-4.8); Lymphocytes % 8.1 %; Mean Corpuscular HGB Conc 32.1 g/dL (30.0-36.0); Mean Corpuscular Hemoglobin 29.5 pg (28.0-34.0); Mean Corpuscular Volume 92.2 fL (80-94); Mean Platelet Volume 11.3 fL (7.4-10.4); Monocytes # 0.4 10^3/uL (0.2-0.9); Monocytes % 4.2 %; Neutrophils # 7.38 10^3/uL (1.8-7.7); Neutrophils % 87.1 %; Nucleated Red Blood Cells % 0 %; Platelet Count 236 10^3/cmm (130-400); Red Blood Count 3.96 10^6/uL (4.1-5.3); Red Cell Distribution Width 15.3 % (12.1-15.1); White Blood Count 8.5 10^3/uL (4.0-10.0)
[2020-04-08 05:53] LABS: Alanine Aminotransferase 14 U/L (0-41); Albumin Level 3.5 g/dL (3.5-5.2); Alkaline Phosphatase 68 IU/L (40-130); Anion Gap 16.9 (5-19); Aspartate Amino Transferase 21 U/L (0-40); Blood Urea Nitrogen 41 mg/dL (8-23); Calcium 8.3 mg/dL (8.5-10.5); Carbon Dioxide 25 mmol/L (22-29); Chloride 101 mmol/L (98-107); Creatinine Clr Calc Pharmacy 52.5222; Globulin 2.5 g/dL (1.3-4.6); Glucose 167 mg/dL (65-115); NT Pro B Type Natriuretic Pept 2868 pg/mL (0-450); Osmolality Calculated 302 mOsm/kg (285-295); Potassium 3.9 mmol/L (3.5-5.1); Sodium 139 mmol/L (136-145); Total Bilirubin 0.3 mg/dL (0.15-1.2)
[2020-04-08] MEDS: carvedilol 3.125 mg Tablet PO ×2 (05:59→16:40)
[2020-04-08] MEDS: pantoprazole DR 40 mg Tablet PO (05:59)
[2020-04-08] MEDS: clopidogrel 75 mg Tablet PO (05:59)
[2020-04-08] MEDS: aspirin 81 mg Chew Tablet PO (08:36)
[2020-04-08] MEDS: ondansetron 2 mg/ML SDV 2 mL 4 MG IVP (08:36)
--- NOTE | 2020-04-08 08:38 | PC.NURSE ---
Patient ate breakfast and then had nausea. Zofran given for nausea.
--- NOTE | 2020-04-08 13:44 | PC.RESP ---
Smoking Cessation information sent to patient.
--- NOTE | 2020-04-08 15:32 | PC.NURSE ---
at [address] Beasley that patient had chest pain that radiated down right arm and lasted about 2 mins.
--- NOTE | 2020-04-08 15:58 | P.PN_ITS ---
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 Laboratory workup on arrival showed a WBC of 13.4, hemoglobin 12.9, hematocrit of 40.8 and a platelet count of 225. sodium 140, potassium 4.2, chloride 102, bicarb 23, BUN 32 and creatinine of 1.3. Troponin 42 -> 41.70 -> 45.65. CRP of 262 and d-dimer of 1.84. imaging studies included a chest x-ray which did not show any evidence of acute cardiopulmonary abnormality. Due to elevated D-dimer as chest CTA was performed which showed patchy ground-glass interstitial lung disease, bolus emphysema, tubular bronchiectasis posterior basal segment of left lower lobe, antecedent granulomatous disease with out any evidence of acute pulmonary embolism. Repeat chest x-ray on 04/07 showed mild left lower lung opacities appear slightly more prominent. In ER patient was given Remdesivir 200 mg IV x 1 however this was discontinued after initial dose, Decadron 6 mg daily was ordered however this was changed to solu-medrol 40 mg IV q8hr. Started on Ceftriaxone 2g daily, Azithromycin 500 mg IV daily. 04/08 Patient was doing well early in am during my visit however later did complain of chest pain with radiation to right upper extremity. This lasted for a brief period and resolved. Respiratory status remained stable, continued to require supplemental o2. Medications: Reviewed: Yes Vitals/I&O/Wt Last Vital Signs Temp 97.2 F L 04/08/20 15:03 Pulse 63 04/08/20 15:03 Resp 16 04/08/20 15:03 BP 115/62 04/08/20 15:03 Pulse Ox 94 04/08/20 15:03 04/08/20 04/08/20 04/08/20 06:59 14:59 22:59 Intake Total 480 / 480 Output Total 200 / 500 100 / 100 Balance -200 / 460 380 / 380 Physical Exam Narrative: EXAM NARRATIVE: General : alert, awake, NAD HEENT: Grossly unremarable CHEST : mild labored respiration CVS: NSR ABD : SOFT, ND, ND EXT: No edema Data : 04/08/20 04:47 04/08/20 04:47 Micro: Microbiology 04/06/20 16:02 Gram Stain - Final Sputum - Expectorated Sputum Sputum Culture - Preliminary A&P Assessment and plan (1) COPD exacerbation: Status: Acute (2) Acute worsening of stage 3 chronic kidney disease: Status: Acute (3) Rheumatoid arthritis: Status: Acute Qualifiers: Rheumatoid arthritis location: unspecified site Rheumatoid factor presence: with rheumatoid factor Qualified Code(s): M05.9 - Rheumatoid arthritis with rheumatoid factor, unspecified (4) CAP (community acquired pneumonia): Status: Acute Qualifiers: Laterality: left Lung location: lower lobe of lung Qualified Code(s): J18.9 - Pneumonia, unspecified organism (5) Acute respiratory failure with hypoxia: Status: Acute Acute on chronic respiratory failure due to COPD exacerbation with possible pneumonia - CTA chest - Negative PE, Ground glass patchy interstitial infiltrates - Continue Supplemental oxygen - Wean as tolerated - Bronchodilatory therapy as ordered by pulmonary - Solumedrol 40 mg IV q8hr - wean to oral prednisone taper based on clinical c ourse. On chronic 10 mg PO daily - Empirically started on Ceftriaxone/Azithromycin - Pro-calcitonin 0.67 - Follow up on Sputum culture - Droplet precautions - until COVID-19 PCR reported - S/p Remdesivir 200mg IV x 1 on admission - Repeat chest x-ray / abg in am - Check ferritin, d-dimer, crp,procalcitonin in am Coronary artery disease s/p PCI/MARY to LAD/LCX / Hypertension / Dyslipidemia - Continue aspirin 81 mg PO daily, plavix 75 mg PO daily - Coreg 3.125 mg PO BID - Statin intolerance as noted in allergy list - Last cardiology noted - > started on eliquis however per patient this was discontinued - unclear as to why. no hx of bleeding Chronic systolic heart failure with EF of 23% - Monitor daily weight - Cautious fluid hydration - Recent ECHO noted - May require dieresis Acute on chronic stage 3 kidney disease - Creatinine slightly increased 1.4 - BMP in am - Renal dosing of meds - Monitor u/o Hx of DVT - S/p IVC filter - Not on OAC Benign prostatic hyperplasia - Flomax 0.4 mg PO daily GI ppx - Protonix 40 mg PO daily DVT ppx - Lovenox 40 mg SQ daily Attestations Medical Necessity Statement*: Will require further hospitalization for management of respiratory failure requiring supplemental oxygen. Time Spent in Patient Care: Greater than 35 minutes (>than 50% of time spent in counselling and/or direct pt care on unit) . Coding Level of Care Code Acute Vision Impaired Teacher for [facility] Fwd Diagnoses COPD exacerbation J44.1 Acute worsening of stage 3 chronic kidney disease N18.30 Rheumatoid arthritis M05.9 Rheumatoid arthritis location: unspecified site Rheumatoid factor presence: with rheumatoid factor CAP (community acquired pneumonia) J18.9 Laterality: left Lung location: lower lobe of lung Acute respiratory failure with hypoxia J96.01
[2020-04-08 15:59] LABS: Coronavirus Test Green County Not Detected
--- NOTE | 2020-04-08 15:59 | ECG_ITS ---
[facility] Test Date: 2020-04-08 Pat Name: Chinmay Guerrier Department: Room: 257 Gender: Male [place] Digger: : 1940 Requested By: Nano Beasley Order Number: [id number] Judie MD: Maria G Stoddard M.D. Measurements Intervals [place] Rate: 75 P: 71 NH: 181 QRS: -48 QRSD: 134 T: 18 QT: 446 QTc: 498 Interpretive Statements SINUS RHYTHM WITH FREQUENT VENTRICULAR PREMATURE COMPLEXES INTRAVENTRICULAR CONDUCTION DELAY [130+ ms QRS DURATION] SEPTAL MYOCARDIAL INFARCTION [40+ ms Q WAVE IN V1/V2], PROBABLY OLD POSSIBLE LATERAL MYOCARDIAL INFARCTION [30 ms Q WAVE IN I/aVL/V5/V6], OF INDETERMINATE AGE Compared to ECG 04/06/2020 17:31:59 Ventricular premature complex(es) now present Intraventricular conduction delay now present First degree AV block no longer present Right bundle-branch block no longer present Left anterior fascicular block no longer present Myocardial infarct finding still present Electronically Signed On 04-08-2020 17:29:10 [employer]EST [employer] OFFICER by Maria G Stoddard M.D. [email or web address]
--- NOTE | 2020-04-08 16:26 | PC.NURSE ---
notified patient's that patient is covid negative.
[2020-04-08] MEDS: cefTRIAXone 2,000 MG in sodium chloride 0.9% (plus) 50 ML 100 MG IV (16:40)
[2020-04-08] MEDS: azithromycin 500 MG in sodium chloride 0.9% 250 ML 250 MG IV (18:15)
[2020-04-08] MEDS: HYDROcodone-acetaminophen 7.5-325 mg Tablet 1 TAB PO (19:37)
[2020-04-08] MEDS: tamsulosin 0.4 mg Capsule PO (20:00)
--- NOTE | 2020-04-08 20:32 | PM.PN ---
Subjective Subjective: Interval history: No acute overnight events Patient down to 2 L nasal cannula He reported significant improvement in his breathing since admission Still coughing out lots of clear sputum-says lately states not relation anymore COVID-19 PCR negative discontinue isolation Continue to taper steroids based on clinical response and continue antibiotics for community-acquired pneumonia BNP 2800-last echo revealing reduction in ejection fraction to 25%-recommended Lasix 40 mg daily Medications: Reviewed: Yes Vitals/I&O/Wt Last Vital Signs Temp 97.7 F 04/08/20 20:00 Pulse 80 04/08/20 20:27 Resp 18 04/08/20 20:23 BP 108/68 04/08/20 20:00 Pulse Ox 97 04/08/20 20:23 04/08/20 04/08/20 04/08/20 06:59 14:59 22:59 Intake Total 480 / 480 240 / 720 Output Total 200 / 500 100 / 100 125 / 225 Balance -200 / 760 380 / 380 115 / 495 Physical Exam Narrative: EXAM NARRATIVE: General: alert, NAD HEENT: conj clear, EOMI, PERRL, mmm, Neck: supple, no meningismus Heme: no cervical LAP Pulmonary: diffuse rhonchi and coarse crackles in bilateral bases L > R Cardiovascular: rrr, nl s1s2, no mrg Abdomen: soft, nt, nd, no r/g, bs+ Extremities: pulses +, no edema, no c/c : no CVA tenderness Skin: intact, no rash MSK: no back or neck pain Neurologic: grossly intact Data : 04/08/20 04:47 04/08/20 04:47 Micro: Microbiology 04/06/20 16:02 Gram Stain - Final Sputum - Expectorated Sputum Sputum Culture - Preliminary A&P Assessment and plan (1) Acute respiratory failure with hypoxia: Status: Acute (2) CAP (community acquired pneumonia): Status: Acute Qualifiers: Laterality: left Lung location: lower lobe of lung Qualified Code(s): J18.9 - Pneumonia, unspecified organism (3) COPD exacerbation: Status: Acute (4) Rheumatoid arthritis: Status: Acute Qualifiers: Rheumatoid arthritis location: unspecified site Rheumatoid factor presence: with rheumatoid factor Qualified Code(s): M05.9 - Rheumatoid arthritis with rheumatoid factor, unspecified (5) Viral pneumonitis: Status: Acute (6) CKD (chronic kidney disease), stage III: Status: Acute Qualifiers: Chronic kidney disease stage 3 subtype: unspecified whether 3a or 3b Qualified Code(s): N18.30 - Chronic kidney disease, stage 3 unspecified (7) CAD (coronary artery disease): Status: Acute Qualifiers: Coronary Disease-Associated Artery/Lesion type: [place] artery [place] vs. transplanted heart: [place] heart Associated angina: without angina Qualified Code(s): I25.10 - Atherosclerotic heart disease of [place] coronary artery without angina pectoris (8) Congestive heart failure: Status: Acute Qualifiers: Heart failure chronicity: acute on chronic Heart failure type: systolic Qualified Code(s): I50.23 - Acute on chronic systolic (congestive) heart failure (9) New onset atrial fibrillation: Status: Acute (10) Smoker: Status: Acute #Acute hypoxic respiratory failure secondary to CAP and COPD exacerbation #Ruled out COVID-19 #Also has underlying rheumatoid arthritis #Acute on chronic systolic failure component # Atrial fibrillation in patient with history of CAD #Also has underlying CKD #Chronic smoker-started at age 7 and still smoking - Patient down to 2 L nasal cannula (not on home oxygen) - He reported significant improvement in his breathing since admission - till coughing out lots of clear sputum-says lately states not relation anymore - afebrile, improving Leucocytosis, procalcitonin 0.67 and cultures negative so far - Covered with Rocephin, Zithromycin for Possible CAP - COVID-19 PCR negative discontinue isolation - elevated D-Dimer but CT ruled out PE but revealed increased b/l infiltrates L > R. - Albuterol 2 puffs q 6 hr scheduled, IV methylprednisone 40 mg q 8 for COPD exacerbation; - Continue to taper steroids based on clinical response and continue antibiotics for community-acquired pneumonia - Patient was receiving prednisone for RA: But now on IV methylprednisolone taper to home dose prednisone based on clinical response -On [place] as needed for arthritic pain -Echo 02/19/2020: LVEF 23%. Global severe hypokinesis with regional and septal wall akinesis. - BNP 2800; -recommended Lasix 40 mg daily -On Aspirin, Plavix, Carvedilol and Lovenox 40 mg daily for CAD, CHF & A. fib -Counseled to quit smoking - when ready for discharge please prescribe Symbicort 2 puffs twice daily and Spiriva 2 puffs daily and albuterol as needed for COPD and give pulmonary clinic appointment within 2 weeks of discharge Recommendations conveyed to hospitalist and RN taking care of the patient Attestations Medical Necessity Statement*: #Acute hypoxic respiratory failure secondary to CAP and COPD and CHF exacerbation and requiring 2 L nasal cannula Time Spent in Patient Care: Greater than 35 minutes (>than 50% of time spent in counselling and/or direct pt care on unit). 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 transplanted heart: [place] heart Associated angina: without angina Congestive heart failure I50.23 Heart failure chronicity: acute on chronic Heart failure type: systolic New onset atrial fibrillation I48.91 Smoker F17.200
[2020-04-08] MEDS: FUROsemide 10 mg/mL SDV 2mL 20 MG IVP (22:06)
[2020-04-09] VITALS (17 sets, daily range): BP systolic 109–136; BP diastolic 64–81; PULSE 63–80; RESP 17–24; TEMP 36.3–37.7; O2SAT 92–98
[2020-04-09] MEDS: albuterol 8 gm MDI 2 PUFF INHALATION ×4 (02:49→20:55)
[2020-04-09] MEDS: carvedilol 3.125 mg Tablet PO ×2 (05:08→16:51)
[2020-04-09] MEDS: clopidogrel 75 mg Tablet PO (05:08)
[2020-04-09] MEDS: pantoprazole DR 40 mg Tablet PO (05:08)
[2020-04-09 05:58] LABS: Basophils % 0.1 %; Hematocrit 36.6 % (42.0-52.0); Hemoglobin 11.5 g/dL (11.7-16.6); Lymphocytes # 0.8 10^3/uL (0.8-4.8); Lymphocytes % 7.8 %; Mean Corpuscular HGB Conc 31.4 g/dL (30.0-36.0); Mean Corpuscular Hemoglobin 29.5 pg (28.0-34.0); Mean Corpuscular Volume 93.8 fL (80-94); Mean Platelet Volume 11.5 fL (7.4-10.4); Monocytes # 0.6 10^3/uL (0.2-0.9); Monocytes % 5.8 %; Neutrophils # 9.16 10^3/uL (1.8-7.7); Neutrophils % 85.8 %; Nucleated Red Blood Cells % 0 %; Platelet Count 252 10^3/cmm (130-400); Red Cell Distribution Width 15.2 % (12.1-15.1); White Blood Count 10.7 10^3/uL (4.0-10.0)
[2020-04-09 06:25] LABS: Alanine Aminotransferase 17 U/L (0-41); Albumin Level 3.4 g/dL (3.5-5.2); Alkaline Phosphatase 64 IU/L (40-130); Anion Gap 12.8 (5-19); Aspartate Amino Transferase 25 U/L (0-40); Blood Urea Nitrogen 36 mg/dL (8-23); Calcium 8.5 mg/dL (8.5-10.5); Carbon Dioxide 28 mmol/L (22-29); Chloride 103 mmol/L (98-107); Creatinine Clr Calc Pharmacy 52.5222; Globulin 2.5 g/dL (1.3-4.6); Glucose 125 mg/dL (65-115); Osmolality Calculated 300 mOsm/kg (285-295); Potassium 3.8 mmol/L (3.5-5.1); Sodium 140 mmol/L (136-145); Total Bilirubin 0.3 mg/dL (0.15-1.2); Total Protein 5.9 g/dL (6.6-8.7)
[2020-04-09] MEDS: aspirin 81 mg Chew Tablet PO (07:38)
--- NOTE | 2020-04-09 07:45 | PC.NURSE ---
patient has oxygen off and O2 sat is 94%
--- NOTE | 2020-04-09 09:16 | PC.NURSE ---
patient now on 2l NC
--- NOTE | 2020-04-09 11:32 | PC.NURSE ---
notified Dr Beasley that patient has Haemophilus Influenzae in his sputum.
--- NOTE | 2020-04-09 13:24 | PM.PN ---
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 Laboratory workup on arrival showed a WBC of 13.4, hemoglobin 12.9, hematocrit of 40.8 and a platelet count of 225. sodium 140, potassium 4.2, chloride 102, bicarb 23, BUN 32 and creatinine of 1.3. Troponin 42 -> 41.70 -> 45.65. CRP of 262 and d-dimer of 1.84. imaging studies included a chest x-ray which did not show any evidence of acute cardiopulmonary abnormality. Due to elevated D-dimer as chest CTA was performed which showed patchy ground-glass interstitial lung disease, bolus emphysema, tubular bronchiectasis posterior basal segment of left lower lobe, antecedent granulomatous disease with out any evidence of acute pulmonary embolism. Repeat chest x-ray on 04/07 showed mild left lower lung opacities appear slightly more prominent. In ER patient was given Remdesivir 200 mg IV x 1 however this was discontinued after initial dose, Decadron 6 mg daily was ordered however this was changed to solu-medrol 40 mg IV q8hr. Started on Ceftriaxone 2g daily, Azithromycin 500 mg IV daily. 04/08 Patient was doing well early in am during my visit however later did complain of chest pain with radiation to right upper extremity. This lasted for a brief period and resolved. Respiratory status remained stable, continued to require supplemental o2. 04/09 Patients oxygen was weaned to 2L, was wanting to leave. Unhappy with room was not clear as to why. Low grade fevers. Did receive lasix 20mg IV x 1 in Evening. No recurrence of chest pain. Medications: Reviewed: Yes Vitals/I&O/Wt Last Vital Signs Temp 99.8 F H 04/09/20 12:00 Pulse 73 04/09/20 13:14 Resp 18 04/09/20 12:00 BP 131/72 04/09/20 12:00 Pulse Ox 98 04/09/20 12:00 04/08/20 04/09/20 04/09/20 22:59 06:59 14:59 Intake Total 360 / 840 840 / 840 Output Total 125 / 225 450 / 675 Balance 235 / 615 -450 / 165 840 / 840 Physical Exam Narrative: EXAM NARRATIVE: General : alert, awake, NAD on 2L via NC HEENT: Grossly unremarkable CHEST : mild labored respiration CVS: NSR ABD : SOFT, ND, ND EXT: No edema Data : 04/09/20 05:10 04/09/20 05:10 Micro: Microbiology 04/06/20 16:02 Gram Stain - Final Sputum - Expectorated Sputum Sputum Culture - Final Haemophilus Influenzae A&P Assessment and plan (1) COPD exacerbation: Status: Acute (2) Acute worsening of stage 3 chronic kidney disease: Status: Acute (3) Rheumatoid arthritis: Status: Acute Qualifiers: Rheumatoid arthritis location: unspecified site Rheumatoid factor presence: with rheumatoid factor Qualified Code(s): M05.9 - Rheumatoid arthritis with rheumatoid factor, unspecified (4) CAP (community acquired pneumonia): Status: Acute Qualifiers: Laterality: left Lung location: lower lobe of lung Qualified Code(s): J18.9 - Pneumonia, unspecified organism (5) Acute respiratory failure with hypoxia: Status: Acute Acute on chronic respiratory failure due to COPD exacerbation, H.Flu Pneumonia, HF exacerbation - CTA chest - Negative PE, Ground glass patchy interstitial infiltrates - Continue Supplemental oxygen - Wean as tolerated - Bronchodilators therapy as ordered by pulmonary - Solumedrol 40 mg IV q8hr - wean to oral prednisone taper based on clinical course. On chronic 10 mg PO daily - Empirically started on Ceftriaxone/Azithromycin - Pro-calcitonin 0.67 - Sputum culture - H.Flu - COVID-19 PCR negative - Will plan to discharge on Augmentin - Currently requiring 2L of o2 via NC- Wean to RA in next few days - Home o2 eval at time of discharge. Coronary artery disease s/p PCI/MARY to LAD/LCX / Hypertension / Dyslipidemia - Continue aspirin 81 mg PO daily, plavix 75 mg PO daily - Coreg 3.125 mg PO BID - Statin intolerance as noted in allergy list - Last cardiology noted - > started on eliquis however per patient this was discontinued - Patient noted hx of GI bleed on Coumadin Chronic systolic heart failure with EF of 23% - Monitor daily weight - Cautious fluid hydration - Recent ECHO noted - Lasix 20 mg IV x 1 - Will continue lasix 40 mg PO daily Acute on chronic stage 3 kidney disease - Creatinine 1.4 -> 1.1 today - BMP in am - Renal dosing of meds - Monitor u/o Hx of DVT - S/p IVC filter - Not on OAC due to hx of GI bleed Benign prostatic hyperplasia - Flomax 0.4 mg PO daily GI ppx - Protonix 40 mg PO daily DVT ppx - Lovenox 40 mg SQ daily Attestations Medical Necessity Statement*: Will Require additional days in hospital for management of respiratory failure Time Spent in Patient Care: Greater than 35 minutes (>than 50% of time spent in counselling and/or direct pt care on unit). 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
[2020-04-09] MEDS: FUROsemide 40 mg Tablet PO (14:20)
--- NOTE | 2020-04-09 15:24 | PC.NURSE ---
patient's daughter called for update on patient.
[2020-04-09] MEDS: ondansetron 2 mg/ML SDV 2 mL 4 MG IVP (16:51)
[2020-04-09] MEDS: cefTRIAXone 2,000 MG in sodium chloride 0.9% (plus) 50 ML 100 MG IV (16:51)
--- NOTE | 2020-04-09 17:10 | PC.SOCIAL ---
*IMM* Patient received his Important Message from Medicare. Placed in chart.
[2020-04-09] MEDS: azithromycin 500 MG in sodium chloride 0.9% 250 ML 250 MG IV (18:49)
[2020-04-09] MEDS: tamsulosin 0.4 mg Capsule PO (20:15)
[2020-04-09] MEDS: HYDROcodone-acetaminophen 7.5-325 mg Tablet 1 TAB PO (21:11)
[2020-04-10] VITALS (11 sets, daily range): BP systolic 130–150; BP diastolic 68–89; PULSE 60–76; RESP 17–21; TEMP 36.4–37; O2SAT 85–99
[2020-04-10] MEDS: albuterol 8 gm MDI 2 PUFF INHALATION ×2 (02:34→08:04)
[2020-04-10] MEDS: pantoprazole DR 40 mg Tablet PO (05:27)
[2020-04-10] MEDS: carvedilol 3.125 mg Tablet PO (05:27)
[2020-04-10] MEDS: clopidogrel 75 mg Tablet PO (05:27)
--- NOTE | 2020-04-10 06:08 | PC.NURSE ---
SHIFT SUMMARY Rested well. Says he is feeling better but still not great. Has occ prod cough and does report sputum easier to get up and has turned from yellow to mostly clear. SOB with exertion. O2 is at 2l per NC and says guesses he will be going home with oxygen. Has denied pain. Sits on side of bed some. Voiding well per urinal. Is pleasant. Says doesn't like his room because he feels closed off and a little claustrophobic.
[2020-04-10 09:41] LABS: Hematocrit 43.2 % (42.0-52.0); Hemoglobin 13.6 g/dL (11.7-16.6); Lymphocytes # 0.6 10^3/uL (0.8-4.8); Lymphocytes % 7.9 %; Mean Corpuscular HGB Conc 31.5 g/dL (30.0-36.0); Mean Corpuscular Hemoglobin 29.5 pg (28.0-34.0); Mean Corpuscular Volume 93.7 fL (80-94); Mean Platelet Volume 10.7 fL (7.4-10.4); Monocytes # 0.4 10^3/uL (0.2-0.9); Monocytes % 4.7 %; Neutrophils % 86.7 %; Nucleated Red Blood Cells % 0 %; Platelet Count 291 10^3/cmm (130-400); Red Blood Count 4.61 10^6/uL (4.1-5.3); White Blood Count 7.4 10^3/uL (4.0-10.0)
[2020-04-10] MEDS: FUROsemide 40 mg Tablet PO (09:56)
[2020-04-10] MEDS: aspirin 81 mg Chew Tablet PO (09:57)
[2020-04-10 10:08] LABS: Blood Urea Nitrogen 27 mg/dL (8-23); Calcium 8.8 mg/dL (8.5-10.5); Carbon Dioxide 31 mmol/L (22-29); Chloride 99 mmol/L (98-107); Creatinine Clr Calc Pharmacy 57.7744; Glucose 158 mg/dL (65-115); Osmolality Calculated 298 mOsm/kg (285-295); Sodium 140 mmol/L (136-145)
[2020-04-10 10:09] LABS: Anion Gap 13.7 (5-19); Potassium 3.7 mmol/L (3.5-5.1)
--- NOTE | 2020-04-10 15:18 | PM.DCS ---
Discharge Providers Date of Admission: 04/06/20 18:15 Date of Discharge: April 10, 2020 Attending Provider at Admission: Daivd Polanco MD Attending Provider at Discharge: Nano Beasley Primary Care Provider: Vasu Ramsay MD Diagnoses at Discharge Discharge Diagnosis (1) COPD exacerbation: Status: Acute (2) Acute worsening of stage 3 chronic kidney disease: Status: Acute (3) Rheumatoid arthritis: Status: Acute Permanent problem details: seropositive Qualifiers: Rheumatoid arthritis location: unspecified site Rheumatoid factor presence: with rheumatoid factor Qualified Code(s): M05.9 - Rheumatoid arthritis with rheumatoid factor, unspecified (4) CAP (community acquired pneumonia): Status: Acute Qualifiers: Laterality: left Lung location: lower lobe of lung Qualified Code(s): J18.9 - Pneumonia, unspecified organism (5) Acute respiratory failure with hypoxia: Status: Acute Reason for Visit Reason for Visit: SOB, PERSISTENT COUGHING, Hospital Course Hospital Course 79-year-old with a past medical history significant for tobacco abuse, hypertension, hyperlipidemia, 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 Laboratory workup on arrival showed a WBC of 13.4, hemoglobin 12.9, hematocrit of 40.8 and a platelet count of 225. sodium 140, potassium 4.2, chloride 102, bicarb 23, BUN 32 and creatinine of 1.3. Troponin 42 -> 41.70 -> 45.65. CRP of 262 and d-dimer of 1.84. imaging studies included a chest x-ray which did not show any evidence of acute cardiopulmonary abnormality. Due to elevated D-dimer as chest CTA was performed which showed patchy ground-glass interstitial lung disease, bolus emphysema, tubular bronchiectasis posterior basal segment of left lower lobe, antecedent granulomatous disease with out any evidence of acute pulmonary embolism. Repeat chest x-ray on 04/07 showed mild left lower lung opacities appear slightly more prominent. In ER patient was given Remdesivir 200 mg IV x 1 however this was discontinued after initial dose, Decadron 6 mg daily was ordered however this was changed to solu-medrol 40 mg IV q8hr. Started on Ceftriaxone 2g daily, Azithromycin 500 mg IV daily. Patient was eventually found to have negative COVID-19 PCR. Pulmonary Medicine was consulted. Patient continued to require supplemental oxygen. He was weaned down to 2 L of O2 via nasal cannula. Sputum culture has showed Haemophilus influenzae. He remained on ceftriaxone azithromycin during hospitalization. Remained afebrile. In addition was suspected to have component of heart failure exacerbation as patient's recent echocardiogram had shown an EF of 23%. Was started on Lasix 40 mg oral daily. Was noted to have adequate urine output. On 04/10/2020 patient had demanded to be discharged. I recommended against this as patient was not previously on oxygen and not requiring. Patient at this time took office oxygen and stated he was going to leave against medical advice. During this time his O2 saturations dropped to mid 80s. Patient verbalized understanding of risks versus benefit of continued hospitalization. To ensure patient was able to receive his oxygen a home O2 eval was obtained which qualified patient for 2 L of O2 via nasal cannula continuously. This was arranged for patient. Discharge order was placed. Patient was advised to follow up soon with Cardiology and also given instructions to follow-up with pulmonary medicine. Advised to return to hospital if any worsening of respiratory distress or new symptoms. Physical Exam Narrative: EXAM NARRATIVE: General : alert, awake, NAD on 2L via NC HEENT: Grossly unremarkable CHEST : Non-labored respiration CVS: NSR ABD : SOFT, ND, ND EXT: No edema Discharge Data Data Completed and Pending: Completed Studies During Hospitalization Category Date Time Status CT angio chest PE protcl [id number] Stat Cat Scan 04/06/20 15:59 Completed XR chest 1V marc ble [id number] Routine Exams 04/07/20 05:17 Completed XR chest 1V marc ble [id number] Stat Exams 04/06/20 15:25 Completed Pending at discharge Category Date Time Status Respiratory Viral Panel PCR Stat Lab 04/07/20 08:49 Received Labs from last 24 hours 04/10/20 04/10/20 09:17 09:17 WBC 7.4 RBC 4.61 Hgb 13.6 Hct 43.2 MCV 93.7 MCH 29.5 MCHC 31.5 RDW 15.0 Plt Count 291 MPV 10.7 H Neut % (Auto) 86.7 Lymph % (Auto) 7.9 [place] % (Auto) 4.7 Eos % (Auto) 0.0 Baso % (Auto) 0.0 Neut # (Auto) 6.40 Lymph # (Auto) 0.6 L [place] # (Auto) 0.4 Eos # (Auto) 0.0 Baso # (Auto) 0.0 Nucleated RBC % (a uto) 0 Nucleated RBCs # 0.0 Sodium 140 Potassium 3.7 Chloride 99 Carbon Dioxide 31 H Anion Gap 13.7 BUN 27 H Creatinine 1.0 GFR Calculation Not Reportable Glucose 158 H Calculated Osmolal ity 298 H Calcium 8.8 Vitals: Last Vital Signs Temp 97.6 F 04/10/20 11:09 Pulse 66 04/10/20 11:09 Resp 18 04/10/20 11:09 BP 133/77 04/10/20 11:09 Pulse Ox 85 L 04/10/20 13:02 Discharge Plan Discharge Patient Disposition: Home Condition: Stable Prescriptions: New furosemide 40 mg Tablet 40 mg PO DAILY@0800 Qty: 30 RF: 0 Augmentin 875-125 mg tablet 1 tab PO BID 7 Days Qty: 14 RF: 0 prednisone 5 mg tablet See Rx Instructions .ROUTE .COMPLEX Qty: 30 RF: 0 Continued hydrocodone-acetaminophen 7.5-325 mg tablet 1 tab PO TID PRN (Reason: Pain) RF: 0 albuterol sulfate 2.5 mg /3 mL (0.083 %) solution for nebulization 2.5 mg INHALATION Q4H PRN (Reason: Shortness Of Breath) RF: 0 tamsulosin 0.4 mg capsule 0.4 mg PO BEDTIME@21 RF: 0 isosorbide dinitrate 20 mg tablet 20 mg PO BID@,18 RF: 0 nitroglycerin 0.4 mg tablet, sublingual 0.4 mg sublingual Q5M PRN (Reason: chest pain) Qty: 25 RF: 0 carvedilol 3.125 mg Tablet 3.125 mg PO BID@,18 RF: 0 aspirin 81 mg Tablet,Chewable 81 mg PO DAILY@08 RF: 0 Repatha Pushtronex 420 mg/3.5 mL Wearable Injector 420 mg SUBCUT Q30D RF: 0 prednisone 5 mg tablet 10 mg PO DAILY@06 RF: 0 clopidogrel 75 mg tablet 75 mg PO DAILY@06 RF: 0 gabapentin 600 mg Tablet 600 mg PO TID@06,12,15 RF: 0 pantoprazole [Protonix] 40 mg Tablet,Delayed Release (Dr/Ec) 40 mg PO DAILY@06 RF: 0 fish,bora,flax oils-om3,6,9no1 [[place] 3-6-9 Complex] 400-400-400 mg Capsule 1 cap PO DAILY@06 RF: 0 Discharge Orders: Discharge Order (Routine); Ordered 04/10/20 Ordered By: Nano Beasley Other Ambulatory Orders: DME: Oxygen (Order) Location: None Selected Ordered By: Nano Beasley Referrals: Valerio Jensen MD [Physician] - 04/25/20 8:45 am Norbert Orantes MD [Physician] - 04/11/20 2:45 pm Vasu Ramsay MD [Primary Care Provider] - 04/24/20 9:45 am Discharge Diet: Cardiac Discharge Activity: Increase activity as tolerated and Oxygen as instructed Patient Instructions: Furosemide (By mouth), Prednisone (By mouth), Amoxicillin/Clavulanate Potassium (By mouth), Viral Pneumonia (GEN), Chronic Obstructive Pulmonary Disease (DC) Activity Restrictions/Additional Instructions: Monitor daily weighted home. Return to hospital if any recurrence of respiratory distress. Discharge Attestations Time Spent in Discharge Care*: greater than 30 min Specific Discharge Activities: educating patient, discussing with pcp/other providers, discussing with protective services case worker/social workers/dc planners, documenting/other paperwork and evaluating patient/reviewing data Status at Discharge: Cognitive status at discharge: cognitively intact, Behavioral status at discharge: cooperative, Overall status at discharge: patient is progressing back to baseline Quality Metrics Clinical Quality Measures During this hospital stay, did patient experience: None Coding Level of Care Code 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
[2020-04-13 15:09] LABS: Adenovirus Not Detected (Not Detected); Human Metapneumovirus Not Detected (Not Detected); Human Parainflu Virus 1 Not Detected (Not Detected); Human Parainflu Virus 2 Not Detected (Not Detected); Human Parainflu Virus 3 Not Detected (Not Detected); Human Rsv A Not Detected (Not Detected); Influenza A Not Detected (Not Detected); Influenza B Not Detected (Not Detected); Rhinovirus/Enterovirus Detected (Not Detected)
== END 2020-04-10 15:40 | disposition home or self-care (01) | DRG 193 ==
LOC: ER 18:23 → MEDSURG 18:59
PROVIDERS: Emergency Medicine; Admitting Provider Internal Medicine; Emergency Provider Family Medicine; PCP Family Medicine; Visit Provider Hospitalist
DX: J18.9 Pneumonia, unspecified organism (principal); J96.01 Acute respiratory failure with hypoxia; I50.23 Acute on chronic systolic (congestive) heart failure; I13.0 Hypertensive heart and chronic kidney disease with heart failure and stage 1 through stage 4 chronic kidney disease, or unspecified chronic kidney disease; N17.9 Acute kidney failure, unspecified; M05.9 Rheumatoid arthritis with rheumatoid factor, unspecified; N18.30 Chronic kidney disease, stage 3 unspecified; I25.10 Atherosclerotic heart disease of native coronary artery without angina pectoris; I48.91 Unspecified atrial fibrillation; E78.5 Hyperlipidemia, unspecified; Z86.718 Personal history of other venous thrombosis and embolism; I73.9 Peripheral vascular disease, unspecified; Z79.52 Long term (current) use of systemic steroids; F17.210 Nicotine dependence, cigarettes, uncomplicated; J43.9 Emphysema, unspecified; Z20.822 Contact with and (suspected) exposure to COVID-19; I25.2 Old myocardial infarction; Z95.5 Presence of coronary angioplasty implant and graft
CPT/HCPCS: 12345; 36415; 36600; 71045; 71275; 80048; 80051; 80053; 81003; 82330; 82803; 82805; 83605; 83615; 83880; 84145; 84484; 85025; 85378; 86140; 87070; 87077; 87205; 87426; 87635; 87804; 93005; 94640; 94660; 96372; 99282; J0456; J0696; J1100; J1650; J1940; J2405; J2920; J3535; J7050; Q9967

== ENCOUNTER 2020-05-07 07:54 | Outpatient (CLI) | payer MEDICARE, SELFPAY ==
--- NOTE | 2020-05-07 14:05 | PFTS_ITS ---
Date of Study:05/07/20 Date of Dictation: MECHANICS: Forced vital capacity (FVC) is normal. Forced expiratory volume in one second (FEV1) is mildly reduced. FEV1/FVC is normal. FLOW VOLUME LOOP: Reduced flow at all lung volumes with scooping. LUNG VOLUMES: Total lung capacity (TLC) is normal. Residual volume (RV) is increased. DIFFUSING CAPACITY FOR CARBON MONOXIDE: Moderately reduced. INTERPRETATION: The patient most likely has a combination of dilute obstructive and restrictive ventilatory defect. There is evidence of small airways disease from the flow volume loop. However, the patient does not qualify for definition of obstructive lung disease with an FEV1 FVC ratio of 70%. There is no significant postbronchodilator response. He has evidence of air trapping which is likely consistent with small airways disease. Gas exchange (DLCO) is moderately reduced. MTDD
== END 2020-05-07 07:55 | disposition home or self-care (01) ==
LOC: RT 07:57
PROVIDERS: PCP Family Medicine; Visit Provider Internal Medicine Pulmonary Disease
DX: J44.1 Chronic obstructive pulmonary disease with (acute) exacerbation (principal); J96.01 Acute respiratory failure with hypoxia
CPT/HCPCS: 94060; 94618; 94726; 94729; J7611

== ENCOUNTER 2020-07-17 13:20 | Outpatient (CLI) | payer MEDICARE, SELFPAY ==
--- NOTE | 2020-07-17 13:30 | USCV_ITS ---
Chinmay Guerrier Age: 79 Gender: M : 1940 Exam Date: 07/17/2020 13:44 Ordering Phys: Norbert Orantes MD ([email or web address]) Technologist: Keyanna Hermosillo Exam Location: [facility] [place] Indication: OCCLUSION AND STENOSIS OF UNSPECIFIED CAROTID ARTERY Risk Factors: Previous Vascular Surgery: Right Brachial BP: / Left Brachial BP: / Right Left Velocity (cm/s) Spectral Plaque Velocity (cm/s) Spectral Plaque Syst/Diast Broadening Syst/Diast Broadening 31.00/ 10.60 Prox CCA 43.10 / 16.90 30.60/ 12.30 Mid CCA 29.80 / 11.40 27.60/ 10.60 Distal CCA 36.70 / 11.10 64.80/ 25.90 Prox ICA 24.50 / 10.90 65.50/ 23.00 Mid ICA 36.50 / 20.20 61.20/ 23.00 Distal ICA 57.20 / 23.00 42.40 ECA 34.10 2.14 ICA/CCA 1.92 Antegrade Vertebral Antegrade 30.90/ 12.50 cm/s 28.90/ 13.10 cm/s Tri Subclavian Tri 38.50 63.10 FINDINGS Moderate dense irregular plaques of the right bifurcation and proximal internal carotid artery Mild to moderate heterogeneous plaques of the left bifurcation and internal carotid artery Intimal thickening in the common carotid arteries bilaterally. Antegrade flow in the vertebral arteries bilaterally. Normal Doppler flow velocities in the external carotid and subclavian arteries bilaterally CONCLUSIONS Moderate dense irregular plaques at the right bifurcation and proximal internal carotid artery suggesting less than 50% stenosis . Mild to moderate heterogeneous plaques of the left bifurcation and internal carotid artery, suggesting less than 50% stenosis. No previous studies are available for comparison. Dr Jori Godinez MD [facility] (Electronically Signed) Final Date: 18 July 2020 23:35 S
== END 2020-07-17 13:21 | disposition home or self-care (01) ==
LOC: RAD 13:29
PROVIDERS: PCP Family Medicine; Visit Provider Internal Medicine Cardiovascular Disease
DX: I65.23 Occlusion and stenosis of bilateral carotid arteries (principal)
CPT/HCPCS: 93880

== ENCOUNTER 2020-08-01 11:35 | Outpatient (CLI) | payer MEDICARE, SELFPAY ==
--- NOTE | 2020-08-01 11:50 | USCV_ITS ---
Chinmay Guerrier Age: 79 Gender: M : 1940 Exam Date: 08/01/2020 12:01 Ordering Phys: Norbert Orantes MD ([email or web address]) Technologist: Kaylie Ye Exam Location: [facility] [place] Indication: BLINDNESS RT EYE AND GENERAL ILL FEELING BP: 120 / 84 HR: 93 Rhythm: Atrial fibrillation Technical Quality: Adequate MEASUREMENTS (Male / Female) Normal Values 2D ECHO LV Diastolic Diameter PLAX 4.0 cm 4.2 - 5.9 / 3.9 - 5.3 cm LV Systolic Diameter PLAX 3.1 cm LV Chamber Size 3.5 cm IVS Diastolic Thickness 1.2 cm 0.6 - 1.0 / 0.6 - 0.9 cm IVS Systolic Thickness 1.5 cm LVPW Diastolic Thickness 1.3 cm 0.6 - 1.0 / 0.6 - 0.9 cm LVPW Systolic Thickness 1.7 cm RV Chamber Size 2.9 cm LVOT Diameter 2.3 cm LV Ejection Fraction 2D Teich 47.9 % LV Ejection Fraction MOD 2C 63.6 % LV Ejection Fraction 2C AL 63.2 % LA Diameter 2.7 cm LA Width 4.0 cm LA Height 3.6 cm RA Width 3.4 cm RA Height 4.6 cm Aorta at Sinotubular Diameter 3.5 cm M-MODE LV Diastolic Diameter MM 5.1 cm 4.2 - 5.9 / 3.9 - 5.3 cm LV Systolic Diameter MM 3.5 cm LV Ejection Fraction MM Teich 59.1 % IVS Diastolic Thickness MM 1.1 cm 0.6 - 1.0 / 0.6 - 0.9 cm IVS Systolic Thickness MM 1.9 cm LVPW Diastolic Thickness MM 1.1 cm 0.6 - 1.0 / 0.6 - 0.9 cm LVPW Systolic Thickness MM 1.7 cm RV Diastolic Diameter MM 1.8 cm Aortic Annulus Diameter 3.8 cm LA Ao Ratio MM 1.0 MV E Point Septal Separation 0.9 cm DOPPLER AV Peak Velocity 175.0 cm/s LVOT Peak Velocity 98.0 cm/s AV Area Cont Eq vti 2.0 cm squared AV Area Cont Eq pk 2.2 cm squared MV Area PHT 5.5 cm squared MV E' Velocity 40.0 cm/s Mitral E to MV E' Ratio 6.9 Mitral E to LV E' Lateral Ratio 6.4 Mitral E to LV E' Septal Ratio 7.6 TR Peak Velocity 192.0 cm/s TR Peak Gradient 14.7 mmHg TR Mean Velocity 153.5 cm/s TR Mean Gradient 11.5 mmHg TR Velocity Time Integral 60.3 cm TV Peak E Velocity 70.0 cm/s Right Atrial Pressure 5.0 mmHg Pulmonary Artery Systolic Pressu 19.7 mmHg PV Peak Velocity 88.0 cm/s RV Acceleration Time 0.1 s RV Ejection Time 0.3 s RV AcT/ET 0.4 FINDINGS Left Ventricle Normal left ventricular cavity size. Severely decreased left ventricular systolic function. Global left ventricular hypokinesis. Left ventricular ejection fraction is estimated at 25 %. Right Ventricle The right ventricle is normal in size and function. Right Atrium The right atrium is normal in size. Left Atrium The left atrium is normal in size. Mitral Valve Mildly thickened mitral valve. No mitral valve stenosis. Mild mitral valve regurgitation. Aortic Valve Moderate aortic valve calcification. No aortic valve stenosis. No aortic valve regurgitation. Tricuspid Valve Tricuspid valve appeared to be thickened. 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 Clinical correlation advised. There is mild tricuspid valve regurgitation. Pulmonic Valve Mild pulmonary valve regurgitation. Pericardium Normal pericardium without effusion. Aorta Normal ascending aorta dimension. CONCLUSIONS 1-Normal left ventricular cavity size. Severely decreased left ventricular systolic function. Global left ventricular hypokinesis. Left ventricular ejection fraction is estimated at 25 %. 2-Tricuspid valve appeared to be thickened. 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 Clinical correlation advised. There is mild tricuspid valve regurgitation. 3-Moderate aortic valve calcification. No aortic valve stenosis. No aortic valve regurgitation. 4-Mild pulmonary valve regurgitation. 5-Mildly thickened mitral valve. No mitral valve stenosis. Mild mitral valve regurgitation. 6-There is no pericardial effusion. 7-Right atrial pressure is around 5 mm of mercury. 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 There is no interval change in the ejection fraction which remains severely depressed at 25%. If clinically indicated gated rule out vegetation, ruptured rudimentary subvalvular apparatus. Transesophageal echocardiogram may be a better exam for further assessment. Norbert Orantes MD (Electronically Signed) Final Date: 01 Aug 2020 18:57 S
== END 2020-08-01 11:36 | disposition home or self-care (01) ==
LOC: RAD 11:42
PROVIDERS: PCP Family Medicine; Visit Provider Internal Medicine Cardiovascular Disease
DX: I50.23 Acute on chronic systolic (congestive) heart failure (principal); I48.91 Unspecified atrial fibrillation; H54.7 Unspecified visual loss; I08.3 Combined rheumatic disorders of mitral, aortic and tricuspid valves
CPT/HCPCS: 93306

== ENCOUNTER 2020-08-14 11:21 | Emergency (ER) | payer MEDICARE, SELFPAY ==
[2020-08-14 11:42] VITALS: BP 100/58; PULSE 65; RESP 15; TEMP 36.6; O2SAT 95; BMI 24.5
[2020-08-14 12:54] LABS: Basophils # 0.1 10^3/uL (0.0-0.1); Basophils % 0.8 %; Eosinophils % 0.4 %; Hematocrit 41.5 % (42.0-52.0); Hemoglobin 13.3 g/dL (11.7-16.6); Lymphocytes # 1.3 10^3/uL (0.8-4.8); Lymphocytes % 16.1 %; Mean Corpuscular Hemoglobin 29.8 pg (28.0-34.0); Mean Corpuscular Volume 92.8 fL (80-94); Mean Platelet Volume 10.7 fL (7.4-10.4); Monocytes # 0.6 10^3/uL (0.2-0.9); Monocytes % 7.2 %; Neutrophils # 5.95 10^3/uL (1.8-7.7); Neutrophils % 74.6 %; Nucleated Red Blood Cells % 0 %; Platelet Count 215 10^3/cmm (130-400); Red Blood Count 4.47 10^6/uL (4.1-5.3); Red Cell Distribution Width 14.4 % (12.1-15.1)
[2020-08-14] MEDS: sodium chloride 0.9% 500 ML IV ×2 (12:56→16:46)
[2020-08-14] MEDS: ondansetron 2 mg/ML SDV 2 mL 4 MG IVP (12:57)
[2020-08-14 12:58] VITALS: BP 117/70; PULSE 81; RESP 20; O2SAT 92
[2020-08-14 12:58] LABS: Add Urine Microscopic? NO; Charge for UA Resulting for Rev
[2020-08-14 13:01] LABS: Bilirubin Urine Neg (Negative); Blood Urine Neg (Negative); Glucose Urine UA Norm (Normal); Ketones Urine Negative (Negative); Leukocyte Esterase Urine Negative (Negative); Nitrate Urine Negative (Negative); Protein Urine Neg (Negative); Urine Appearance Clear (CLEAR); Urine Color Yellow (Yellow); Urobilinogen Urine Norm (Negative); pH Urine 5 (5-7)
[2020-08-14 13:12] LABS: Alanine Aminotransferase 19 U/L (0-41); Alkaline Phosphatase 139 IU/L (40-130); Anion Gap 15.6 (5-19); Aspartate Amino Transferase 35 U/L (0-40); Blood Urea Nitrogen 20 mg/dL (8-23); Calcium 8.6 mg/dL (8.5-10.5); Carbon Dioxide 27 mmol/L (22-29); Chloride 101 mmol/L (98-107); Globulin 2.8 g/dL (1.3-4.6); Glucose 100 mg/dL (65-115); Lipase 17 U/L (13-60); Osmolality Calculated 291 mOsm/kg (285-295); Potassium 4.6 mmol/L (3.5-5.1); Sodium 139 mmol/L (136-145); Total Bilirubin 0.6 mg/dL (0.15-1.2); Total Protein 6.8 g/dL (6.6-8.7)
[2020-08-14 14:12] VITALS: BP 109/70; PULSE 92; RESP 19; O2SAT 94
--- NOTE | 2020-08-14 14:20 | CT_ITS ---
WS: [id number] CT HEAD TECHNIQUE: Noncontrast CT of the head obtained from the skullbase to the vertex. CLINICAL INFORMATION: Recent vision change R-eye. COMPARISON: 016 DLP: 982.[address] scans at [facility] use at least one of these dose optimization techniques: automat ed exposure control; mA and/or kV adjustment per patient size (includes targeted exams where dose is matched to clinical indication); or iterative reconstruction. FINDINGS: No evidence of intracranial hemorrhage or mass effect. Ventricular system and basal cisterns are godoy nt. Mild small vessel changes with moderate parenchymal volume loss. Chronic lacunar infarct right la teral basal ganglia unchanged since 2016. No extra-axial fluid collections. No evidence of mass or ma ss effect. Normal evans-white differentiation. Mucosal thickening right posterior ethmoid air cells. Mastoid air cells are well aerated. CT/CT head wo con* [id number] IMPRESSION: 1. No evidence of intracranial hemorrhage or mass effect. 2. Mild small vessel changes. Moderate parenchymal volume loss. 3. No acute intracranial findings.
--- NOTE | 2020-08-14 15:12 | ECG_ITS ---
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 Measurements Intervals [place] Rate: 101 P: 18 SC: 188 QRS: -56 QRSD: 115 T: 86 QT: 395 QTc: 513 Interpretive Statements Multifocal atrial tachycardia PATTERN CONSISTENT WITH PULMONARY DISEASE INCOMPLETE RIGHT BUNDLE BRANCH BLOCK [90+ ms QRS DURATION, TERMINAL R IN V1/V2, 40+ ms S IN I/aVL/V4/V5/V6] LEFT ANTERIOR FASCICULAR BLOCK [QRS AXIS <= -45, QR IN I, RS IN II] POSSIBLE SEPTAL MYOCARDIAL INFARCTION , PROBABLY OLD [30 ms Q WAVE IN V1/V2] Compared to ECG 04/08/2020 16:35:04 Incomplete right bundle-branch block now present Left anterior fascicular block now present Sinus rhythm no longer present Ventricular premature complex(es) no longer present Myocardial infarct finding still present Electronically Signed On 08-15-2020 10:08:22 CDT by Jori Godinez M.D. [id number]
--- NOTE | 2020-08-14 16:18 | ED_ITS ---
HPI - Medical Clearance General Chief complaint: Medical Clearance Stated complaint: hypotension, nausea, weight loss Time Seen by Provider: 08/14/20 12:29 History of Present Illness HPI Narrative: 79-year-old male sent in for further evaluation by his primary care provider. concern is pt has some dehydration versus adrenal insufficiency. Patient has been on long-term steroids. Patient's blood pressure was low in the clinic. Patient also has had some chronic nausea with decreased p.o. intake. He is continue to take his Lasix despite decreasing his p.o. intake. Patient himself states that every since he got the second Covid vaccine he has not had much of an appetite. Patient complains of some generalized malaise. 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 Related Information Home Medications Medication Instructions Recorded Confirmed albuterol sulfate 2.5 mg INHALATION Q4H PRN 04/19/19 08/14/20 hydrocodone 7.5 mg-acetaminophen 1 tab PO TID PRN 04/19/19 08/14/20 325 mg tablet tamsulosin 0.4 mg capsule 0.4 mg PO BEDTIME@04/19/19 08/14/20 fish,bora,flax oils-om3,6,9no1 1 cap PO DAILY@02/19/20 08/14/20 [Winona 3-6-9 Complex] gabapentin 600 mg PO TID@,12,15 02/19/20 08/14/20 pantoprazole [Protonix] 40 mg PO DAILY@02/19/20 08/14/20 Repatha Pushtronex 420 mg SUBCUT Q30D 04/06/20 08/14/20 carvedilol 3.125 mg PO BID@,04/06/20 08/14/20 clopidogrel 75 mg PO DAILY@04/06/20 08/14/20 prednisone 10 mg PO DAILY@04/06/20 08/14/20 apixaban [Eliquis] 5 mg PO BID@,08/14/20 08/14/20 isosorbide mononitrate 15 mg PO BID@,08/14/20 08/14/20 sarilumab [Kevzara] 150 mg SUBCUT Q14D 08/14/20 08/14/20 Previous Rx's Medication Instructions Recorded nitroglycerin 0.4 mg sublingual 0.4 mg SUBLINGUAL Q5M PRN #25 each 10/28/19 tablet furosemide 40 mg PO DAILY@0800 #30 tab 04/10/20 Trelegy Ellipta 100 mcg-62.5 1 inh INHALATION DAILY #60 ea NS 05/20/20 mcg-25 mcg powder for inhalation Allergies Allergy/AdvReac Type Severity Reaction Status Date / Time atorvastatin [From Lipitor] Allergy unknown Verified 07/24/20 10:52 ezetimibe [From Vytorin] Allergy unknown Verified 07/24/20 10:52 niacin Allergy unknown Verified 07/24/20 10:52 [From Niaspan Extended-Release] ranitidine Allergy unknown Verified 07/24/20 10:52 rosuvastatin [From Crestor] Allergy unknown Verified 07/24/20 10:52 simvastatin [From Vytorin] Allergy unknown Verified 07/24/20 10:52 Course Course Review of system, positive for generalized malaise, positive for nausea, positive for decreased appetite, positive for recent weight loss.. Negative for fever, chills, acute vision changes, sore throat negative for chest pain, palpitations, shortness of breath, wheezing, vomiting,, abdominal pain, dysuria or urinary frequency. Exam Gen chronic ill, but no apparent distress HEENT, mucous membranes slightly dry, normocephalic Cardiovascular, regular rate and rhythm, Respiratory clear to auscultation bilateral with no wheezing or rhonchi Abdomen, soft nontender nondistended Extremities, moves all extremities with no focal weakness Neuro alert, grossly normal Psych, pleasant cooperative Patient's blood pressure was stable in the systolics of the low 100s to 150s. Patient with slight increase of his creatinine to 1.5 from a baseline of 1.0. Patient with a negative head CT. Patient was stable throughout his stay with no indications for admission. I did call and discuss with his primary care provider Dr. Ramsay. We will give him 20 mg of hydrocortisone. Have him hold his Lasix carvedilol and amlodipine. He should follow up with him at 8 AM tomorrow morning for recheck. Patient stable and discharged home Vital Signs Temperature 97.9 F 08/14/20 11:42 Pulse Rate 92 08/14/20 14:12 Respiratory Rate 19 H 08/14/20 14:12 Blood Pressure 109/70 08/14/20 14:12 Pulse Oximetry 94 08/14/20 14:12 MDM - Medical Clearance Lab Data Attestation: I reviewed the patient's lab results. Result diagrams: 08/14/20 12:48 08/14/20 12:48 Labs: Lab Results 08/14/20 08/14/20 08/14/20 Range/Units 12:48 12:48 12:53 WBC 8.0 (4.0-10.0) 10^3/uL RBC 4.47 (4.1-5.3) 10^6/uL Hgb 13.3 (11.7-16.6) g/dL Hct 41.5 L (42.0-52.0) % MCV 92.8 (80-94) fL MCH 29.8 (28.0-34.0) pg MCHC 32.0 (30.0-36.0) g/dL RDW 14.4 (12.1-15.1) % Plt Count 215 (130-400) 10^3/cmm MPV 10.7 H (7.4-10.4) fL Neut % (Auto) 74.6 % Lymph % (Auto) 16.1 % Sully % (Auto) 7.2 % Eos % (Auto) 0.4 % Baso % (Auto) 0.8 % Neut # (Auto) 5.95 (1.8-7.7) 10^3/uL Lymph # (Auto) 1.3 (0.8-4.8) 10^3/uL Sully # (Auto) 0.6 (0.2-0.9) 10^3/uL Eos # (Auto) 0.0 (0.0-0.8) 10^3/uL Baso # (Auto) 0.1 (0.0-0.1) 10^3/uL Nucleated RBC % (auto) 0 % Nucleated RBCs # 0.0 /100WBC Sodium 139 (136-145) mmol/L Potassium 4.6 (3.5-5.1) mmol/L Chloride 101 (98-107) mmol/L Carbon Dioxide 27 (22-29) mmol/L Anion Gap 15.6 (5-19) BUN 20 (8-23) mg/dL Creatinine 1.5 H (0.7-1.2) mg/dL GFR Calculation Not Reportable Glucose 100 (65-115) mg/dL Calculated Osmolality 291 (285-295) mOsm/kg Calcium 8.6 (8.5-10.5) mg/dL Total Bilirubin 0.6 (0.15-1.2) mg/dL AST 35 (0-40) U/L ALT 19 (0-41) U/L Alkaline Phosphatase 139 H (40-130) IU/L Total Protein 6.8 (6.6-8.7) g/dL Albumin 4.0 (3.5-5.2) g/dL Globulin 2.8 (1.3-4.6) g/dL Lipase 17 (13-60) U/L Urine Color Yellow (Yellow) Urine Appearance Clear (CLEAR) Urine pH 5 (5-7) Ur Specific [place] 1.010 (1.005-1.030) Urine Protein Neg (Negative) Urine Glucose (UA) Norm (Normal) Urine Ketones Negative (Negative) Urine Blood Neg (Negative) Urine Nitrate Negative (Negative) Urine Bilirubin Neg (Negative) Urine Urobilinogen Norm (Negative) mg/dL Ur Leukocyte Esterase Negative (Negative) Imaging Data CT Head: Radiologist's impression: No acute findings ECG Data Attestation: I personally reviewed and interpreted this EKG as follows: ECG interpretation date: 08/14/20 ECG interpretation time: 12:32 Interpretation: Heart rate 101, MI interval 188, sinus tachycardia with PVCs. Incomplete right bundle block. Fascicular block, no acute ST changes Discharge Plan Discharge Patient Disposition: Home Clinical Impression: Mild dehydration, half-way systemic steroid user, Decreased appetite Condition: Stable Prescriptions: No Action hydrocodone-acetaminophen 7.5-325 mg tablet 1 tab PO TID PRN (Reason: Pain) RF: 0 albuterol sulfate 2.5 mg /3 mL (0.083 %) solution for nebulization 2.5 mg INHALATION Q4H PRN (Reason: Shortness Of Breath) RF: 0 tamsulosin 0.4 mg capsule 0.4 mg PO BEDTIME@21 RF: 0 nitroglycerin 0.4 mg tablet, sublingual 0.4 mg sublingual Q5M PRN (Reason: chest pain) Qty: 25 RF: 0 Trelegy Ellipta 100-62.5-25 mcg blister with device 1 inh inhalation DAILY Qty: 60 RF: 3 carvedilol 3.125 mg Tablet 3.125 mg PO BID@06,18 RF: 0 Repatha Pushtronex 420 mg/3.5 mL Wearable Injector 420 mg SUBCUT Q30D RF: 0 prednisone 5 mg tablet 10 mg PO DAILY@06 RF: 0 clopidogrel 75 mg tablet 75 mg PO DAILY@06 RF: 0 furosemide 40 mg Tablet 40 mg PO DAILY@0800 Qty: 30 RF: 0 isosorbide mononitrate 30 mg tablet extended release 24 hr 15 mg PO BID@06,18 RF: 0 Eliquis 5 mg tablet 5 mg PO BID@06,18 RF: 0 Kevzara 150 mg/1.14 mL pen injector 150 mg SUBCUT Q14D RF: 0 gabapentin 600 mg Tablet 600 mg PO TID@06,12,15 RF: 0 pantoprazole [Protonix] 40 mg Tablet,Delayed Release (Dr/Ec) 40 mg PO DAILY@06 RF: 0 fish,bora,flax oils-om3,6,9no1 [Winona 3-6-9 Complex] 400-400-400 mg Capsule 1 cap PO DAILY@06 RF: 0 Discharge Orders: Discharge ED (Routine); Ordered 08/14/20 Ordered By: Tulio Barker Referrals: Vasu Ramsay MD [Primary Care Provider] - Discharge Diet: Usual diet Discharge Activity: Resume usual activity Patient Instructions: Dehydration - Adult, Opioid Safety Activity Restrictions/Additional Instructions: Follow-up with Dr. Ramsay tomorrow morning at 8 AM please hold your Lasix, amlodipine and carvedilol
[2020-08-14] MEDS: metoclopramide 5 mg/mL SDV 2 mL IVP (16:52)
[2020-08-14] MEDS: pantoprazole 40 mg SDV IVP (16:54)
[2020-08-14] MEDS: hydrocortisone 100 mg/2 mL SDV 20 MG IVP (16:55)
== END 2020-08-14 17:27 | disposition home or self-care (01) ==
PROVIDERS: Emergency Provider Student in an Organized Health Care Education/Training Program; PCP Family Medicine
DX: E86.0 Dehydration (principal); R63.0 Anorexia; Z79.52 Long term (current) use of systemic steroids; Z79.02 Long term (current) use of antithrombotics/antiplatelets; Z79.01 Long term (current) use of anticoagulants
CPT/HCPCS: 70450; 80053; 81003; 83690; 85025; 93005; 96361; 96374; 96375; 99284; C9113; J1720; J2405; J2765; J7040

== ENCOUNTER 2020-08-21 09:46 | Outpatient (CLI) | payer MEDICARE, SELFPAY ==
--- NOTE | 2020-08-21 10:04 | CT_ITS ---
WS: [id number] CT ABDOMEN PELVIS TECHNIQUE: Contrast-enhanced CT of the abdomen and pelvis with coronal and sagittal reformatted image s. CLINICAL INFORMATION: LIVER MASS COMPARISON: Ultrasound August 15, 2020 CT August 28, 2019 DLP: 1147.[address] scans at [facility] use at least one of these dose optimization techniques: automat ed exposure control; mA and/or kV adjustment per patient size (includes targeted exams where dose is matched to clinical indication); or iterative reconstruction. FINDINGS: Innumerable diffuse low-attenuation lesions throughout both hepatic lobes compatible with metastatic disease. This is new since August 28, 2019. This corresponds to the findings in the recent ultrasound. Normal portal vein and splenic vein. Largest metastatic lesions measure approximately 2 to 3 cm. Fatty atrophy of the pancreas. Normal gallbladder. Normal GE junction. Bulla formation right lower lo be. Lung bases are well aerated. Tiny left pleural effusion. Normal spleen. Adrenal glands are normal. Normal bilateral renal parenchymal enhancement. Numerous bi lateral renal cysts similar in appearance to the prior examinations. Bilateral renal cortical atrophy . No hydronephrosis. 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 Tortuous and aneurysmal infrar enal abdominal aorta measuring 3.2 x 3.1 cm AP by transverse. Ectatic common iliac arteries unchanged . Interval coil embolization right common iliac artery aneurysm. Previously seen enlarged prostate measuring 3.9 x 5.7 CM. Correlation PSA. Normal sigmoid colon. No e vidence of small or large bowel obstruction. Coil embolization degrades images in the pelvis. IVC jian ter. No periaortic or pelvic lymphadenopathy. No inguinal lymphadenopathy. Fat-containing left inguinal he rnia. Chronic compression in the lumbar spine L2-L4. Slight anterolisthesis L4 on L5. Numerous new sclerotic lesions lower thoracic and lumbar spine extending to the sacrum suspicious for metastatic disease. This is new from previous. Prominent sclerotic lesion L1 vertebral body is new f rom previous suspicious for metastatic disease. Additional suspected metastatic lesions in the proxim al ribs bilaterally where visualized CT/CT abdomen pelvis w con* [id number] IMPRESSION: 1. Innumerable hepatic lesions throughout both lobes consistent with metastati c disease the largest lesions measuring 2 to 3 cm. 2. Multiple new sclerotic lesions throughout the visualized bony structures mo st consistent with metastatic disease. This can be further evaluated with bone scan. 3. No abdominal or pelvic lymphadenopathy. No inguinal lymphadenopathy. 4. Enlarged heterogeneously enhancing prostate. Recommend correlation PSA. 5. Interval embolization right common iliac artery aneurysm. This degrades christianne ges in the pelvis. 6. Bilateral renal cysts. Renal cortical atrophy similar to previous. 7. IVC filter. 8. 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
[2020-08-21] MEDS: iodixanol 320 mg/mL 100mL Btl IV (10:30)
== END 2020-08-21 09:47 | disposition home or self-care (01) ==
LOC: RADWPI 09:50
PROVIDERS: PCP Family Medicine; Visit Provider Family Medicine
DX: R16.0 Hepatomegaly, not elsewhere classified (principal); I72.8 Aneurysm of other specified arteries; Q61.02 Congenital multiple renal cysts; I72.3 Aneurysm of iliac artery; N40.0 Benign prostatic hyperplasia without lower urinary tract symptoms; K76.9 Liver disease, unspecified
CPT/HCPCS: 74177; Q9967

== ENCOUNTER 2020-08-27 09:09 | Outpatient (CLI) | payer MEDICARE, SELFPAY ==
--- NOTE | 2020-08-27 10:01 | NM_ITS ---
WS: [id number] NUCLEAR MEDICINE BONE SCAN Radiopharmaceutical: 25.5 Tc-99m MDP mCi IV Injection site: Antecubital Postinjection imaging delay: 1 hr CLINICAL INFORMATION: LYTIC BONE LESIONS COMPARISON: Bone scan 2007. CT abdomen pelvis July 2020 FINDINGS: S-shaped thoracolumbar scoliosis. Bone lesions: Innumerable metastatic lesions throughout the visualized spine, more prominent in the t horacic and lumbar spine, and proximal ribs. Additional metastatic lesions involving the bony pelvis and sacrum extending into the proximal femurs. Additional faint areas of uptake involving the proxima l humeri bilaterally. Soft tissue contours: Normal. Kidneys: Normal. Other findings: None. NM/NM bone scan whole body* [id number] IMPRESSION: Innumerable metastatic lesions involving the axial and proximal appendicular [place] described above.
== END 2020-08-27 09:10 | disposition home or self-care (01) ==
LOC: RAD 09:13
PROVIDERS: PCP Family Medicine; Visit Provider Family Medicine
DX: M89.9 Disorder of bone, unspecified (principal)
CPT/HCPCS: 78306; A9561

== ENCOUNTER 2020-09-06 06:28 | Outpatient (CLI) | payer MEDICARE, SELFPAY ==
[2020-09-04 12:27] VITALS: BMI 24.4
[2020-09-06] VITALS (10 sets, daily range): BP systolic 94–119; BP diastolic 63–76; PULSE 74–84; RESP 18–20; TEMP 36.2; O2SAT 92–99
--- NOTE | 2020-09-06 06:50 | US_ITS ---
WS: [id number] ULTRASOUND-GUIDED LIVER BIOPSY HISTORY: liver mass Procedure, risks, and complications have been explained to the patient. Consent is obtained. Prior imaging studies are reviewed. Multiple lesions are present within the liver on real-time imagin g today. Metastatic nodule in the RIGHT lobe liver targeted. Skin is cleansed with ChloraPrep and then anesthetized with 1% buffered lidocaine. Core biopsy is per formed with a 18 gauge Achieve needle. 3 biopsies are performed. Specimen is placed within formalin. No complications encountered. US/US biopsy liver [id number] IMPRESSION: 1. Uncomplicated ultrasound-guided liver biopsy of nodule suspicious for metas tatic disease. 2. Patient will be observed for 2 hours postprocedure.
[2020-09-06 07:48] LABS: INR 1.09 (0.8-1.2)
[2020-09-06] MEDS: sodium chloride 0.9% 1,000 ML 30 ML IV (08:08)
[2020-09-06] MEDS: midazolam 1 mg/mL INJ 2 mL 2 MG IVP (08:46)
--- NOTE | 2020-09-06 08:46 | SUR.OPER ---
Versed 1 mg IVP and 25 mcg Fentanyl given per verbal order Dr. Evans. Versed dose originally ordered as 2 mg but dose decreased to 1 mg based on pt condition.
[2020-09-06] MEDS: fentaNYL 50 mcg/mL INJ 2mL 25 MCG IVP ×2 (08:47→08:57)
--- NOTE | 2020-09-06 10:36 | SUR.PHASEII ---
Dressing to right liver biopsy site remains D/I. VSS. Pt rating pain at 7 but this has remained consistent from immediately after biopsy. No increased pain noted. Abdomen remains soft and non-distended. Tolerating water without difficulty.
== END 2020-09-06 11:05 | disposition home or self-care (01) ==
PROVIDERS: Anesthesiology; Radiology Diagnostic Radiology; PCP Family Medicine; Visit Provider Family Medicine
DX: K76.89 Other specified diseases of liver (principal)
CPT/HCPCS: 36415; 47000; 76942; 85610; 88307; 96360; 96361; 96374; 96375; J2250; J3010; J7030

== ENCOUNTER 2020-09-13 06:49 | Outpatient (CLI) | payer MEDICARE, SELFPAY ==
[2020-09-13 10:42] LABS: Basophils # 0.1 10^3/uL (0.0-0.1); Basophils % 0.7 %; Eosinophils # 0.1 10^3/uL (0.0-0.8); Eosinophils % 0.8 %; Hematocrit 42.1 % (42.0-52.0); Hemoglobin 13.3 g/dL (11.7-16.6); Lymphocytes # 1.1 10^3/uL (0.8-4.8); Lymphocytes % 15.1 %; Mean Corpuscular HGB Conc 31.6 g/dL (30.0-36.0); Mean Corpuscular Hemoglobin 29.6 pg (28.0-34.0); Mean Corpuscular Volume 93.6 fL (80-94); Mean Platelet Volume 11.4 fL (7.4-10.4); Monocytes # 0.7 10^3/uL (0.2-0.9); Monocytes % 8.7 %; Neutrophils # 5.44 10^3/uL (1.8-7.7); Neutrophils % 72.6 %; Nucleated Red Blood Cells % 0 %; Platelet Count 207 10^3/cmm (130-400); Red Cell Distribution Width 15.8 % (12.1-15.1); White Blood Count 7.5 10^3/uL (4.0-10.0)
[2020-09-13 11:21] LABS: Alanine Aminotransferase 38 U/L (0-41); Albumin Level 3.6 g/dL (3.5-5.2); Alkaline Phosphatase 451 IU/L (40-130); Anion Gap 18.4 (5-19); Aspartate Amino Transferase 82 U/L (0-40); Blood Urea Nitrogen 25 mg/dL (8-23); Calcium 8.2 mg/dL (8.5-10.5); Carbon Dioxide 22 mmol/L (22-29); Chloride 104 mmol/L (98-107); Globulin 2.3 g/dL (1.3-4.6); Glucose 93 mg/dL (65-115); Osmolality Calculated 292 mOsm/kg (285-295); Potassium 5.4 mmol/L (3.5-5.1); Sodium 139 mmol/L (136-145); Total Bilirubin 0.7 mg/dL (0.15-1.2); Total Protein 5.9 g/dL (6.6-8.7)
[2020-09-13 11:34] LABS: Lactate Dehydrogenase 1884 U/L (135-225)
--- NOTE | 2020-09-13 18:05 | ONC CON_ITS ---
Dr. Kapoor New Patient Note Patient: Chinmay Guerrier Unit #: [id number]: 1940 Dicatated By: Frank Kapoor M.D.Date of Visit: Sep 13, 2020 Onc MED New Patient/Consult Referring Physician: Dr. MONICA DENNIS M.D. Dr. Veto Feliciano M.D. Chief Complaint: Metastatic adenocarcinoma/suspected prostate cancer. 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 On 08/14/2020 he was seen in the emergency room because of weakness and low blood pressure. Over period of 1 to 2 months he had experienced a gradual decline in his energy/activity tolerance. He also had very poor appetite and he complained of persistent nausea. His laboratory studies showed a decline in his renal function with creatinine increased to 1.5 mg/dL compared to 1.0 mg/dL in March 2020. He also had a slightly elevated alkaline phosphatase at 139/130 IU/L. The bilirubin and the other liver enzymes were normal. Noncontrast head CT was unrevealing. Abdominal ultrasound showed multiple heterogeneous nodules throughout the liver. Further evaluation with CT abdomen/pelvis on 08/21/2020 showed innumerable hepatic lesions throughout both lobes consistent with metastatic disease. The largest lesions measured in the range of 2 to 3 cm. Also noted were multiple new sclerotic lesions throughout the visualized bony structures, consistent with metastatic disease. There was no abdominal or pelvic lymphadenopathy noted. The prostate was noted to be enlarged and heterogeneously enhancing. Bone scan on 08/27/2020 showed innumerable metastatic lesions throughout the visualized spine, most prominently in the thoracic and lumbar spine, and in the proximal ribs. There were additional metastatic lesions involving the bony pelvis and sacrum extending into the proximal femurs. There are faint areas of uptake in the proximal humeri bilaterally. On 09/06/2020 he underwent ultrasound-guided liver biopsy. The preliminary pathology report indicates that it is positive for carcinoma. Additional studies are pending. He is seen for further management. He continues to complain that he is very weak. He has virtually no activity. His ECOG score is 3. He has been forcing himself to eat with associated weight loss in the range of 15 to 20 pounds. He continues to have constant nausea. He does not have fever or night sweats. He has shortness of breath, and he has been using oxygen as needed. He has had cough for years. He reports having dull pain in the left side of his chest rating to the left shoulder blade. He also reports having some pain up under his right ribs. His acid reflux has been adequately managed with medication. He has been having constipation. Bladder function has been pretty good with his medication, though he does have nocturia. He has joint pain in his hands and feet associated with rheumatoid arthritis. He does not complain of headache. He has occasional orthostatic lightheadedness. He has numbness in his hands and feet. Past Medical History: His medical history includes abdominal aortic athersclerosis, atrial myxoma, chronic obstructive pulmonary disease, coronary artery disease, hyperlipidemia, hypertension, myocardial infarction, peripheral artery disease, rheumatoid arthritis, systolic heart failure, and tricuspid valve mass. Past Surgical History: His surgical/procedural history includes 8 back surgeries, coronary angioplasty/stent placement, appendectomy, cataract excision, iliac artery aneurysm repair, IVC filter, left shoulder surgery, and vasectomy. Medications: Albuterol Sulfate HFA Aerosol, solution Inhalation PRN, Apixaban (5 mg) Tablet Oral b.i.d., Carvedilol (3.125 mg) Tablet Oral b.i.d., Clopidogrel Bisulfate (75 mg) Tablet Oral daily, HYDROcodone-Acetaminophen (7.5-325 mg) Tablet Oral t.i.d. PRN, Isosorbide Mononitrate ER (15 mg) Tablet SR 24 HR Oral daily, Ondansetron HCl (8 mg) Tablet Oral t.i.d. PRN, Pantoprazole Sodium (40 mg) Tablet, enteric coated Oral daily, predniSONE (10 mg) Tablet Oral daily, Tamsulosin HCl (0.4 mg) Capsule Oral at bedtime Allergies: Atorvastatin Calcium, Ezetimibe, Niacin, raNITIdine HCl, Rosuvastatin Calcium, and Simvastatin. Social History: Mr. Guerrier is . He has a history of smoking up to 1-1/2 packs of cigarettes daily. He cut down a number of years ago. He currently smokes 1 or 2 cigarettes/day. He had weekend alcohol use in the past, but he quit drinking some in the range of 20 years ago. Family History: Father had COPD and at age 91. Mother had dementia. A brother and a sister have diabetes. One sister is , cause unknown to the patient. Review Of Symptoms: Constitutional - He is very weak generally, and he has very limited activity. Appetite is poor. He is forcing himself to eat. His weight is down in the range of 15 to 20 pounds. He does not have fever or night sweats. 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 He has sinus drainage all the time. No mouth sores. No sore throat or difficulty swallowing, Hematologic/Lymphatic - He bruises easily, Respiratory - He has shortness of breath. He uses oxygen as needed. He has had cough for years. No pleuritic pain or hemoptysis, Cardiovascular - He has had dull pain in the left side of his chest radiating to the left shoulder blade. He also has had pain under his right rib cage, Gastrointestinal - He has constant nausea. His acid reflux is adequately managed with medication. He has constipation with bowel movement typically every 3 to 4 days. He has not been aware of any blood in the stool. He had colonoscopy last year, Genitourinary (M) - No dysuria or hematuria. No urinary frequency. He does have nocturia. No urgency or incontinence, Musculoskeletal - He has pain in his hands and feet associated with his rheumatoid arthritis, Integumentary - No skin rash or other skin changes, Neurologic - He has occasional orthostatic lightheadedness. He has numbness and tingling in his hands and feet, Psychiatric - No anxiety or depression. No insomnia. Vital Signs: Performed on Sep 13, 2020 09:08: 9, 0, 23.52, 1.79 sq.m, 67 in, 98 %, 86 /min, 18 /min, 79/53 mm(hg) (LOW), 97.2 F (LOW), and 150.2 lbs (HIGH). Physical Examination: Constitutional - He appears generally weak and chronically ill, Eyes - Sclerae nonicteric. Conjunctivae clear, ENMT - No lesions noted in the oral cavity, Neck - No mass or thyromegaly, Hematologic/Lymphatic - No cervical, clavicular, or axillary adenopathy, Respiratory - Lungs show diminished air movement and slightly coarse breath sounds bilaterally, Cardiovascular - Heart rhythm is regular. There is no murmur, gallop, or rub noted, Abdomen - Soft. Liver is not enlarged or tender. Spleen is not palpable. There is no abdominal mass or ascites noted and there is no inguinal adenopathy, Back/Spine - No spine or CVA tenderness noted, Extremities - No edema. I am not able to palpate pedal pulses. There are scattered purpuric lesions, Integumentary - No rashes. No suspicious skin lesions noted, Neurologic - No focal neurologic deficits noted. Problem List: 1. Metastatic adenocarcinoma involving liver and bone. It is suspected to be of prostate origin, but that is yet inconclusive. 2. Rheumatoid arthritis. 3. History of hypertension, now with low blood pressure. 4. Hyperlipidemia. 5. Coronary artery disease. 6. COPD. Problems Addressed with this Encounter and Plan: Patient with metastatic adenocarcinoma with CT evidence of multiple metastatic lesions in the liver and with evidence of extensive metastatic bone involvement. He has been confirmed by liver biopsy to have metastatic adenocarcinoma. This is suspected to be of prostatic origin, but it has not yet been confirmed. He has had very significant decline in performance status and is having pretty severe nausea/anorexia despite the fact that he has already been on low-dose prednisone for his rheumatoid arthritis. I reviewed the CT and bone scan findings and images with the patient. I also reviewed the pathology findings on the biopsy, and we discussed the clinic complications. He has advanced malignancy and he has had a significant decline in his performance status. If this is metastatic prostate cancer, there will be potential for improvement with androgen deprivation therapy. If this is from some other primary site, treatment options will be very limited in the likelihood of benefit will be much lower. At least for I will await results of his further pathologic studies, but in the meantime I also will obtain additional laboratory studies to include CBC, comprehensive metabolic profile, and LDH level, and a PSA level. I also will have him start Marinol 2.5 mg twice daily for the nausea/anorexia. Signed By: Frank Kapoor M.D. <<Signature on File>>
== END 2020-09-13 06:50 | disposition home or self-care (01) ==
LOC: ONCMED 06:54
PROVIDERS: PCP Family Medicine; Visit Provider Internal Medicine Medical Oncology
DX: C61 Malignant neoplasm of prostate (principal); C78.7 Secondary malignant neoplasm of liver and intrahepatic bile duct; C79.51 Secondary malignant neoplasm of bone; M06.9 Rheumatoid arthritis, unspecified; I10 Essential (primary) hypertension; E78.5 Hyperlipidemia, unspecified; I25.10 Atherosclerotic heart disease of native coronary artery without angina pectoris; J44.9 Chronic obstructive pulmonary disease, unspecified; Z79.899 Other long term (current) drug therapy; Z79.52 Long term (current) use of systemic steroids
CPT/HCPCS: 36415; 80053; 83615; 84153; 85025; 99205

== ENCOUNTER 2020-09-18 08:34 | Outpatient (CLI) | payer MEDICARE, SELFPAY ==
[2020-09-18] MEDS: sodium chloride 0.9% 500 ML 999 ML IV (09:40)
[2020-09-18] MEDS: ondansetron 2 mg/ML SDV 2 mL 8 MG IV (09:42)
--- NOTE | 2020-09-18 17:20 | ONC CON_ITS ---
Dr. Kapoor New Patient Note Patient: Chinmay Guerrier Unit #: [id number]: 1940 Dicatated By: Frank Kapoor M.D.Date of Visit: Sep 18, 2020 Onc MED New Patient/Consult Referring Physician: Dr. MONICA DENNIS M.D. Dr. Veto Feliciano M.D. Chief Complaint: Metastatic carcinoma. History of Present Illness: This is an 79-year-old man with metastatic carcinoma involving liver and bone. A primary site has not been determined. On 08/14/2020 he was seen in the emergency room because of weakness and low blood pressure. Over period of 1 to 2 months he had experienced a gradual decline in his energy/activity tolerance. He also had very poor appetite and he complained of persistent nausea. His laboratory studies showed a decline in his renal function with creatinine increased to 1.5 mg/dL compared to 1.0 mg/dL in March 2020. He also had a slightly elevated alkaline phosphatase at 139/130 IU/L. The bilirubin and the other liver enzymes were normal. Noncontrast head CT was unrevealing. Abdominal ultrasound showed multiple heterogeneous nodules throughout the liver. Further evaluation with CT abdomen/pelvis on 08/21/2020 showed innumerable hepatic lesions throughout both lobes consistent with metastatic disease. The largest lesions measured in the range of 2 to 3 cm. Also noted were multiple new sclerotic lesions throughout the visualized bony structures, consistent with metastatic disease. There was no abdominal or pelvic lymphadenopathy noted. The prostate was noted to be enlarged and heterogeneously enhancing. Bone scan on 08/27/2020 showed innumerable metastatic lesions throughout the visualized spine, most prominently in the thoracic and lumbar spine, and in the proximal ribs. There were additional metastatic lesions involving the bony pelvis and sacrum extending into the proximal femurs. There are faint areas of uptake in the proximal humeri bilaterally. On 09/06/2020 he underwent ultrasound-guided liver biopsy. Pathology was positive for metastatic carcinoma. I had seen him initially on 09/13/2020. At that point the preliminary indication from the pathologist was that it was suspicious for metastatic prostate cancer. His laboratory studies, though, showed his PSA in normal range at 2.370 ng/mL. His updated pathology shows metastatic carcinoma which by IHC is positive for CK7, BerEp4, P63 (focal), MCK, and CEA. It is negative for CK20, CDX2, TTF-1, Napsin, PSA, Glypican-3, RCC, SOX10, and S100. The findings at this point are more suggestive of upper gastrointestinal, pancreatic, or hepatobiliary origin. He has very poor performance status, with virtually no activity now. He has persistent nausea and he has very little oral intake. His daughter indicates that he has gone downhill significantly, even since his visit here last week. I had him try a low dosage of dronabinol together with prochlorpromazine for the nausea/anorexia. As of yesterday he was not getting much benefit with that, so that he did start on a scopolamine patch last evening, but that does not seem to be helping at all. He is seen today to discuss further management. Past Medical History: His medical history consists of abdominal aortic athersclerosis, atrial myxoma, chronic obstructive pulmonary disease, coronary artery disease, hyperlipidemia, hypertension, myocardial infarction, peripheral artery disease, rheumatoid arthritis, systolic heart failure, and tricuspid valve mass. Past Surgical History: His surgical/procedural history consists of 8 back surgeries, appendectomy, cataract excision, coronary angioplasty/stent placement, IVC filter, left shoulder surgery, and vasectomy. Medications: Albuterol Sulfate HFA Aerosol, solution Inhalation PRN, Apixaban (5 mg) Tablet Oral b.i.d., Carvedilol (3.125 mg) Tablet Oral b.i.d., Clopidogrel Bisulfate (75 mg) Tablet Oral daily, HYDROcodone-Acetaminophen (7.5-325 mg) Tablet Oral t.i.d. PRN, Isosorbide Mononitrate ER (15 mg) Tablet SR 24 HR Oral daily, Ondansetron HCl (8 mg) Tablet Oral t.i.d. PRN, Pantoprazole Sodium (40 mg) Tablet, enteric coated Oral daily, predniSONE (10 mg) Tablet Oral daily, Tamsulosin HCl (0.4 mg) Capsule Oral at bedtime Allergies: Atorvastatin Calcium, Ezetimibe, Niacin, raNITIdine HCl, Rosuvastatin Calcium, and Simvastatin. Social History: Mr. Guerrier is . He has a history of smoking up to 1-1/2 packs of cigarettes daily. He cut down a number of years ago. He currently smokes 1 or 2 cigarettes/day. He had weekend alcohol use in the past, but he quit drinking some in the range of 20 years ago. Family History: Father had COPD and at age 91. Mother had dementia. A brother and a sister have diabetes. One sister is , cause unknown to the patient. Vital Signs: Performed on Sep 18, 2020 09:24: 10, 0, 67.00 in, 93 % (LOW), 124 /min (HIGH), 20 /min, 81/59 mm(hg) (LOW), 96.9 F (LOW), Performed on Sep 13, 2020 09:08: 23.52, 1.79 sq.m, and 150.2 lbs (HIGH). Lab/Imaging: Test performed on Sep 13, 2020 10:13 LDH (Total) 1884 U/L Sodium 139 mmol/L Potassium 5.4 mmol/L Chloride 104 mmol/L CO2 22 mmol/L Anion Gap 18.4 BUN 25 mg/dL Creatinine 1.7 mg/dL Cr Clearance (Est) 32.8400 mL/min Glucose 93 mg/dL Osmolality - Calculated 292 mOsm/kg Calcium 8.2 mg/dL Protein, Total 5.9 g/dL Albumin 3.6 g/dL Globulin 2.3 g/dL Bilirubin, Total 0.7 mg/dL ALT (SGPT) 38 U/L AST (SGOT) 82 U/L Alkaline Phosphatase 451 IU/L WBC 7.5 10 3/uL RBC 4.50 10 6/uL HGB 13.3 g/dL HCT 42.1 % MCV 93.6 fL MCH 29.6 pg MCHC 31.6 g/dL RDW 15.8 % Platelet Count 207 10 3/cmm MPV 11.4 fL Neutrophils 5.44 10 3/uL Lymphocytes 1.1 10 3/uL Monocytes 0.7 10 3/uL Eosinophils 0.1 10 3/uL Basophils 0.1 10 3/uL Neutrophil % 72.6 % Lymphocyte % 15.1 % Monocyte % 8.7 % Eosinophil % 0.8 % Basophils % 0.7 % NRBC % 0 % PSA 2.370 ng/mL Problem List: 1. Metastatic carcinoma involving liver and bone. Primary site has not been determined. 2. Rheumatoid arthritis. 3. History of hypertension, now with low blood pressure. 4. Hyperlipidemia. 5. Coronary artery disease. 6. COPD. Problems Addressed with this Encounter and Plan: Patient with metastatic carcinoma with CT evidence of multiple metastatic lesions in the liver and with evidence of extensive metastatic bone involvement. He has been confirmed by liver biopsy to have metastatic carcinoma. At this point the pathology is suggestive of upper gastrointestinal, pancreatic, or hepatobiliary primary. In any case, in the setting of very poor preformance status the likelihood of benefit with chemotherapy will be very low. In his situation, I think the best option is to continue with symptomatic/supportive, preferably on hospice. Patient and family are agreeable, and I will proceed with hospice referral. He will be given IV hydration and IV antiemetics today. The scopolamine will be discontinued. He will restart dronabinol/prochlorpromazine with the dronabinol dosage increased to 5 mg and the frequency increased up to 4 times a day as needed. He also will increase prednisone to 20 mg bid. His overall prognosis is very poor. Signed By: Frank Kapoor M.D. <<Signature on File>>
== END 2020-09-18 08:35 | disposition home or self-care (01) ==
LOC: ONCMED 08:35
PROVIDERS: PCP Family Medicine; Visit Provider Internal Medicine Medical Oncology
DX: C79.51 Secondary malignant neoplasm of bone (principal); C78.7 Secondary malignant neoplasm of liver and intrahepatic bile duct; C80.1 Malignant (primary) neoplasm, unspecified; M06.9 Rheumatoid arthritis, unspecified; I25.10 Atherosclerotic heart disease of native coronary artery without angina pectoris; E78.5 Hyperlipidemia, unspecified; J44.9 Chronic obstructive pulmonary disease, unspecified; Z86.79 Personal history of other diseases of the circulatory system; R03.1 Nonspecific low blood-pressure reading; Z79.899 Other long term (current) drug therapy
CPT/HCPCS: 96361; 96365; 96375; 99215; J1100; J2405; J7040